=== PATIENT | male | born 1945 | race Caucasian/White ===

== ENCOUNTER 2024-09-12 19:40 | Emergency (ER) | payer MEDICARE, BC, SELFPAY ==
[2024-09-12] VITALS (7 sets, daily range): BP systolic 121; BP diastolic 67; PULSE 107–140; RESP 16; TEMP 38.1; O2SAT 89–93; BMI 22.6
--- NOTE | 2024-09-12 21:08 | ED.GENADULT ---
HPI - General Adult General Chief complaint: Weakness Stated complaint: exhaustion, lightheaded Time Seen by Provider: 09/12/24 21:08 History of Present Illness HPI narrative: pt states feeling sick for couple weeks. Tonight more weak, not eating or drinking much today. Pt has a new cough. Pt goes to dialysis 3 times a week. No Tylenol or Ibuprofen taken at home tonight 79-year-old man presenting to the emergency department with concern of weakness and cough. History of renal failure and receives dialysis 3 times a week Has been more tired or exertionally fatigued over the last couple of weeks. Having also some lightheadedness or recently with exertion or when he goes to get up. Really became quite fatigued 2 days ago, 2 evenings ago. Did have dialysis yesterday. Also had dialysis 4 days ago. Unknown what lab work was done or when it is done and what the results were. Has not noted a fever however arrives with a temperature of 100.5?. When inquired as whether or not makes urine ?not really?. Is not having chest pain. No abdominal pain. Does have atrial fibrillation. Does not believe he has a history of heart failure. No recent medication changes. Medications reviewed later include Carvedilol 3.125 mg twice daily Omeprazole 40 mg daily Allopurinol 150 mg daily Vitamin D3 50 mcg daily Lovastatin 20 mg every evening Torsemide 40 mg b.i.d. Levothyroxine 75 mcg once daily before eating Warfarin 6 mg daily Wednesday through Wednesday Sevelamer carbonate 800 mg t.i.d. with meal RenalPlex 1 tab daily Believes INR 2 weeks ago of 2.5. Admittedly this has been up and down. Has seen Dr. Godfrey Ferreira in Cardiology Related Data Allergies Allergy/AdvReac Type Severity Reaction Status Date / Time prednisone AdvReac Mild Verified 09/12/24 20:12 Review of Systems Status of ROS: Reports: 6 or more systems reviewed and unremarkable except as noted in History and below PFSH PFSH Social History Smoking Status: Never smoker How often do you have a drink containing alcohol: never AUDIT-C Alcohol total score: 0 Non-prescribed substance use: denies use Exam Narrative: Exam Narrative: Pleasant. Easily conversant. Appears little tired. Subtly labored in his breathing but not tachypneic. Cranial nerves 2-12 intact. Lungs appear to be clear. Heart in tachycardic in what seems to be a regular rhythm maybe with occasional ectopic beat. Extremities are well perfused without edema. Skin feels little warm. Abdomen is soft nontender. Const: Vital Signs, click to edit/add: Vital Signs - 24 hr 09/12/24 20:07 09/12/24 21:00 09/12/24 21:30 Temperature 100.5 F H Pulse Rate 107 H 118 H Pulse Rate [Left P ulse Oximeter] 133 H Respiratory Rate 16 Blood Pressure Blood Pressure [Ri ght Upper Arm] 121/67 Pulse Oximetry 93 93 92 Oxygen Delivery Me thod Room Air 09/12/24 22:00 09/12/24 22:30 09/12/24 23:00 Temperature Pulse Rate 140 H 112 H 110 H Pulse Rate [Left P ulse Oximeter] Respiratory Rate Blood Pressure Blood Pressure [Ri ght Upper Arm] Pulse Oximetry 89 92 91 Oxygen Delivery Me thod 09/12/24 23:30 09/13/24 00:00 09/13/24 00:30 Temperature Pulse Rate 114 H 106 H 95 Pulse Rate [Left P ulse Oximeter] Respiratory Rate Blood Pressure Blood Pressure [Ri ght Upper Arm] Pulse Oximetry 89 89 91 Oxygen Delivery Me thod 09/13/24 01:00 09/13/24 01:25 09/13/24 01:27 Temperature 98.3 F Pulse Rate 120 H Pulse Rate [Left P ulse Oximeter] Respiratory Rate 18 Blood Pressure 97/68 Blood Pressure [Ri ght Upper Arm] Pulse Oximetry 91 Oxygen Delivery Me thod 09/13/24 01:31 09/13/24 01:32 Temperature Pulse Rate 105 H 112 H Pulse Rate [Left P ulse Oximeter] Respiratory Rate Blood Pressure 113/65 Blood Pressure [Ri ght Upper Arm] Pulse Oximetry 92 91 Oxygen Delivery Me thod Documenting provider has reviewed patient's vital signs: yes Course Vital Signs Vital signs: Initial Vital Signs Temperature 100.5 F H 09/12/24 20:07 Temperature Source Temporal Artery Scan 09/12/24 20:07 Pulse Rate 133 H 09/12/24 20:07 Pulse Rhythm Regular 09/12/24 20:07 Respiratory Rate 16 09/12/24 20:07 Blood Pressure 121/67 09/12/24 20:07 Blood Pressure Mean 85 09/12/24 20:07 Blood Pressure Position Sitting 09/12/24 20:07 Pulse Oximetry 93 09/12/24 20:07 Oxygen Delivery Method Room Air 09/12/24 20:07 Vital Signs Temperature 100.5 F H 09/12/24 20:07 Pulse Rate 133 H 09/12/24 20:07 Respiratory Rate 16 09/12/24 20:07 Blood Pressure 121/67 09/12/24 20:07 Pulse Oximetry 93 09/12/24 20:07 Oxygen Delivery Method Room Air 09/12/24 20:07 Temperature 98.3 F 09/13/24 01:25 Pulse Rate 112 H 09/13/24 01:32 Respiratory Rate 18 09/13/24 01:25 Blood Pressure 113/65 09/13/24 01:31 Pulse Oximetry 91 09/13/24 01:32 Oxygen Delivery Method Room Air 09/12/24 20:07 Medications Administered Medications: Discontinued Medications Generic Name Dose Route Start Last Admin Trade Name Freq PRN Reason Stop Dose Admin Sodium Chloride 1,000 mls @ 1,000 mls/hr 09/12/24 21:39 09/12/24 23:41 0.9 % Sodium Chloride 1000 Ml IV 09/12/24 22:38 Infused .Q1H ONE Infusion Metoprolol Tartrate 5 mg 09/13/24 01:37 09/13/24 01:46 Metoprolol Tartrate 1 Mg/Ml Inj IVP 09/13/24 01:38 5 mg ONCE ONE Administration Oseltamivir Phosphate 75 mg 09/13/24 01:45 09/13/24 01:56 Oseltamivir Phosphate 75 Mg Capsule PO 09/13/24 01:46 75 mg ONCE ONE Administration Medical Decision Making MDM Narrative Medical decision making narrative: Considering community prevalence I suspect probably has influenza a. Would screen for this. And indeed this returned as positive which I discussed during my initial conversation. They emphasized that son was concerned about his more recent health status. Concern of dehydration. We decided to do further workup. Unsure what recent labs have been. Oxygen level was noted to be 93%. I think should do a chest x-ray. May have pleural effusion or pneumonia. Check for electrolyte abnormalities. Exacerbation of heart failure? Is tachycardic. Is this infectious etiology or AFib with RVR otherwise? No pleuritic pain. I think less likely, and is anticoagulated, to have pulmonary embolus. Given a L of normal saline. One-view portable chest x-ray independently reviewed by me looks to show a small pleural effusion right side. Radiology over-read below INDICATION: Fever, cough, influenza TECHNIQUE: Chest radiograph 1 view COMPARISON: None FINDINGS: The sensitivity and specificity of the exam are moderately limited by the patient`s body habitus. Mediastinum: The mediastinum is normal in appearance. The cardiac silhouette is at upper limits of normal in size. Lung: Mild consolidation with small right pleural effusion noted. There is a 7 mm calcified granuloma present in the left apex. No pneumothorax is identified. Bone and Soft tissue: Unremarkable for age. IMPRESSION: 1. Mild consolidation with small right pleural effusion noted. Dictated by Panchito Kee MD @ 09/12/2024 10:21:33 PM White count is not elevated. Hemoglobin sounds to be steady at 11.2. Chemistries with a potassium of 5.2; not unexpected. Creatinine 5.9. EKG looks to show atrial fibrillation with RVR. Probably this effusion is been contributing to some exertional fatigue for some time. Although AFib with RVR could be doing this as well. Unaware of this as a prior diagnosis and unaware of prior imaging. On reassessment does feel better. Lightheadedness to sitting has resolved. Oxygen saturations though have been around 89-91 %. He is unsure what his baseline is. Pulse is generally in the 1 teens though can drop into the upper 90s and go up into the 120s. Decided to clarify this effusion and possible consolidation further with IV contrast chest CT. TECHNIQUE: CT chest 75 cc of Isovue 370 IV contrast. COMPARISON: Same day chest radiograph. FINDINGS: CHEST: Cardiovascular structures: Heart size is normal. Thoracic aorta and main pulmonary artery are normal in caliber. Atherosclerotic calcifications of the aorta and branch vessels. Coronary artery calcifications. Mediastinum and gabrielle: A couple of borderline enlarged mediastinal lymph nodes, for example right paratracheal node measuring 1.0 cm in the short axis (). Calcified hilar lymph nodes consistent with prior granulomatous disease. Lungs and pleura: Moderate right-sided pleural effusion with associated right lower lobe consolidation that may represent compressive atelectasis. Multiple calcified granulomas. No overtly suspicious nodules. Chest wall and axilla: No mass or adenopathy. Hypertrophied appearance of the right thyroid lobe, but no discrete lesion. Bones: Multiple spinal compression deformities that may be chronic, the most substantial of which are T10 and L1. Upper abdomen: Scattered hepatic and splenic calcified granulomas. Atrophic kidneys. IMPRESSION: 1. Moderate right pleural effusion with adjacent right lower lobe consolidation suggestive of compressive atelectasis. Superimposed pneumonia could not be excluded, if clinically suspected. 2. A couple of borderline enlarged mediastinal lymph nodes, indeterminate. Please note that all CT scans at this facility use dose modulation, iterative reconstruction, and/or weight-based dosing when appropriate to reduce radiation dose to as low as reasonably achievable. Dictated by Rolly Ferguson MD @ 09/12/2024 11:47:19 PM Did add on troponin though with creatinine 5.9 unsure what to make of this. Troponin I is 0.12. I think that this pleural effusion is been involving for some weeks. Unclear whether this tachycardia is more of an AFib with RVR triggered by new influenza diagnosis or stress related to pleural compromise. I think less likely that there is a bacterial infiltrate and that the consolidation is more likely related to atelectasis. While his preference is to return home, would be prudent to find a hospital bed somewhere for Mr. Alex. Unfortunately do not do dialysis here. Did discuss with [facility] for potential admission. Has been a dearth of hospital beds but 1 is potentially available at [facility]. In this conversation did talk with Cardiology about management for Mr. Alex. In agreement that would benefit from hopitalization and multispecialty care. Recommendations are to control heart rate a little bit more probably with addition of metoprolol. We will test dose metoprolol IV followed by oral 25-50mg if responds well. Also given singular dose of Tamiflu 75 mg. Renally dosed with estimated creatinine clearance would be 75 mg once daily. Received a call back from [facility] hospitalist. Apparently medical beds are available with overweight. Wanting him to be in cardiac bed which is not available currently. Chest x-ray obtained from chart review from and done on 12/20/2022 is read as a ?new small right pleural effusion with adjacent consolidation. Clear left lung? 0200 -- Have managed to confirm a bed with a 5-6 hour wait now at [facility]. Handing off at change of shift. Pending is metoprolol effect. Medical Records Medical records reviewed: Yes I reviewed the patient's medical records Lab Data Lab results reviewed: Yes I reviewed the patient's lab results Labs: Lab Results 09/12/24 09/12/24 09/12/24 Range/Units 20:20 21:50 23:38 WBC 8.49 (4.50-11.00) K/uL RBC 3.40 L (4.30-5.90) m/uL Hgb 11.2 L (13.5-17.5) gm/dL Hct 34.8 L (37.0-53.0) % MCV 102 H (80-100) fL MCH 33 (26-34) pg MCHC 32 (32-36) gm/dL RDW Coeff of Teo 13.6 (11.5-15.5) % Plt Count 216 (140-440) K/uL Neut % (Auto) 79.0 H (42.0-72.0) % Lymph % (Auto) 13.1 L (20-44) % Craven % (Auto) 7.4 (0.0-11.0) % Eos % (Auto) 0.0 (0.0-7.0) % Baso % (Auto) 0.4 (0.0-3.0) % Neut # (Auto) 6.70 (1.7-7.0) K/uL Lymph # (Auto) 1.10 (0.90-2.90) K/uL Craven # (Auto) 0.60 (0.00-0.90) K/UL Eos # (Auto) 0.00 (0.00-0.50) K/uL Baso # (Auto) 0.03 (0.00-0.30) K/uL Abs Immat Gran (auto) 0.01 (0.00-0.30) K/uL Imm/Tot Granulo (auto) 0.1 % INR 2.67 H (0.91-1.10) Sodium 133 L (135-149) mmol/L Potassium 5.2 H (3.6-5.1) mmol/L Chloride 96 (96-114) mmol/L Carbon Dioxide 22 (20-32) mmol/L Anion Gap 15 (7-15) mEq/L BUN 37 H (7-30) mg/dL Creatinine 5.9 H (0.5-1.5) mg/dL Estimated Creat Clear 11.09 Estimated GFR 9 ml/min Glucose 132 H (60-115) mg/dL Calcium 8.5 (8.4-10.6) mg/dL Troponin I 0.12 H* (0.01-0.04) ng/mL NT-Pro-B Natriuret Pep 16473 pg/mL SARS-CoV-2 (PCR) Negative SARS-CoV-2 (Negative) Influenza Type A (PCR) POSITIVE PCR FLU A A (Negative) Influenza Type B (PCR) Negative PCR FLU B (Negative) RSV (PCR) Negative PCR RSV (Negative) Lab Acknowledgement Test Added 09/13/24 Range/Units 00:10 WBC (4.50-11.00) K/uL RBC (4.30-5.90) m/uL Hgb (13.5-17.5) gm/dL Hct (37.0-53.0) % MCV (80-100) fL MCH (26-34) pg MCHC (32-36) gm/dL RDW Coeff of Teo (11.5-15.5) % Plt Count (140-440) K/uL Neut % (Auto) (42.0-72.0) % Lymph % (Auto) (20-44) % Craven % (Auto) (0.0-11.0) % Eos % (Auto) (0.0-7.0) % Baso % (Auto) (0.0-3.0) % Neut # (Auto) (1.7-7.0) K/uL Lymph # (Auto) (0.90-2.90) K/uL Craven # (Auto) (0.00-0.90) K/UL Eos # (Auto) (0.00-0.50) K/uL Baso # (Auto) (0.00-0.30) K/uL Abs Immat Gran (auto) (0.00-0.30) K/uL Imm/Tot Granulo (auto) % INR (0.91-1.10) Sodium (135-149) mmol/L Potassium (3.6-5.1) mmol/L Chloride (96-114) mmol/L Carbon Dioxide (20-32) mmol/L Anion Gap (7-15) mEq/L BUN (7-30) mg/dL Creatinine (0.5-1.5) mg/dL Estimated Creat Clear Estimated GFR ml/min Glucose (60-115) mg/dL Calcium (8.4-10.6) mg/dL Troponin I (0.01-0.04) ng/mL NT-Pro-B Natriuret Pep pg/mL SARS-CoV-2 (PCR) (Negative) Influenza Type A (PCR) (Negative) Influenza Type B (PCR) (Negative) RSV (PCR) (Negative) Lab Acknowledgement Test Added ECG Data Attestation: I personally reviewed and interpreted this ECG as follows: (Atrial fibrillation with RVR at a rate of 120. Some PVCs?) Discharge Plan Discharge Clinical Impression: Influenza A, Pleural effusion, Renal failure, Heart failure Follow Up/Referrals: Provider,Not a Local [Primary Care Provider] -
[2024-09-12 21:09] LABS: PCR FLU A POSITIVE PCR FLU A (Negative); PCR FLU B Negative PCR FLU B (Negative); PCR RSV Negative PCR RSV (Negative); SARS PCR* Negative SARS-CoV-2 (Negative)
--- NOTE | 2024-09-12 21:39 | CRLHL7_ITS ---
For Patients: As a result of the Cures Act, medical imaging exams and procedure reports are released immediately into your electronic medical record. You may view this report before your referring provider. If you have questions, please contact your health care provider. INDICATION: Fever, cough, influenza TECHNIQUE: Chest radiograph 1 view COMPARISON: None FINDINGS: The sensitivity and specificity of the exam are moderately limited by the patient`s body habitus. Mediastinum: The mediastinum is normal in appearance. The cardiac silhouette is at upper limits of normal in size. Lung: Mild consolidation with small right pleural effusion noted. There is a 7 mm calcified granuloma present in the left apex. No pneumothorax is identified. Bone and Soft tissue: Unremarkable for age. IMPRESSION: 1. Mild consolidation with small right pleural effusion noted. Dictated by Panchito Kee MD @ 09/12/2024 10:21:33 PM Dictated by: Panchito Kee MD @ 09/12/2024 22:21:38 (Electronically Signed)
--- OUTSIDE RECORDS SUMMARY | 2024-09-12 21:51 | XMS_ITS | Clinical Summary ---
Author Organization [employer] [facility] Address [place], [place] [address] Care Team Providers Care Post Doc Fellowship Name Role Phone Simon Baxter MD Unavailable [phone] Carolee Mohamud MD Primary Care Provider + Allergies Active Allergy Reactions Criticality Noted Date Comments Pseudoephedrine Constipation,Urinary Retention Unknown 05/09/2015 Could not urinate on medication Medications cholecalciferol (VITAMIN D3) 2,000 unit capsule Take 1 Cap by mouth. Active allopurinoL (ZYLOPRIM) 300 mg tablet Take 150 mg by mouth once daily. 022 Active carvediloL (COREG) 6.25 mg tablet two times daily with meals. 1/2 tablet BID 0 022 Active sevelamer carbonate (RENVELA) 800 mg tab tablet Take 1 Tablet by mouth. 023 Active RenaPlex-D 800 mcg-12.5 mg -2,000 unit tab Take 1 Tablet by mouth once daily. Active torsemide (DEMADEX) 20 mg tablet Take 20 mg by mouth two times daily. TAKE 2 TABLETS BY MOUTH TWICE A DAY 023 Active levothyroxine (SYNTHROID) 88 mcg tabletIndications:Hypot hyroidism (acquired),Elevated TSH Take 1 Tablet (88 mcg) by mouth before breakfast. 90 Tablet 3 024 Active lovastatin (MEVACOR) 20 mg tabletIndications:Pure hypercholesterolemia Take 1 Tablet (20 mg) by mouth once daily with evening meal. 90 Tablet 3 024 Active omeprazole (PRILOSEC) 40 mg Delayed-Release capsuleIndications:Duod enal ulcer Take 1 Capsule (40 mg) by mouth once daily. 90 Capsule 3 024 Active warfarin (COUMADIN) 2 mg tabletIndications:Parox ysmal atrial fibrillation (HC),Anticoagulation monitoring, INR range 2-3 Take by mouth 8 mg (2 mg x 4) every Tue; 6 mg (2 mg x 3) all other days in the evening OR as directed 286 Tablet 025 Active warfarin (COUMADIN) 2 mg tabletIndications:Parox ysmal atrial fibrillation (HC),Anticoagulation monitoring, INR range 2-3 Take by mouth 8 mg (2 mg x 4) every Tue; 6 mg (2 mg x 3) all other days in the evening OR as directed 024 2024 Discontinued Active Problems Problem Noted Date Diagnosed Date Pulmonary hypertension, unspecified 07/11/2024 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 ACP discussion held with patient Patient Is able to make complex medical decisions on their own behalf at this time.. Summary of today's discussion: Is understanding of his current conditions and knows that he likely has 5 or so years left depending on his ESRD course Prognosis: Current prognosis shared during this discussion. Prognosis at this time is a few years. Wishes: The patient/family expressed goals/wishes in this discussion are: Selective treatment Health care values: staying at home (patient and are thinking of selling their single-family home and moving to a long-term apartment) Resuscitation/Code Status: Resuscitation/Code Status wishes were discussed with expressed wishes to be DNR - allow a natural .. Recommendation(s) provided during this discussion: bring copy of health care directive to be scanned to his chart ACP Documents: Documents completed during the course of today's discussion are: None Time spent in Advance Care Planning discussion: 10 min Carolee Harris MD .................... 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 Resistant hypertension, finally well controlled! - Cont carvedilol 3.125 twice daily (unable to titrate up due to bradycardia), chlorthalidone 25, lisinopril 40, amlodipine 10 and hydralazine 100 three times a day . Advised continued efforts at weight loss for better blood pressure control. Pure hypercholesterolemia 06/02/2007 Overview (04/18/2009): Ldl 119 03/30 LDL Cholesterol 127 on 04/16/09 Impotence of organic origin 06/02/2007 Cervicalgia 06/02/2007 Overview (04/05/2008): Ramsey spinal stenosis with radiculopathy and no pain in neck. No surgery- yet. Has thenar eminence wasting and EMG normal MRI cspine and brachial plexus Gout, unspecified 06/02/2007 Abnormal involuntary movements(781.0) 06/02/2007 Benign prostatic hyperplasia with urinary retent ion Resolved Problems Problem Noted Date Diagnosed Date Resolved Date Acute renal failure (ARF) 10/19/2017 Acute diarrhea 10/19/2017 01/27/2021 CKD (chronic kidney disease) stage 3, GFR 30-59 ml/min 05/01/2010 01/27/2021 Overview (05/01/2010): 05/02 46 Screening PSA (prostate specific antigen) 04/16/2009 09/26/2016 Overview (04/18/2009): PSA 03/31 3.9 Tobacco use disorder 06/02/2007 014 health maintenance 06/02/2007 4 Overview (06/02/2007): Lipids 07/27 224,40/151; 10/26 167,35/120; 09/29 183,39/116; Flex sig 12/22 negative; PSA 06/26 2.6, 07/27 2.9 Encounters Date Type Department Care Team Description 08/29/2024 11:10 AM TECHNICAL EXPERT Orders Only [facility] [address] [place] [address] Lab 08/29/2024 Anticoagulation (warfarin) [facility] [address] [facility] [place] [address] [facility] Anticoagulation 08/29/2024 Travel 08/29/2024 Refill [facility] [address] [place] [address] Carolee Mohamud MD Refill Request (Warfarin) 08/01/2024 11:00 AM TECHNICAL EXPERT Orders Only [facility] [address] [place] [address] Lab 08/01/2024 Telephone [facility] [address] [place] [address] Carolee Mohamud MD Anticoagulation (Annual AC Re-enrollment) 08/01/2024 Anticoagulation (warfarin) [facility] [address] [place] [address] [facility] [place] Anticoagulation 08/01/2024 Travel 07/11/2024 10:05 AM TECHNICAL EXPERT Office Visit [facility] [address] [place] [address] Carolee Mohamud MD Medication Management 07/11/2024 Telephone [facility] [address] [facility] [place] [address] Carolee Mohamud MD Anticoagulation (BPA OMEPRAZOLE) 07/11/2024 Travel 07/11/2024 Refill [facility] [address] [facility] [place] [address] Carolee Mohamud MD Refill Request (Lovastatin) 07/07/2024 Refill [facility] [address] [facility] [place] [address] Carolee Mohamud MD Refill Request (lovastatin) 07/04/2024 11:10 AM TECHNICAL EXPERT Orders Only [facility] [address] [facility] [place] [address] Lab 07/04/2024 Anticoagulation (warfarin) [facility] [address] [facility] [place] [address] [facility] [place] Anticoagulation 07/04/2024 Travel 06/23/2024 Telephone [facility] [address] [facility] [place] [address] Carolee Mohamud MD Anticoagulation (Lab Orders ) 06/15/2024 11:10 AM CDT Orders Only [facility] [address] [facility] [place] [address] Lab 06/15/2024 Anticoagulation (warfarin) [facility] [address] [facility] [place] [address] [facility] [place] Anticoagulation 06/15/2024 Travel 06/12/2024 Telephone [facility] [address] [facility] [place] [address] Carolee Mohamud MD Anticoagulation (Chart Update lab orders/[facility] ) from Last 3 Months Immunizations Name Administration Dates Next Due COVID-19 vaccine (Register My Info 30mcg/0.3mL) MIREYA CARDOAN 06/06/2021,11/07/2020,10/17/2020 Hep B (Hepatitis B (Adult) Recombinant Adjuvanted) 05/19/2023,03/19/2023,02/12/2023,2022 Influenza Virus, Unspecified 06/11/2023, 04/23/2012,08/02/2008,2006 Influenza, High-dose Inactivated 020,04/29/2017,06/24/2015,2013 Influenza, IIV3 (Age >=3 years) 05/19/20 13,05/27/2012,04/23/2012,2007,07/11/2007,07/28/2006,08/05/2005 Influenza, Inactivated AIIV4 (Age 65+ Years) Preserv Free 08/10/2022,07/25/2021 Influenza, RIV3 (Age =>18 Years) 06/02/2024 Influenza, Whole Virus 07/27/2003 Pneumococcal Poly,23-Valent (Pneumovax) 05/27/2012 Pneumococcal conj 13-Valent (Prevnar 13) 06/03/2014,05/07/2010 Pneumococcal, Unspecified 04/23/2012 Td (Age >=7 Years) 08/05/2005 Tdap 08/11/2011 Zoster (Zostavax-ZVL, live) 10/18/2011 Family History Medical History Relation Name Comments Alcohol/Drug Father Other Mother bowel obstructi on Relation Name Status Comments Father Mother Social History Tobacco Use Types Packs/Day Years Used Date Smoking Tobacco: Former Cigarettes 0.5 30 0 08/23/1976 - 08/23/2006 Smokeless Tobacco: Never Tobacco Cessation:Counseling Given: Yes Comments:No exposure Alcohol Use Standard Drinks/Week Comments No 0 (1 standard drink = 0.6 oz pur e alcohol) PHQ-2 Answer Date Recorded PHQ-2 TOTAL SCORE 0 07/11/2024 Social Connections Answer Date Recorded Do you often feel lonely or isolated from those around you? 0 07/11/2024 Financial Resource Strain Answer Date R ecorded Difficulty of Paying Living Expenses 3 07/11/2024 Difficulty of Paying Living Expenses Not on file 07/11/2024 Food Insecurity Answer Date Recorded Do you worry your food will run out before you are able to buy more? 1 07/11/2024 Transportation Needs Answer Date Record ed Does lack of transportation keep you from medica l appointments? 1 07/11/2024 Does lack of transportation keep you from work, meetings or getting things that you need? 1 07/11/2024 Housing Stability Answer Date Recorded What is your housing situation today? 1 07/11/2024 Utilities Answer Date Recorded Do you have trouble paying f or utilities (for example, heat, electricity, water, phone)? 1 07/11/2024 Sex and Gender Information Value Date Recorded Sex Assigned at Not on file Legal Sex Male 5:24 AM TECHNICAL EXPERT Gender Identity Not on file Sexual Orientation Not on file Obstetrics History Last Filed Vital Signs Vital Sign Reading Time Taken Comments Blood Pressure 116/64 07/11/2024 10:07 AM TECHNICAL EXPERT Pulse 75 07/11/2024 10:07 AM TECHNICAL EXPERT Temperature 35.9 C (96.6 F) 12/20/2022 6:20 PM CDT Respiratory Rate 16 12/20/2022 6:20 PM CDT Oxygen Saturation 99% 07/11/2024 10:07 AM TECHNICAL EXPERT Inhaled Oxygen Concentration - - Weight 83.3 kg (183 lb 9.6 oz) 07/11/2024 10:07 AM TECHNICAL EXPERT Height 184.8 cm (6' 0.75) 07/11/2024 10:[address] Body Mass Index 24.39 07/11/2024 10:07 AM TECHNICAL EXPERT Plan of Treatment Upcoming Encounters Date Type Department Care Team (Late st Contact Info) Description 09/19/2024 11:00 AM TECHNICAL EXPERT Appointment [facility] [address] [facility] [address] 09/28/2024 11:00 AM TECHNICAL EXPERT Office Visit [facility] [address] [place] [id number] Godfrey Ferreira MD [address] [place] [address] 10/10/2024 10:50 AM TECHNICAL EXPERT Orders Only [facility] [address] [place] [address] Health Maintenance Due Date Last Done Comments Zoster (shingles) series for age 50+ (2 of 3) 12/13/2011 10/18/2011 RSV vaccine for adults or (1 - 1-dose 75+ series) 2018 Tetanus booster 08/11/2021 08/11/2011, 08/05/2005 Medicare Wellness for age 65+ 01/28/2022, 02/06/2019, 12/20/2017 COVID-19 vaccine series ( season) 2024 06/06/2021, 11/07/2020, 10/17/2020 BMI (ht and wt on same day) for age 18+ 07/11/2025 07/11/2024, 06/29/2023, 06/22/2022, Additional history exists Depression screening for age 12+ 07/11/2025 07/11/2024, 07/11/2024, 06/29/2023, Additional history exists Tdap Completed 08/11/2011 Pneumococcal series for age 50+ Completed 06/03/2014, 05/27/2012, 04/23/2012, Additional history exists Influenza for age 65+ Completed 06/02/2024 , 06/11/2023, 08/10/2022, Additional history exists Medical Devices Implanted Type Area Optical Glass Inspector Device Identifier Shelf Expiration Date Model / Serial / Lot Lens, Cataract [id number] - [id number] Implanted:Qty: 1 on 05/16/2013 by Simon Baxter MD at [facility] Left: Eye R-UNKNOWN 03/15/2017 ZCB00 / [id number] / NA Lens, Cataract Zcb00 - [id number] Implanted:Qty: 1 on 05/30/2013 by Simon Baxter MD at [facility] Right: Eye R-UNKNOWN 12/28/2016 ZCB00 / / [id number] Procedures Procedure Name Priority Date/Time Associated Diagnosis Comments INR,POCT Routine 08/29/2024 11:10 AM TECHNICAL EXPERT Paroxysmal atrial fibrillation (HC) Anticoagulation monitoring, INR range 2-3 INR,POCT Routine 08/01/2024 10:37 AM TECHNICAL EXPERT Paroxysmal atrial fibrillation (HC) Anticoagulation monitoring, INR range 2-3 LIPID PANEL Routine 07/11/2024 11:04 AM TECHNICAL EXPERT Pure hypercholesterolemia TSH WITH REFLEX Routine 07/11/2024 11:04 AM TECHNICAL EXPERT Hypothyroidism (acquired) INR,POCT Routine 07/04/2024 11:16 AM TECHNICAL EXPERT Paroxysmal atrial fibrillation (HC) Anticoagulation monitoring, INR range 2-3 PROTIME-INR Routine 06/15/2024 11:24 AM CDT Paroxysmal atrial fibrillation (HC) Anticoagulation monitoring, INR range 2-3 from Last 3 Months Results * (ABNORMAL) INR - POCT [[id number]] - Standing Order (08/29/2024 11:10 AM TECHNICAL EXPERT) Only the most recent of3 resultswithin the time period is included. INR 2.5(H) ratio [facility] (Urgent [facility]) Comment: INRs >2.9 may be falsely elevated in patients receiving either unfractionated Heparin or Low Molecular Weight Heparin. Follow up testing in a hospital laboratory may be helpful if clinically indicated. INR results of > or = 5.0 should be verified using the standard venipuncture procedure. Reference Range 0.9-1.1 Moderate-intensity Warfarin Therapy 2.0-3.0 Higher-intensity Warfarin Therapy 3.0-4.0 PROTHROMBIN TIMEP 30.4(H) 10.5 - 13.1 sec [facility] (Urgent [facility]) Comment: Point of care fingerstick Prothrombin Time/INR results may vary from venous Prothrombin Time/INR methodologies. Any results exhibiting inconsistency with the patient's clinical status should be repeated using a venous Prothrombin Time/INR method. Blood BLOOD SPECIMEN / Unknown 08/29/2024 11:10 AM TECHNICAL EXPERT 08/29/2024 11:11 AM TECHNICAL EXPERT Carolee Mohamud MD LABORATORY Final Re sult [facility] [address] [place] [address], [place] [phone] [facility] (Urgent [facility]) [address] [place] [address] * TSH WITH REFLEX (07/11/2024 11:04 AM TECHNICAL EXPERT) TSH W/REFLEX TO FT4 3.14 0.40 - 4.50 mIU/L [facility] Blood BLOOD SPECIMEN / Unknown 07/11/2024 11:04 AM TECHNICAL EXPERT 07/11/2024 11:05 AM TECHNICAL EXPERT Narrative [facility] - 07/12/2024 4:24 AM TECHNICAL EXPERT FASTING:YES FASTING: YES us Carolee Mohamud MD CHEMISTRY Final Re sult [facility] [place] [facility] [address] [place] [address], [facility] [address] [place] [address] * (ABNORMAL) LIPID PANEL (07/11/2024 11:04 AM TECHNICAL EXPERT) CHOLESTEROL, TOTAL 160 <200 mg/dL [facility] HDL CHOLESTEROL 38(L) > OR = 40 mg/dL [facility] TRIGLYCERIDES 123 <150 mg/dL [facility] LDL-CHOLESTEROL 100(H) mg/dL (calc) [facility] Comment: Reference range: <100 Desirable range <100 mg/dL for primary prevention; <70 mg/dL for patients with CHD or diabetic patients with > or = 2 CHD risk factors. LDL-C is now calculated using the Altaf-Nino calculation, which is a validated novel method providing better accuracy than the Friedewald equation in the estimation of LDL-C. Altaf SS et al. NATE. 2013;310(19): 1866-2102 (http://education.MeMeMe/faq/VLN067) CHOL/HDLC RATIO 4.2 <5.0 (calc) [facility] NON HDL CHOLESTEROL 122 <130 mg/dL (calc) [facility] Comment: For patients with diabetes plus 1 major ASCVD risk factor, treating to a non-HDL-C goal of <100 mg/dL (LDL-C of <70 mg/dL) is considered a therapeutic option. Blood BLOOD SPECIMEN / Unknown 07/11/2024 11:04 AM TECHNICAL EXPERT 07/11/2024 11:05 AM TECHNICAL EXPERT Narrative [facility] - 07/12/2024 4:24 AM TECHNICAL EXPERT FASTING:YES FASTING: YES Carolee Mohamud MD CHEMISTRY Final Re sult Performing Organization Address [facility] de Phone Number [employer] [facility] [address] [place] [address], [facility] [address] [place] [address] * (ABNORMAL) PROTIME-INR (06/15/2024 11:24 AM CDT) INR 3.6(H) <1.3 06/15/2024 12:26 PM CDT [facility] PROTIME 41.3(H) 10.6 - 12.4 sec 06/15/2024 12:26 PM CDT [facility] Blood BLOOD SPECIMEN / Unknown Venipuncture / Unknown 06/15/2024 11:24 AM CDT 06/15/2024 11:26 AM CDT Narrative [facility] - 06/15/2024 12:26 PM CDT Therapeutic Range 2.0-3.0 for most anticoagulated patients 2.5-3.5 or 4.0 for high risk patients The INR is only used for patients on stable oral anticoagulant therapy. It makes no significant contribution to the diagnosis or treatment of patients whose Protime is prolonged for other reasons. INR results are increased when heparin levels exceed 1.0 U/mL, which corresponds to an aPTT >125 seconds if the patient is on UFH. Carolee Mohamud MD HEMATOLOGY Final Re sult [facility] [address] [place] [address], [place] [phone] from Last 3 Months Insurance [phone] [place] [address] MEDICARE PART B HB ONLY MEDICARE PART A HB ONLY MEDICARE PB ONLY [facility] [id number] [place] [address] MEDICARE PART A HB ONLY MEDICARE PART B HB ONLY [employer] HB ONLY Advance Directives * Full Code (Latest Code Status on File) Date Activated Date Inactivated Comments 11/18/2017 10:59 AM 11/19/2017 5:40 PM * Full Code Date Activated Date Inactivated Comments 10/19/2017 1:31 AM 10/27/2017 4:53 PM * Full Code Date Activated Date Inactivated Comments 11/19/2016 11:55 AM 11/19/2016 4:12 PM Question Answer Comments Code Status Discussion: Discussed * Full Code Date Activated Date Inactivated Comments 11/19/2016 8:28 AM 11/19/2016 11:55 AM * Full Code Date Activated Date Inactivated Comments 05/30/2013 8:47 AM 05/30/2013 1:01 PM Care Teams Post Doc Fellowship Relationship Specialty Start Date End Date Carolee Mohamud MD [address] [place] [address] PCP - General Family Practice 12/24/21 Simon Baxter MD Ophthalmology Surgery 05/08/13
--- OUTSIDE RECORDS SUMMARY | 2024-09-12 21:51 | XMS_ITS ---
Author Name Interface, [id number] l[employer] Address [address] [place] [address] [address] [address] [facility] Oncology Address [address] [facility] [address] [address] Care Team Providers Care Briquette Maker Name Role Phone Paulino Garduno Unavailable Unavailable Allergies and Adverse Reactions Medication/Group Name Reaction Severity Date pseudoephedrine 11/06/2022 Plan Date Type Value 04/23/2023 APPOINTMENT OV 20 MIN 04/23/2023 APPOINTMENT INJECTION 15 MIN 04/23/2023 APPOINTMENT LAB 15 MIN 03/26/2023 APPOINTMENT INJECTION 15 MIN 03/26/2023 APPOINTMENT LAB 15 MIN 02/26/2023 APPOINTMENT INJECTION 15 MIN 02/26/2023 APPOINTMENT LAB 15 MIN 01/29/2023 APPOINTMENT INJECTION 15 MIN 01/29/2023 APPOINTMENT LAB 15 MIN 01/01/2023 APPOINTMENT INJECTION 15 MIN 01/01/2023 APPOINTMENT LAB 15 MIN 12/04/2022 APPOINTMENT INJECTION 15 MIN 12/04/2022 APPOINTMENT LAB 15 MIN 11/06/2022 APPOINTMENT INJECTION 15 MIN 11/06/2022 APPOINTMENT LAB 15 MIN 11/06/2022 APPOINTMENT OV 20 MIN 11/06/2022 LABORDER CMP 11/06/2022 LABORDER Ferritin panel 11/06/2022 LABORDER Iron profile 11/06/2022 LABORDER Hgb Panel 12/04/2022 LABORDER Hgb Panel 01/01/2023 LABORDER Ferritin panel 01/01/2023 LABORDER Iron profile 01/01/2023 LABORDER CMP 01/01/2023 LABORDER Hgb Panel 01/29/2023 LABORDER Hgb Panel 02/26/2023 LABORDER Ferritin panel 02/26/2023 LABORDER Hgb Panel 02/26/2023 LABORDER Iron profile 02/26/2023 LABORDER CMP 03/26/2023 LABORDER Hgb Panel 04/23/2023 LABORDER Ferritin panel 04/23/2023 LABORDER Hgb Panel 04/23/2023 LABORDER Iron profile [facility] Reason for Visit LAB 15 MIN Encounters Date Name 11/06/2022 Iron deficiency anem ia, erythropoietin deficiency Immunizations Date Name Route Dose Instructions Refusal Reason Stat us Flu vaccine - Adult Comp leted Diagnostic Results Date Type Test Units Lower Limit Upper Limit Result Flag Comments Status Ordered By Specimen Source Lab Address 11/06 Iron profi le TIBC ug/dL 250.0 425.0 263 FINAL [facility], [address] [place] [address] [phone] 0 Phone: () - 11/06 Iron profi le Iron ug/dL 50.0 175.0 71 FINAL [facility] [address] [facility] [address] [facility] [phone] Phone: () - 11/06 Iron profi le Unbou nd iron capac ity ug/dL 75.0 410.0 192 FINAL [facility], [address] [place] [address] [phone] 0 Phone: () - 11/06 Iron profi le Iron, % satur ation % 20.0 55.0 27 FINAL [facility], [address] [facility] [address] [place] [address] [phone] 0 Phone: () - 11/06 HGB g/dL 12.5 16.6 10.6 Low FINAL [facility] , [address] [facility] [address] [facility] [phone] Phone: () - 11/06 Alicia tin panel Alicia tin NG/ML 27.0 300.0 179.60 FINAL [facility] [address] [facility] [address] [place] [address] [phone] 0 Phone: () - 11/06 CMP Album in g/dL 3.2 5.2 3.8 FINAL [facility], [address] [place] [address] [phone] 0 Phone: () - 11/06 CMP Alkal ine phosp hatas e U/L 46.0 116.0 376 High [facility], [address] [place] [address] [phone] 0 Phone: () - 11/06 CMP ALT/S GPT U/L 7.0 40.0 16 FINAL [facility] [address] [phone] 0 Phone: () - 11/06 CMP AST/S GOT U/L 13.0 40.0 35 FINAL [facility], [address] [phone] 0 Phone: () - 11/06 CMP BUN mg/dL 9.0 23.0 83 Critica l industrial chemist ry value obtaine dIsael Criti jessica High [facility] [address] [phone] Phone: () - 11/06 CMP Calci um mg/dL 8.7 10.4 9.4 FINAL [facility] [address] [phone] Phone: () - 11/06 CMP Chlor jose e mmol/L 96.0 114.0 109 FINAL [facility] [place] [address] [phone] 0 Phone: () - 11/06 CMP CO2 mmol/L 20.0 31.0 23 The expected total allowable error for CO2 is 5.6%. We have seen up to 10% differenc e in values if reported at the end of the 96 hour stability window. Please consider the clinical significa nce of a 2.0-2.5 mmol/L lower reported CO2 value if reported at the end of the 96 hour stability window. FINAL [facility], [address] [place] [address] [phone] 0 Phone: () - 11/06 CMP Creat inine mg/dL 0.5 1.2 5.58 Critica l industrial chemist ry value april garciaIsael Alek jessica High FINAL [facility] [place] [address] [phone] 0 Phone: () - 11/06 CMP GFR estim ate ml/min /1.73m ^2 9.7 Low GFR is calculate d using the CKD-EPI equation. FINAL [facility] [place] [address] [phone] 0 Phone: () - 11/06 CMP Gluco se mg/dL 73.0 126.0 103 FINAL [facility] [place] [address] [phone] 0 Phone: () - 11/06 CMP Potas sium mmol/L 3.5 5.1 4.2 FINAL [facility] [place] [address] [phone] 0 Phone: () - 11/06 CMP Sodiu m mmol/L 136.0 145.0 143 FINAL [facility] [address] [phone] 0 Phone: () - 11/06 CMP Bilir ubin, total mg/dL 0.3 1.2 0.5 FINAL [facility] [place] [address] [phone] 0 Phone: () - 11/06 CMP Total prote in g/dL 5.7 8.2 7.4 FINAL [facility] [place] [address] [phone] 0 Phone: () - 12/04 HGB g/dL 12.5 16.6 10.0 Low FINAL [facility] , [address] [facility] [address] [place] [address] [phone] 0 Phone: () - Medications Date Name Route Dose Frequency Instructions Start Date End Date Status Carvedilol Oral BID a ctive Clonidine Oral orally 0.2 mg 2 times per day active Levothyroxine Oral orally 50.0 mcg daily active Terazosin Oral orally 10.0 mg daily active Amlodipine Oral orally 5.0 mg daily active Multivitamins Oral Tablet orally 1.0 daily active Omeprazole Oral Delayed Release Capsule orally 40.0 mg daily active Allopurinol Oral orally 300.0 mg daily active Warfarin Oral act margret Cholecalciferol Oral Chewable active Sodium Bicarbonate Oral BID active Lovastatin Oral orally 20.0 mg daily active [place] 4-CNU-ALG-Fish Oil Oral Delayed Release 60 mg-90 mg-500 mg active 02/26 0.3 ML darbepoetin aurelio 0.2 MG/ML Prefilled Syringe subcutaneously 100.0 mcg once Dose rounded from 65 mcg to 60 mcg (nearest syringe size) per [facility] policy. 2022 active 01/29 0.3 ML darbepoetin aurelio 0.2 MG/ML Prefilled Syringe subcutaneously 100.0 mcg once Dose rounded from 65 mcg to 60 mcg (nearest syringe size) per [facility] policy. 2022 active 01/01 0.3 ML darbepoetin aurelio 0.2 MG/ML Prefilled Syringe subcutaneously 100.0 mcg once Dose rounded from 65 mcg to 60 mcg (nearest syringe size) per [facility] policy. 2022 active 12/04 0.3 ML darbepoetin aurelio 0.2 MG/ML Prefilled Syringe subcutaneously 100.0 mcg once Dose rounded from 65 mcg to 60 mcg (nearest syringe size) per [facility] policy. 12/04 on hold 11/06 0.3 ML darbepoetin aurelio 0.2 MG/ML Prefilled Syringe subcutaneously 100.0 mcg once Dose rounded from 65 mcg to 60 mcg (nearest syringe size) per [facility] policy. 11/06 on hold 09/11 0.3 ML darbepoetin aurelio 0.2 MG/ML Prefilled Syringe subcutaneously 100.0 mcg once Dose rounded from 65 mcg to 60 mcg (nearest syringe size) per [facility] policy. 09/11 on hold 06/19 0.3 ML darbepoetin aurelio 0.2 MG/ML Prefilled Syringe subcutaneously 100.0 mcg once Dose rounded from 65 mcg to 60 mcg (nearest syringe size) per [facility] policy. 2021 active 06/04 1 ML epinephrine 1 MG/ML Injection intramuscularly 0.3 mg once Re-initiate treatment only upon physician approval. 2021 active 06/04 methylprednisolone 2000 MG Injection intravenously 125.0 mg Re-initiate treatment only upon physician approval. 2021 active 06/04 hydrocortisone 100 MG Injection intravenously 100.0 mg Re-initiate treatment only upon physician approval. 2021 active 06/04 famotidine 10 MG/ML Injectable Solution intravenously 20.0 mg Re-initiate treatment only upon physician approval. 2021 active 05/28 famotidine 10 MG/ML Injectable Solution intravenously 20.0 mg Re-initiate treatment only upon physician approval. 2021 active 05/28 hydrocortisone 100 MG Injection intravenously 100.0 mg Re-initiate treatment only upon physician approval. 2021 active 05/28 1 ML epinephrine 1 MG/ML Injection intramuscularly 0.3 mg once Re-initiate treatment only upon physician approval. 2021 active 05/28 methylprednisolone 2000 MG Injection intravenously 125.0 mg Re-initiate treatment only upon physician approval. 2021 active 05/22 0.3 ML darbepoetin aurelio 0.2 MG/ML Prefilled Syringe subcutaneously 100.0 mcg once Dose rounded from 65 mcg to 60 mcg (nearest syringe size) per [facility] policy. 2021 active 01/05 0.3 ML darbepoetin aurelio 0.2 MG/ML Prefilled Syringe subcutaneously 60.0 mcg once Dose rounded from 65 mcg to 60 mcg (nearest syringe size) per [facility] policy. 01/05 on hold 11/10 0.3 ML darbepoetin aurelio 0.2 MG/ML Prefilled Syringe subcutaneously 60.0 mcg once Dose rounded from 65 mcg to 60 mcg (nearest syringe size) per [facility] policy. 11/10 on hold 09/15 0.3 ML darbepoetin aurelio 0.2 MG/ML Prefilled Syringe subcutaneously 60.0 mcg once Dose rounded from 65 mcg to 60 mcg (nearest syringe size) per [facility] policy. 09/15 on hold 08/18 0.3 ML darbepoetin aurelio 0.2 MG/ML Prefilled Syringe subcutaneously 60.0 mcg once Dose rounded from 65 mcg to 60 mcg (nearest syringe size) per [facility] policy. 08/18 on hold Problems Diagnosis Status Date of Diagnosi s Anemia of chronic kidney failure Active Chronic kidney failure Active Iron deficiency anemia, erythropoietin deficienc y Active Hyperparathyroidism (disorder) Active Vital Signs Date Type Value 11/06/2022 Body Temperature 97.80 11/06/2022 Heart Beat 65.00 11/06/2022 Respiratory Rate 15.00 11/06/2022 Oxygen Saturation 98.00 11/06/2022 BSA 2.17 11/06/2022 Pain Scale 0.00 11/06/2022 Weight 199.80 11/06/2022 Height 74.00 11/06/2022 BMI 25.65 11/06/2022 Intravascular Systolic 144 11/06/2022 Intravascular Diastolic 62 Notes Section * Med Onc Follow-up Note Patient Name: ROLLY ALEX? Date Of : 1945? Today's Provider:?Paulino Garduno MD Date of Service:?11/06/2022? Attending Physician:?Paulino Garduno (Hematology/Oncology) Referring Provider:??Shay Brown MD (Nephrology) HEMATOLOGY/ MEDICAL ONCOLOGY FOLLOW UP VISIT Reason for Visit Evaluation and treatment decision regarding anemia Assessment 1.?Anemia of chronic kidney insufficiency 2. ??Chronic kidney insufficiency Plan 1.?Hgb today is 10.4. No aranesp today. We will check hemoglobin every four weeks and adjust dose as needed. Goal is to keep hemoglobin to 10 or above. Advanced Care Planning Not discussed at this visit. Pain Scale on Today's Visit 0 Pain Plan on Today's Visit No pain plan indicated for today's visit Smoking Status Smoking Tobacco : Former smoker; Smokeless Tobacco : none found; Vaping : none found Depression Screening Tool Status Was screened; Outcome positive: No; Screening Date: 04/24/2022; Screening Tool: PRIME [id number]-PHQ2; Total depression score: 0 History of Present Illness Rolly Alex is a 77-year-old male with a diagnosis of anemia. ??He has a longstanding history of anemia at least dating back to 7 years ago which was detected on his presurgery screening. ??Most recently his hemoglobin was 9.3. ??He was not iron deficient. ??He has a chronic kidney insufficiency. He has a history of bleeding ulcer for which was treated with transfusion. ??He has a history of polymyalgia rheumatica which was treated with prednisone up until August 2020. ??He has no melena or hematochezia. Interval History He has more energy. he has no bleeding. He has no chest pain or shortness of breath. Review of Systems Remaining 14 point comprehensive review of systems within normal limits. NCCN Distress Thermometer and Problem List were collected and documented in the patient chart.?? Remarkable symptoms and concerns were discussed with the patient.?? Any additional follow-up is indicated in the plan. Past Medical and Surgical History ??Anemia Arthritis GI bleed Gout Hypertension Shingles Gastric ulcer Appendectomy Arthroscopic knee procedure Current Medications Medication List Name Date Levothyroxine Oral 04/24/2022 Lovastatin Oral 04/24/2022 Sodium Bicarbonate Oral 04/24/2022 Clonidine Oral 04/24/2022 Terazosin Oral 04/24/2022 Allopurinol Oral 04/24/2022 Amlodipine Oral 04/24/2022 Multivitamins Oral Tablet 04/24/2022 Warfarin Oral 04/24/2022 Carvedilol Oral 04/24/2022 Vitamin D3 (Cholecalciferol Oral Chewabl e) 12/23/2020 Fish Oil ([place] 1-SOA-ULL-Fi sh Oil Oral Delayed Release 60 mg-90 mg-500 mg) 12/23/2020 Omeprazole Oral Delayed Release Capsule 04/24/2022 Allergies pseudoephedrine Family History No family history of hematologic abnormalities. 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 ??He is a non-smoker. ??He does not drink alcohol. ??He is and lives with his . Vital Signs Blood pressure: 144/62, L arm, Regular, Pulse: 65, Temperature: 97.8 F, Respirations: 15, O2 sat: 98%, At Rest, Room Air, Pain Scale: 0, Height: 74 in, Weight: 199.8 lb, BSA: 2.17, BMI: 25.65 kg/m2 Covid booster #1 Pfizer (06/17/2021), Elsewhere; Covid-19 vaccine (Pfizer) (12/23/2020), Elsewhere;Covid-19 vaccine (Pfizer) (12/23/2020), Elsewhere; Flu vaccine - Adult (11/06/2022), Elsewhere; Fluvaccine - Adult (11/10/2021), Elsewhere Performance Status ECOG or Karnofsky ECO Symptoms, but ambulatory. Restricted in physically strenuous activity, but ambulatory and able to carry out work of a light or sedentary nature (e.g., light housework, office work). (Date: 04/24/2022) Karnofsky:?90% Able to carry on normal activity; minor signs or symptoms of disease. (Date: 05/28/2022) Physical Exam Head: ??Normocephalic. ?? Eyes: ??PERRLA, full EOM. ??External exams normal. ?? Nose: ??Patent, without deformity. ?? Throat: ??Moist mucous membranes without lesions, erythema, or exudate. ?? Neck: ??Supple, without masses, lymphadenopathy or tenderness. ?? Respiratory: ??Normal respiratory effort. ??Lungs are clear with good breath sounds. ?? Heart: ??RR without murmurs, rubs, or gallops. ?? Abdomen: ??The abdomen was flat, soft and nontender without guarding rebound or masses. ?? Extremities: ??Full ROM without limitation, deformity or edema.?? Skin: ??Smooth without excessive sweating, with normal hair distribution. ??No suspicious lesions visible. Neuro: ??CN 2-12 intact. ??Strength and sensation intact in all extremities. ??Motor function intact. Genetics/Molecular/Biomarkers * Iron deficiency anemia, erythropoietin deficiency Additional Labs, Imaging, and Other Studies Lab Results CBC Lab Results 11/06/2022 10/09/2022 09/11/2022 08/14/2022 07/17/2006/04/2022 CBC WBC x 10^3/uL 4.5 RBC x 10^6/uL 3.45 (L) NRBC % /100 wbc 0.0 HGB g/dL 10.6 (L) 9.4 (L) 10.1 (L) 10.7 (L) 9.8 (L) 10.6 (L) HCT % 33.5 (L) MCV fL 97.1 MCH pg 30.7 MCHC g/dL 31.6 RDW % 15.70 (H) PLT x 10^3/uL 141 MPV fL 10.1 Robert % 54.2 LY % 34.9 MO % 8.8 EO % 1.5 IG % 0.2 Robert # (ANC) x 10^3/uL 2.5 BA % 0.4 MO # x 10^3/uL 0.4 EO # x 10^3/uL 0.1 BA # x 10^3/uL 0.0 IG # x 10^3/uL 0.01 LY # x 10^3/uL 1.6 Chemistries Lab Results 11/06/2022 10/09/2022 09/11/2022 08/14/2022 07/17/2006/04/2022 Chemistries Glucose mg/dL 136 (H) 119 BUN mg/dL 83 Critical chemistry value obtained. () 88 Critical chemistry value obtained. () Creatinine mg/dL 4.72 Critical chemistry value obtained. (HH) 5.07 Critical chemistry value obtained. () Sodium mmol/L 144 142 Potassium mmol/L 4.7 5.0 Chloride mmol/L 109 107 CO2 mmol/L 23 22 Calcium mg/dL 9.1 9.0 Albumin g/dL 3.8 3.8 Total protein g/dL 7.1 7.2 Bilirubin, total mg/dL 0.7 0.5 Alkaline phosphatase U/L 420 (H) 421 (H) AST/SGOT U/L 34 51 (H) ALT/SGPT U/L 20 36 GFR estimate mL/min/1.73m2 11.8 (L) 10.9 (L) ? Lab Results 11/06/2022 10/09/2022 09/11/2022 08/14/2022 07/17/20 22 06/04/2022 Anemia Labs Iron ug/dL 68 79 53 TIBC ug/dL 276 280 300 Ferritin ng/mL 250.70 308.90 (H) 331.20 (H) Unbound iron capacity ug/dL 208 201 247 Iron, % saturation % 25 28 18 (L) Surveys/Consents/Other Discussions Paulino Garduno MD CC: FAX Shay Brown MD (Referring) Sahil Gomez MD Electronically signed by Paulino Garduno MD 11/06/2022 11:46 CDT
--- OUTSIDE RECORDS SUMMARY | 2024-09-12 21:51 | XMS_ITS | Clinical Summary ---
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 Gender Identity Not on file Sexual Orientation Not on file Last Filed Vital Signs Vital Sign Reading Time Taken Comments Blood Pressure 133/64 03/15/2024 1:25 PM CDT Pulse 63 03/15/2024 11:47 AM CDT Temperature 36.3 C (97.4 F) 03/15/2024 11:47 AM CDT Respiratory Rate 16 03/15/2024 11:47 AM CDT Oxygen Saturation 100% 03/15/2024 1:25 PM CDT Inhaled Oxygen Concentration - - Weight 77 kg (169 lb 12.1 oz) 03/15/2024 11:54 A M CDT Height 188 cm (6' 2) 03/15/2024 11:54 AM CDT Body Mass Index 21.8 03/15/2024 11:54 AM CDT Plan of Treatment Health Maintenance Due Date Last Done Comments ADVANCE CARE PLANNING 1945 ANNUAL REVIEW OF HM ORDERS 1945 FALL RISK ASSESSMENT 02/12/2008 ZOSTER IMMUNIZATION (2 of 3) 12/13/2011 10/18/2011 RSV VACCINE (1 - 1-dose 75+ series) 2018 DTAP/TDAP/TD IMMUNIZATION (2 - Td or Tdap) 08/11/2021 08/11/2011, 08/05/2005 MEDICARE ANNUAL WELLNESS VISIT 01/27/2022 01/27/2021 COVID-19 Vaccine ( season) 2024 06/06/2021, 11/07/2020, 10/17/2020 INFLUENZA VACCINE (#1) 2024 , 08/10/2022, 07/25/2021, Additional history exists HEPATITIS B IMMUNIZATION (5 of 5 - Risk Dialysis Recombivax 3-dose series) 05/19/2024 05/19/2023, 03/19/2023, 02/12/2023, Additional history exists PHQ-2 (once per calendar year) 2024 Pneumococcal Vaccine: 50+ Years Completed 06/03/2014, 05/27/2012, 04/23/2012, Additional history exists HPV IMMUNIZATION Aged Out No longer e ligible based on patient's age to complete this topic MENINGITIS IMMUNIZATION Aged Out No l onger eligible based on patient's age to complete this topic RSV MONOCLONAL ANTIBODY Aged Out No l onger eligible based on patient's age to complete this topic Insurance MEDICARE [facility] MEDICARE SUPPLEMENT MEDICARE [facility] MEDICARE SUPPLEMENT Care Teams Panel Lay Up Worker Relationship Specialty Start Date End Date Carolee Harris MD [address] [place] [address] PCP - General 03/15/24
--- OUTSIDE RECORDS SUMMARY | 2024-09-12 21:51 | XMS_ITS | Data Portability ---
Author Organization [facility], [facility] Address [address] [facility] [address] [place] [address] Care Team Providers Care Utility Manager Name Role Phone TAMIR GAMBOA Referring Provider PHYLLIS HE Primary Care Provider Assessment Encounter Date Assessment Date Assessment LastModified by Organization Details LastModified Time 04/30/2020 04/30/2020 Rolly is a 75-year-old man with BPH. A cystoscopy post TURP did show some residual tissue. We again discussed additional intervention. He is doing well and his PVR is down. We will plan a check up in 1 year. [email or web address] Not available 04/30/2020 14:31:45 07/08/2021 07/08/2021 Rolly is a 76-year-old man with BPH. A cystoscopy post TURP did show some residual tissue. He is voiding well with a low PVR (lower than last year). ESRD. Plan a f/u in 1 year with bladder scan. [email or web address] Not available 07/08/2021 12:22:12 Plan of Treatment Reminders Order Date Submit Date Provider Last Modified By Organization Details Last Modified Time Details Appointments ESTABLISH ED 20 2024 11:20A M HARSHA REDMAN, MARBELLA Not available Not available Not available Lab urinalysi s, dipstick 2020 021 [facility], [address], [address], [place], [address], 07/08/2021 12:25:55 Referral None recorded. Procedures None recorded. Surgeries None recorded. Imaging None recorded. Medication Orders terazosin 10 mg capsule 2021 022 [id number], [address] [place], [address], 10/28/2023 14:05:54 Patient TargetsNo targets recorded. Patient Instructions Encounter Date Encounter Id Patient Instructions Last Modified By Organization Details Last Modified Time 04/30/2020 [id number] Rolly is a 75-year-old man with BPH. A cystoscopy post TURP did show some residual tissue. We again discussed additional intervention. He is doing well and his PVR is down. We will plan a check up in 1 year. [email or web address] Not available 04/30/2020 14:31:48 07/08/2022 [id number] Patient is a 77-year-old male who presents today for follow-up of BPH. Patient with previous history of TURP, was noted to have worsening LUTS in the last several years, however voiding quite well per PVR bladder scans and not interested in intervention. He continues to void reasonably, no recent gross hematuria or urinary tract infections. He would like to continue on terazosin 10 mg daily. Do feel this is reasonable. We will plan to see patient back in 1 year. Not available 07/08/2022 12:18:53 10/28/2023 [id number] Patient is an 78-year-old male presents today for follow-up BPH/LUTS. Patient with well-controlled LUTS now off of terazosin 10 mg daily. 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 He does have a PVR of 143 cc. He has not had any gross hematuria or UTIs. Given his clinical picture, plan to continue to observe without medication at this time. Will have him back in yearly basis for PVR bladder scan to ensure that he is emptying well. Not available 10/28/2023 14:19:52 Reason for Referral None Reported. Results Created Date Observation Date Name Description Value Unit Range Abnormal Flag Note LastModifiedBy Organization Detail LastModifiedTime 07/08/20 21 07/08/2021 UA DIP CS ADVAN TUS color -advantus YELLOW yellow Not Available [facility] [address], [place], [address], 07/08/2021 12:25:55 07/08/20 21 07/08/2021 UA DIP CS ADVAN TUS appearance -advantus CLEAR clear Not Available [facility] [address] [facility] [address], [place], [address], 07/08/2021 12:25:55 07/08/20 21 07/08/2021 UA DIP CS ADVAN TUS glucose -advantus NEGATI VE mg/dL negati ve Not Available [facility] [address] [place] [address] [address], [place], [address], 07/08/2021 12:25:55 07/08/20 21 07/08/2021 UA DIP CS ADVAN TUS bilirubin -advantus NEGATI VE negati ve Not Available [facility] [address] [place] [address], [place], [address], 07/08/2021 12:25:55 07/08/20 21 07/08/2021 UA DIP CS ADVAN TUS ketones -advantus NEGATI VE mg/dL negati ve Not Available [facility] [address] [place] [address], [place], [address], 07/08/2021 12:25:55 07/08/20 21 07/08/2021 UA DIP CS ADVAN TUS sp. gravity -advantus 1.020 1.010- 1.025 Not Available [facility] [address] [place] [address], [place], [address], 07/08/2021 12:25:55 07/08/20 21 07/08/2021 UA DIP CS ADVAN TUS pH -advantus 5.5 5.0-8. 0 Not Available [facility] [address] [place] [address], [place], [address], 07/08/2021 12:25:55 07/08/20 21 07/08/2021 UA DIP CS ADVAN TUS protein -advantus 100 mg/dL negati ve abnormal Not Available [facility] [address] [place] [address], [place], [address], 07/08/2021 12:25:55 07/08/20 21 07/08/2021 UA DIP CS ADVAN TUS urobilinogen -advantus 0.2 normal Not Available [facility] [address] [facility] [address], [place], [address], 07/08/2021 12:25:55 07/08/20 21 07/08/2021 UA DIP CS ADVAN TUS nitrites -advantus NEGATI VE negati ve Not Available [facility] [address] [place] [address], [place], [address], 07/08/2021 12:25:55 07/08/20 21 07/08/2021 UA DIP CS ADVAN TUS blood -advantus TRACE- INTACT negati ve abnormal Not Available [facility] [address] [place] [address] [address], [place], [address], 07/08/2021 12:25:55 07/08/20 21 07/08/2021 UA DIP CS ADVAN TUS leukocytes -advantus NEGATI VE negati ve Not Available [facility] [address] [place] [address], [place], [address], 07/08/2021 12:25:55 07/08/20 21 07/08/2021 UA DIP CS ADVAN TUS performed by May Kelly Not Available [facility] [address] [place] [address], [place], [address], 07/08/2021 12:25:55 07/08/20 21 07/08/2021 UA DIP CS ADVAN TUS total urine volume (mL) 70cc /mL ----- ----- ----- ----- ----- ----- ----- ----- ----- ----- ----- ----- ----- ----- ---- *Plea se note the follo wing minim um quant ities for addit ional urine testi ng: - Atypi cals: 3 mL - Cytol ogy: 20 mL - GC/CH : 2 mL - FISH: 30 mL - Atypi cals w/ GC/CH : 5 mL - Cytol ogy PLUS FISH: 50 mL - Urine Cultu re: 3 mL ----- ----- ----- ----- ----- ----- ----- ----- ----- ----- ----- ----- ----- ----- ---- Not Available [facility] [address] [facility] [address], [place], [address], 07/08/2021 12:25:55 07/08/20 21 07/08/2021 UA MICRO SCOPI C U-WBC 0 - 2 [hpf] 0 - 2 Not Available [facility] [address] [place] [address] [address], [place], [address], 07/08/2021 12:25:59 07/08/20 21 07/08/2021 UA MICRO SCOPI C U-RBC 0 - 2 [hpf] 0 - 2 Not Available [facility] [address] [place] [address] [address], [place], [address], 07/08/2021 12:25:59 07/08/20 21 07/08/2021 UA MICRO SCOPI C bacteria Small [hpf] negati ve abnormal Not Available [facility] [address] [place] [address] [address], [place], [address], 07/08/2021 12:25:59 07/08/20 21 07/08/2021 UA MICRO SCOPI C squamous epi Negati ve /lpf negati ve,sma ll Not Available [facility] [address] [place] [address] [address], [place], [address], 07/08/2021 12:25:59 06/17/20 20 04/30/2020 bladd er scan (PROC ) No observ ation record ed. BARCODE Not Available 2019 14:03:34 Result Notes None recorded. Problems Name Problem SNOMED Code Status Onset Date Resolution Date Notes Provider Name and Address Organization Details Recorded Time Finding of urinary bladder emptying 639736713 Active 2017 R33.8 : Finding of bladder emptying Not Available [facility] 0 00:08:40 Clinical finding Active 2018 N40.1 : Desire for urination Not Available [facility] 0 00:08:40 Problem Notes None recorded. Procedures Surgical History Date Name Laterality Status Provider Name and Address Organization Details Recorded Time 024 COMPLEX VISIT completed MARBELLA BEYER [address] [facility], [place], [address], [facility] 10/28/2023 14:18:40 024 Bladder Scan completed Opal Suarez [facility] 10/28/2023 14:11:26 022 Bladder Scan completed Jenn Hogan [facility] 07/08/2022 11:46:07 021 Past Data Reviewed completed Tamir Gamboa MD [address] [facility],[address], [place], [address], [facility] 07/08/2021 12:22:44 021 Bladder Scan completed Ginny Willingham [facility] 07/08/2021 12:08:56 021 Diagnostic colonoscopy completed Not Available Health Note 07/06/2022 11:55:05 020 Bladder Scan completed Manolo Leung [facility] 04/30/2020 14:23:33 019 urine capacity measure completed Not Available Health Note 07/06/2022 11:55:05 018 Electro-uroflowmetry first completed Not Available Health Note 07/06/2022 11:55:05 018 Intraabdominal pressure test completed Not Available Health Note 07/06/2022 11:55:05 018 Anal/urinary muscle study completed Not Available Health Note 07/06/2022 11:55:05 018 Cystometrogram w/gm/svp global publisher business&up completed Not Available Health Note 07/06/2022 11:55:05 018 Cystourethroscopy completed Not Available Health Note 07/06/2022 11:55:05 018 Prostatectomy (turp) completed Not Available Health Note 07/06/2022 11:55:05 016 Repair finger tendon completed Not Available Health Note 07/06/2022 11:55:05 016 Knee arthroscopy/surgery completed Not Available Health Note 07/06/2022 11:55:05 015 Diagnostic sigmoidoscopy completed Not Available Health Note 07/06/2022 11:55:05 013 Xcapsl ctrc rmvl cplx wo ecp completed Not Available Health Note 07/06/2022 11:55:05 Mohs surg addl block completed Not Available Health Note 07/06/2022 11:55:05 Remove tonsils and adenoids completed Not Available Health Note 07/06/2022 11:55:05 Appendectomy add-on completed Not Available Health Note 07/06/2022 11:55:05 Imaging Results Imaging Date Name Status LastModified by Organiz ation Details LastModified Time 04/30/2020 bladder scan (PROC) completed BARCODE Information not available 06/17/2020 14:03:34 Procedure Notes None recorded. Medical Equipment None Reported. Allergies Allergen ID Allergen Name Allergen Category Reaction Reaction Severity Criticality Documentation Date Start Date Code Code System Note Provider Name and Address Organization Details Recorded Time [id number] Sudafed medicatio n Not available Not available Not available 01/31/2020 2 RxNorm const ipati on, urina ry reten tion Not Available Not Available Not Available Medications Name Sig Start Date Stop Date Status Note LastModified by Organization Details LastModified Time terazosin 5 mg capsule TAKE 1 CAPSULE BY MOUTH EVERYDAY AT BEDTIME 10/27 completed Not Available Not Available Not Available clonidine HCl 0.1 mg tablet 04/30 completed Not Available Not Available Not Available carvedilo l 6.25 mg tablet TAKE 1 TABLET BY MOUTH TWICE A DAY active Not Available Not Available No t Available torsemide 20 mg tablet TAKE 2 TABLETS BY MOUTH TWICE A DAY active Not Available Not Available No t Available valacyclo vir 1 gram tablet 04/30 completed Not Available Not Available Not Available hydrocodo ne 5 mg-acetam inophen 325 mg tablet 04/30 completed Not Available Not Available Not Available bacitraci n 500 unit/gram eye ointment 04/30 completed Not Available Not Available Not Available prednison e 5 mg tablet 07/08 completed HN: Patient reports no longer taking Not Available Not Available Not Available amlodipin e 2.5 mg tablet 07/08 completed HN: Patient reports no longer taking Not Available Not Available Not Available amlodipin e 5 mg tablet TAKE 1 TABLET BY MOUTH EVERY DAY 10/27 completed Not Available Not Available Not Available peg-elect rolyte solution 420 gram oral solution 07/08 completed HN: Patient reports no longer taking Not Available Not Available Not Available omeprazol e 40 mg capsule,d elayed release TAKE 1 CAPSULE BY MOUTH ONCE DAILY active Not Available Not Available No t Available tramadol 50 mg tablet TAKE 1 TABLET BY MOUTH 3 TIMES DAILY active Not Available Not Available No t Available warfarin 4 mg tablet 4mg 1/day active Not Available Not Available No t Available levothyro xine 75 mcg tablet TAKE 1 TABLET (75 MCG) BY MOUTH BEFORE BREAKFAS T active Not Available Not Available No t Available clonidine HCl 0.2 mg tablet TAKE 1 TABLET BY MOUTH 2 TIMES A DAY. 10/27 completed Not Available Not Available Not Available prednisol one acetate 1 % eye drops,renato pension 04/30 completed Not Available Not Available Not Available terazosin 2 mg capsule TAKE 2 CAPSULES BY MOUTH EVERY DAY AT BEDTIME 10/27 completed Not Available Not Available Not Available prednison e 1 mg tablet 07/08 completed HN: Patient reports no longer taking Not Available Not Available Not Available sodium bicarbona te 650 mg tablet TAKE 2 TABLETS (1,300 MG TOTAL) BY MOUTH IN THE MORNING AND 2 TABLETS IN THE EVENING. active Not Available Not Available No t Available levothyro xine 50 mcg tablet TAKE 1 TABLET (50 MCG) BY MOUTH BEFORE BREAKFAS T active Not Available Not Available No t Available ferrous sulfate 325 mg (65 mg iron) tablet 07/08 completed HN: Patient reports no longer taking Not Available Not Available Not Available calcitrio l 0.5 mcg capsule 07/08 completed HN: Patient reports no longer taking Not Available Not Available Not Available warfarin 2 mg tablet TAKE BY MOUTH 5 MG (2 MG X 2.5) EVERY JIM 6MG(2 MG X 3)ALL OTHER DAYS IN THE EVENING OR DIRECTED active Not Available Not Available No t Available gabapenti n 300 mg capsule 04/30 completed Not Available Not Available Not Available allopurin ol 300 mg tablet TAKE 1 TABLET BY MOUTH EVERY DAY active Not Available Not Available No t Available furosemid e 20 mg tablet 04/30 completed Not Available Not Available Not Available lovastati n 20 mg tablet TAKE 1 TABLET BY MOUTH EVERY DAY WITH EVENING MEAL active Not Available Not Available No t Available timolol maleate 0.5 % eye drops 04/30 completed Not Available Not Available Not Available terazosin 10 mg capsule TAKE 1 CAPSULE BY MOUTH EVERY DAY 10/27 completed Not Available Not Available Not Available calcitrio l 0.25 mcg capsule 04/30 completed Not Available Not Available Not Available enoxapari n 30 mg/0.3 mL subcutane ous syringe INJECT 30 MG (1 SYRINGE) SUBCUTAN EOUS ONCE DAILY. active Not Available Not Available No t Available sodium bicarbona te 650 mg 4/day 10/27 completed Not Available Not Available Not Available levothyro xine 50mcg 1/day active Not Available Not Available No t Available Fish Oil 07/08 completed HN: Patient reports no longer taking Not Available Not Available Not Available Vitamin D3 1000iu 1/day active Not Available Not Available No t Available sevelamer carbonate 800 mg tablet TAKE 1 TABLET BY MOUTH 3 TIMES A DAY WITH MEALS active Not Available Not Available No t Available Zirgan 0.15 % eye gel 04/30 completed Not Available Not Available Not Available Eliquis 2.5 mg tablet TAKE 1 TABLET BY MOUTH 2 TIMES DAILY active Not Available Not Available No t Available RenaPlex- D 800 mcg-12.5 mg-2,000 unit tablet TAKE 1 TABLET BY MOUTH ONCE A DAY active Not Available Not Available No t Available Vitals Date Recorded Body mass index (BMI) Body height Provider Name and Address Organization Details Last Updated DateTime 07/08/2022 25.2 kg/m2 187.96 cm Not Available Health Note 11:30:16 Date Recorded Body weight Provider Name an d Address Organization Details Last Updated DateTime 07/08/2022 97587.1 g Jenn Hogan [facility] 07/08/2022 11:34:06 Date Recorded Body height Provider Name an d Address Organization Details Last Updated DateTime 04/30/2020 190.5 cm Manolo Leung [facility] 04/30/2020 14:17:52 Date Recorded Body mass index (BMI) Body weight Provider Name and Address Organization Details Last Updated DateTime 04/30/2020 28.1 kg/m2 465328.28 g Manolo Leung [facility] 04/30/2020 14:17:56 Social History Question Answer Notes LastModified by Organizat ion Details LastModified Time Tobacco Smoking Status Former Smoker Not Available Health Note 07/06/2022 11:55:06 What Is Your Level Of Alcohol Consumption? None Information not available 10/28/2023 What Is Your Level Of Caffeine Consumption? Occasional [email or web address] Information not available 07/06/2022 How Much Tobacco Do You Chew? None [email or web address] Information not available 07/06/2022 Do You Or Have You Ever Used E-cigarettes Or Vape? Never Used Electronic Cigarettes [email or web address] Information not available 07/06/2022 When Did You Quit Smoking? 16+yearssincel davian Information not available 10/28/2023 Race White Information n ot available 02/01/2020 Marital Status Informati on not available 02/01/2020 What Was The Date Of Your Most Recent Tobacco Screening? 10/28/2023 Information not available 10/28/2023 Do You Or Have You Ever Used Smokeless Tobacco? Never Used Smokeless Tobacco [email or web address] Information not available 07/06/2022 How Much Tobacco Do You Smoke? No [email or web address] Information not available 04/30/2020 Do You Use Any Illicit Or Recreational Drugs? No [email or web address] Information not available 07/06/2022 Has Tobacco Cessation Counseling Been Provided? No Information not available 10/28/2023 How Many Years Have You Smoked Tobacco? 30 [email or web address] Information not available 07/06/2022 Do You Or Have You Ever Used Any Other Forms Of Tobacco Or Nicotine? No [email or web address] Information not available 07/08/2022 Sex: Unknown Functional Status None recorded. Mental Status None recorded. Family History Nothing Reported Notes:Alcohol/Drug:Father Medical History Condition Response Sexually Transmitted Infection N Diabetes N Other N Bleeding Disorder N High Blood Pressure Y Kidney Stones N High Cholesterol Y GERD/Acid Reflux N Heart Disease N Cancer Y Lung Disease N Depression N Immunizations Vaccine Type Date Status Note Provider Nam e and Address Organization Details Recorded Time Pneumococcal conjugate PCV 13 0 completed Manolo colin [facility] 04/30/2020 14:22:32 SARS-COV-2 (COVID-19) vaccine, UNSPECIFIED 1 completed Opal colin [facility] 10/28/2023 13:57:15 Past Encounters Encounter ID Performer Location Encounter Start Date Encounter Closed Date Diagnosis/Indication Diagnosis SNOMED-CT Code Diagnosis ICD10 Code Diagnosis Note [id number] MD Samson Zamora_Yaakovo kel [address] [place] [address] 04/30/2020 14:01:05 04/30/2020 16:11:15 Finding of urinary bladder emptying 148184570 R33.9 Lower urin meera tract symptoms due to benign prostatic hypertrophy 9815364379 9101 N40.1 [id number] MD Ingris ZamoraWoannie begum [address] [place] [address] 07/08/2021 11:25:22 07/08/2021 12:30:01 Finding of urinary bladder emptying 850851511 R33.9 Lower urin meera tract symptoms due to benign prostatic hypertrophy 2285320969 9101 N40.1 [id number] MARBELLA BEYERro_Woo dbury [address] [place] [address] 07/08/2022 11:30:09 07/08/2022 13:31:41 Lower urinary tract symptoms due to benign prostatic hypertrophy 8512763722 9101 N40.1 [id number] Opal Davies_Yaakovo dbury [address] [facility] [place] [address] 10/28/2023 13:52:41 10/28/2023 14:43:51 Lower urinary tract symptoms due to benign prostatic hypertrophy 1930986984 9101 N40.1 Health Concerns Section Related Observation LastModified by Organization Detai ls LastModified Time None Recorded Concern Status LastModified by Organization Details LastModified Time None Recorded Advance Directives Directive None Recorded Payers Encounter Date Sequence Insurance Name Policy Number Policy Bowman Covered Member ID Bowman Member ID Guarantor Name 04/30/2020 1 [place] [employer] Rolly Alex [id number] Rolly Alex 04/30/2020 2 [facility] [id number] Rolly Alex [id number] Rolly Alex 07/08/2021 1 [place] Red [facility] Rolly Alex [id number] Rolly Alex 07/08/2021 2 [facility] [id number] Rolly Alex [id number] Rolly Alex 07/08/2022 1 [place] Red Aril [facility] Rolly Alex [id number] Rolly Alex 07/08/2022 2 [facility] [id number] Rolly Alex [id number] Rolly Alex 10/28/2023 1 [place] Red [place] [facility] Rolly Alex [id number] Rolly Alex 10/28/2023 2 [facility] [id number] Rolly Alex [id number] Rolly Alex Notes Date Note Type Note Provider Name and Address Organization Details Recorded Time 04/30/2020 text/html Chief complaints are urinary retention and BPH. He underwent a transurethral resection of the prostate in October 2017. Since then, he reports a strong flow. At one point he was self cathing but he is stop doing that. He has no gross hematuria. He denies any flank pain. He denies bone pain. He feels that his voiding function is perfectly adequate. He does use terazosin for BP. Tamir Gamboa MD [address] [facility],[address], [place], [address], [facility] 04/30/2020 14:32:34 07/08/2021 text/html Chief complaints are urinary retention and BPH. He underwent a transurethral resection of the prostate in October 2017. Since then, he reports a strong flow. At one point he was self cathing but he is stop doing that. He has no gross hematuria. He denies any flank pain. He denies bone pain. He feels that his voiding function is perfectly adequate. He does use terazosin for BP. Tamir Gamboa MD [address] [place] [address],[address], [place], [address], [facility] 07/08/2021 12:23:23 07/08/2022 text/html Patient is 77-year-old male who presents today for follow-up of BPH. Patient previously underwent TURP in October 2017. He was last seen in June [address] Gamboa, patient noted good FOS at that time. Previous cystoscopy after the TURP did show mild prostatic regrowth. Patient continues on terazosin 10 mg daily. Continues to not be bothered by his symptoms. IPSS today of 1. No gross hematuria or urinary tract infections. MARBELLA BEYER [address] [facility],[address], [place], [address], [facility] 07/08/2022 12:19:04 10/28/2023 text/html 10/28/23: Patient is an 78-year-old male presents today for follow-up BPH/LUTS. Patient was previously on terazosin 10 mg daily however he discontinued this since last visit. He has not had any gross hematuria or UTIs. He makes small amount of urine as he is ESRD. He is on dialysis. IPSS of 4. 07/08/22: Patient is a 77-year-old male who presents today for follow-up of BPH. Patient with previous history of TURP, was noted to have worsening LUTS in the last several years, however voiding quite well per PVR bladder scans and not interested in intervention. He continues to void reasonably, no recent gross hematuria or urinary tract infections. He would like to continue on terazosin 10 mg daily. Do feel this is reasonable. We will plan to see patient back in 1 year. Opal colin [facility] 10/28/2023 14:25:03
--- OUTSIDE RECORDS SUMMARY | 2024-09-12 21:51 | XMS_ITS | CCD ---
Author Name Interface, [email or web address] lity Address [address] [place], [place] [address] [place] [address] [facility] Address [address] [facility] [address] [place] [address] Care Team Providers Care Abalone Fisherman Name Role Phone Paulino Garduno Unavailable Unavailable Reason for Visit Encounters Functional Status Medications Problems Social History
--- OUTSIDE RECORDS SUMMARY | 2024-09-12 21:51 | XMS_ITS | Referral Summary ---
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
--- OUTSIDE RECORDS SUMMARY | 2024-09-12 21:52 | XMS_ITS | Encounter Summary ---
Author Organization [facility] [place] Address [address] [place] [address] Care Team Providers Care Position Classification Manager Name Role Phone Carolee Harris MD Primary Care Provider [phone] Encounter Details Date Type Department Care Team (Late st Contact Info) Description 09/06/2024 Orders Only [facility] [address] [place] [address] Shay Brown MD [address] [place] [address] Social History Tobacco Use Types Packs/Day Years Used Date Smoking Tobacco: Former Cigarettes Smokeless Tobacco: Never Comments:Smoking History Inf o:Every day Alcohol Use Standard Drinks/Week Comments Not Currently 0 (1 standard drink = 0.6 oz pur e alcohol) Sex and Gender Information Value Date Recorded Sex Assigned at Not on file Legal Sex Male 7:07 PM EDT Gender Identity Not on file Sexual Orientation Not on file documented as of this encounter Plan of Treatment Not on file documented as of this encounter Procedures Procedure Name Priority Date/Time Associated Diagnosis Comments HD KINETICS Routine 09/06/2024 POST CHEMISTRY Routine 09/06/2024 HEMATOLOGY Routine 09/06/2024 CHEMISTRY Routine 09/06/2024 CHEMISTRY Routine 09/06/2024 [facility] LAB RESULTS Routine 09/06/2024 documented in this encounter Results * [facility] Lab Results (09/06/2024) Pathologist [facility] PCR 44.30 [facility] eNPCR 0.76 [facility] eKdrt/V 1.59 [facility] spKt/V Gotch 1.88 [facility] ge [place] WSTDKT/V 2.6 [facility] eKt/V Gotch 1.59 [facility] e [place] nPCR_HD 0.82 [facility] eKt/V ([place]) 1.58 [facility] spKt/V (Daugirdas II) 1.84 [facility] 09/06/2024 09/06/2024 [facility] Ordering Provider LAB BLOOD ORDERABLES Final Result Performing Organization Address City/[facility]/ZIP Co de Phone Number [facility] Contact Performing lab Unknown, [place] * (ABNORMAL) [facility] Chemistry (09/06/2024) [facility] PTH 275(H) 16 - 80 pg/mL [facility] 09/06/2024 09/07/2024 10: 35 AM EMISSIONS REPAIR TECHNICIAN Narrative [facility] Unless otherwise specified, test(s) performed at: [email or web address], [address] [place] [address], [place] [address] LABORER POULTRY HATCHERY: Robert Martin M.D., Ph.D For any questions, please call customer service at FREQUENCY:MONTHLY Resulting Agency Comment Specimen source: Plasma Shay Brown MD LAB BLOOD ORDERABLES Final Resul t [facility] Message Missile See order comments or contact performing lab Unknown, [place] * (ABNORMAL) HEMATOLOGY (09/06/2024) [facility] Neutrophils 51.9 40.0 - 75.0 % [facility] Lymphocytes Relative 31.8 19.0 - 48.0 % [facility] Monocytes 7.2 3.0 - 10.0 % [facility] Eosinophils Relative 6.0 0.0 - 7.0 % [facility] Basophils Relative 0.9 0.0 - 1.5 % [facility] SANJAY 2.3 0.0 - 4.0 % [facility] WBC 7.18 4.80 - 10.80 1000/mcL [facility] RBC 3.40(L) 4.70 - 6.10 mill/mcL [facility] Hematocrit 35.1(L) 42.0 - 52.0 % [facility] MCV 103(H) 80 - 100 fl [facility] MCH 33.4(H) 27.0 - 31.0 pg [facility] MCHC 32.3 30.0 - 36.0 g/dL [facility] RDW 14.6(H) 11.5 - 14.5 % [facility] Hemoglobin 11.4(L) 14.0 - 18.0 g/dL [facility] Hemoglobin x 3 34.2(L) 42.0 - 54.0 % [facility] Platelets 281 130 - 400 1000/mcL [facility] 09/06/2024 09/07/2024 7:1 8 AM EMISSIONS REPAIR TECHNICIAN Narrative [facility] - 09/07/2024 Unless otherwise specified, test(s) performed at: [email or web address], [address] [place] [address], [place] [address] LAB[employer]ATCHERY: Robert Martin M.D., Ph.D For any questions, please call customer service at FREQUENCY:MONTHLY Resulting Agency Comment Specimen source: Blood Shay Brown MD LAB BLOOD ORDERABLES Final Resul t Performing Organization Address [facility] de Phone Number [employer] See order comments or contact performing lab Unknown, [place] * HD KINETICS (09/06/2024) [facility] % Urea Reduction 80 65 - 80 % [facility] 09/06/2024 09/07/2024 5:2 5 AM EMISSIONS REPAIR TECHNICIAN Narrative Resulting Agency Comment Specimen source: Plasma Shay Brown MD LAB BLOOD ORDERABLES Final Resul t Performing Organization Address [facility]/ZIP Co de Phone Number [facility] See order comments or contact performing lab Unknown, [place] * POST CHEMISTRY (09/06/2024) BUN Post Dialysis 8 6 - 19 mg/dL [facility] 09/06/2024 09/07/2024 5:2 5 AM EMISSIONS REPAIR TECHNICIAN Narrative [facility] - 09/07/2024 Unless otherwise specified, test(s) performed at: [email or web address], [address] [place] [address], [place] [address] LAB[employer] POUL[employer] HATCHERY: Robert Martin M.D., Ph.D For any questions, please call customer service at FREQUENCY:MONTHLY Resulting Agency Comment Specimen source: Plasma us Shay Brown MD LAB BLOOD ORDERABLES Final Resul t [email or web address] See order comments or contact performing lab Unknown, [place] * (ABNORMAL) [facility] (09/06/2024) BUN 40(H) 6 - 19 mg/dL [facility] Creatinine 5.55(H) 0.60 - 1.30 mg/dL [facility] BUN/Creatinine Ratio 7.2(L) 10.0 - 20.0 [facility] Sodium 140 136 - 145 mEq/L [facility] Potassium 4.4 3.5 - 5.1 mEq/L [facility] Chloride 103 96 - 108 mEq/L [facility] Bicarbonate (CO2) 25 20 - 31 mEq/L [facility] Calcium 8.7 8.7 - 10.4 mg/dL [facility] Comment: Please note change in reference range. Corrected Calcium 9.1 8.7 - 10.4 mg/dL [facility] Comment: Corrected Calcium is not equivalent to measured Ionized Calcium. Phosphorus 5.4(H) 2.6 - 4.5 mg/dL [facility] Calcium Phosphorus Product 47 0 - 54 [facility] Calcium Phosporus Product, Cor 49 0 - 54 [facility] Total Protein 7.0 6.0 - 8.5 g/dL [facility] Albumin 3.5 3.5 - 5.2 g/dL [facility] Globulin, Total 3.5 2.0 - 4.0 g/dL [facility] A/G Ratio 1.0 1.0 - 2.0 [facility] Iron 62 45 - 160 mcg/dL [facility] UIBC 148(L) 155 - 355 mcg/dL [facility] TIBC 210 185 - 515 mcg/dL [facility] Iron Saturation (TSat) 30 20 - 55 % [facility] 09/06/2024 09/07/2024 5:4 5 AM EMISSIONS REPAIR TECHNICIAN Narrative [facility] - 09/07/2024 Unless otherwise specified, test(s) performed at: [email or web address], [address] [place] [address], [place] [address] LABOR[employer] POUL[employer] HATCHERY: Robert Martin M.D., Ph.D For any questions, please call customer service at FREQUENCY:MONTHLY Resulting Agency Comment Specimen source: Serum us Shay Brown MD LAB BLOOD ORDERABLES Final Resul t [email or web address] Message Missile See order comments or contact performing lab Unknown, [place] documented in this encounter Visit Diagnoses Not on filedocumented in this encounter Care Teams Position Classification Manager Relationship Specialty Start Date End Date Carolee Harris MD [address] [place] [address] PCP - General Family Medicine 09/16/21 documented as of this encounter
--- OUTSIDE RECORDS SUMMARY | 2024-09-12 21:52 | XMS_ITS | Encounter Summary ---
Author Organization [facility] Address [address] [place] [address] Care Team Providers Care Program Services Assistant Name Role Phone Carolee Harris MD Primary Care Provider [phone] Encounter Details Date Type Department Care Team (Late st Contact Info) Description 07/28/2024 Treatment [facility] [place] [address] [place] [address] Lucie Brown MD [address] [facility] [address] [place], [place] [id number] Social History Tobacco Use Types Packs/Day Years [...] on file documented as of this encounter Miscellaneous Notes * Dialysis Note - Lucie Brown MD - 07/28/2024 12:00 AM CST Patient: Rolly Alex : 1945 Note Type: Dialysis Rounds-Comp Service Date: 07/28/2024 This patient was personally seen for a complete visit as part of routine monthly dialysis care for end stage renal disease. Attending Director Health: LUCIE BROWN Dialysis Location: [facility] Schedule: Shift: 1 OVERVIEW Patient is stable. COMMENTS: 07/28/24: Doing well, no concerns. 07/12/24: saw his PCP this week. checking his TSH and FLP, o/w no changes. he feels well. Cards/ECHO appt is soon. 07/05/24: stable and doing well. has ECHO and Cards appt upcoming. 06/19/24: doing well, no concerns. PATIENT HISTORY COMMENTS: Feels well, no concerns. HOME MEDICATIONS [facility]. [facility] allopurinol 300 mg tablet Take 1/2 tablet by mouth once a day. Coreg 3.125 mg tablet [twice per day] levothyroxine 75 mcg tablet [one a day before eating] lovastatin 20 mg tablet Take 1 tablet by mouth once a day. omeprazole/ prilosec OTC [40mg capsule, 1 cap per day] RenaPlex-D 800 mcg-12.5 mg-2,000 unit tablet Take 1 tablet by mouth once a day. sevelamer carbonate 800 mg tablet Take 1 tablet by mouth three times a day with meals. [to bind with phosphorus] torsemide 20 mg tablet Take 2 tablet by mouth twice a day. [2 tabs 2 times a day] Vitamin D3 50 mcg (2,000 unit) tablet Take 1 tablet by mouth once a day. warfarin 2 mg tablet [6mg(3 tab) tabs per day (M,, ) and 8mg (4 tabs) on TTS.] [facility] All[facility] Allergen: pseudoephedrine Reaction: Unknown Severity: Mild DIALYSIS PRESCRIPTION Treatment Data Treatment Date: 07/28/2024 started at: 5:39 AM Dialysate / Machine Temp (prescribed): 36.5*C Dialysate / Machine Temp (actual): 35.5*C BFR (prescribed): 450 BFR (actual): 450 DFR (prescribed): Autoflow 1.5 DFR (actual): 700 Prescribed Time: 03:30 EDW (kg): 80.4 Dialyzer: 180NRe Optiflux Dialysate: 2.0 K, 2.5 Ca, 1.0 Mg, 100 Dextrose (G2251) Sodium: 138 Bicarb: 30 Pre Dialysis Vitals Pre BP Sit: 113/54 Pre Wt (kg): 84.1 EDW Deviation (kg): 3.7 Temp: 97.4*F Current Dialysis Vitals BP Sit: 117/50 AP/AFFIRMATIVE ACTION SPECIALIST: 222/257 Pulse: 78 TREATMENT MEDICATIONS ORDERS Mircera 30 mcg IVP Every 4 weeks 07/05/2024 - 07/04/2025 Vitamin D (Calcitriol) Oral 1.0 mcg ORAL 3X Week 07/17/2024 - 07/16/2025 BP AND FLUID ASSESSMENT Acceptable blood pressure. Fluid status acceptable. EDW appropriate. Post BP Sit 112/59 - 07/26/2024 124/55 - 07/24/2024 110/59 - 07/21/2024 Post Wt (kg) 80.4 - 07/26/2024 80.8 - 07/24/2024 80.6 - 07/21/2024 EDW (kg) 80.4 - 07/26/2024 80.4 - 07/24/2024 80.4 - 07/21/2024 Deviation (kg) 0.0 - 07/26/2024 0.4 - 07/24/2024 0.2 - 07/21/2024 ADEQUACY ASSESSMENT Target met. Prescription compliance acceptable. Missed Treatments 0 - Last 30 days 0 - Last 60 days spKt/V (Daugirdas II) 1.74 (07/12/24) 1.55 (06/07/24) 1.61 (05/10/24) eKdrt/V 1.55 (07/12/24) 1.36 (06/07/24) 1.40 (05/10/24) % Urea Reduction 77 (07/12/24) 73 (06/07/24) 75 (05/10/24) BUN 69 (07/12/24) 33 (06/07/24) 61 (05/10/24) BUN Post Dialysis 16 (07/12/24) 9 (06/07/24) 15 (05/10/24) Creatinine 6.92 (07/12/24) 5.63 (06/07/24) 6.30 (05/10/24) Bicarbonate (CO2) 22 (07/12/24) 24 (06/07/24) 23 (05/10/24) Sodium 136 (07/12/24) 142 (06/07/24) 138 (05/10/24) ACCESS ASSESSMENT Vascular access examined. Current access is permanent and functioning well. AVFistula Standard Left Upper Arm Active (In Use) - 12/24/2022 Placed - 06/06/2020 Access Flow 1603 (07/28/24) > 2000 (07/26/24) 1072 (06/26/24) ANEMIA ASSESSMENT Hemoglobin 11.4 (07/26/24) 11.5 (07/19/24) 10.9 (07/12/24) Iron Saturation (TSat) 24 (07/12/24) 44 (06/07/24) 29 (05/10/24) Ferritin 1,422 (05/10/24) 791 (03/08/24) 675 (02/09/24) Iron 58 (07/12/24) 109 (06/07/24) 71 (05/10/24) TIBC 239 (07/12/24) 248 (06/07/24) 246 (05/10/24) Reticulocyte Hemoglobin 34.8 (07/19/24) 34.9 (05/31/24) 35.2 (04/19/24) MCV 104 (07/12/24) 105 (06/07/24) 102 (05/10/24) Platelets 173 (07/12/24) 192 (06/07/24) 206 (05/10/24) BMM ASSESSMENT Calcium 8.6 07/12/24 8.7 06/30/24 8.7 06/07/24 Corrected Calcium 8.8 07/12/24 8.9 06/07/24 8.8 05/10/24 Phosphorus 6.9 07/12/24 5.2 06/07/24 6.6 05/10/24 Calcium Phosphorus Product 59 07/12/24 45 06/07/24 57 05/10/24 PTH 660 07/12/24 860 06/09/24 550 06/07/24 Magnesium 1.9 02/09/24 2.1 11/10/23 1.8 08/11/23 Alkaline Phosphatase 290 02/09/24 266 11/10/23 354 08/11/23 Aluminum <5 11/10/23 NUTRITION ASSESSMENT Albumin 3.7 07/12/24 3.7 06/07/24 3.8 05/10/24 Potassium 4.6 07/12/24 3.9 06/07/24 3.6 05/10/24 eNPCR 1.22 07/12/24 0.63 06/07/24 1.02 05/10/24 ADDITIONAL LABS WBC 6.88 (07/12/24) 5.26 (06/07/24) 6.25 (05/10/24) Hepatitis B Surface Ab 10 (05/17/24) Signed by: LUCIE BROWN MD on 07/28/2024 at 09:32:24 AM Transcribed by: LUCIE BROWN MD on 07/28/2024 at 09:32:24 AM documented in this encounter Plan of Treatment Not on file documented as of this encounter Visit Diagnoses Not on filedocumented in this encounter Care Teams Program Services Assistant Relationship Specialty Start Date End Date Carolee Harris MD [address] [place] [address] PCP - General Family Medicine 09/16/21 documented as of this encounter
--- OUTSIDE RECORDS SUMMARY | 2024-09-12 21:52 | XMS_ITS | Clinical Summary ---
Author Organization [facility] Address [address] [place] [address] Phone Care Team Providers Care Market Research Assistant Name Role Phone Carolee Harris MD Primary Care Provider [phone] Allergies Active Allergy Reactions Criticality Noted Date Comments Pseudoephedrine Other (see comments) 07/13/2019 Jvprzasnivctuep-Cr-Td Medium 06/05/2020 Medications omeprazole (PriLOSEC) [address] capsule Take 1 capsule by mouth 1 (one) time each day Active cholecalcifero l (VITAMIN D-3) 50 MCG (1999) capsule Take 1 capsule by mouth 1 (one) time each day Active lovastatin (MEVACOR) 20 MG tablet Take 20 mg by mouth every night 09/01/19 20 Active amLODIPine (NORVASC) 5 MG tablet Take 5 mg by mouth 1 (one) time each day Active warfarin (COUMADIN) 2 MG tablet Take 6 mg by mouth 1 (one) time each day As directed by anticoagulation clinic Active carvedilol (COREG) 6.25 MG tablet TAKE 1 TABLET BY MOUTH IN THE MORNING AND 1 TABLET IN THE EVENING WITH MEALS. 180 tablet 2 12/17/19 23 Active allopurinol (ZYLOPRIM) 300 MG tablet TAKE 1 TABLET BY MOUTH 1 TIME EACH DAY. 90 tablet 2 12/17/19 23 Active torsemide (DEMADEX) 20 MG tablet Take 2 tablets (40 mg total) by mouth in the morning and 2 tablets (40 mg total) in the evening. 120 tablet 5 12/25/19 23 Active levothyroxine (SYNTHROID, LEVOTHROID) 75 MCG tablet Take 1 tablet by mouth 1 (one) time each day before breakfast 05/04/20 Active sevelamer carbonate (RENVELA) 800 MG tablet Take 800 mg by mouth in the morning and 800 mg at noon and 800 mg in the evening. Take with meals. 06/16/20 Active terazosin (HYTRIN) 2 MG capsule Take 2 mg by mouth every night 06/01/20 Active Multiple Vitamins-Medical Nurse als (RenaPlex-D) tablet Take 1 tablet by mouth 1 (one) time each day 06/17/20 Active Active Problems Problem Noted Date Diagnosed Date End stage renal failure on dialysis 06/22/2023 Assessment & Plan (06/27/2023 2:57 PM DIESEL TRACTOR OPERATOR): Status: Stable Usual dialysis at [facility] every M,W,F via AVF Diet: Renal, fluid restriction LABS: URR 76%, Kt/V 1.51. Dialysis is adequate. Transplant: not a candidate, age Home Therapies: Defer to primary neph AVF/AVG status: in use with adequate BFR. No erythema or thinning of skin. Plan: Continue current plan of care, ongoing monitoring per primary oral hygienist and DARWIN Secondary hyperparathyroidism of renal origin Assessment & Plan (06/27/2023 2:59 PM DIESEL TRACTOR OPERATOR): Status: Stable Phos 5.7, Calcium 8.6, iPTH 226, vitmain d-25 77.4 Current medications: Calcitriol, D3, MVI, Renvela Plan: Labs followed monthly and PRN at the dialysis unit. Defer further mgmt to primary oral hygienist and hemodialysis electromechanical inspector. 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 Monitor BP closely while on dialysis. Challenge EDW periodically. Recommend ECHO every three years for patients with ESRD per KDOQI guidelines. Secondary hypercoagulable state 06/22/2023 Assessment & Plan (06/27/2023 3:03 PM DIESEL TRACTOR OPERATOR): Status: Stable, secondary to Afib Medications: warfarin Plan: Continue current medications with monitoring by primary care team. Paroxysmal atrial fibrillation 06/22/2023 Assessment & Plan (06/27/2023 3:00 PM DIESEL TRACTOR OPERATOR): Status: Stable Medications: warfarin, coreg Plan: Continue current medications with monitoring by primary care team. Polymyalgia rheumatica 06/22/2023 Assessment & Plan (06/27/2023 3:01 PM DIESEL TRACTOR OPERATOR): Status: Stable. No sx currently. Medications: none Plan: Continue continue to monitor for flare-ups. 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 Other and unspecified hyperlipidemia 06/22/2023 Assessment & Plan (06/27/2023 3:09 PM DIESEL TRACTOR OPERATOR): Status: Stable Medications: lovastatin Plan: Continue current medications with monitoring by primary care team. Long-term (current) use of anticoagulants 2022 Assessment & Plan (06/27/2023 3:06 PM DIESEL TRACTOR OPERATOR): Hypothyroidism, not otherwise specified 06/22/20 Assessment & Plan (06/27/2023 3:05 PM DIESEL TRACTOR OPERATOR): Status: Stable Medications: levothyroxine Plan: Continue current medications with monitoring by primary care team. Gastroesophageal reflux disease 06/22/2023 Assessment & Plan (06/27/2023 3:05 PM DIESEL TRACTOR OPERATOR): Status: Stable. Hx of duodenal ulcer Medications: Omeprazole Plan: Continue current medications with monitoring by primary care team. Benign prostatic hyperplasia with outflow obstru ction 06/22/2023 Assessment & Plan (06/27/2023 3:04 PM DIESEL TRACTOR OPERATOR): Status: Stable. S/p TURP in 2018, no longer with retention sx. Medications: terazosin Plan: Continue to monitor for sx of retention given terazosin is not at therapeutic levels for BPH. Consider resumption of flomax if retention sx. Nonrheumatic aortic valve stenosis 06/22/2023 Assessment & Plan (06/27/2023 3:07 PM DIESEL TRACTOR OPERATOR): Status: Stable, asymptomatic ECHO 02/03/22 with mild Plan: Continue to monitor with ongoing cardiology f/u Obstructive sleep apnea syndrome 06/22/2023 Assessment & Plan (06/27/2023 3:09 PM DIESEL TRACTOR OPERATOR): Status: Stable. Has not used CPAP in a few years due to the machine being recalled. He notes daytime sleepiness is worse with no CPAP. Plan: Encouraged return to pulm medicine for new machine and eval. I confirmed he does not need a new referral Pulmonary hypertension, not otherwise specified 06/22/2023 Assessment & Plan (06/27/2023 3:02 PM DIESEL TRACTOR OPERATOR): Status: Stable. Able to walk without sob. ECHO 02/03/23 with RVSP 47mmHg Plan: Continue to monitor. Maintain good BP control Anemia in chronic kidney disease 07/26/2019 Assessment & Plan (06/27/2023 2:58 PM DIESEL TRACTOR OPERATOR): Status: Stable Hgb 11.2, Ferr 799, tSat 45% Plan: Continue to monitor per HD protocol with ongoing management per HD staff Encounters Date Type Department Care Team Description 09/06/2024 Orders Only [facility] [address] [place] [phone] Shay Brown MD 09/02/2024 Refill [facility] [address] [place] [phone] Shay Brown MD 09/01/2024 Treatment [facility] [address] [place] [address] Shay Brown MD 08/30/2024 Orders Only [facility] [place] [address] [place] [phone] Shay Brown MD 08/21/2024 Orders Only [facility] [address] [place] [address] Shay Brown MD 08/14/2024 Orders Only [facility] [address] [place] [address] Shay Brown MD 08/09/2024 Orders Only [facility] [address] [place] [address] Provider, Fahad Ordering 08/09/2024 Treatment [facility] [address] [place] [address] Shay Brown MD 08/02/2024 Orders Only [facility] [address] [place] [phone] Shay Brown MD 07/28/2024 Treatment [facility] [address] [place] [address] Shay Brown MD 07/26/2024 Orders Only [facility] [place] [address] [place] [phone] Shay Brown MD 07/19/2024 Orders Only [facility] [place] [address] [place] [address] Shay Brown MD 07/12/2024 Orders Only [facility] [place] [address] [place] [address] Shay Brown MD 07/12/2024 Treatment [facility] [address] [place] [address] Shay Brown MD 07/05/2024 Orders Only [facility] [place] [address] [place] [address] Shay Brown MD 07/05/2024 Treatment [facility] [place] [address] [place] [address] Shay Brown MD 06/30/2024 Orders Only [facility] [place] [address] [place] [phone] Shay Brown MD 06/28/2024 Orders Only [facility] [place] [address] [place] [phone] Shay Brown MD 06/21/2024 Orders Only [facility] [address] [place] [phone] Shay Brown MD 06/19/2024 Treatment [facility] [place] [address] [place] [address] Shay Brown MD 06/14/2024 Orders Only [facility] [place] [address] [place] [phone] Shay Brown MD from Last 3 Months Immunizations Name Administration Dates Next Due Influenza Split High Dose Pr eservative Free IM 05/01/2020,04/29/2017,06/24/2015,06/03 Influenza Vaccine, Quadrival ent, Adjuvanted 08/10/2022,07/25/2021 Influenza Whole 07/27/2003 Influenza, Unspecified 04/23/2012,08/02/2008, Pfizer SARS-COV-2 06/06/2021,11/07/2020,10/17/19 21 Pneumococcal Conjugate 13-Valent 06/03/2014,04/23 Pneumococcal Polysaccharide 05/27/2012 Pneumococcal, Unspecified 04/23/2012 Td 08/05/2005 Tdap 08/11/2011 Zoster 10/18/2011 Family History Medical History Relation Comments Cancer Mother Hypertension Mother Relation Status Comments Father Mother Social History Tobacco Use Types Packs/Day Years Used Date Smoking Tobacco: Former Cigarettes Smokeless Tobacco: Never Tobacco Cessation:Counseling Given: Not Answered Comments:Smoking History Info:Every day Alcohol Use Standard Drinks/Week Comments Not Currently 0 (1 standard drink = 0.6 oz pur e alcohol) Sex and Gender Information Value Date Recorded Sex Assigned at Not on file Legal Sex Male 7:07 PM EDT Gender Identity Not on file Sexual Orientation Not on file Last Filed Vital Signs Vital Sign Reading Time Taken Comments Blood Pressure 143/68 12/23/2022 11:38 AM CDT Pulse 67 12/23/2022 11:38 AM CDT Temperature - - Respiratory Rate - - Oxygen Saturation - - Inhaled Oxygen Concentration - - Weight 94.3 kg (208 lb) 12/23/2022 11:38 AM CDT Height 190.5 cm (6' 3) 12/23/2022 11:38 AM CDT Body Mass Index 26 12/23/2022 11:38 AM CDT Plan of Treatment Health Maintenance Due Date Last Done Comments Hepatitis B Vaccine (1 of 5 - Risk Dialysis 4-dose series) 1965 Pneumococcal Vaccine: 65+ Years Completed 06/03/2014, 05/27/2012, 04/23/2012, Additional history exists Influenza Vaccine Completed 06/02/2024, , 08/10/2022, Additional history exists Procedures Procedure Name Priority Date/Time Associated Diagnosis Comments [facility] LAB RESULTS Routine 09/06/2024 CHEMISTRY Routine 09/06/2024 HEMATOLOGY Routine 09/06/2024 HD KINETICS Routine 09/06/2024 POST CHEMISTRY Routine 09/06/2024 CHEMISTRY Routine 09/06/2024 HEMATOLOGY Routine 08/30/2024 HEMATOLOGY Routine 08/21/2024 HEMATOLOGY Routine 08/14/2024 HD KINETICS Routine 08/09/2024 POST CHEMISTRY Routine 08/09/2024 CHEMISTRY Routine 08/09/2024 HEMATOLOGY Routine 08/09/2024 CHEMISTRY Routine 08/09/2024 [facility] LAB RESULTS Routine 08/09/2024 HEMATOLOGY Routine 08/02/2024 HEMATOLOGY Routine 07/26/2024 HEMATOLOGY Routine 07/19/2024 [facility] LAB RESULTS Routine 07/12/2024 HD KINETICS Routine 07/12/2024 POST CHEMISTRY Routine 07/12/2024 CHEMISTRY Routine 07/12/2024 HEMATOLOGY Routine 07/12/2024 CHEMISTRY Routine 07/12/2024 HEMATOLOGY Routine 07/05/2024 CHEMISTRY Routine 06/30/2024 HEMATOLOGY Routine 06/28/2024 HEMATOLOGY Routine 06/21/2024 HEMATOLOGY Routine 06/14/2024 from Last 3 Months Results * HD KINETICS (09/06/2024) Only the most recent of3 resultswithin the time period is included. % Urea Reduction 80 65 - 80 % Viscose Closures 09/06/2024 09/07/2024 5:2 5 AM DIESEL TRACTOR OPERATOR Narrative Resulting Agency Comment Specimen source: Plasma Shay Brown MD LAB BLOOD ORDERABLES Final Resul t Performing Organization Address [facility] Co de Phone Number [facility] See order comments or contact performing lab Unknown, [place] * POST CHEMISTRY (09/06/2024) Only the most recent of3 resultswithin the time period is included. Pathologist [facility] BUN Post Dialysis 8 6 - 19 mg/dL [facility] 09/06/2024 09/07/2024 5:2 5 AM DIESEL TRACTOR OPERATOR Narrative [facility] - 09/07/2024 Unless otherwise specified, test(s) performed at: [facility], [address] [place] [address], [place] [address] PRE KINDERGARTEN TEACHER: Robert Martin M.D., Ph.D For any questions, please call customer service at FREQUENCY:MONTHLY Resulting Agency Comment Specimen source: Plasma Shay Brown MD LAB BLOOD ORDERABLES Final Resul t Performing Organization Address [facility] de Phone Number [facility] See order comments or contact performing lab Unknown, [place] * (ABNORMAL) HEMATOLOGY (09/06/2024) Only the most recent of13 resultswithin the time period is included. Pathologist [facility] Neutrophils 51.9 40.0 - 75.0 % Spectra [...] [facility] 09/06/2024 09/07/2024 7:1 8 AM [facility] - 09/07/2024 Unless otherwise specified, test(s) performed at: [facility], [address] [place] [address], [place] [address] PRE KINDERGARTEN TEACHER: Robert Martin M.D., Ph.D For any questions, please call customer service at FREQUENCY:MONTHLY Resulting Agency Comment Specimen source: Blood Shay Brown MD LAB BLOOD ORDERABLES Final Resul t Performing Organization Address [facility] de Phone Number [employer] See order comments or contact performing lab Unknown, [place] * (ABNORMAL) [facility] Chemistry (09/06/2024) Only the most recent of7 resultswithin the time period is included. PTH 275(H) 16 - 80 pg/mL [facility] 09/06/2024 09/07/2024 10: 35 AM [facility] - 09/07/2024 Unless otherwise specified, test(s) performed at: [facility], [address] [place] [address], [place] [address] PRE KINDERGARTEN TEACHER: Robert Martin M.D., Ph.D For any questions, please call customer service at FREQUENCY:MONTHLY Resulting Agency Comment Specimen source: Plasma Shay Brown MD LAB BLOOD ORDERABLES Final Resul t Performing Organization Address [facility]/ZIP Co de Phone Number [employer] See order comments or contact performing lab Unknown, [place] * [facility] Lab Results (09/06/2024) Only the most recent of3 resultswithin the time period is included. PCR 44.30 [facility] eNPCR 0.76 [facility] eKdrt/V 1.59 [facility] spKt/V Gotch 1.88 [facility] ge Center WSTDKT/V 2.6 [facility] eKt/V Gotch 1.59 [facility] nPCR_HD 0.82 [facility] eKt/V ([place]) 1.58 [facility] spKt/V (Daugirdas II) 1.84 [facility] 09/06/2024 09/06/2024 [facility] Ordering Provider LAB BLOOD ORDERABLES Final Result [facility] Contact Performing lab Unknown, [place] from Last 3 Months Insurance MEDICARE [facility] Care Teams Market Research Assistant Relationship Specialty Start Date End Date Carolee Harris MD [address] [place] [address] PCP - General Family Medicine 09/16/21
--- OUTSIDE RECORDS SUMMARY | 2024-09-12 21:52 | XMS_ITS | Encounter Summary ---
Author Organization [facility] Address [address] [place] [address] Care Team Providers Care Open Die Inspector Name Role Phone Carolee Harris MD Primary Care Provider Encounter Details Date Type Department Care Team (Late st Contact Info) Description 08/09/2024 Treatment [facility] [place] [address] [place] [address] Lucie Brown MD [address] [facility] [address] [place], [place] [id number] Social History Tobacco Use Types Packs/Day Years [...] Dialysis Note - Lucie Brown MD - 08/09/2024 12:00 AM CST Patient: Rolly Alex : 1945 Note Type: Dialysis Rounds-Comp Service Date: 08/09/2024 This patient was personally seen for a complete visit as part of routine monthly dialysis care for end stage renal disease. Attending Metal Miner Blasting: LUCIE BROWN Dialysis Location: [facility] Schedule: Shift: 1 OVERVIEW Patient is stable. COMMENTS: 08/09/24: Feels well, doing well. thinks he is gaining some wt. 07/28/24: Doing well, no concerns. 07/12/24: saw his PCP this week. checking his TSH and FLP, o/w no changes. he feels well. Cards/ECHO appt is soon. 07/05/24: stable and doing well. has ECHO and Cards appt upcoming. 06/19/24: doing well, no concerns. PATIENT HISTORY COMMENTS: Feels well, no concerns. HOME MEDICATIONS Medications reviewed. Current [facility] Medications allopurinol 300 mg tablet [...] mouth three times a day with meals. [Take 2 with larger meals] torsemide 20 mg tablet Take 2 tablet by mouth twice a day. [2 tabs 2 times a day] Vitamin D3 50 mcg (2,000 unit) tablet Take 1 tablet by mouth once a day. warfarin 2 mg tablet [6mg(3 tab) tabs per day (,, F) and 8mg (4 tabs) on TTS.] Current [facility] Allergies Allergen: pseudoephedrine Reaction: Unknown Severity: Mild DIALYSIS PRESCRIPTION Treatment Data Treatment Date: 08/09/2024 started at: 5:37 AM Dialysate / Machine Temp (prescribed): 36.5*C Dialysate / Machine Temp (actual): 36.1*C BFR (prescribed): 450 BFR (actual): 200 DFR (prescribed): Autoflow 1.5 DFR (actual): 700 Prescribed Time: 03:30 EDW (kg): 80.4 Dialyzer: 180NRe Optiflux Dialysate: 2.0 K, 2.5 Ca, 1.0 Mg, 100 Dextrose (G2251) Sodium: 138 Bicarb: 30 Pre Dialysis Vitals Pre BP Sit: 121/61 Pre Wt (kg): 83.1 EDW Deviation (kg): 2.7 Temp: 97.6*F Current Dialysis Vitals BP Sit: 121/54 AP/COOKER HELPER: -- Pulse: 78 TREATMENT MEDICATIONS ORDERS Vitamin D (Calcitriol) Oral 1.0 mcg ORAL 3X Week 07/17/2024 - 07/16/2025 BP AND FLUID ASSESSMENT Acceptable blood pressure. EDW appropriate. Post BP Sit 120/66 - 08/07/2024 105/62 - 08/04/2024 106/51 - 08/02/2024 Post Wt (kg) 81.1 - 08/07/2024 80.5 - 08/04/2024 80.7 - 08/02/2024 EDW (kg) 80.4 - 08/07/2024 80.4 - 08/04/2024 80.4 - 08/02/2024 Deviation (kg) 0.7 - 08/07/2024 0.1 - 08/04/2024 0.3 - 08/02/2024 ADEQUACY ASSESSMENT Target met. Prescription compliance acceptable. [...] > 2000 (07/26/24) 1072 (06/26/24) ANEMIA ASSESSMENT Anemia targets met. Hemoglobin at target. Hemoglobin 11.7 (08/02/24) 11.4 (07/26/24) 11.5 (07/19/24) Iron Saturation (TSat) 24 (07/12/24) 44 (06/07/24) 29 (05/10/24) Ferritin 1,422 (05/10/24) 791 (03/08/24) 675 (02/09/24) Iron 58 (07/12/24) 109 (06/07/24) 71 (05/10/24) TIBC 239 (07/12/24) 248 (06/07/24) 246 (05/10/24) Reticulocyte Hemoglobin 34.8 (07/19/24) 34.9 (05/31/24) 35.2 (04/19/24) MCV 104 (07/12/24) 105 (06/07/24) 102 (05/10/24) Platelets 173 (07/12/24) 192 (06/07/24) 206 (05/10/24) BMM ASSESSMENT PTH within target. Hyperphosphatemia noted. Calcium controlled. Calcium 8.6 07/12/24 8.7 06/30/24 8.7 06/07/24 Corrected Calcium 8.8 07/12/24 8.9 06/07/24 8.8 05/10/24 Phosphorus 6.9 07/12/24 5.2 06/07/24 6.6 05/10/24 Calcium Phosphorus Product 59 07/12/24 45 06/07/24 57 05/10/24 PTH 660 07/12/24 860 06/09/24 550 06/07/24 Magnesium 1.9 02/09/24 2.1 11/10/23 1.8 08/11/23 Alkaline Phosphatase 290 02/09/24 266 11/10/23 354 08/11/23 Aluminum <5 11/10/23 NUTRITION ASSESSMENT Albumin at goal. Potassium controlled. Albumin 3.7 07/12/24 3.7 06/07/24 3.8 05/10/24 Potassium 4.6 07/12/24 3.9 06/07/24 3.6 05/10/24 eNPCR 1.22 07/12/24 0.63 06/07/24 1.02 05/10/24 TRANSPLANT STATUS COMMENT COMMENTS: 08/09/24: Not a candidate due to age PHYSICAL EXAM Exam performed. Vital Signs Reviewed. Lungs - Clear. CV - Blood pressure noted. CV - RRR. No edema. ADDITIONAL LABS WBC 6.88 (07/12/24) 5.26 (06/07/24) 6.25 (05/10/24) Hepatitis B Surface Ab 10 (05/17/24) Signed by: LUCIE BROWN MD on 08/09/2024 at 11:58:00 AM Transcribed by: LUCIE BROWN MD on 08/09/2024 at 11:58:00 AM documented in this encounter Plan of Treatment Not on file documented as of this encounter Visit Diagnoses Not on filedocumented in this encounter Care Teams Open Die Inspector Relationship Specialty Start Date End Date Carolee Harris MD [address] [place] [address] PCP - General Family Medicine 09/16/21 documented as of this encounter
--- OUTSIDE RECORDS SUMMARY | 2024-09-12 21:52 | XMS_ITS | Encounter Summary ---
Author Organization [facility] [place] [place] Address [address] [place] [address] Care Team Providers Care Air Traffic Systems Technician Name Role Phone Carolee Harris MD Primary Care Provider [phone] Encounter Details Date Type Department Care Team (Latest Contact Info) Description 07/19/2020 Orders Only [facility] [place] [address] [place] [address] Shay Brown MD [address] [place] [address] Secondary hyperparathyroidism of renal origin (HCC); Chronic kidney disease, Stage IV (severe) (HCC); Hypertensive renal disease; Anemia in chronic kidney disease Social History Tobacco Use Types Packs/Day Years [...] on file Sexual Orientation Not on file COVID-19 Exposure Response Date Recorded In the last month, have you been in contact with someone who was confirmed or suspected to have Coronavirus / COVID-19? No / Unsure 07/03/2020 10:35 AM EST documented as of this encounter Plan of Treatment Not on file documented as of this encounter Procedures Procedure Name Priority Date/Time Associated Diagnosis Comments HEMOGLOBIN Routine 07/30/2020 1:21 PM MANAGER GLOBAL Anemia in chronic kidney disease Secondary hyperparathyroidism of renal origin (HCC) Chronic kidney disease, Stage IV (severe) (HCC) Hypertensive renal disease PTH, INTACT Routine 07/30/2020 1:21 PM MANAGER GLOBAL Secondary hyperparathyroidism of renal origin (HCC) Chronic kidney disease, Stage IV (severe) (HCC) Hypertensive renal disease RENAL FUNCTION PANEL Routine 07/30/2020 1:21 PM MANAGER GLOBAL Secondary hyperparathyroidism of renal origin (HCC) Chronic kidney disease, Stage IV (severe) (HCC) Hypertensive renal disease documented in this encounter Results * (ABNORMAL) PTH, Intact (07/30/2020 1:21 PM MANAGER GLOBAL) Parathyroid Hormone, Intact 9.0(L) 14.0 - 72.0 pg/mL [facility] Blood (Blood, Venous) 07/30/2020 1:21 PM MANAGER GLOBAL 07/30/2020 10:03 PM MANAGER GLOBAL Narrative [facility] - 07/30/2020 10:27 PM MANAGER GLOBAL RF IN JUN THEN POSSIBLY AT [place] IN JUL AND BEYOND. us Shay Brown MD LAB BLOOD ORDERABLES Final Resul t Performing Organization Address [facility] Co de Phone Number [address] [address] * (ABNORMAL) Hemoglobin (07/30/2020 1:21 PM MANAGER GLOBAL) Hgb 9.6(L) 14.0 - 18.0 gm/dL [facility] Blood (Blood, Venous) 07/30/2020 1:21 PM MANAGER GLOBAL 07/30/2020 9:34 PM MANAGER GLOBAL Narrative [facility] - 07/30/2020 9:54 PM MANAGER GLOBAL RF IN JUN THEN POSSIBLY AT [place] IN JUL AND BEYOND. us Shay Brown MD LAB BLOOD ORDERABLES Final Resul t Performing Organization Address City/[facility]/ZIP Co de Phone Number [facility] [address] [place] [address] * (ABNORMAL) Renal Function Panel (07/30/2020 1:21 PM MANAGER GLOBAL) Sodium 138 136 - 145 mmol/L [facility] Potassium 4.3 3.5 - 5.1 mmol/L [facility] Chloride 106 98 - 112 mmol/L [facility] Carbon Dioxide (CO2) 22 21 - 32 mmol/L [facility] BUN 67(H) 7 - 24 mg/dL [facility] Creatinine 4.76(H) 0.70 - 1.30 mg/dL [facility] GFR EST NON 11(L) >60 mL/min [facility] eGFR 13(L) >60 mL/min [facility] Glucose 131(H) 74 - 106 mg/dL [facility] Calcium 10.6(H) 8.5 - 10.1 mg/dL [facility] Albumin 3.2(L) 3.4 - 5.0 g/dL [facility] Phosphorus 4.1 2.5 - 4.9 mg/dL [facility] Anion Gap 10.0 0.0 - 15.0 mmol/L [facility] Blood (Blood, Venous) 07/30/2020 1:21 PM MANAGER GLOBAL 07/30/2020 10:56 PM MANAGER GLOBAL Narrative [facility] - 07/30/2020 11:09 PM MANAGER GLOBAL RF IN JUN THEN POSSIBLY AT [place] IN JUL AND BEYOND. [facility] HAS THE PATIENT FASTED?->NO us Shay Brown MD LAB BLOOD ORDERABLES Final Resul t [facility] [address] [place] [address] documented in this encounter Visit Diagnoses Diagnosis Secondary hyperparathyroidism of renal origin (HCC) Secondary hyperparathyroidism of renal origin Chronic kidney disease, Stage IV (severe) (HCC) Chronic kidney disease, Stage IV (severe) Hypertensive renal disease Anemia in chronic kidney disease documented in this encounter Care Teams Air Traffic Systems Technician Relationship Specialty Start Date End Date Carolee Harris MD [address] [place] [address] PCP - General Family Medicine 09/16/21 documented as of this encounter
--- OUTSIDE RECORDS SUMMARY | 2024-09-12 21:52 | XMS_ITS | Encounter Summary ---
Author Organization [facility] [place] Address [address] [place] [address] Care Team Providers Care General Pediatrician Name Role Phone Carolee Harris MD Primary Care Provider [phone] Encounter Details Date Type Department Care Team (Late st Contact Info) Description 08/14/2024 Orders Only [facility] [place] [address] [place] [address] Shay Brown MD [address] [place] [address] Social History Tobacco Use Types [...] Procedure Name Priority Date/Time Associated Diagnosis Comments HEMATOLOGY Routine 08/14/2024 documented in this encounter Results * (ABNORMAL) HEMATOLOGY (08/14/2024) Hemoglobin 11.1(L) 14.0 - 18.0 g/dL [facility] Hemoglobin x 3 33.3(L) 42.0 - 54.0 % [facility] 08/14/2024 08/15/2024 3:5 9 AM SOLE LEVELER MACHINE Narrative [facility] - 08/15/2024 Unless otherwise specified, test(s) performed at: [facility], [address] [place] [address], [place] [address] STICK WELDER: Robert Martin M.D., Ph.D For any questions, please call customer service at FREQUENCY:OTHER Resulting Agency Comment Specimen source: Blood us Shay Brown MD LAB BLOOD ORDERABLES Final Resul t [email or web address] See order comments or contact performing lab Unknown, [place] documented in this encounter Visit Diagnoses Not on filedocumented in this encounter Care Teams General Pediatrician Relationship Specialty Start Date End Date Carolee Harris MD [address] [place] [address] PCP - General Family Medicine 09/16/21 documented as of this encounter
--- OUTSIDE RECORDS SUMMARY | 2024-09-12 21:52 | XMS_ITS | Encounter Summary ---
Author Organization [facility] [place] Address [address] [place] [address] Care Team Providers Care Secondary School Teacher Librarian Name Role Phone Carolee Harris MD Primary Care Provider [phone] Reason for Visit * Reason Comments Med Refill Encounter Details Date Type Department Care Team (Late st Contact Info) Description 09/02/2024 Refill [facility] [address] [place] [address] Shay Brown MD [address] [place] [address] Social History Tobacco Use Types [...] as of this encounter Miscellaneous Notes * Telephone Encounter - Arlene Ramirez RN - 09/06/2024 2:02 PM HEMODIALYSIS CHARGE NURSE dialysis documented in this encounter Plan of Treatment Not on file documented as of this encounter Visit Diagnoses Not on filedocumented in this encounter Care Teams Secondary School Teacher Librarian Relationship Specialty Start Date End Date Carolee Harris MD [address] [place] [address] PCP - General Family Medicine 09/16/21 documented as of this encounter
--- OUTSIDE RECORDS SUMMARY | 2024-09-12 21:52 | XMS_ITS | Encounter Summary ---
Author Organization [facility] [place] [place] Address [address] [place] [address] Care Team Providers Care Metal Fitter Name Role Phone Carolee Harris MD Primary Care Provider [phone] Encounter Details Date Type Department Care Team (Late st Contact Info) Description 08/09/2024 Orders Only [facility] [address] [place] [address] ProviderFahad Ordering Social History Tobacco Use Types Packs/Day Years [...] Date/Time Associated Diagnosis Comments HD KINETICS Routine 08/09/2024 POST CHEMISTRY Routine 08/09/2024 HEMATOLOGY Routine 08/09/2024 CHEMISTRY Routine 08/09/2024 CHEMISTRY Routine 08/09/2024 [facility] RES[facility] Routine 08/09/2024 documented in this encounter Results * HD KINETICS (08/09/2024) % Urea Reduction 78 65 - 80 % [facility] 08/09/2024 08/10/2024 9:4 5 AM METALS ANALYST Narrative Resulting Agency Comment Specimen source: Plasma us Shay Brown MD LAB BLOOD ORDERABLES Final Resul t Performing Organization Address [facility] de Phone Number [facility] See order comments or contact performing lab Unknown, [place] * POST CHEMISTRY (08/09/2024) BUN Post Dialysis 11 6 - 19 mg/dL [facility] 08/09/2024 08/10/2024 9:4 5 AM METALS ANALYST Narrative [facility] - 08/10/2024 Unless otherwise specified, test(s) performed at: [facility], [address] [place] [address], [place] [address] SENIOR AIR DIRECTOR: Robert Martin M.D., Ph.D For any questions, please call customer service at FREQUENCY:MONTHLY Resulting Agency Comment Specimen source: Plasma us Shay Brown MD LAB BLOOD ORDERABLES Final Resul t Performing Organization Address [facility] de Phone Number [facility] See order comments or contact performing lab Unknown, [place] * (ABNORMAL) [facility] (08/09/2024) BUN 49(H) 6 - 19 mg/dL [facility] Creatinine 6.50(H) 0.60 - 1.30 mg/dL [facility] BUN/Creatinine Ratio 7.5(L) 10.0 - 20.0 [facility] Sodium 145 136 - 145 mEq/L [facility] Potassium 4.2 3.5 - 5.1 mEq/L [facility] Chloride 107 96 - 108 mEq/L [facility] Bicarbonate (CO2) 25 20 - 31 mEq/L [facility] Calcium 8.6(L) 8.7 - 10.4 mg/dL [facility] Comment: Please note change in reference range. Corrected Calcium 8.9 8.7 - 10.4 mg/dL [facility] Comment: Corrected Calcium is not equivalent to measured Ionized Calcium. Phosphorus 5.2(H) 2.6 - 4.5 mg/dL [facility] Calcium Phosphorus Product 45 0 - 54 [facility] Calcium Phosporus Product, Cor 46 0 - 54 [facility] Total Protein 6.9 6.0 - 8.5 g/dL [facility] Albumin 3.6 3.5 - 5.2 g/dL [facility] Globulin, Total 3.3 2.0 - 4.0 g/dL [facility] A/G Ratio 1.1 1.0 - 2.0 [facility] Ferritin 1,076(H) 22 - 322 ng/mL [facility] Iron 58 45 - 160 mcg/dL [facility] UIBC 172 155 - 355 mcg/dL [facility] TIBC 230 185 - 515 mcg/dL [facility] Iron Saturation (TSat) 25 20 - 55 % [facility] 08/09/2024 08/10/2024 9:3 8 AM METALS ANALYST Narrative [facility] - 08/10/2024 Unless otherwise specified, test(s) performed at: [facility], [address] [place] [address], [place] [address] SENIOR AIR DIRECTOR: Robert Martin M.D., Ph.D For any questions, please call customer service at FREQUENCY:MONTHLY Resulting Agency Comment Specimen source: Serum Shay Brown MD LAB BLOOD ORDERABLES Final Resul t [facility] See order comments or contact performing lab Unknown, [place] * (ABNORMAL) HEMATOLOGY (08/09/2024) Neutrophils 45.1 40.0 - 75.0 % [facility] Lymphocytes Relative 39.0 19.0 - 48.0 % [facility] Monocytes 6.2 3.0 - 10.0 % [facility] Eosinophils Relative 7.0 0.0 - 7.0 % [facility] Basophils Relative 0.5 0.0 - 1.5 % [facility] SANJAY 2.2 0.0 - 4.0 % [facility] WBC 7.02 4.80 - 10.80 1000/mcL [facility] RBC 3.44(L) 4.70 - 6.10 mill/mcL [facility] Hematocrit 34.9(L) 42.0 - 52.0 % [facility] MCV 102(H) 80 - 100 fl [facility] MCH 32.7(H) 27.0 - 31.0 pg [facility] MCHC 32.2 30.0 - 36.0 g/dL [facility] RDW 13.6 11.5 - 14.5 % [facility] Hemoglobin 11.3(L) 14.0 - 18.0 g/dL [facility] Hemoglobin x 3 33.9(L) 42.0 - 54.0 % [facility] Platelets 238 130 - 400 1000/mcL [facility] 08/09/2024 08/10/2024 8:4 6 AM METALS ANALYST Narrative [facility] - 08/10/2024 Unless otherwise specified, test(s) performed at: [facility], [address] [place] [address], [place] [address] SENIOR AIR DIRECTOR: Robert Martin M.D., Ph.D For any questions, please call customer service at FREQUENCY:MONTHLY Resulting Agency Comment Specimen source: Blood Shay Brown MD LAB BLOOD ORDERABLES Final Resul t Performing Organization Address [facility] de Phone Number [facility] See order comments or contact performing lab Unknown, [place] * (ABNORMAL) [facility] (08/09/2024) Pathologist [facility] PTH 474(H) 16 - 80 pg/mL [facility] 08/09/2024 08/10/2024 10: 46 AM METALS ANALYST Narrative [facility] - 08/10/2024 Unless otherwise specified, test(s) performed at: [facility], [address] [place] [address], [place] [address] SENIOR AIR DIRECTOR: Robert Martin M.D., Ph.D For any questions, please call customer service at FREQUENCY:MONTHLY Resulting Agency Comment Specimen source: Plasma Shay Brown MD LAB BLOOD ORDERABLES Final Resul t Performing Organization Address [facility]/ZIP Co de Phone Number [facility] See order comments or contact performing lab Unknown, [place] * [facility] Results (08/09/2024) Pathologist [facility] eKt/V Gotch 1.52 [facility] spKt/V Gotch 1.79 [facility] spKt/V (Daugirdas II) 1.74 [facility] eNPCR 0.89 [facility] WSTDKT/V 2.6 [facility] eKt/V ([place]) 1.49 [facility] PCR 51.52 [facility] eKdrt/V 1.52 [facility] nPCR_HD 0.95 [facility] 08/09/2024 08/09/2024 [facility] Ordering Provider LAB BLOOD ORDERABLES Final Result [facility] Contact Performing lab Unknown, [place] documented in this encounter Visit Diagnoses Not on filedocumented in this encounter Care Teams Metal Fitter Relationship Specialty Start Date End Date Carolee Harris MD [address] [place] [address] PCP - General Family Medicine 09/16/21 documented as of this encounter
--- OUTSIDE RECORDS SUMMARY | 2024-09-12 21:52 | XMS_ITS | Encounter Summary ---
Author Organization [facility] [place] Address [address] [place] [address] Care Team Providers Care Humanities And Languages Professor Name Role Phone Carolee Harris MD Primary Care Provider [phone] Encounter Details Date Type Department Care Team (Latest Contact Info) Description 06/21/2020 Orders Only [facility] [place] [address] [place] [address] Shay Brown MD [address] [place] [address] Secondary hyperparathyroidism of renal origin [...] have Coronavirus / COVID-19? No / Unsure 05/28/2020 1:28 PM EDT documented as of this encounter Plan of Treatment Not on file documented as of this encounter Procedures Procedure Name Priority Date/Time Associated Diagnosis Comments HEMOGLOBIN Routine 06/26/2020 11:36 AM SONG AND DANCE PERFORMER Anemia in chronic kidney disease Secondary hyperparathyroidism of renal origin (HCC) Chronic kidney disease, Stage IV (severe) (HCC) Hypertensive renal disease PTH, INTACT Routine 06/26/2020 11:36 AM SONG AND DANCE PERFORMER Secondary hyperparathyroidism of renal origin (HCC) Chronic kidney disease, Stage IV (severe) (HCC) Hypertensive renal disease RENAL FUNCTION PANEL Routine 06/26/2020 11:36 AM SONG AND DANCE PERFORMER Secondary hyperparathyroidism of renal origin (HCC) Chronic kidney disease, Stage IV (severe) (HCC) Hypertensive renal disease documented in this encounter Results * (ABNORMAL) PTH, Intact (06/26/2020 11:36 AM SONG AND DANCE PERFORMER) Parathyroid Hormone, Intact 76.0(H) 14.0 - 72.0 pg/mL [facility] Blood (Blood, Venous) 06/26/2020 11:36 AM SONG AND DANCE PERFORMER 06/26/2020 9:31 PM SONG AND DANCE PERFORMER Narrative [facility] - 06/26/2020 9:51 PM SONG AND DANCE PERFORMER RF IN JUN THEN POSSIBLY AT [facility] IN JUL AND BEYOND. us Shay Brown MD LAB BLOOD ORDERABLES Final Resul t Performing Organization Address City/[facility] Co de Phone Number [address] [address] * (ABNORMAL) Hemoglobin (06/26/2020 11:36 AM SONG AND DANCE PERFORMER) Hgb 9.8(L) 14.0 - 18.0 gm/dL [facility] Blood (Blood, Venous) 06/26/2020 11:36 AM SONG AND DANCE PERFORMER 06/26/2020 9:26 PM SONG AND DANCE PERFORMER Narrative [facility] - 06/26/2020 9:33 PM SONG AND DANCE PERFORMER RF IN JUN THEN POSSIBLY AT [facility] IN JUL AND BEYOND. us Shay Brown MD LAB BLOOD ORDERABLES Final Resul t Performing Organization Address City/[facility]/ZIP Co de Phone Number [facility] [address] [place] [address] * (ABNORMAL) Renal Function Panel (06/26/2020 11:36 AM SONG AND DANCE PERFORMER) Sodium 140 136 - 145 mmol/L [facility] Potassium 3.7 3.5 - 5.1 mmol/L [facility] Chloride 106 98 - 112 mmol/L [facility] Carbon Dioxide (CO2) 27 21 - 32 mmol/L [facility] BUN 79(H) 7 - 24 mg/dL [facility] Creatinine 5.16(H) 0.70 - 1.30 mg/dL [facility] GFR EST NON 10(L) >60 mL/min [facility] eGFR 11(L) >60 mL/min [facility] Glucose 189(H) 74 - 106 mg/dL [facility] Calcium 8.6 8.5 - 10.1 mg/dL [facility] Albumin 3.0(L) 3.4 - 5.0 g/dL [facility] Phosphorus 4.8 2.5 - 4.9 mg/dL [facility] Anion Gap 7.0 0.0 - 15.0 mmol/L [facility] Blood (Blood, Venous) 06/26/2020 11:36 AM SONG AND DANCE PERFORMER 06/26/2020 9:17 PM SONG AND DANCE PERFORMER Narrative [facility] - 06/26/2020 9:44 PM SONG AND DANCE PERFORMER RF IN JUN THEN POSSIBLY AT [facility] IN JUL AND BEYOND. [facility] HAS THE PATIENT FASTED?->NO us Shay Brown MD LAB BLOOD ORDERABLES Final Resul t [facility] [address] [place] [address] documented in this encounter Visit Diagnoses Diagnosis Secondary hyperparathyroidism of renal origin (HCC) Secondary hyperparathyroidism of renal origin Chronic kidney disease, Stage IV (severe) (HCC) Chronic kidney disease, Stage IV (severe) Hypertensive renal disease Anemia in chronic kidney disease documented in this encounter Care Teams Humanities And Languages Professor Relationship Specialty Start Date End Date Carolee Harris MD [address] [place] [address] PCP - General Family Medicine 09/16/21 documented as of this encounter
--- OUTSIDE RECORDS SUMMARY | 2024-09-12 21:52 | XMS_ITS | Encounter Summary ---
Author Organization [facility] [place] [place] Address [address] [place] [address] Care Team Providers Care Auto Transmission Technician Name Role Phone Carolee Harris MD Primary Care Provider Encounter Details Date Type Department Care Team (Latest Contact Info) Description 08/02/2020 Orders Only [facility] [place] [address] [place] [address] Shay Brown MD [address] [place] [address] Anemia in chronic kidney disease; Chronic kidney disease stage 4 (HCC); Secondary hyperparathyroidism of renal origin (HCC) Social History Tobacco Use Types Packs/Day Years [...] have Coronavirus / COVID-19? No / Unsure 07/30/2020 2:12 PM EST documented as of this encounter Plan of Treatment Not on file documented as of this encounter Procedures Procedure Name Priority Date/Time Associated Diagnosis Comments PROTEIN / CREATININE RATIO, URINE Routine 09/11/2020 11:25 AM CO FOUNDER AND CTO Anemia in chronic kidney disease Chronic kidney disease stage 4 (HCC) documented in this encounter Results * (ABNORMAL) Protein, Total, Random Urine w/Creatinine (Protein/Creat Ratio) (09/11/2020 11:25 AM CO FOUNDER AND CTO) Protein/Creati nine Ratio, Urine 3.13(H) <0.11 mg/mg creat [facility] Creatinine, Ur 77.1 mg/dL [facility] Protein, Ur 241(H) <12 mg/dL [facility] Urine (Urine, Clean Catch) 09/11/2020 11:25 AM CO FOUNDER AND CTO 09/11/2020 1:45 PM CO FOUNDER AND CTO Narrative [facility] 09/11/2020 2:26 PM CO FOUNDER AND CTO AT [facility] OR HERE AT [facility]. AT [facility] OR AT [place]. us Shay Brown MD LAB URINE ORDERABLES Final Resul t [facility] [address] [place] [address] documented in this encounter Visit Diagnoses Diagnosis Anemia in chronic kidney disease Chronic kidney disease stage 4 (HCC) Secondary hyperparathyroidism of renal origin (HCC) Secondary hyperparathyroidism of renal origin documented in this encounter Care Teams Auto Transmission Technician Relationship Specialty Start Date End Date Carolee Harris MD [address] [place] [address] PCP - General Family Medicine 09/16/21 documented as of this encounter
--- OUTSIDE RECORDS SUMMARY | 2024-09-12 21:52 | XMS_ITS | Encounter Summary ---
Author Organization [facility] [place] [place] Address [address] [place] [address] Care Team Providers Care Tree Chipper Name Role Phone Carolee Harris MD Primary Care Provider [phone] Encounter Details Date Type Department Care Team (Latest Contact Info) Description 08/16/2020 Orders Only [facility] [place] [address] [place] [address] Shay Brown MD [address] [place] [address] Secondary hyperparathyroidism of renal origin [...] PM EST documented as of this encounter Progress Notes * Zoila Greenberg LPN - 08/16/2020 2:07 AM CST Monthly lab * Shay Brown MD - 08/16/2020 2:07 AM CST Please call the patient regarding recent labs. Same meds. Cr a little better. No need for HD, yet! documented in this encounter Plan of Treatment Not on file documented as of this encounter Procedures Procedure Name Priority Date/Time Associated Diagnosis Comments HEMOGLOBIN Routine 09/11/2020 11:25 AM CONSERVATION OR HERITAGE ARCHITECT Anemia in chronic kidney disease Secondary hyperparathyroidism of renal origin (HCC) Chronic kidney disease, Stage IV (severe) (HCC) Hypertensive renal disease PTH, INTACT Routine 09/11/2020 11:25 AM CONSERVATION OR HERITAGE ARCHITECT Secondary hyperparathyroidism of renal origin (HCC) Chronic kidney disease, Stage IV (severe) (HCC) Hypertensive renal disease RENAL FUNCTION PANEL Routine 09/11/2020 11:25 AM CONSERVATION OR HERITAGE ARCHITECT Secondary hyperparathyroidism of renal origin (HCC) Chronic kidney disease, Stage IV (severe) (HCC) Hypertensive renal disease documented in this encounter Results * (ABNORMAL) PTH, Intact (09/11/2020 11:25 AM CONSERVATION OR HERITAGE ARCHITECT) Pathologist [facility] [place] Parathyroid Hormone, Intact 73.0(H) 14.0 - 72.0 pg/mL [facility] Blood (Blood, Venous) 09/11/2020 11:25 AM CONSERVATION OR HERITAGE ARCHITECT 09/11/2020 1:40 PM CONSERVATION OR HERITAGE ARCHITECT Narrative [facility] - 09/11/2020 1:59 PM CONSERVATION OR HERITAGE ARCHITECT AT [facility] OR HERE AT [place]. AT [facility] OR AT [place]. us Shay Brown MD LAB BLOOD ORDERABLES Final Resul t [facility] [address] [place] [address] * (ABNORMAL) Hemoglobin (09/11/2020 11:25 AM CONSERVATION OR HERITAGE ARCHITECT) Pathologist [facility] [place] Hgb 9.8(L) 14.0 - 18.0 gm/dL [facility] Blood (Blood, Venous) 09/11/2020 11:25 AM CONSERVATION OR HERITAGE ARCHITECT 09/11/2020 1:44 PM CONSERVATION OR HERITAGE ARCHITECT Narrative [facility] - 09/11/2020 1:59 PM CONSERVATION OR HERITAGE ARCHITECT AT [facility] OR HERE AT [place]. AT [facility] OR AT [place]. Shay Brown MD LAB BLOOD ORDERABLES Final Resul t [facility] [address] [place] [address] * (ABNORMAL) Renal Function Panel (09/11/2020 11:25 AM CONSERVATION OR HERITAGE ARCHITECT) [facility] Sodium 140 136 - 145 mmol/L [facility] Potassium 4.3 3.5 - 5.1 mmol/L [facility] Chloride 112 98 - 112 mmol/L [facility] Carbon Dioxide (CO2) 21 21 - 32 mmol/L [facility] BUN 59(H) 7 - 24 mg/dL [facility] Creatinine 4.33(H) 0.70 - 1.30 mg/dL [facility] GFR EST NON 12(L) >60 mL/min [facility] eGFR 14(L) >60 mL/min [facility] Glucose 133(H) 74 - 106 mg/dL [facility] Calcium 9.2 8.5 - 10.1 mg/dL [facility] Albumin 3.1(L) 3.4 - 5.0 g/dL [facility] Phosphorus 3.1 2.5 - 4.9 mg/dL [facility] Anion Gap 7.0 0.0 - 15.0 mmol/L [facility] Blood (Blood, Venous) 09/11/2020 11:25 AM CONSERVATION OR HERITAGE ARCHITECT 09/11/2020 1:42 PM CONSERVATION OR HERITAGE ARCHITECT Narrative [facility] - 09/11/2020 1:53 PM CONSERVATION OR HERITAGE ARCHITECT AT [facility] OR HERE AT [place]. AT [facility] OR AT [place]. [facility] HAS THE PATIENT FASTED?->NO Shay Brown MD LAB BLOOD ORDERABLES Final Resul t [facility] [address] [place] [address] documented in this encounter Visit Diagnoses Diagnosis Secondary hyperparathyroidism of renal origin (HCC) Secondary hyperparathyroidism of renal origin Chronic kidney disease, Stage IV (severe) (HCC) Chronic kidney disease, Stage IV (severe) Hypertensive renal disease Anemia in chronic kidney disease documented in this encounter Care Teams Tree Chipper Relationship Specialty Start Date End Date Carolee Harris MD [address] [place] [address] PCP - General Family Medicine 09/16/21 documented as of this encounter
--- OUTSIDE RECORDS SUMMARY | 2024-09-12 21:52 | XMS_ITS | Encounter Summary ---
Author Organization [facility] [place] Address [address] [place] [address] Care Team Providers Care Search Strategist Name Role Phone Carolee Harris MD Primary Care Provider [phone] Reason for Visit * Reason Comments Med Refill Encounter Details Date Type Department Care Team (Late st Contact Info) Description 06/10/2021 Refill [facility] [place] [address] [place] [address] Shay Brown MD [address] [place] [address] Social History Tobacco Use Types [...] have Coronavirus / COVID-19? No / Unsure 06/11/2021 11:21 AM EDT documented as of this encounter Plan of Treatment Not on file documented as of this encounter Visit Diagnoses Not on filedocumented in this encounter Care Teams Search Strategist Relationship Specialty Start Date End Date Carolee Harris MD [address] [place] [address] PCP - General Family Medicine 09/16/21 documented as of this encounter
--- OUTSIDE RECORDS SUMMARY | 2024-09-12 21:52 | XMS_ITS | Encounter Summary ---
Author Organization [facility] [place] Address [address] [place] [address] Care Team Providers Care Semi Truck Driver Name Role Phone Carolee Harris MD Primary Care Provider [phone] Encounter Details Date Type Department Care Team (Late st Contact Info) Description 08/21/2024 Orders Only [facility] [place] [address] [place] [address] Shay Brown MD [address] [place] [address] Social History Tobacco Use Types [...] Priority Date/Time Associated Diagnosis Comments HEMATOLOGY Routine 08/21/2024 documented in this encounter Results * (ABNORMAL) HEMATOLOGY (08/21/2024) Hemoglobin 10.4(L) 14.0 - 18.0 g/dL [facility] Hemoglobin x 3 31.2(L) 42.0 - 54.0 % [facility] 08/21/2024 08/23/2024 2:4 1 AM ABATTOIR SUPERVISOR Narrative [facility] - 08/23/2024 Unless otherwise specified, test(s) performed at: [facility], [address] [place] [address], [place] [address] FARE REGISTER REPAIRER: Robert Martin M.D., Ph.D For any questions, please call customer service at FREQUENCY:OTHER Resulting Agency Comment Specimen source: Blood us Shay Brown MD LAB BLOOD ORDERABLES Final Resul t [facility] See order comments or contact performing lab Unknown, [place] documented in this encounter Visit Diagnoses Not on filedocumented in this encounter Care Teams Semi Truck Driver Relationship Specialty Start Date End Date Carolee aHrris MD [address] [place] [address] PCP - General Family Medicine 09/16/21 documented as of this encounter
--- OUTSIDE RECORDS SUMMARY | 2024-09-12 21:52 | XMS_ITS | Encounter Summary ---
Author Organization [facility] [place] [place] Address [address] [place] [address] Care Team Providers Care Termite Helper Name Role Phone Carolee Harris MD Primary Care Provider [phone] Encounter Details Date Type Department Care Team (Late st Contact Info) Description 09/01/2024 Treatment [facility] [place] [address] [place] [address] Lucie Brown MD [address] [facility] [address] [place] [address] Social History Tobacco Use Types [...] Dialysis Note - Lucie Brown MD - 09/01/2024 12:00 AM CST Patient: Rolly Alex : 1945 Note Type: Dialysis Rounds-Comp Service Date: 09/01/2024 This patient was personally seen for a complete visit as part of routine monthly dialysis care for end stage renal disease. Attending Nematologist: LUCIE BROWN Dialysis Location: [facility] Schedule: Shift: 1 OVERVIEW Patient is stable. COMMENTS: 09/01/24: Feels fine, no issues. Has ECHO end of Aug then Cards f/u in early Sep. 08/09/24: Feels well, doing well. thinks he [...] no concerns. HOME MEDICATIONS Medications reviewed. Current [facility] Outpatient Medications allopurinol 300 mg tablet Take [...] 1 tablet by mouth once a day. Sevelamer Carbonate Tablet 800 mg tablet Take 2 Tablet By Mouth Three times a day With Meals. torsemide 20 mg tablet Take 2 tablet by mouth twice a day. [2 tabs 2 times a day] Vitamin D3 50 mcg (2,000 unit) tablet Take 1 tablet by mouth once a day. warfarin 2 mg tablet [6mg(3 tab) tabs per day (M,W, F) and 8mg (4 tabs) on TTS.] Current [facility] Allergies Allergen: pseudoephedrine Reaction: Unknown Severity: Mild DIALYSIS PRESCRIPTION Treatment Data Treatment Date: 09/01/2024 started at: 5:38 AM Dialysate / Machine Temp (prescribed): 36.0*C Dialysate / Machine Temp (actual): 36.0*C BFR (prescribed): 450 BFR (actual): 450 DFR (prescribed): Autoflow 1.5 DFR (actual): 700 Prescribed Time: 03:30 EDW (kg): 80.7 Dialyzer: 180NRe Optiflux Dialysate: 3.0 K, 2.5 Ca, 1.0 Mg, 100 Dextrose (G3251) Sodium: 138 Bicarb: 30 Pre Dialysis Vitals Pre BP Sit: 114/51 Pre Wt (kg): 82.8 EDW Deviation (kg): 2.1 Temp: 96.9*F Current Dialysis Vitals BP Sit: 137/56 AP/HEM INSPECTOR: 131/61 Pulse: 74 TREATMENT MEDICATIONS ORDERS Iron Sucrose (Venofer) 50 mg IVP 1X Week During Dialysis 08/30/2024 - 08/29/2025 Mircera 30 mcg IVP Every 4 weeks 08/30/2024 - 08/29/2025 Vitamin D (Calcitriol) Oral 1.25 mcg ORAL 3X Week 08/14/2024 - 08/13/2025 BP AND FLUID ASSESSMENT Acceptable blood pressure. Fluid status acceptable. EDW appropriate. Post BP Sit 116/55 - 08/30/2024 119/57 - 08/28/2024 138/59 - 08/25/2024 Post Wt (kg) 80.7 - 08/30/2024 81.4 - 08/28/2024 81.3 - 08/25/2024 EDW (kg) 80.7 - 08/30/2024 80.7 - 08/28/2024 80.7 - 08/25/2024 Deviation (kg) 0.0 - 08/30/2024 0.7 - 08/28/2024 0.6 - 08/25/2024 ADEQUACY ASSESSMENT Target met. Prescription compliance acceptable. Missed Treatments 0 - Last 30 days 0 - Last 60 days spKt/V (Daugirdas II) 1.74 (08/09/24) 1.74 (07/12/24) 1.55 (06/07/24) eKdrt/V 1.52 (08/09/24) 1.55 (07/12/24) 1.36 (06/07/24) % Urea Reduction 78 (08/09/24) 77 (07/12/24) 73 (06/07/24) BUN 49 (08/09/24) 69 (07/12/24) 33 (06/07/24) BUN Post Dialysis 11 (08/09/24) 16 (07/12/24) 9 (06/07/24) Creatinine 6.50 (08/09/24) 6.92 (07/12/24) 5.63 (06/07/24) Bicarbonate (CO2) 25 (08/09/24) 22 (07/12/24) 24 (06/07/24) Sodium 145 (08/09/24) 136 (07/12/24) 142 (06/07/24) ACCESS ASSESSMENT Vascular access examined. Current access is permanent and functioning well. AVFistula Standard Left Upper Arm Active (In Use) - 12/24/2022 Placed - 06/06/2020 Access Flow > 2000 (09/01/24) > 2000 (08/28/24) 1603 (07/28/24) ANEMIA ASSESSMENT Anemia targets met. Hemoglobin at target. Hemoglobin 11.1 (08/30/24) 10.4 (08/21/24) 11.1 (08/14/24) Iron Saturation (TSat) 25 (08/09/24) 24 (07/12/24) 44 (06/07/24) Ferritin 1,076 (08/09/24) 1,422 (05/10/24) 791 (03/08/24) Iron 58 (08/09/24) 58 (07/12/24) 109 (06/07/24) TIBC 230 (08/09/24) 239 (07/12/24) 248 (06/07/24) Reticulocyte Hemoglobin 34.8 (07/19/24) 34.9 (05/31/24) 35.2 (04/19/24) MCV 102 (08/09/24) 104 (07/12/24) 105 (06/07/24) Platelets 238 (08/09/24) 173 (07/12/24) 192 (06/07/24) BMM ASSESSMENT PTH within target. Phosphorus controlled. Calcium controlled. Bone and mineral metabolism parameters reviewed. Calcium 8.6 08/09/24 8.6 07/12/24 8.7 06/30/24 Corrected Calcium 8.9 08/09/24 8.8 07/12/24 8.9 06/07/24 Phosphorus 5.2 08/09/24 6.9 07/12/24 5.2 06/07/24 Calcium Phosphorus Product 45 08/09/24 59 07/12/24 45 06/07/24 PTH 474 08/09/24 660 07/12/24 860 06/09/24 Magnesium 1.9 02/09/24 2.1 11/10/23 Alkaline Phosphatase 290 02/09/24 266 11/10/23 Aluminum <5 11/10/23 NUTRITION ASSESSMENT Albumin not at goal. Potassium controlled. Albumin 3.6 08/09/24 3.7 07/12/24 3.7 06/07/24 Potassium 4.2 08/09/24 4.6 07/12/24 3.9 06/07/24 eNPCR 0.89 08/09/24 1.22 07/12/24 0.63 06/07/24 TRANSPLANT STATUS COMMENT COMMENTS: 08/09/24: Not a candidate due to age PHYSICAL EXAM Exam performed. Vital Signs Reviewed. Lungs - Clear. CV - Blood pressure noted. CV - RRR. No edema. ADDITIONAL LABS WBC 7.02 (08/09/24) 6.88 (07/12/24) 5.26 (06/07/24) Hepatitis B Surface Ab 10 (05/17/24) Signed by: LUCIE BROWN MD on 09/01/2024 at 09:57:26 AM Transcribed by: LUCIE BROWN MD on 09/01/2024 at 09:57:26 AM documented in this encounter Plan of Treatment Not on file documented as of this encounter Visit Diagnoses Not on filedocumented in this encounter Care Teams Termite Helper Relationship Specialty Start Date End Date Carolee Harris MD [address] [place] [address] PCP - General Family Medicine 09/16/21 documented as of this encounter
--- OUTSIDE RECORDS SUMMARY | 2024-09-12 21:52 | XMS_ITS | Encounter Summary ---
Author Organization [facility] [place] Address [address] [place] [address] Care Team Providers Care Grip Wrapper Name Role Phone Carolee Harris MD Primary Care Provider [phone] Encounter Details Date Type Department Care Team (Late st Contact Info) Description 08/30/2024 Orders Only [facility] [place] [address] [place] [address] Shay Brown MD [address] [place] [address] Social History Tobacco Use Types [...] Priority Date/Time Associated Diagnosis Comments HEMATOLOGY Routine 08/30/2024 documented in this encounter Results * (ABNORMAL) HEMATOLOGY (08/30/2024) Hemoglobin 11.1(L) 14.0 - 18.0 g/dL [facility] Hemoglobin x 3 33.3(L) 42.0 - 54.0 % [facility] 08/30/2024 08/31/2024 4:5 5 PM SECURITY ROVER Narrative [facility] - 08/31/2024 Unless otherwise specified, test(s) performed at: [facility], [address] [place] [address], [place] [address] STABILIZING MACHINE OPERATOR: Robert Martin M.D., Ph.D For any questions, please call customer service at FREQUENCY:OTHER Resulting Agency Comment Specimen source: Blood us Shay Brown MD LAB BLOOD ORDERABLES Final Resul t [facility] See order comments or contact performing lab Unknown, [place] documented in this encounter Visit Diagnoses Not on filedocumented in this encounter Care Teams Grip Wrapper Relationship Specialty Start Date End Date Carolee Harris MD [address] [place] [address] PCP - General Family Medicine 09/16/21 documented as of this encounter
--- OUTSIDE RECORDS SUMMARY | 2024-09-12 21:52 | XMS_ITS | Encounter Summary ---
Author Organization [facility] [place] Address [address] [place] [address] Care Team Providers Care Kitchen Designer Name Role Phone Carolee Harris MD Primary Care Provider [phone] Reason for Visit * Reason Comments Med Refill Encounter Details Date Type Department Care Team (Late st Contact Info) Description 02/01/2023 Refill [facility] [place] [address] [place] [address] Brenton Alex, JUWAN [address] [place] [address] Social History Tobacco Use Types Packs/Day Years [...] on filedocumented in this encounter Care Teams Kitchen Designer Relationship Specialty Start Date End Date Carolee Harris MD [address] [place] [address] PCP - General Family Medicine 09/16/21 documented as of this encounter
--- OUTSIDE RECORDS SUMMARY | 2024-09-12 21:52 | XMS_ITS | Encounter Summary ---
Author Organization [facility] [place] [place] Address [address] [place] [address] Care Team Providers Care Chain Saw Operator Name Role Phone Carolee Harris MD Primary Care Provider [phone] Reason for Visit * Reason Comments Med Refill Encounter Details Date Type Department Care Team (Late st Contact Info) Description 10/02/2021 Refill [facility] [place] [address] [place] [address] Shay Brown MD [address] [place] [address] Social History Tobacco Use Types [...] or suspected to have Coronavirus / COVID-19? Yes 09/16/2021 9:33 AM EST documented as of this encounter Plan of Treatment Not on file documented as of this encounter Visit Diagnoses Not on filedocumented in this encounter Care Teams Chain Saw Operator Relationship Specialty Start Date End Date Carolee Harris MD [address] [place] [id number] PCP - General Family Medicine 09/16/21 documented as of this encounter
--- OUTSIDE RECORDS SUMMARY | 2024-09-12 21:52 | XMS_ITS | Encounter Summary ---
Author Organization [facility] [place] [place] Address [address] [facility] [address] [place] [address] Care Team Providers Care Application Penetration Tester Name Role Phone Carolee Harris MD Primary Care Provider [phone] Encounter Details Date Type Department Care Team (Latest Contact Info) Description 08/30/2020 Orders Only [facility] [place] [address] [place] [address] Shay Brown MD [address] [place] [address] Chronic kidney disease, Stage IV (severe) (HCC); Anemia in chronic kidney disease; Secondary hyperparathyroidism of renal origin (HCC) Social [...] documented as of this encounter Visit Diagnoses Diagnosis Chronic kidney disease, Stage IV (severe) (HCC) Chronic kidney disease, Stage IV (severe) Anemia in chronic kidney disease Secondary hyperparathyroidism of renal origin (HCC) Secondary hyperparathyroidism of renal origin documented in this encounter Care Teams Application Penetration Tester Relationship Specialty Start Date End Date Carolee Harris MD [address] [place] [address] PCP - General Family Medicine 09/16/21 documented as of this encounter
--- OUTSIDE RECORDS SUMMARY | 2024-09-12 21:52 | XMS_ITS | Encounter Summary ---
Author Organization [facility] [place] [place] Address [address] [place] [address] Care Team Providers Care Hot Dip Tinning Supervisor Name Role Phone Carolee Harris MD Primary Care Provider [phone] Encounter Details Date Type Department Care Team (Late st Contact Info) Description 08/02/2024 Orders Only [facility] [place] [address] [place] [address] Shay Brown MD [address] [place] [address] Social History Tobacco Use Types [...] Priority Date/Time Associated Diagnosis Comments HEMATOLOGY Routine 08/02/2024 documented in this encounter Results * (ABNORMAL) HEMATOLOGY (08/02/2024) Hemoglobin 11.7(L) 14.0 - 18.0 g/dL [facility] Hemoglobin x 3 35.1(L) 42.0 - 54.0 % [facility] 08/02/2024 08/03/2024 6:5 8 AM PHOTO COLORER Narrative [facility] - 08/03/2024 Unless otherwise specified, test(s) performed at: [facility], [address] [place] [address], [place] [address] FIRE SAFETY DIRECTOR: Robert Martin M.D., Ph.D For any questions, please call customer service at FREQUENCY:OTHER Resulting Agency Comment Specimen source: Blood us Shay Brown MD LAB BLOOD ORDERABLES Final Resul t [facility] See order comments or contact performing lab Unknown, [place] documented in this encounter Visit Diagnoses Not on filedocumented in this encounter Care Teams Hot Dip Tinning Supervisor Relationship Specialty Start Date End Date Carolee Harris MD [address] [place] [address] PCP - General Family Medicine 09/16/21 documented as of this encounter
--- OUTSIDE RECORDS SUMMARY | 2024-09-12 21:52 | XMS_ITS | Encounter Summary ---
Author Organization [facility] [place] [place] Address [address] [place] [address] Care Team Providers Care Law Firm Administrator Name Role Phone Carolee Harris MD Primary Care Provider [phone] Encounter Details Date Type Department Care Team (Latest Contact Info) Description 09/25/2020 Orders Only [facility] [place] [address] [place] [address] Whitney Luis, RN [address] [place] [address] Chronic kidney disease, Stage IV (severe) (HCC); Secondary hyperparathyroidism of renal origin (HCC); Anemia in chronic kidney disease Social History [...] have Coronavirus / COVID-19? No / Unsure 09/11/2020 11:16 AM EST documented as of this encounter Plan of Treatment Not on file documented as of this encounter Procedures Procedure Name Priority Date/Time Associated Diagnosis Comments HEMOGLOBIN Routine 10/11/2020 11:10 AM TELEGRAPH OFFICE ROUTE AIDE Chronic kidney disease, Stage IV (severe) (HCC) Anemia in chronic kidney disease PTH, INTACT Routine 10/11/2020 11:10 AM TELEGRAPH OFFICE ROUTE AIDE Chronic kidney disease, Stage IV (severe) (HCC) Secondary hyperparathyroidism of renal origin (HCC) RENAL FUNCTION PANEL Routine 10/11/2020 11:09 AM TELEGRAPH OFFICE ROUTE AIDE Chronic kidney disease, Stage IV (severe) (HCC) documented in this encounter Results * (ABNORMAL) Hemoglobin (10/11/2020 11:10 AM TELEGRAPH OFFICE ROUTE AIDE) Pathologist [facility] Hgb 10.0(L) 14.0 - 18.0 gm/dL [facility] Blood (Blood, Venous) 10/11/2020 11:10 AM TELEGRAPH OFFICE ROUTE AIDE 10/11/2020 3:21 PM TELEGRAPH OFFICE ROUTE AIDE Narrative [facility] - 10/11/2020 3:34 PM TELEGRAPH OFFICE ROUTE AIDE AT [facility] us Shay Brown MD LAB BLOOD ORDERABLES Final Resul t Performing Organization Address City/[facility] [place] [address] * (ABNORMAL) PTH, Intact (10/11/2020 11:10 AM TELEGRAPH OFFICE ROUTE AIDE) [facility] Parathyroid Hormone, Intact 83.0(H) 14.0 - 72.0 pg/mL [facility] Blood (Blood, Venous) 10/11/2020 11:10 AM TELEGRAPH OFFICE ROUTE AIDE 10/11/2020 2:54 PM TELEGRAPH OFFICE ROUTE AIDE Narrative [facility] - 10/11/2020 3:17 PM TELEGRAPH OFFICE ROUTE AIDE AT [facility] us Shay Brown MD LAB BLOOD ORDERABLES Final Resul t Performing Organization Address City/[facility]/ZIP Co de Phone Number [facility] [address] [place] [address] * (ABNORMAL) Renal Function Panel (10/11/2020 11:09 AM TELEGRAPH OFFICE ROUTE AIDE) Sodium 141 136 - 145 mmol/L [facility] Potassium 4.0 3.5 - 5.1 mmol/L [facility] Chloride 108 98 - 112 mmol/L [facility] Carbon Dioxide (CO2) 23 21 - 32 mmol/L [facility] BUN 51(H) 7 - 24 mg/dL [facility] Creatinine 3.95(H) 0.70 - 1.30 mg/dL [facility] GFR EST NON 14(L) >60 mL/min [facility] eGFR 16(L) >60 mL/min [facility] Glucose 138(H) 74 - 106 mg/dL [facility] Calcium 9.1 8.5 - 10.1 mg/dL [facility] Albumin 3.0(L) 3.4 - 5.0 g/dL [facility] Phosphorus 3.4 2.5 - 4.9 mg/dL [facility] Anion Gap 10.0 0.0 - 15.0 mmol/L [facility] Blood (Blood, Venous) 10/11/2020 11:09 AM TELEGRAPH OFFICE ROUTE AIDE 10/11/2020 2:41 PM TELEGRAPH OFFICE ROUTE AIDE Narrative [facility] - 10/11/2020 4:19 PM TELEGRAPH OFFICE ROUTE AIDE AT [facility] HAS [facility] PATIENT FASTED?->NO us Shay Brown MD LAB BLOOD ORDERABLES Final Resul t [facility] [address] [facility] [place] [address] documented in this encounter Visit Diagnoses Diagnosis Chronic kidney disease, Stage IV (severe) (HCC) Chronic kidney disease, Stage IV (severe) Secondary hyperparathyroidism of renal origin (HCC) Secondary hyperparathyroidism of renal origin Anemia in chronic kidney disease documented in this encounter Care Teams Law Firm Administrator Relationship Specialty Start Date End Date Carolee Harris MD [address] [place] [address] PCP - General Family Medicine 09/16/21 documented as of this encounter
--- OUTSIDE RECORDS SUMMARY | 2024-09-12 21:52 | XMS_ITS | Encounter Summary ---
Author Organization [facility] [place] Address [address] [place] [address] Care Team Providers Care Respiratory Care Technician Name Role Phone Carolee Harris MD Primary Care Provider [phone] Reason for Visit * Reason Comments Med Refill Encounter Details Date Type Department Care Team (Late st Contact Info) Description 09/19/2022 Refill [facility] [place] [address] [place] [address] Brenton Alex, JUWAN [address] [place] [address] Social History Tobacco Use Types [...] Exposure Response Date Recorded In the last 10 days, have yo u been in contact with someone who was confirmed or suspected to have Coronavirus/COVID-19? No / Unsure 09/14/2022 10:40 AM MANAGEMENT MANAGER documented as of this encounter Plan of Treatment Not on file documented as of this encounter Visit Diagnoses Not on filedocumented in this encounter Care Teams Respiratory Care Technician Relationship Specialty Start Date End Date Carolee Harris MD [address] [place] [address] PCP - General Family Medicine 09/16/21 documented as of this encounter
--- OUTSIDE RECORDS SUMMARY | 2024-09-12 21:52 | XMS_ITS | Continuity of Care Document ---
Author Organization [facility] Address [address] [address] [place] [address] Phone Care Team Providers Care Risk Consulting Treasury Director Name Role Phone Unavailable Unavailable Unavailable Allergies, Adverse Reactions, Alerts Substance Reaction Status Criticality PSEUDOEPHEDRINE HCL Active No Infor mation Medications Medication Instructions Dosage Effective Dates (start - stop) Status Comments carvedilol 6.25 mg tablet take 1 tablet by oral route 2 times every day with food 6.25 MG - Active omeprazole 40 mg capsule,delayed release take 1 capsule by oral route every day before a meal 40 MG - Active terazosin 10 mg capsule take 1 capsule by oral route every day at bedtime 10 MG - Active amlodipine 5 mg tablet take 1 tablet by oral route every day 5 MG - Active allopurinol 300 mg tablet take 1 tablet by oral route every day 300 MG - Active clonidine HCl 0.2 mg tablet take 1 tablet by oral route every day 0.2 MG - Active lovastatin 20 mg tablet take 1 tablet by oral route every day 20 MG - Active ferrous sulfate 325 mg (65 mg iron) tablet,delayed release take 1 tablet by oral route every day 1 tablet - Active Nulytely [place] 420 gram oral solution use as directed per colonoscopy instructions - Active Procedure scheduled 05/08/21. Okay to substitute with Gavilyte, Golytely, Colyte, Trilyte Procedures Procedure Date Colonoscopy Flex; W/remov Les- 21 Colonoscopy Flex; W/bx /mx Level Iv-surg Path Gross/micro 21 Subsqt Hosp-da E&m Minr Compl 8 Ugi Endo; W/bx 1/mx Ugi Endo; W/contrl Bleed Any M 18 Moderate sedation, initial 15 minutes Ma Init Hosp-da E&m Mod Severity 8 Sigmoidoscopy Flex; Dx (sep Pr 18 Advance Directives Directive Yes / No Effective Date File Name No Information Encounters Encounter Description Practice Location Reason(s) For Visit Diagnoses Date Provider Providers Copied on Encounter [facility], [address] [address], [place], [place], [id number], [place] tel:[phone] [facility] [place] No Information 1 No Information Referring Provider: Williams Celeste MD, [address] [facility] [address], [place], [address] . tel:[phone] [facility], [address] [address], [place], [place], [address], [place] tel:[phone] [facility] [place] Colorectal polypsDiverti culosis of colon without diverticuliti sHemorrhoids, internalBenig n neoplasm of rectumBenign neoplasm of descending colonBenign neoplasm of transverse colonOther hemorrhoids 1 Booker Kramer. [address] [facility] [address], [place], [place], [address], [place]. tel:[phone] Carolee Harris MD. tel:[phone] erring Provider: Paulino Garduno MD, [address] [facility] [address], [place], [address]. tel:[phone] [facility], [address] [address], [place], [place], [address], [place] tel:[phone] [facility] No Information 1 Ryan Mancilla. [address] [facility] [address], [place], [address], [place]. tel:[phone] Subsqt Hosp-da E&m Minr Compl [facility], [address] [address], [place], [place], [address], [place] tel:[phone] [facility] No Information 0 5 8 Ary Canaday. [address] [facility] [address], [place], [address], [place]. tel:[phone] Referring Provider: Theodore Mace MD, [address], [address]. tel:[phone] [facility], [address] [address], [place], [place], [address], [place] tel:[phone] [facility] No Information 0 3 8 Ishan Major. [address] [facility] [address], [place], [address], [place]. [phone] Referring Provider: Theodore Mace MD, [address], [place], [address]. tel:[phone] Init Hosp-da E&m Mod Severity [facility], [address] [address], [place], [place], [address], [place] tel:[phone] [facility] No Information 8 Charles Montero. [address] [facility] [address], [place], [address], [place]. tel:[phone] Referring Provider: Theodore Mace MD, [address], [address]. tel:[phone] Family History Family Member Type Diagnosis Age At Onset No Information Immunizations Vaccine Date Status Comments SARS-COV-2 (COVID-19) vaccin e, mRNA, spike protein, LNP, preservative free, 30 mcg/0.3mL dose administered Note: [facility] bi-direct ional interface ; Source: Other Registry SARS-COV-2 (COVID-19) vaccin e, mRNA, spike protein, LNP, preservative free, 30 mcg/0.3mL dose administered Note: [facility] bi-direct ional interface ; Source: Other Registry influenza, high dose seasona l, preservative-free administered Note: [facility] bi-direct ional interface ; Source: Other Registry influenza, high dose seasona l, preservative-free administered Note: [facility] bi-direct ional interface ; Source: Other Registry Prevnar 13 administered Note: [facility] bi-d irectional interface ; Source: Other Registry influenza, high dose seasona l, preservative-free administered Note: [facility] bi-direct ional interface ; Source: Other Registry Pneumovax 23 administered Note: [facility] bi-d irectional interface ; Source: Other Registry Influenza, seasonal, injectable administe red Note: [facility] bi- directional interface ; Source: Other Registry Influenza, seasonal, injectable administe red Note: [facility] bi- directional interface ; Source: Other Registry zoster vaccine, live administered Note: [facility] bi-directional interface ; Source: Other Registry tetanus toxoid, reduced diphtheria toxoid, and acellular pertussis vaccine, adsorbed administered Note: [facility] b i-directional interface ; Source: Other Registry Influenza, seasonal, injectable administe red Note: [facility] bi- directional interface ; Source: Other Registry Influenza, seasonal, injectable administe red Note: [facility] bi- directional interface ; Source: Other Registry Influenza, seasonal, injectable administe red Note: [facility] bi- directional interface ; Source: Other Registry Influenza, seasonal, injectable administe red Note: [facility] bi- directional interface ; Source: Other Registry tetanus and diphtheria toxoi ds, adsorbed, preservative free, for adult use (2 Lf of tetanus toxoid and 2 Lf of diphtheria toxoid) administered Note: [facility] bi-direct ional interface ; Source: Other Registry influenza virus vaccine, who le virus administered Note: [facility] bi-direct ional interface ; Source: Other Registry Payers Payer name Insurance type Covered republican ID Authorcesar peña(s) Medicare NGS MB [id number] [facility] Medicare Supplement BL [id number] Social History Type Description Quantity Date Captured Comments Sex Male Smoking Status No Information Chief Complaint And Reason For Visit No Information Reason For Referral Reason For Referral No Information History Of Present Illness Encounter Date Complaint History Of Prese nt Illness No Information Functional Status Date Functional Assessmen t No Information Instructions Date Instruction Additional Infor mation Diverticulosis/Diverticulitis Re lated to Colorectal polyps High Fiber Diet Related to Color ectal polyps Colon Cancer Prevention Related to Colorectal polyps Colon Polyps Related to Color ectal polyps Hemorrhoids Related to Color ectal polyps Assessments Type Assessment Date No Information Patient Care Teams Name Effective Dates (start - stop) Status Members No Information
--- OUTSIDE RECORDS SUMMARY | 2024-09-12 21:52 | XMS_ITS | Encounter Summary ---
Author Organization [facility] [place] Address [address] [place] [address] Care Team Providers Care Corner Brace Block Machine Operator Name Role Phone Carolee Harris MD Primary Care Provider [phone] Encounter Details Date Type Department Care Team (Latest Contact Info) Description 12/06/2020 Orders Only [facility] [place] [address] [place] [address] Shay Brown MD [address] [place] [address] Chronic kidney disease, Stage IV [...] have Coronavirus / COVID-19? No / Unsure 11/08/2020 10:50 AM EDT documented as of this encounter Progress Notes * Shay Brown MD - 12/06/2020 2:11 AM CDT Please call the patient regarding Hgb. I rec Heme consult and start EPO as outpt for his anemia. Goal Hgb 10-11. documented in this encounter Plan of Treatment Not on file documented as of this encounter Procedures Procedure Name Priority Date/Time Associated Diagnosis Comments PROTEIN / CREATININE RATIO, URINE Routine 12/11/2020 11:01 AM CDT Chronic kidney disease, Stage IV (severe) (HCC) HEMOGLOBIN Routine 12/11/2020 11:01 AM CDT Chronic kidney disease, Stage IV (severe) (HCC) Anemia in chronic kidney disease PTH, INTACT Routine 12/11/2020 11:01 AM CDT Chronic kidney disease, Stage IV (severe) (HCC) Secondary hyperparathyroidism of renal origin (HCC) RENAL FUNCTION PANEL Routine 12/11/2020 11:01 AM CDT Chronic kidney disease, Stage IV (severe) (HCC) documented in this encounter Results * (ABNORMAL) Protein, Total, Random Urine w/Creatinine (Protein/Creat Ratio) (12/11/2020 11:01 AM CDT) Pathologist [facility] Protein/Creati nine Ratio, Urine 2.61(H) <0.11 mg/mg creat [facility] Creatinine, Ur 74.7 mg/dL [facility] Protein, Ur 195(H) <12 mg/dL [facility] Urine (Urine, Clean Catch) 12/11/2020 11:01 AM CDT 12/11/2020 10:03 PM CDT Narrative [facility] - 12/11/2020 10:33 PM CDT NEXT THE END OF October us Shay Brown MD LAB URINE ORDERABLES Final Resul t [facility] [address] [place] [address] * PTH, Intact (12/11/2020 11:01 AM CDT) Pathologist [facility] Parathyroid Hormone, Intact 69.0 14.0 - 72.0 pg/mL [facility] Blood (Blood, Venous) 12/11/2020 11:01 AM CDT 12/11/2020 10:50 PM CDT Narrative [facility] - 12/11/2020 11:11 PM CDT NEXT THE END October us Shay Brown MD LAB BLOOD ORDERABLES Final Resul t Performing Organization Address City/[facility] Co de Phone Number [address] [address] * (ABNORMAL) Hemoglobin (12/11/2020 11:01 AM CDT) [facility] Hgb 9.3(L) 14.0 - 18.0 gm/dL [facility] Blood (Blood, Venous) 12/11/2020 11:01 AM CDT 12/11/2020 10:02 PM CDT Narrative [facility] - 12/11/2020 10:19 PM CDT NEXT THE END October us Shay Brown MD LAB BLOOD ORDERABLES Final Resul t Performing Organization Address [facility] de Phone Number [address] [address] * (ABNORMAL) Renal Function Panel (12/11/2020 11:01 AM CDT) [facility] Sodium 140 136 - 145 mmol/L [facility] Potassium 4.4 3.5 - 5.1 mmol/L [facility] Chloride 111 98 - 112 mmol/L [facility] Carbon Dioxide (CO2) 19(L) 21 - 32 mmol/L [facility] BUN 59(H) 7 - 24 mg/dL [facility] Creatinine 3.93(H) 0.70 - 1.30 mg/dL [facility] GFR EST NON 14(L) >60 mL/min [facility] eGFR 16(L) >60 mL/min [facility] Glucose 112(H) 74 - 106 mg/dL [facility] Calcium 8.8 8.5 - 10.1 mg/dL [facility] Albumin 2.7(L) 3.4 - 5.0 g/dL [facility] Phosphorus 3.6 2.5 - 4.9 mg/dL [facility] Anion Gap 10.0 0.0 - 15.0 mmol/L [facility] Blood (Blood, Venous) 12/11/2020 11:01 AM CDT 12/11/2020 10:24 PM CDT Narrative [facility] - 12/11/2020 11:06 PM CDT NEXT THE END OF October [facility] HAS THE PATIENT FASTED?->NO us Shay Brown MD LAB BLOOD ORDERABLES Final Resul t [facility] [address] [place] [address] documented in this encounter Visit Diagnoses Diagnosis Chronic kidney disease, Stage IV (severe) (HCC) Chronic kidney disease, Stage IV (severe) Anemia in chronic kidney disease Secondary hyperparathyroidism of renal origin (HCC) Secondary hyperparathyroidism of renal origin documented in this encounter Care Teams Corner Brace Block Machine Operator Relationship Specialty Start Date End Date Carolee Harris MD [address] [place] [address] PCP - General Family Medicine 09/16/21 documented as of this encounter
--- OUTSIDE RECORDS SUMMARY | 2024-09-12 21:52 | XMS_ITS | Encounter Summary ---
Author Organization [facility] [place] Address [address] [place] [address] Care Team Providers Care Construction Laborer Name Role Phone Carolee Harris MD Primary Care Provider [phone] Encounter Details Date Type Department Care Team (Latest Contact Info) Description 09/13/2020 Orders Only [facility] [address] [place] [address] Sahy Brown MD [address] [place] [address] Secondary hyperparathyroidism of renal origin [...] as of this encounter Visit Diagnoses Diagnosis Secondary hyperparathyroidism of renal origin (HCC) Secondary hyperparathyroidism of renal origin Chronic kidney disease, Stage IV (severe) (HCC) Chronic kidney disease, Stage IV (severe) Hypertensive renal disease Anemia in chronic kidney disease documented in this encounter Care Teams Construction Laborer Relationship Specialty Start Date End Date Carolee Harris MD [address] [place] [address] PCP - General Family Medicine 09/16/21 documented as of this encounter
--- OUTSIDE RECORDS SUMMARY | 2024-09-12 21:52 | XMS_ITS | Encounter Summary ---
Author Organization [facility] [place] Address [address] [facility] [address] [place] [address] Care Team Providers Care Subsurface Augmentee Elint Operator Name Role Phone Carolee Harris MD Primary Care Provider Encounter Details Date Type Department Care Team (Latest Contact Info) Description 11/08/2020 Orders Only [facility] [place] [address] [place] [address] Shay Brown MD [address] [place] [address] Chronic kidney disease, Stage IV [...] origin documented in this encounter Care Teams Subsurface Augmentee Elint Operator Relationship Specialty Start Date End Date Carolee Harris MD [address] [place] [address] PCP - General Family Medicine 09/16/21 documented as of this encounter
--- OUTSIDE RECORDS SUMMARY | 2024-09-12 21:52 | XMS_ITS | Encounter Summary ---
Author Organization [facility] [place] [place] Address [address] [place] [address] Care Team Providers Care Bush And Vine Farmer Fruit Crops Name Role Phone Carolee Harris MD Primary Care Provider [phone] Encounter Details Date Type Department Care Team (Latest Contact Info) Description 01/03/2021 Orders Only [facility] [place] [address] [place] [address] Shay Brwon MD [address] [place] [address] Chronic kidney disease, Stage IV [...] have Coronavirus / COVID-19? No / Unsure 12/11/2020 10:49 AM EDT documented as of this encounter Progress Notes * Shay Brown MD - 01/03/2021 2:11 AM CDT Please call the patient regarding recent labs. Cr up a little. Cont monthly labs. Call if any uremic sxs before his f/u in Mar documented in this encounter Plan of Treatment Not on file documented as of this encounter Procedures Procedure Name Priority Date/Time Associated Diagnosis Comments PROTEIN / CREATININE RATIO, URINE Routine 01/15/2021 10:52 AM CDT Chronic kidney disease, Stage IV (severe) (HCC) HEMOGLOBIN Routine 01/15/2021 10:52 AM CDT Chronic kidney disease, Stage IV (severe) (HCC) Anemia in chronic kidney disease PTH, INTACT Routine 01/15/2021 10:52 AM CDT Chronic kidney disease, Stage IV (severe) (HCC) Secondary hyperparathyroidism of renal origin (HCC) RENAL FUNCTION PANEL Routine 01/15/2021 10:52 AM CDT Chronic kidney disease, Stage IV (severe) (HCC) documented in this encounter Results * (ABNORMAL) Protein, Total, Random Urine w/Creatinine (Protein/Creat Ratio) (01/15/2021 10:52 AM CDT) Pathologist [facility] Protein/Creati nine Ratio, Urine 2.74(H) <0.11 mg/mg creat [facility] Creatinine, Ur 54.0 mg/dL [facility] Protein, Ur 148(H) <12 mg/dL [facility] Urine (Urine, Clean Catch) 01/15/2021 10:52 AM CDT 01/15/2021 1:17 PM CDT Narrative [facility] - 01/15/2021 9:34 PM CDT NEXT THE END OF October us Shay Brown MD LAB URINE ORDERABLES Final Resul t [facility] [address] [place] [address] * PTH, Intact (01/15/2021 10:52 AM CDT) [facility] Parathyroid Hormone, Intact 66.0 14.0 - 72.0 pg/mL [facility] Blood (Blood, Venous) 01/15/2021 10:52 AM CDT 01/15/2021 1:16 PM CDT Narrative [facility] - 01/15/2021 2:46 PM CDT NEXT THE October us Shay Brown MD LAB BLOOD ORDERABLES Final Resul t Performing Organization Address [facility] de Phone Number [address] [address] * (ABNORMAL) Hemoglobin (01/15/2021 10:52 AM CDT) [facility] Hgb 10.0(L) 14.0 - 18.0 gm/dL [facility] Blood (Blood, Venous) 01/15/2021 10:52 AM CDT 01/15/2021 1:18 PM CDT Narrative [facility] 01/15/2021 1:31 PM CDT NEXT THE END October us Shay Brown MD LAB BLOOD ORDERABLES Final Resul t Performing Organization Address [facility] de Phone Number [address] [address] * (ABNORMAL) Renal Function Panel (01/15/2021 10:52 AM CDT) [facility] Sodium 138 136 - 145 mmol/L [facility] Potassium 4.4 3.5 - 5.1 mmol/L [facility] Chloride 110 98 - 112 mmol/L [facility] Carbon Dioxide (CO2) 21 21 - 32 mmol/L [facility] BUN 64(H) 7 - 24 mg/dL [facility] Creatinine 4.17(H) 0.70 - 1.30 mg/dL [facility] GFR EST NON 13(L) >60 mL/min [facility] eGFR 15(L) >60 mL/min [facility] Glucose 121(H) 74 - 106 mg/dL [facility] Calcium 9.1 8.5 - 10.1 mg/dL [facility] Albumin 2.9(L) 3.4 - 5.0 g/dL [facility] Phosphorus 3.8 2.5 - 4.9 mg/dL [facility] Anion Gap 7.0 0.0 - 15.0 mmol/L [facility] Blood (Blood, Venous) 01/15/2021 10:52 AM CDT 01/15/2021 1:23 PM CDT Narrative [facility] - 01/15/2021 2:43 PM CDT NEXT THE END OF October [facility] HAS THE PATIENT FASTED?->NO us Shay Brown MD LAB BLOOD ORDERABLES Final Resul t [facility] [address] [place] [address] documented in this encounter Visit Diagnoses Diagnosis Chronic kidney disease, Stage IV (severe) (HCC) Chronic kidney disease, Stage IV (severe) Anemia in chronic kidney disease Secondary hyperparathyroidism of renal origin (HCC) Secondary hyperparathyroidism of renal origin documented in this encounter Care Teams Bush And Vine Farmer Fruit Crops Relationship Specialty Start Date End Date Carolee Harris MD [address] [place] [address] PCP - General Family Medicine 09/16/21 documented as of this encounter
--- OUTSIDE RECORDS SUMMARY | 2024-09-12 21:52 | XMS_ITS | Encounter Summary ---
Author Organization [facility] [place] [place] Address [address] [place] [address] Care Team Providers Care Case Management Director Name Role Phone Carolee Harris MD Primary Care Provider [phone] Encounter Details Date Type Department Care Team (Late st Contact Info) Description 07/02/2020 Orders Only [facility] [place] [address] [place] [address] [place] Luis, RN [address] [place] [address] Chronic kidney disease, Stage IV (severe) (HCC) Social History Tobacco Use Types Packs/Day [...] AM EST documented as of this encounter Progress Notes * Zoila Greenberg LPN - 07/02/2020 11:59 PM CST LMTC see phone encounter documented in this encounter Plan of Treatment Not on file documented as of this encounter Procedures Procedure Name Priority Date/Time Associated Diagnosis Comments BASIC METABOLIC PANEL Routine 07/03/2020 10:45 AM TURNER MACHINE OPERATOR Chronic kidney disease, Stage IV (severe) (HCC) documented in this encounter Results * (ABNORMAL) Basic Metabolic Panel (07/03/2020 10:45 AM TURNER MACHINE OPERATOR) Sodium 144 136 - 145 mmol/L [facility] Potassium 3.8 3.5 - 5.1 mmol/L [facility] Chloride 111 98 - 112 mmol/L [facility] Carbon Dioxide (CO2) 22 21 - 32 mmol/L [facility] BUN 62(H) 7 - 24 mg/dL [facility] Creatinine 4.29(H) 0.70 - 1.30 mg/dL [facility] GFR EST NON 12(L) >60 mL/min [facility] eGFR 14(L) >60 mL/min [facility] Glucose 158(H) 74 - 106 mg/dL [facility] Calcium 9.2 8.5 - 10.1 mg/dL [facility] Anion Gap 11.0 0.0 - 15.0 mmol/L [facility] Blood (Blood, Venous) 07/03/2020 10:45 AM TURNER MACHINE OPERATOR 07/03/2020 3:04 PM TURNER MACHINE OPERATOR Narrative [facility] - 07/03/2020 5:47 PM TURNER MACHINE OPERATOR FASTING?->NO us Shay Brown MD LAB BLOOD ORDERABLES Final Resul t [facility] [address] [place] [address] documented in this encounter Visit Diagnoses Diagnosis Chronic kidney disease, Stage IV (severe) (HCC) Chronic kidney disease, Stage IV (severe) documented in this encounter Care Teams Case Management Director Relationship Specialty Start Date End Date Carolee Harris MD [address] [place] [address] PCP - General Family Medicine 09/16/21 documented as of this encounter
--- OUTSIDE RECORDS SUMMARY | 2024-09-12 21:53 | XMS_ITS | Encounter Summary ---
Author Organization [facility] [place] [place] Address [address] [place] [address] Care Team Providers Care Dynamiter Name Role Phone Carolee Harris MD Primary Care Provider Encounter Details Date Type Department Care Team (Late st Contact Info) Description 02/03/2020 Orders Only [facility] [place] [address] [place] [address] [place] Luis, RN [address] [place] [address] Chronic kidney disease stage 4 (HCC) Social History Tobacco Use Types Packs/Day [...] Procedure Name Priority Date/Time Associated Diagnosis Comments PTH, INTACT Routine 02/05/2020 Chronic kidney disease stage 4 (HCC) BASIC METABOLIC PANEL Routine 02/05/2020 Chronic kidney disease stage 4 (HCC) documented in this encounter Results * (ABNORMAL) PTH, Intact (02/05/2020) Parathyroid Hormone, Intact 204.0(H) pg/mL [facility] Calcium 8.8 8.7 - 10.7 mg/dL [facility] Blood (Blood, Venous) 02/05/2020 Shay Brown MD LAB BLOOD ORDERABLES Final Resul t [facility] * (ABNORMAL) Basic Metabolic Panel (02/05/2020) Sodium 141 mEq/L [facility] Potassium 4.7 mEq/L [facility] Chloride 108 [facility] Carbon Dioxide 25 mmol/L [facility] Calcium 9.0 mg/dL [facility] BUN 65(H) mg/dL [facility] Creatinine 3.32(H) mg/dL [facility] Glucose 206(H) mg/dL [facility] eGFR Non-Afr Cypriot 18(L) [facility] eGFR 22(L) [facility] Blood (Blood, Venous) 02/05/2020 Shay Brown MD LAB BLOOD ORDERABLES Final Resul t [facility] documented in this encounter Visit Diagnoses Diagnosis Chronic kidney disease stage 4 (HCC) documented in this encounter Care Teams Dynamiter Relationship Specialty Start Date End Date Carolee Harris MD [address] [place] [address] PCP - General Family Medicine 09/16/21 documented as of this encounter
--- OUTSIDE RECORDS SUMMARY | 2024-09-12 21:53 | XMS_ITS | Encounter Summary ---
Author Organization [facility] [place] [place] Address [address] [place] [address] Care Team Providers Care Marketing Information Coordinator Name Role Phone Carolee Harris MD Primary Care Provider [phone] Encounter Details Date Type Department Care Team (Latest Contact Info) Description 06/07/2020 Orders Only [facility] [address] [place] [address] Shay Brown MD [address] [place] [address] Anemia in chronic kidney disease; [...] as of this encounter Visit Diagnoses Diagnosis Anemia in chronic kidney disease Chronic kidney disease stage 4 (HCC) Secondary hyperparathyroidism of renal origin (HCC) Secondary hyperparathyroidism of renal origin documented in this encounter Care Teams Marketing Information Coordinator Relationship Specialty Start Date End Date Carolee Harris MD [address] [place] [address] PCP - General Family Medicine 09/16/21 documented as of this encounter
--- OUTSIDE RECORDS SUMMARY | 2024-09-12 21:53 | XMS_ITS | Encounter Summary ---
Author Organization [facility] [place] [place] Address [address] [place] [address] Care Team Providers Care Vertical Roll Operator Name Role Phone Carolee Harris MD Primary Care Provider [phone] Encounter Details Date Type Department Care Team (Latest Contact Info) Description 04/12/2020 Orders Only [facility] [place] [address] [place] [address] Shay Brown MD [address] [place], [place] [address] Anemia in chronic kidney disease; Chronic kidney [...] origin documented in this encounter Care Teams Vertical Roll Operator Relationship Specialty Start Date End Date Carolee Harris MD [address] [place] [address] PCP - General Family Medicine 09/16/21 documented as of this encounter
--- OUTSIDE RECORDS SUMMARY | 2024-09-12 21:53 | XMS_ITS | Encounter Summary ---
Author Organization [facility] [place] [place] Address [address] [place] [address] Care Team Providers Care Scientific Photographer Name Role Phone Carolee Harris MD Primary Care Provider [phone] Encounter Details Date Type Department Care Team (Latest Contact Info) Description 06/04/2020 Orders Only [facility] [place] [address] [place] [address] Shay Brown MD [address] [place] [address] Secondary hyperparathyroidism of renal origin (HCC); Chronic kidney disease, Stage IV (severe) (HCC); Hypertensive renal disease Social History Tobacco Use Types Packs/Day [...] Procedure Name Priority Date/Time Associated Diagnosis Comments AMB REFERRAL TO VASCULAR ACCESS SURGERY Routine 06/07/2020 3:57 PM CDT Secondary hyperparathyroidism of renal origin (HCC) Chronic kidney disease, Stage IV (severe) (HCC) Hypertensive renal disease documented in this encounter Results * [facility] (06/07/2020 3:57 PM CDT) us Shay Brown MD OUTPATIENT REFERRAL ORDERABLES F inal Result documented in this encounter Visit Diagnoses Diagnosis Secondary hyperparathyroidism of renal origin (HCC) Secondary hyperparathyroidism of renal origin Chronic kidney disease, Stage IV (severe) (HCC) Chronic kidney disease, Stage IV (severe) Hypertensive renal disease documented in this encounter Care Teams Scientific Photographer Relationship Specialty Start Date End Date Carolee Harris MD [address] [place] [address] PCP - General Family Medicine 09/16/21 documented as of this encounter
--- OUTSIDE RECORDS SUMMARY | 2024-09-12 21:53 | XMS_ITS | Encounter Summary ---
Author Organization [facility] [place] [place] Address [address] [place] [address] Care Team Providers Care Community Service Officer Name Role Phone Carolee Harris MD Primary Care Provider [phone] Encounter Details Date Type Department Care Team (Late st Contact Info) Description 03/09/2020 Orders Only [facility] [place] [address] [place] [address] [place] Luis, RN [address] [place] [address] Chronic kidney disease stage 4 [...] (HCC) documented in this encounter Care Teams Community Service Officer Relationship Specialty Start Date End Date Carolee Harris MD [address] [place] [address] PCP - General Family Medicine 09/16/21 documented as of this encounter
--- OUTSIDE RECORDS SUMMARY | 2024-09-12 21:53 | XMS_ITS | Encounter Summary ---
Author Organization [facility] [place] [place] Address [address] [place] [address] Care Team Providers Care Safety Investigator/Cause Analyst Name Role Phone Carolee Harris MD Primary Care Provider [phone] Encounter Details Date Type Department Care Team (Late st Contact Info) Description 08/29/2019 Orders Only [facility] [place] [address] [place] [address] Shay Brown MD [address] [place], [place] [id number] Chronic kidney disease stage 4 (HCC); Anemia in chronic kidney disease Social [...] Priority Date/Time Associated Diagnosis Comments HEMOGLOBIN Routine 08/29/2019 11:10 AM TRAINING AND DEVELOPMENT HEAD Anemia in chronic kidney disease RENAL FUNCTION PANEL Routine 08/29/2019 11:10 AM TRAINING AND DEVELOPMENT HEAD Chronic kidney disease stage 4 (HCC) documented in this encounter Results * (ABNORMAL) Hemoglobin (08/29/2019 11:10 AM TRAINING AND DEVELOPMENT HEAD) Hgb 9.9(L) 14.0 - 18.0 gm/dL [facility] Blood (Blood, Venous) 08/29/2019 11:10 AM TRAINING AND DEVELOPMENT HEAD 08/29/2019 4:04 PM TRAINING AND DEVELOPMENT HEAD Result [facility] us Shay Brown MD LAB BLOOD ORDERABLES Final Resul t Performing Organization Address [facility] de Phone Number [facility] [address] [place] [address] * (ABNORMAL) Renal function panel (08/29/2019 11:10 AM TRAINING AND DEVELOPMENT HEAD) Sodium 144 136 - 145 mmol/L [facility] Potassium 4.4 3.5 - 5.1 mmol/L [facility] Chloride 113(H) 98 - 112 mmol/L [facility] Carbon Dioxide (CO2) 23 21 - 32 mmol/L [facility] BUN 44(H) 7 - 24 mg/dL [facility] Creatinine 2.45(H) 0.70 - 1.30 mg/dL [facility] GFR EST NON 25(L) >60 mL/min [facility] eGFR 28(L) >60 mL/min [facility] Glucose 108(H) 74 - 106 mg/dL [facility] Calcium 9.0 8.5 - 10.1 mg/dL [facility] Albumin 2.9(L) 3.4 - 5.0 g/dL [facility] Phosphorus 3.5 2.5 - 4.9 mg/dL [facility] Anion Gap 8.0 0.0 - 15.0 mmol/L [facility] Blood (Blood, Venous) 08/29/2019 11:10 AM TRAINING AND DEVELOPMENT HEAD 08/29/2019 4:19 PM TRAINING AND DEVELOPMENT HEAD Narrative [facility] - 08/29/2019 4:31 PM TRAINING AND DEVELOPMENT HEAD [facility] HAS THE PATIENT FASTED?->NO us Shay Brown MD LAB BLOOD ORDERABLES Final Resul t Performing Organization Address [facility] Co de Phone Number [facility] [address] [place] [address] documented in this encounter Visit Diagnoses Diagnosis Chronic kidney disease stage 4 (HCC) Anemia in chronic kidney disease documented in this encounter Care Teams Safety Investigator/Cause Analyst Relationship Specialty Start Date End Date Carolee Harris MD [address] [place] [address] PCP - General Family Medicine 09/16/21 documented as of this encounter
--- OUTSIDE RECORDS SUMMARY | 2024-09-12 21:53 | XMS_ITS | Encounter Summary ---
Author Organization [facility] [place] Address [address] [place] [address] Care Team Providers Care Finishing Machine Tender Name Role Phone Carolee Harris MD Primary Care Provider [phone] Encounter Details Date Type Department Care Team (Late st Contact Info) Description 09/11/2019 Orders Only [facility] [place] [address] [place] [address] Shay Brown MD [address] [place] [address] Chronic kidney disease stage 4 (HCC) Social [...] Procedure Name Priority Date/Time Associated Diagnosis Comments IRON, TIBC AND FERRITIN PANEL Routine 09/13/2019 12:55 PM TIMBER MANAGEMENT TECHNICIAN Chronic kidney disease stage 4 (HCC) HEMOGLOBIN Routine 09/13/2019 12:55 PM TIMBER MANAGEMENT TECHNICIAN Chronic kidney disease stage 4 (HCC) RENAL FUNCTION PANEL Routine 09/13/2019 12:55 PM TIMBER MANAGEMENT TECHNICIAN Chronic kidney disease stage 4 (HCC) documented in this encounter Results * (ABNORMAL) Hemoglobin (09/13/2019 12:55 PM TIMBER MANAGEMENT TECHNICIAN) Hgb 10.4(L) 14.0 - 18.0 gm/dL [facility] Blood (Blood, Venous) 09/13/2019 12:55 PM TIMBER MANAGEMENT TECHNICIAN 09/13/2019 8:59 PM TIMBER MANAGEMENT TECHNICIAN Shay Brown MD LAB BLOOD ORDERABLES Final Resul t Performing Organization Address [facility] de Phone Number [facility] [address] [place] [address] * (ABNORMAL) Iron Panel ([facility]) (09/13/2019 12:55 PM TIMBER MANAGEMENT TECHNICIAN) TIBC 220(L) 250 - 450 ug/dL [facility] Iron Saturation (TSat) 20 15 - 50 % [facility] Ferritin 302 8 - 388 ng/mL [facility] Iron 44(L) 65 - 175 ug/dL [facility] Transferrin 176(L) 200 - 360 mg/dL [facility] 09/13/2019 12:5 5 PM TIMBER MANAGEMENT TECHNICIAN 09/13/2019 8:58 PM TIMBER MANAGEMENT TECHNICIAN us Shay Brown MD LAB BLOOD ORDERABLES Final Resul t Performing Organization Address [facility] de Phone Number [facility] [address] [place] [address] * (ABNORMAL) Renal function panel (09/13/2019 12:55 PM TIMBER MANAGEMENT TECHNICIAN) Sodium 142 136 - 145 mmol/L [facility] Potassium 4.8 3.5 - 5.1 mmol/L [facility] Chloride 110 98 - 112 mmol/L [facility] Carbon Dioxide (CO2) 25 21 - 32 mmol/L [facility] BUN 44(H) 7 - 24 mg/dL [facility] Creatinine 2.69(H) 0.70 - 1.30 mg/dL [facility] GFR EST NON 22(L) >60 mL/min [facility] eGFR 25(L) >60 mL/min [facility] Glucose 136(H) 74 - 106 mg/dL [facility] Calcium 9.4 8.5 - 10.1 mg/dL [facility] Albumin 2.9(L) 3.4 - 5.0 g/dL [facility] Phosphorus 3.4 2.5 - 4.9 mg/dL [facility] Anion Gap 7.0 0.0 - 15.0 mmol/L [facility] Blood (Blood, Venous) 09/13/2019 12:55 PM TIMBER MANAGEMENT TECHNICIAN 09/13/2019 8:58 PM TIMBER MANAGEMENT TECHNICIAN Narrative [facility] - 09/13/2019 9:16 PM TIMBER MANAGEMENT TECHNICIAN [facility] HAS THE PATIENT FASTED?->NO us Shay Brown MD LAB BLOOD ORDERABLES Final Resul t [facility] [address] [facility] [place] [address] documented in this encounter Visit Diagnoses Diagnosis Chronic kidney disease stage 4 (HCC) documented in this encounter Care Teams Finishing Machine Tender Relationship Specialty Start Date End Date Carolee Harris MD [address] [place] [address] PCP - General Family Medicine 09/16/21 documented as of this encounter
--- OUTSIDE RECORDS SUMMARY | 2024-09-12 21:53 | XMS_ITS | Encounter Summary ---
Author Organization [facility] [place] [place] Address [address] [place] [address] Care Team Providers Care Driller Multiple Spindle Name Role Phone Carolee Harris MD Primary Care Provider [phone] Encounter Details Date Type Department Care Team (Late st Contact Info) Description 08/02/2019 Orders Only [facility] [place] [address] [place] [address] Shay Brown MD [address] [place] [address] Chronic kidney disease stage 4 [...] Procedure Name Priority Date/Time Associated Diagnosis Comments RENAL FUNCTION PANEL Routine 08/02/2019 1:40 PM BIRTHING NURSE Chronic kidney disease stage 4 (HCC) documented in this encounter Results * (ABNORMAL) Renal function panel (08/02/2019 1:40 PM BIRTHING NURSE) Sodium 138 136 - 145 mmol/L [facility] Potassium 4.4 3.5 - 5.1 mmol/L [facility] Chloride 109 98 - 112 mmol/L [facility] Carbon Dioxide (CO2) 20(L) 21 - 32 mmol/L [facility] BUN 65(H) 7 - 24 mg/dL [facility] Creatinine 3.27(H) 0.70 - 1.30 mg/dL [facility] GFR EST NON 17(L) >60 mL/min [facility] eGFR 20(L) >60 mL/min [facility] Glucose 134(H) 74 - 106 mg/dL [facility] Calcium 9.0 8.5 - 10.1 mg/dL [facility] Albumin 3.2(L) 3.4 - 5.0 g/dL [facility] Phosphorus 4.0 2.5 - 4.9 mg/dL [facility] Anion Gap 9.0 0.0 - 15.0 mmol/L [facility] Blood (Blood, Venous) 08/02/2019 1:40 PM BIRTHING NURSE 08/02/2019 9:04 PM BIRTHING NURSE Narrative [facility] - 08/02/2019 9:12 PM BIRTHING NURSE [facility] HAS THE PATIENT FASTED?->NO us Shay Brown MD LAB BLOOD ORDERABLES Final Resul t [facility] [address] [facility] [place] [address] documented in this encounter Visit Diagnoses Diagnosis Chronic kidney disease stage 4 (HCC) documented in this encounter Care Teams Driller Multiple Spindle Relationship Specialty Start Date End Date Carolee Harris MD [address] [place] [address] PCP - General Family Medicine 09/16/21 documented as of this encounter
--- OUTSIDE RECORDS SUMMARY | 2024-09-12 21:53 | XMS_ITS | Encounter Summary ---
Author Organization [facility] [place] [place] Address [address] [place] [address] Care Team Providers Care Noodle Catalyst Maker Name Role Phone Carolee Harris MD Primary Care Provider [phone] Encounter Details Date Type Department Care Team (Late st Contact Info) Description 11/27/2019 Orders Only [facility] [place] [email or web address] [place] [address] Shay Brown MD [address] [place] [address] Chronic kidney disease stage 4 [...] have Coronavirus / COVID-19? No / Unsure 11/29/2019 1:07 PM EDT documented as of this encounter Progress Notes * Shay Brown MD - 11/27/2019 11:59 PM CDT Please call the patient regarding labs. Add Calcitriol 0.25 mcg M-W- (3 days a week). Check BMP and iPTH in 1 mo * Shay Brown MD - 11/27/2019 11:59 PM CDT Add Calcitriol 0.25 mcg M-W- (3 days a week) and then check BMP and iPTH in 1 mo documented in this encounter Plan of Treatment Not on file documented as of this encounter Procedures Procedure Name Priority Date/Time Associated Diagnosis Comments RENAL FUNCTION PANEL Routine 12/28/2019 Chronic kidney disease stage 4 (HCC) HEMOGLOBIN Routine 11/22/2019 1:10 PM CDT Chronic kidney disease stage 4 (HCC) URIC ACID Routine 11/22/2019 1:10 PM CDT Chronic kidney disease stage 4 (HCC) PTH, INTACT Routine 11/22/2019 1:10 PM CDT Chronic kidney disease stage 4 (HCC) RENAL FUNCTION PANEL Routine 11/22/2019 1:10 PM CDT Chronic kidney disease stage 4 (HCC) documented in this encounter Results * (ABNORMAL) Renal Function Panel (12/28/2019) Glucose 174(H) mg/dL PRINT/EXTE RNA L (NON-INTERFAC ED LABS) BUN 67(H) mg/dL PRINT/EXTE RNA L (NON-INTERFAC ED LABS) Creatinine 3.54(H) mg/dL PRINT/EXT JOVANNA L (NON-INTERFAC ED LABS) BUN/Creatinine Ratio 19 PRINT/EXTERNA L (NON-INTERFAC ED LABS) Sodium 141 mEq/L PRINT/EXTE RNA L (NON-INTERFAC ED LABS) Potassium 4.3 mEq/L PRINT/EXTE RNA L (NON-INTERFAC ED LABS) Chloride 108 PRINT/EXTE RNA L (NON-INTERFAC ED LABS) Carbon Dioxide 24 mmol/L PRINT /EXTERNA L (NON-INTERFAC ED LABS) Calcium 8.8 mg/dL PRINT/EXTE RNA L (NON-INTERFAC ED LABS) Phosphorus, Serum 4.1 mg/dL PRINT/EXTERNA L (NON-INTERFAC ED LABS) Albumin (Blood) 3.4 g/dL PRIN T/EXTERNA L (NON-INTERFAC ED LABS) eGFR Non-Afr Malagasy 17(L) PRINT/EXTERNA L (NON-INTERFAC ED LABS) eGFR 20(L) PRINT/EXTERNA L (NON-INTERFAC ED LABS) Blood (Blood, Venous) 12/28/2019 us Shay Brown MD LAB BLOOD ORDERABLES Final Resul t Performing Organization Address [facility] de Phone Number PRINT/EXTERNAL (NON-INTERFACED LABS) * (ABNORMAL) Hemoglobin (11/22/2019 1:10 PM CDT) Hgb 11.9(L) 14.0 - 18.0 gm/dL [facility] Blood (Blood, Venous) 11/22/2019 1:10 PM CDT 11/22/2019 8:47 PM CDT us Shay Brown MD LAB BLOOD ORDERABLES Final Resul t Performing Organization Address [facility] [place] [address] * Uric acid (11/22/2019 1:10 PM CDT) Uric Acid 7.0 3.5 - 7.2 mg/dL [facility] Blood (Blood, Venous) 11/22/2019 1:10 PM CDT 11/22/2019 8:46 PM CDT us Shay Brown MD LAB BLOOD ORDERABLES Final Resul t Performing Organization Address [facility] de Phone Number [address] [address] * (ABNORMAL) PTH, intact (11/22/2019 1:10 PM CDT) Parathyroid Hormone, Intact 172.0(H) 14.0 - 72.0 pg/mL [facility] Blood (Blood, Venous) 11/22/2019 1:10 PM CDT 11/22/2019 8:48 PM CDT Shay Brown MD LAB BLOOD ORDERABLES Final Resul t Performing Organization Address [facility] de Phone Number [facility] [address] [place] [address] * (ABNORMAL) Renal function panel (11/22/2019 1:10 PM CDT) Sodium 139 136 - 145 mmol/L [facility] Potassium 4.6 3.5 - 5.1 mmol/L [facility] Chloride 108 98 - 112 mmol/L [facility] Carbon Dioxide (CO2) 26 21 - 32 mmol/L [facility] BUN 42(H) 7 - 24 mg/dL [facility] Creatinine 3.41(H) 0.70 - 1.30 mg/dL [facility] GFR EST NON 17(L) >60 mL/min [facility] eGFR 19(L) >60 mL/min [facility] Glucose 174(H) 74 - 106 mg/dL [facility] Calcium 8.7 8.5 - 10.1 mg/dL [facility] Albumin 3.1(L) 3.4 - 5.0 g/dL [facility] Phosphorus 3.4 2.5 - 4.9 mg/dL [facility] Anion Gap 5.0 0.0 - 15.0 mmol/L [facility] Blood (Blood, Venous) 11/22/2019 1:10 PM CDT 11/22/2019 8:46 PM CDT Narrative [facility] - 11/22/2019 8:55 PM CDT [facility] HAS THE PATIENT FASTED?->NO Shay Brown MD LAB BLOOD ORDERABLES Final Resul t Performing Organization Address City/[facility] Co de Phone Number [facility] [address] [place] [address] documented in this encounter Visit Diagnoses Diagnosis Chronic kidney disease stage 4 (HCC) documented in this encounter Care Teams Noodle Catalyst Maker Relationship Specialty Start Date End Date Carolee Harris MD [address] [place] [address] PCP - General Family Medicine 09/16/21 documented as of this encounter
--- OUTSIDE RECORDS SUMMARY | 2024-09-12 21:53 | XMS_ITS | Encounter Summary ---
Author Organization [facility] [place] [place] Address [address] [place] [address] Care Team Providers Care Logistics Program Manager Name Role Phone Carolee Harris MD Primary Care Provider [phone] Encounter Details Date Type Department Care Team (Late st Contact Info) Description 05/22/2020 Orders Only [facility] [place] [address] [place] [address] Shay Brown MD [address] [place] [address] Chronic kidney disease stage 4 [...] have Coronavirus / COVID-19? No / Unsure 05/20/2020 10:55 AM EDT documented as of this encounter Plan of Treatment Not on file documented as of this encounter Procedures Procedure Name Priority Date/Time Associated Diagnosis Comments PROTEIN / CREATININE RATIO, URINE Routine 05/20/2020 10:44 AM CDT Chronic kidney disease stage 4 (HCC) HEMOGLOBIN Routine 05/20/2020 10:44 AM CDT Chronic kidney disease stage 4 (HCC) PTH, INTACT Routine 05/20/2020 10:44 AM CDT Chronic kidney disease stage 4 (HCC) RENAL FUNCTION PANEL Routine 05/20/2020 10:44 AM CDT Chronic kidney disease stage 4 (HCC) documented in this encounter Results * PTH, Intact (05/20/2020 10:44 AM CDT) Pathologist [facility] Parathyroid Hormone, Intact 35.0 14.0 - 72.0 pg/mL [facility] Blood (Blood, Venous) 05/20/2020 10:44 AM CDT 05/20/2020 6:06 PM CDT Narrative [facility] - 05/20/2020 6:26 PM CDT AT OUR OFFICE us Shay Brown MD LAB BLOOD ORDERABLES Final Resul t Performing Organization Address City/[facility] de Phone Number [facility] [address] [place] [phone] * (ABNORMAL) Hemoglobin (05/20/2020 10:44 AM CDT) [facility] Hgb 11.0(L) 14.0 - 18.0 gm/dL [facility] Blood (Blood, Venous) 05/20/2020 10:44 AM CDT 05/20/2020 6:02 PM CDT Narrative [facility] - 05/20/2020 6:10 PM CDT AT OUR OFFICE us Shay Brown MD LAB BLOOD ORDERABLES Final Resul t Performing Organization Address City/[facility]/ZIP Co de Phone Number [facility] [address] [place] [phone] * (ABNORMAL) Renal Function Panel (05/20/2020 10:44 AM CDT) [facility] Sodium 141 136 - 145 mmol/L [facility] Potassium 4.0 3.5 - 5.1 mmol/L [facility] Chloride 108 98 - 112 mmol/L [facility] Carbon Dioxide (CO2) 26 21 - 32 mmol/L [facility] BUN 45(H) 7 - 24 mg/dL [facility] Creatinine 3.57(H) 0.70 - 1.30 mg/dL [facility] GFR EST NON 16(L) >60 mL/min [facility] eGFR 18(L) >60 mL/min [facility] Glucose 176(H) 74 - 106 mg/dL [facility] Calcium 9.5 8.5 - 10.1 mg/dL [facility] Albumin 2.9(L) 3.4 - 5.0 g/dL [facility] Phosphorus 3.7 2.5 - 4.9 mg/dL [facility] Anion Gap 7.0 0.0 - 15.0 mmol/L [facility] Blood (Blood, Venous) 05/20/2020 10:44 AM CDT 05/20/2020 7:51 PM CDT Narrative [facility] - 05/20/2020 8:07 PM CDT AT OUR OFFICE [facility] HAS THE PATIENT FASTED?->NO Shay Brown MD LAB BLOOD ORDERABLES Final Resul t Performing Organization Address [facility] de Phone Number [facility] [address] [place] [address] * (ABNORMAL) Protein, Total, Random Urine w/Creatinine (Protein/Creat Ratio) (05/20/2020 10:44 AM CDT) Protein/Creati nine Ratio, Urine 7.23(H) <0.11 mg/mg creat [facility] Creatinine, Ur 52.7 mg/dL [facility] Protein, Ur 381(H) <12 mg/dL [facility] Urine (Urine, Clean Catch) 05/20/2020 10:44 AM CDT 05/20/2020 6:02 PM CDT Narrative [facility] - 05/20/2020 6:36 PM CDT AT OUR OFFICE us Shay Brown MD LAB URINE ORDERABLES Final Resul t Performing Organization Address [facility] de Phone Number [facility] [address] [place] [address] documented in this encounter Visit Diagnoses Diagnosis Chronic kidney disease stage 4 (HCC) documented in this encounter Care Teams Logistics Program Manager Relationship Specialty Start Date End Date Carolee Harris MD [address] [place] [address] PCP - General Family Medicine 09/16/21 documented as of this encounter
[2024-09-12] MEDS: 0.9 % SODIUM CHLORIDE 1000 ml 1,000 ML IV (21:54)
[2024-09-12 22:08] LABS: Basophils Absolute Auto 0.03 K/uL (0.00-0.30); Basophils Percent Auto 0.4 % (0.0-3.0); Hematocrit 34.8 % (37.0-53.0); Hemoglobin* 11.2 gm/dL (13.5-17.5); Immature Granulocytes Abs Auto 0.01 K/uL (0.00-0.30); Immature Granulocytes Pct Auto 0.1 %; Lymphocytes Percent Auto 13.1 % (20-44); Mean Corpuscular HGB Conc 32 gm/dL (32-36); Mean Corpuscular Hemoglobin 33 pg (26-34); Mean Corpuscular Volume 102 fL (80-100); Monocytes Percent Auto 7.4 % (0.0-11.0); Platelet Count* 216 K/uL (140-440); RDW Coefficient of Variation % 13.6 % (11.5-15.5); White Blood Count* 8.49 K/uL (4.50-11.00)
[2024-09-12 22:11] LABS: Slide Review Reflex No
[2024-09-12 22:23] LABS: Chloride* 96 mmol/L (96-114); Potassium* 5.2 mmol/L (3.6-5.1); Sodium* 133 mmol/L (135-149)
[2024-09-12 22:25] LABS: Creatinine* 5.9 mg/dL (0.5-1.5); Est. Creatinine Clearance* 11.09; Estimated Glomerular Filt Rate 9 ml/min
[2024-09-12 22:26] LABS: Anion Gap 15 mEq/L (7-15); Blood Urea Nitrogen* 37 mg/dL (7-30); Calcium* 8.5 mg/dL (8.4-10.6); Carbon Dioxide* 22 mmol/L (20-32); Glucose* 132 mg/dL (60-115)
--- NOTE | 2024-09-12 22:57 | CRLHL7_ITS ---
For Patients: As a result of the Century Cures Act, medical imaging exams and procedure reports are released immediately into your electronic medical record. You may view this report before your referring provider. If you have questions, please contact your health care provider. INDICATION: Right-sided pleural effusion and consolidation seen on same day chest radiograph. TECHNIQUE: CT chest 75 cc of Isovue 370 IV contrast. COMPARISON: Same day chest radiograph. FINDINGS: CHEST: Cardiovascular structures: Heart size is normal. Thoracic aorta and main pulmonary artery are normal in caliber. Atherosclerotic calcifications of the aorta and branch vessels. Coronary artery calcifications. Mediastinum and gabrielle: A couple of borderline enlarged mediastinal lymph nodes, for example right paratracheal node measuring 1.0 cm in the short axis (). Calcified hilar lymph nodes consistent with prior granulomatous disease. Lungs and pleura: Moderate right-sided pleural effusion with associated right lower lobe consolidation that may represent compressive atelectasis. Multiple calcified granulomas. No overtly suspicious nodules. Chest wall and axilla: No mass or adenopathy. Hypertrophied appearance of the right thyroid lobe, but no discrete lesion. Bones: Multiple spinal compression deformities that may be chronic, the most substantial of which are T10 and L1. Upper abdomen: Scattered hepatic and splenic calcified granulomas. Atrophic kidneys. IMPRESSION: 1. Moderate right pleural effusion with adjacent right lower lobe consolidation suggestive of compressive atelectasis. Superimposed pneumonia could not be excluded, if clinically suspected. 2. A couple of borderline enlarged mediastinal lymph nodes, indeterminate. Please note that all CT scans at this facility use dose modulation, iterative reconstruction, and/or weight-based dosing when appropriate to reduce radiation dose to as low as reasonably achievable. Dictated by Rolly Ferguson MD @ 09/12/2024 11:47:19 PM (Electronically Signed)
[2024-09-13] VITALS (44 sets, daily range): BP systolic 92–119; BP diastolic 55–73; PULSE 73–120; RESP 18; TEMP 36.8; O2SAT 82–96
[2024-09-13 00:11] LABS: Troponin I* 0.12 ng/mL (0.01-0.04)
[2024-09-13 00:22] LABS: NT Pro B Type NatriureticPept* 89200 pg/mL
[2024-09-13 00:27] LABS: INR 2.67 (0.91-1.10); Prothrombin Time 30.4 Seconds
--- NOTE | 2024-09-13 00:59 | ED.NURSE ---
Ambulated patient- oxygen saturation remained >90% during the walk. Patient was tachycardic with ambulation, up to the 150's. Upon returning to the room, patient stated he felt SOB and looked to be SOB. Recovered within minutes, feeling better.
[2024-09-13] MEDS: METOPROLOL TARTRATE 1 MG/ML inj 5 MG IVP (01:46)
[2024-09-13] MEDS: OSELTAMIVIR PHOSPHATE 75 MG CAPSULE PO (01:56)
[2024-09-13] MEDS: TORSEMIDE 20 MG TABLET 40 MG PO (02:22)
[2024-09-13] MEDS: WARFARIN 3 MG TABLET 6 MG PO (02:22)
[2024-09-13] MEDS: METOPROLOL TARTRATE 25 MG TABLET PO (02:32)
== END 2024-09-13 09:17 | disposition home or self-care (01) ==
PROVIDERS: Family Medicine; Emergency Provider Family Medicine
DX: J10.1 Influenza due to other identified influenza virus with other respiratory manifestations (principal); J90 Pleural effusion, not elsewhere classified; N19 Unspecified kidney failure; I50.9 Heart failure, unspecified
CPT/HCPCS: 36415; 71045; 71260; 80048; 83880; 84484; 85025; 85610; 87631; 96361; 96374; 99284; 99285; A9270; J7030; Q9967

== ENCOUNTER 2024-09-22 20:10 | Emergency (ER) | payer MEDICARE, BC, SELFPAY ==
[2024-09-22 20:12] VITALS: BP 132/71; PULSE 91; RESP 18; TEMP 36.3; O2SAT 96; BMI 21.8
--- OUTSIDE RECORDS SUMMARY | 2024-09-22 20:12 | XMS_ITS | Clinical Summary ---
Author Organization [facility] Address [address] [place] [address] Care Team Providers Care Director Of Engineering Name Role Phone Carolee Harris MD Primary Care Provider [phone] Allergies No known active allergies Medications No known medications Encounters Date Type Department Care Team Description 09/22/2024 1:03 AM POWER PLANT OPERATOR APPRENTICE - 09/22/2024 1:04 AM POWER PLANT OPERATOR APPRENTICE Emergency [facility] Emergency Dept [address] [place] [address] Discharge Disposition: Left Without Being Seen 09/21/2024 Travel from Last 3 Months Social History Tobacco Use Types Packs/Day Years Used Date Smoking Tobacco: Never Assessed Adolescent Education Answer Date Record ed Getting School Help Needed Not on file 03/15 Sex and Gender Information Value Date Recorded Sex Assigned at Not on file Legal Sex Male 3:19 AM POWER PLANT OPERATOR APPRENTICE Gender Identity Not on file Sexual Orientation Not on file Last Filed Vital Signs Vital Sign Reading Time Taken Comments Blood Pressure 130/72 09/21/2024 11:45 PM POWER PLANT OPERATOR APPRENTICE Pulse 87 09/21/2024 11:46 PM POWER PLANT OPERATOR APPRENTICE Temperature 36.2 C (97.2 F) 09/21/2024 11:46 PM POWER PLANT OPERATOR APPRENTICE Respiratory Rate 20 09/21/2024 11:46 PM POWER PLANT OPERATOR APPRENTICE Oxygen Saturation 96% 09/21/2024 11:46 PM POWER PLANT OPERATOR APPRENTICE Inhaled Oxygen Concentration - - Weight 78.9 kg (174 lb) 09/21/2024 11:47 PM POWER PLANT OPERATOR APPRENTICE Height 188 cm (6' 2) 03/15/2024 11:54 AM CDT Body Mass Index 22.34 03/15/2024 11:54 AM CDT Plan of Treatment Health Maintenance Due Date Last Done Comments ADVANCE CARE PLANNING 1945 ANNUAL REVIEW OF HM ORDERS 1945 FALL RISK ASSESSMENT 02/12/2008 ZOSTER IMMUNIZATION (2 of 3) 12/13/2011 10/18/2011 RSV VACCINE (1 - 1-dose 75+ series) 2018 DTAP/TDAP/TD IMMUNIZATION (2 - Td or Tdap) 08/11/2021 08/11/2011, 08/05/2005 MEDICARE ANNUAL WELLNESS VISIT 01/27/2022 01/27/2021 COVID-19 Vaccine (4 - season) 2024 06/06/2021, 11/07/2020, 10/17/2020 HEPATITIS B IMMUNIZATION (5 of 5 - Risk Dialysis Recombivax 3-dose series) 05/19/2024 05/19/2023, 03/19/2023, 02/12/2023, Additional history exists PHQ-2 (once per calendar year) 2024 Pneumococcal Vaccine: 50+ Years Completed 06/03/2014, 05/27/2012, 04/23/2012, Additional history exists INFLUENZA VACCINE Completed 06/02/2024, , 08/10/2022, Additional history exists HPV IMMUNIZATION Aged Out No longer e ligible based on patient's age to complete this topic MENINGITIS IMMUNIZATION Aged Out No l onger eligible based on patient's age to complete this topic RSV MONOCLONAL ANTIBODY Aged Out No l onger eligible based on patient's age to complete this topic Insurance MEDICARE [place] MEDICARE SUPPLEMENT MEDICARE [place] MEDICARE SUPPLEMENT Care Teams Director Of Engineering Relationship Specialty Start Date End Date Carolee Harris MD [address] [place] [address] PCP - General 03/15/24
--- OUTSIDE RECORDS SUMMARY | 2024-09-22 20:12 | XMS_ITS | Encounter Summary ---
Author Organization [facility] [place] Address [address] [place] [address] Care Team Providers Care Neon Glass Bender Name Role Phone Carolee Harris MD Primary Care Provider [phone] Encounter Details Date Type Department Care Team (Latest Contact Info) Description 06/04/2020 Orders Only [facility] [place] [address] [place] [address] Shay Brown MD [address] [place] [address] Secondary hyperparathyroidism of renal origin [...] this encounter Results * [facility] referral [facility] (06/07/2020 3:57 PM CDT) us Shay Bronw MD OUTPATIENT REFERRAL ORDERABLES F inal Result documented in this encounter Visit Diagnoses Diagnosis 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
--- OUTSIDE RECORDS SUMMARY | 2024-09-22 20:12 | XMS_ITS | CONTINUITY OF CARE DOCUMENT ---
Author Name User, QIE Address [address] [facility] [address] [place] [address] Organization [facility] Address [address] [facility] [address] [place] [address] Phone [phone] Care Team Providers Care Sales And Service Engineer Name Role Phone User, QIE Unavailable Unavailable PROBLEMS Condition Status Date Provider Notes Organizati on PROTEINURIA active Bailee becerra , [address] [place] [address] [facility] GOUT active Bailee becerra , [address] [place] [address] [address] [facility] ANEMIA active Bailee becerra , [address] [place] [address] [address] [facility] HTN, UNSPECIFIED active Bailee ynug , [address] [place] [address] [facility] BPH (BENIGN PROSTATIC HYPERTROPHY) active Bailee Roque , [address] [place] [address] [facility] CKD STAGE 4 (GFR 15-29) active Bailee Roque , [address] [place] [address] [facility] ENCOUNTERS Date Type Provider Location Encounter Diag nosis - In-person encounter Office Visit Maksim Concepcion MD, MD, [address] [facility] [address] [facility] [address] [facility] - In-person encounter Office Visit Maksim Concepcion MD, MD, [address] [facility] [address] [facility] [address] [facility] VITAL SIGNS Date Observation Value Provider Organization blood pressure, diastolic 71 mm[Hg] Aileen Barros RN RN, [address] [place] [address] [facility] blood pressure, systolic 142 mm[Hg] Aileen Barros RN RN, [address] [place] [address] [facility] respiratory rate E&M 16 /min Aileen Barros RN RN, [address] [place] [address] [facility] pulse rate 81 /min Aileen Kirk RN, [address] [place] [address] [facility] temperature E&M 98.1 [degF] Aileen becerra RN RN, [address] [place] [address] [facility] blood pressure, site #1 Upper arm Aileen Barros RN RN, [address] [place] [address] [facility] blood pressure, diastolic, right arm 71 mm[Hg] Aileen Barros RN RN, [address] [place] [address] [facility] blood pressure, systolic, right arm 142 mm[Hg] Aileen Barros RN RN, [address] [place] [address] [facility] Body Mass Index (Ratio) 22.55 kg/m2 Aileen Barros RN RN, [address] [place] [address] [facility] weight E&M 175 [lb_av] Aileen Kirk RN, [address] [place] [address] [facility] height E&M 74 [in_i] Aileen Kirk RN, [address] [place] [address] [facility] blood pressure, diastolic 66 mm[Hg] Elis Mancia , [address] [place] [address] [facility] blood pressure, systolic 165 mm[Hg] Elis Mancia , [address] [place] [address] [facility] blood pressure, site #1 Upper arm Elis Mancia , [address] [place] [address] [facility] temperature E&M 98.7 [degF] Elis laughlin , [address] [place] [address] [address] [facility] Body Mass Index (Ratio) 25.77 kg/m2 Elis Mancia , [address] [place] [address] [address] [facility] weight E&M 200 [lb_av] Elis bolanos , [address] [place] [address] [address] [facility] respiratory rate E&M 16 /min Elis patel , [address] [place] [address] [facility] pulse rate 79 /min Elis bolanos , [address] [place] [address] [facility] blood pressure, diastolic, right arm 66 mm[Hg] Elis Mancia , [address] [place] [address] [facility] blood pressure, systolic, right arm 165 mm[Hg] Elis Mancia , [address] [place] [address] [facility] height E&M 74 [in_i] Elis bolanos , [address] [place] [address] [facility] blood pressure, diastolic 80 mm[Hg] Shanel Gregglaurie , [address] [place] [address] [address] [facility] [address] [facility] blood pressure, systolic 172 mm[Hg] Shanel Quick , [address] [place] [address] [address] [facility] [address] [facility] blood pressure, diastolic, right arm 80 mm[Hg] Shanel Abdelrahman , [address] [place] [address] [address] [facility] [address] [facility] blood pressure, systolic, right arm 172 mm[Hg] Shanel Quick , [address] [place] [address] [address] [facility] [address] [facility] blood pressure, site #1 Upper arm Shanel Quick , [address] [place] [address] [address] [place] [address] [facility] Body Mass Index (Ratio) 25.13 kg/m2 Shanel Quick [address] [place] [address] [address] [place] [address] [facility] weight E&M 195 [lb_av] Shanel Quick , [address] [place] [address] [address] [place] [address] [facility] pulse rate 67 /min Shanel Quick [address] [place] [address] [facility] height E&M 74 [in_i] Shanel Quick , [address] [place] [address] [address] [place] [address] [facility] blood pressure, diastolic 72 mm[Hg] Shanel Quick [address] [place] [address] [facility] blood pressure, systolic 151 mm[Hg] Shanel Quick [address] [place] [address] [facility] Body Mass Index (Ratio) 28.99 kg/m2 Shanel Quick [address] [place] [address] [facility] pulse rate 77 /min Shanel Quick [address] [place] [address] [facility] weight E&M 225 [lb_av] Shanel Quick [address] [place] [address] [facility] blood pressure, site #1 Upper arm Shanel Quick [address] [place] [address] [facility] blood pressure, diastolic, right arm 72 mm[Hg] Shanel Quick , [address] [place] [address] [address] [place] [address] [facility] blood pressure, systolic, right arm 151 mm[Hg] Shanel Quick , [address] [place] [address] [address] [place] [address] [facility] height E&M 74 [in_i] Shanel Quick [address] [place] [address] [facility] blood pressure, diastolic 73 mm[Hg] Jennifer Mix RN RN, [address] [place] [address] [address] [place] [address] [facility] blood pressure, systolic 180 mm[Hg] Jennifer Mix RN RN, [address] [place] [address] [address] [facility] [address] [place] [address] [facility] blood pressure, site #1 Upper arm Jennifer Mix RN RN, [address] [place] [address] [address] [facility] [address] [place] [address] [facility] blood pressure, diastolic, right arm 73 mm[Hg] Jennifer Mix RN RN, [address] [place] [address] [address] [facility] [address] [place] [address] [facility] blood pressure, systolic, right arm 180 mm[Hg] Jennifer Mix RN RN, [address] [place] [address] [address] [facility] [address] [place] [address] [facility] respiratory rate E&M 18 /min Jennifer Mix RN RN, [address] [place] [address] [address] [facility] [address] [place] [address] [facility] pulse rate 73 /min Jennifer Mix RN RN, [address] [place] [address] [address] [facility] [address] [place] [address] [facility] temperature E&M 98.0 [degF] Jennifer Mix RN RN, [address] [place] [address] [address] [facility] [address] [place] [address] [facility] Body Mass Index (Ratio) 28.99 kg/m2 Jennifer Mix RN RN, [address] [place] [address] [address] [facility] [address] [place] [address] [facility] weight E&M 225 [lb_av] Jennifer Mix RN RN, [address] [place] [address] [address] [facility] [address] [place] [address] [facility] height E&M 74 [in_i] Jennifer Mix RN RN, [address] [place] [address] [address] [facility] [address] [place] [address] [facility] blood pressure, diastolic 76 mm[Hg] Shanel Quick , [address] [place] [address] [address] [facility] [address] [facility] blood pressure, systolic 190 mm[Hg] Shanel Quick , [address] [place] [address] [address] [facility] [address] [facility] pulse rate 63 /min Shanel Quick , [address] [place] [address] [address] [facility] [address] [facility] blood pressure, site #1 Upper arm Shanel Quick , [address] [place] [address] [address] [facility] [address] [facility] blood pressure, diastolic, right arm 76 mm[Hg] Shanel [address] [facility] [address] [facility] blood pressure, systolic, right arm 190 mm[Hg] Shanel [address] [facility] [address] [facility] blood pressure, site #2 Upper arm Shanel [address] [facility] [address] [facility] blood pressure, diastolic, left arm 71 mm[Hg] Shanel [address] [facility] [address] [facility] blood pressure, systolic, left arm 188 mm[Hg] Shanel [address] [facility] [address] [facility] temperature E&M 98 [degF] Shanel [address] [facility] [address] [facility] Body Mass Index (Ratio) 28.99 kg/m2 [address] [facility] [address] [facility] height E&M 74 [in_i] [address] [facility] [address] [facility] weight E&M 225 [lb_av] [address] [facility] [address] [facility] ALLERGIES Allergy Name Onset Date Reaction Criticality Status Provider Or ganization ACTINEL Low Criticality active Craig Roque , [address] [place] [address] RESULTS Date Observation Value Provider Organization Refer ence Range Interpretation Location 09/21 international normalized ratio (INR) 2.2 Aileen Barros RN RN, [address] [place] [address] [facility] HISTORY OF MEDICATION USE Medication Instructions Status Dates Provider Indications Com ments Organization RenaPlex-D 800 mcg-12.5 mg-2,000 unit tablet TAKE 1 TABLET BY MOUTH EVERY DAY active Aileen Barros RN, RN, [address] [place] [address] [address] [facility] metoprolol succinate ER 25 mg tablet,extend ed release 24 hr active Aileen Barros RN RN, [address] [place] [address] [address] [facility] [address] [facility] levothyroxine 88 mcg tablet active Aileen Barros RN RN, [address] [place] [address] [address] [facility] [address] [facility] warfarin 2 mg tablet as directed active Shanel Quick [address] [facility] [address] [facility] torsemide 20 mg tablet Take 1 tablet by mouth once a day active Bailee Roque [address] [facility] [address] [facility] terazosin 10 mg capsule Take 1 tablet by mouth every night active Bailee Murali[address] [facility] [address] [facility] prednisone 5 mg tablet Take 5 mg by mouth once a day completed - 11/[address] [facility] [address] [facility] omeprazole 40 mg capsule,delay ed release(DR/EC ) Take 1 tablet by mouth once a day active Bailee Roque [address] [facility] [address] [facility] Lorraine-3 Fish Oil 300-1,000 mg capsule 1200 mg by mouth once a day completed - 11/[address] [facility] [address] [facility] lovastatin 20 mg tablet Take 20 mg by mouth every night active Bailee Carrion[address] [facility] [address] [facility] carvedilol 6.25 mg tablet Take 1 tablet by mouth twice a day active Bailee Roque [address] [facility] [address] [facility] calcitriol 0.5 mcg capsule Take 1 capsule by mouth once a day completed - 11/[address] [facility] [address] [facility] Norvasc 5 mg tablet 1 once a day active Shanel rGegg[address] [facility] [address] [facility] allopurinol 300 mg tablet Take 1 tablet by mouth once a day active Bailee Roque , [address] [facility] [address] [facility] [address] [facility] acyclovir 5% ointment Apply to skin as needed active Bailee Roque , [address] [place] [address] [address] [facility] [address] [facility] SOCIAL HISTORY Date Observation Value Provider Organization 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 Chinedu Driscoll MD, MD, [address] [facility] [address] [place] [address] [facility] smoking/tobacco cessation, patient education and counseling no Aileen Barros RN RN, [address] [place] [address] [facility] smoking status Former smoker Aileen becerra RN RN, [address] [place] [address] [address] [facility] social history reviewed E&M reviewed - no changes required Aileen Barros RN RN, [address] [place] [address] [address] [facility] 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 Stepan Trujillo MD, MD, [address] [place] [address] [address] [facility] [address] [place] [address] [facility] social history reviewed E&M reviewed - no changes required Elis Mancia , [address] [place] [address] [address] [facility] social history reviewed E&M reviewed - no changes required Shanel Quick , [address] [place] [address] [address] [facility] [address] [facility] social history reviewed E&M reviewed - no changes required Shanel Quick , [address] [place] [address] [address] [facility] [address] [facility] site on body for surgical procedure electric clipper Jennifer Mix RN RN, [address] [place] [address] [address] [facility] social history reviewed E&M reviewed - no changes required Jennifer Mix RN RN, [address] [place] [address] [address] [facility] handedness right Maksim Annamaria way MD, MD, [address] [facility] [address] [facility] smoking/tobacco cessation, patient education and counseling no Shanel Quick [address] [place] [address] [address] [facility] [address] [facility] social history reviewed E&M reviewed - no changes required Shanel Quick [address] [place] [address] [address] [facility] [address] [facility] social history E&M S moking History: Brittani young is a former smoker. Shanel Quick [address] [place] [address] [address] [facility] [address] [facility] smoking status Former smoker Shanel Quick [address] [place] [address] [address] [facility] [address] [facility] FAMILY HISTORY Family Member Condition Mother Family History of Hy perlipidemia INSURANCE PROVIDERS Payer name Policy type / Coverage type [place] [employer] green party ID MEDICARE [id number] TREATMENT PLAN Date Name Provider Complication of dial ysis graft or impending failure Troy Phillip MD, MD, [address] [place] [address] [address] [facility] [address] Complication of dial ysis graft or impending failure Troy Phillip MD, MD, [address] [place] [address] [address] [facility] [address] Vein Mapping Baldemar Yin, [address] [facility] [address] HISTORY OF PROCEDURES Procedure Date Procedure Name Provider Procedure Notes Status Organization PT/INR Chinedu Driscoll MD, MD, [address] [facility] [address] completed [facility] US Guide Vascular Access Chinedu Driscoll MD, MD, [facility] [facility] [address] completed [facility] INFUS NORMAL SALINE SOLUTION 250 CC Chinedu Driscoll MD, MD, [address] [facility] [address] completed [facility] INJECTION MIDAZOLAM HCL PER 1 MG Chinedu Driscoll MD, MD, [address] [facility] [address] completed [facility] INJECTION FENTANYL CITRATE 100MCG Chinedu Driscoll MD, MD, [facility] [facility] [address] completed [facility] Wire Chinedu Driscoll MD, MD, [address] [facility] [address] completed [facility] Balloon Chinedu Driscoll MD, MD, [address] [facility] [address] completed [facility] Sheath Chinedu Driscoll MD, MD, [address] [facility] [address] completed [facility] Omnipaque 300 10ml (Medicare [id number]) Chinedu Driscoll MD, MD, [address] [facility] [address] completed [facility] Fistulagram, Dialysis Chinedu Driscoll MD, MD, [address] [facility] [address] completed [facility] Antibiotic-No Order Chinedu varghese MD, MD, [address] [facility] [address] completed [facility] Quailty Measures all negative Chinedu Driscoll MD, MD, [address] [facility] [address] completed [facility] SNOMED-CT:HISTORICA L PNEUMOCOCCAL VACCINATION Chinedu Driscoll MD, MD, [address] [facility] [address] completed [facility] SNOMED-CT:PATIENT ENCOUNTER Chinedu Driscoll MD, MD, [address] [facility] [address] completed [facility] PT/INR Stepan Trujillo MD, MD, [address] [place] [address] Road [address] [facility] [address] completed [facility] INFUS NORMAL SALINE SOLUTION 250 CC Stepan Trujillo MD, MD, [address] [place] [address] Road [address] [facility] [address] completed [facility] INJECTION FENTANYL CITRATE 100MCG Stepan Trujillo MD, MD, [address] [place] [address] Road [address] [facility] [address] completed [facility] INJECTION MIDAZOLAM HCL PER 1 MG Stepan Trujillo MD, MD, [address] [place] [address] Road D [address] [facility] [address] completed [facility] Wire Stepan Trujillo MD, MD, [address] [place] [address] Road D [address] [facility] [address] completed [facility] Balloon Stepan Trujillo MD, MD, [address] [place] [address] [address] [facility] [address] completed [facility] Sheath Stepan Trujillo MD, MD, [address] [place] [address] Road D [address] [facility] [address] completed [facility] Omnipaque 300 10ml (Medicare Q9949) Stepan Trujillo MD, MD, [address] [place] [address] [address] [facility] [address] completed [facility] Angioplasty within including RS&I Stepan Trujillo MD, MD, [address] [place] [address] [address] [facility] [address] completed [facility] Fistulagram, Dialysis Stepan Trujillo MD, MD, [address] [place] [address] [address] [facility] [address] completed [facility] Antibiotic-No Order Stepan Trujillo MD, MD, [address] [place] [address] [address] [facility] [address] completed [facility] Quailty Measures all negative Stepan Trujillo MD, MD, [address] [place] [address] [address] [facility] [address] completed [facility] SNOMED-CT:HISTORICA L PNEUMOCOCCAL VACCINATION Stepan Trujillo MD, MD, [address] [place] [address] [address] [facility] [address] completed [facility] SNOMED-CT:PATIENT ENCOUNTER Stepan Trujillo MD, MD, [address] [place] [address] [address] [facility] [address] completed [facility] SNOMED-CT:PATIENT ENCOUNTER Maksim Concepcion MD, MD, [address] [facility] [address] completed [facility] SNOMED-CT:PATIENT ENCOUNTER Maksim Concepcion MD, MD, [address] [facility] [address] completed [facility] SNOMED-CT: [id number] Current Medications Documented Maksim Concepcion MD, MD, [address] [facility] [address] completed [facility] INJECTION MIDAZOLAM HCL PER 1 MG Maksim Concepcion MD, MD, [address] [facility] [address] completed [facility] INJECTION FENTANYL CITRATE 100MCG Maksim Concepcion MD, MD, [address] [facility] [address] completed [facility] INFUS NORMAL SALINE SOLUTION 250 CC Maksim Concepcion MD, MD, [address] [place] [address] completed [facility] Ancef 1g Maksim Concepcion MD, MD, [address] [place] [address] completed [facility] AV anastomosis, direct any site Maksim Concepcion MD, MD, [address] [place] [address] Left BC AVF completed [facility] Antibiotic initiated on time-Yes Maksim Concepcion MD, MD, [address] [place] [address] completed [facility] Quailty Measures all negative Maksim Concepcion MD, MD, [address] [facility] [address] completed [facility] SNOMED-CT:PATIENT ENCOUNTER Maksim Concepcion MD, MD, [address] [facility] [address] completed [facility] SNOMED-CT:HISTORICA L PNEUMOCOCCAL VACCINATION Maksim Concepcion MD, MD, [address] [place] [address] completed [facility] SNOMED-CT:PATIENT ENCOUNTER Maksim Concepcion MD, MD, [address] [facility] [address] completed [facility]
--- OUTSIDE RECORDS SUMMARY | 2024-09-22 20:12 | XMS_ITS | Encounter Summary ---
Author Organization [facility] Address [address] [place] [address] Care Team Providers Care Senior Search Marketing Analyst Name Role Phone Carolee Harris MD Primary Care Provider [phone] Reason for Visit * Reason Comments Post-op Problem Encounter Details Date Type Department Care Team (Late st Contact Info) Description 09/22/2024 1:03 AM FROG FARMER - 09/22/2024 1:04 AM FROG FARMER Emergency [facility] Emergency Dept [address] [place] [address] Discharge Disposition: Left Without Being Seen Social History Tobacco Use Types Packs/Day Years Used Date Smoking Tobacco: Never Assessed Adolescent Education Answer Date Record ed Getting School Help Needed Not on file 03/15 Sex and Gender Information Value Date Recorded Sex Assigned at Not on file Legal Sex Male 3:19 AM FROG FARMER Gender Identity Not on file Sexual Orientation Not on file documented as of this encounter Last Filed Vital Signs Vital Sign Reading Time Taken Comments Blood Pressure 130/72 09/21/2024 11:45 PM FROG FARMER Pulse 87 09/21/2024 11:46 PM FROG FARMER Temperature 36.2 C (97.2 F) 09/21/2024 11:46 PM FROG FARMER Respiratory Rate 20 09/21/2024 11:46 PM FROG FARMER Oxygen Saturation 96% 09/21/2024 11:46 PM FROG FARMER Inhaled Oxygen Concentration - - Weight 78.9 kg (174 lb) 09/21/2024 11:47 PM FROG FARMER Height - - Body Mass Index 22.34 03/15/2024 11:54 AM CDT documented in this encounter ED Notes * Patsy Hoyos RN - 09/21/2024 11:48 PM CST 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 Pt has been unable to stop bleeding from one of the sites. Pressure dressing placed in triage with good control FARMER documented in this encounter Plan of Treatment Not on file documented as of this encounter Visit Diagnoses Not on filedocumented in this encounter Care Teams Senior Search Marketing Analyst Relationship Specialty Start Date End Date Carolee Harris MD [address] [place] [address] PCP - General 03/15/24 documented as of this encounter
--- OUTSIDE RECORDS SUMMARY | 2024-09-22 20:12 | XMS_ITS | Encounter Summary ---
Author Organization [facility] Address [address] [place] [address] Care Team Providers Care Document Preparation Specialist Name Role Phone Carolee Harris MD Primary Care Provider [phone] Encounter Details Date Type Department Care Team (Late st Contact Info) Description 03/09/2020 Orders Only [facility] [place] [address] [place] [address] Whitney Luis, RN [address] [place] [address] Chronic kidney disease stage 4 [...] (HCC) documented in this encounter Care Teams Document Preparation Specialist Relationship Specialty Start Date End Date Carolee Harris MD [address] [place] [address] PCP - General Family Medicine 09/16/21 documented as of this encounter
--- OUTSIDE RECORDS SUMMARY | 2024-09-22 20:12 | XMS_ITS | Encounter Summary ---
Author Organization [facility] Address [address] [place] [address] Care Team Providers Care Die Maker Bench Stamping Name Role Phone Carolee Harris MD Primary Care Provider [phone] Encounter Details Date Type Department Care Team (Latest Contact Info) Description 04/12/2020 Orders Only [facility] [place] [address] [place] [address] Shay Brown MD [address] [place], [place] [address] Anemia in chronic kidney disease; Chronic kidney [...] origin documented in this encounter Care Teams Die Maker Bench Stamping Relationship Specialty Start Date End Date Carolee Harris MD [address] [place] [address] PCP - General Family Medicine 09/16/21 documented as of this encounter
--- OUTSIDE RECORDS SUMMARY | 2024-09-22 20:12 | XMS_ITS | Encounter Summary ---
Author Organization [facility] Address [address] [place] [address] Care Team Providers Care Supervisor Feed House Name Role Phone Carolee Harris MD Primary Care Provider [phone] Encounter Details Date Type Department Care Team (Late st Contact Info) Description 09/11/2019 Orders Only [facility] [place] [address] [place] [address] Shay Brown MD [address] [place] [address] Chronic kidney disease stage 4 [...] AND FERRITIN PANEL Routine 09/13/2019 12:55 PM HAND PLUG SHAPER Chronic kidney disease stage 4 (HCC) HEMOGLOBIN Routine 09/13/2019 12:55 PM HAND PLUG SHAPER Chronic kidney disease stage 4 (HCC) RENAL FUNCTION PANEL Routine 09/13/2019 12:55 PM HAND PLUG SHAPER Chronic kidney disease stage 4 (HCC) documented in this encounter Results * (ABNORMAL) Hemoglobin (09/13/2019 12:55 PM HAND PLUG SHAPER) Hgb 10.4(L) 14.0 - 18.0 gm/dL [facility] Blood (Blood, Venous) 09/13/2019 12:55 PM HAND PLUG SHAPER 09/13/2019 8:59 PM HAND PLUG SHAPER Shay Brown MD LAB BLOOD ORDERABLES Final Resul t Performing Organization Address [facility] de Phone Number [facility] [address] [place] [address] * (ABNORMAL) Iron Panel ([facility]) (09/13/2019 12:55 PM HAND PLUG SHAPER) TIBC 220(L) 250 - 450 ug/dL [facility] Iron Saturation (TSat) 20 15 - 50 % [facility] Ferritin 302 8 - 388 ng/mL [facility] Iron 44(L) 65 - 175 ug/dL [facility] Transferrin 176(L) 200 - 360 mg/dL [facility] 09/13/2019 12:5 5 PM HAND PLUG SHAPER 09/13/2019 8:58 PM HAND PLUG SHAPER us Shay Brown MD LAB BLOOD ORDERABLES Final Resul t Performing Organization Address [facility] de Phone Number [facility] [address] [place] [address] * (ABNORMAL) Renal function panel (09/13/2019 12:55 PM HAND PLUG SHAPER) Sodium 142 136 - 145 mmol/L [facility] Potassium 4.8 3.5 - 5.1 mmol/L [facility] Chloride 110 98 - 112 mmol/L [facility] Carbon Dioxide (CO2) 25 21 - 32 mmol/L [facility] BUN 44(H) 7 - 24 mg/dL [facility] Creatinine 2.69(H) 0.70 - 1.30 mg/dL [facility] GFR EST NON 22(L) >60 mL/min [facility] eGFR 25(L) >60 mL/min [facility] Glucose 136(H) 74 - 106 mg/dL [facility] Calcium 9.4 8.5 - 10.1 mg/dL [facility] Albumin 2.9(L) 3.4 - 5.0 g/dL [facility] Phosphorus 3.4 2.5 - 4.9 mg/dL [facility] Anion Gap 7.0 0.0 - 15.0 mmol/L [facility] Blood (Blood, Venous) 09/13/2019 12:55 PM HAND PLUG SHAPER 09/13/2019 8:58 PM HAND PLUG SHAPER Narrative [facility] - 09/13/2019 9:16 PM HAND PLUG SHAPER [facility] HAS THE PATIENT FASTED?->NO us Shay Brown MD LAB BLOOD ORDERABLES Final Resul t [facility] [address] [facility] [place] [address] documented in this encounter Visit Diagnoses Diagnosis Chronic kidney disease stage 4 (HCC) documented in this encounter Care Teams Supervisor Feed House Relationship Specialty Start Date End Date Carolee Harris MD [address] [place] [address] PCP - General Family Medicine 09/16/21 documented as of this encounter
--- OUTSIDE RECORDS SUMMARY | 2024-09-22 20:12 | XMS_ITS | Encounter Summary ---
Author Organization [facility] Address [address] [place] [address] Care Team Providers Care Circulation Supervisor Name Role Phone Carolee Harris MD Primary Care Provider [phone] Encounter Details Date Type Department Care Team (Late st Contact Info) Description 02/03/2020 Orders Only [facility] [place] [address] [place] [address] Whitney Luis, RN [address] [place] [address] Chronic kidney disease stage 4 [...] Intact (02/05/2020) Parathyroid Hormone, Intact 204.0(H) pg/mL [facility] Calcium 8.8 8.7 - 10.7 mg/dL [facility] Blood (Blood, Venous) 02/05/2020 Shay Brown MD LAB BLOOD ORDERABLES Final Resul t [facility] * (ABNORMAL) Basic Metabolic Panel (02/05/2020) Sodium 141 mEq/L [facility] Potassium 4.7 mEq/L [facility] Chloride 108 [facility] Carbon Dioxide 25 mmol/L [facility] Calcium 9.0 mg/dL [facility] BUN 65(H) mg/dL [facility] Creatinine 3.32(H) mg/dL [facility] Glucose 206(H) mg/dL [facility] eGFR Non-Afr [place]ian 18(L) [facility] eGFR 22(L) [facility] Blood (Blood, Venous) 02/05/2020 Shay Brown MD LAB BLOOD ORDERABLES Final Resul t [facility] documented in this encounter Visit Diagnoses Diagnosis Chronic kidney disease stage 4 (HCC) documented in this encounter Care Teams Circulation Supervisor Relationship Specialty Start Date End Date Carolee Harris MD [address] [place] [address] PCP - General Family Medicine 09/16/21 documented as of this encounter
--- OUTSIDE RECORDS SUMMARY | 2024-09-22 20:12 | XMS_ITS | Encounter Summary ---
Author Organization [facility] Address [address] [place] [address] Care Team Providers Care Tin Can Feeder Name Role Phone Carolee Harris MD Primary Care Provider [phone] Reason for Visit * Reason Comments Med Refill Encounter Details Date Type Department Care Team (Late st Contact Info) Description 10/02/2021 Refill [facility] [place] [address] [place] [address] Shay Brown MD [address] [place] [address] Social History Tobacco Use Types [...] on filedocumented in this encounter Care Teams Tin Can Feeder Relationship Specialty Start Date End Date Carolee Harris MD [address] [place] [id number] PCP - General Family Medicine 09/16/21 documented as of this encounter
--- OUTSIDE RECORDS SUMMARY | 2024-09-22 20:12 | XMS_ITS | Encounter Summary ---
Author Organization [facility] Address [address] [place] [address] Care Team Providers Care Electrical Contractor Name Role Phone Carolee Harris MD Primary Care Provider [phone] Encounter Details Date Type Department Care Team (Late st Contact Info) Description 08/29/2019 Orders Only [facility] [place] [address] [place] [address] Shay Brown MD [address] [place], [place] [id number] Chronic kidney disease stage 4 (HCC); Anemia [...] Diagnosis Comments HEMOGLOBIN Routine 08/29/2019 11:10 AM TENANT RELATIONS COORDINATOR Anemia in chronic kidney disease RENAL FUNCTION PANEL Routine 08/29/2019 11:10 AM TENANT RELATIONS COORDINATOR Chronic kidney disease stage 4 (HCC) documented in this encounter Results * (ABNORMAL) Hemoglobin (08/29/2019 11:10 AM TENANT RELATIONS COORDINATOR) Hgb 9.9(L) 14.0 - 18.0 gm/dL [facility] Blood (Blood, Venous) 08/29/2019 11:10 AM TENANT RELATIONS COORDINATOR 08/29/2019 4:04 PM TENANT RELATIONS COORDINATOR Result [facility] us Shay Brown MD LAB BLOOD ORDERABLES Final Resul t Performing Organization Address [facility] de Phone Number [facility] [address] [place] [address] * (ABNORMAL) Renal function panel (08/29/2019 11:10 AM TENANT RELATIONS COORDINATOR) Sodium 144 136 - 145 mmol/L [facility] Potassium 4.4 3.5 - 5.1 mmol/L [facility] Chloride 113(H) 98 - 112 mmol/L [facility] Carbon Dioxide (CO2) 23 21 - 32 mmol/L [facility] BUN 44(H) 7 - 24 mg/dL [facility] Creatinine 2.45(H) 0.70 - 1.30 mg/dL [facility] GFR EST NON 25(L) >60 mL/min [facility] eGFR 28(L) >60 mL/min [facility] Glucose 108(H) 74 - 106 mg/dL [facility] Calcium 9.0 8.5 - 10.1 mg/dL [facility] Albumin 2.9(L) 3.4 - 5.0 g/dL [facility] Phosphorus 3.5 2.5 - 4.9 mg/dL [facility] Anion Gap 8.0 0.0 - 15.0 mmol/L [facility] Blood (Blood, Venous) 08/29/2019 11:10 AM TENANT RELATIONS COORDINATOR 08/29/2019 4:19 PM TENANT RELATIONS COORDINATOR Narrative [facility] - 08/29/2019 4:31 PM TENANT RELATIONS COORDINATOR [facility] HAS THE PATIENT FASTED?->NO us Shay Brown MD LAB BLOOD ORDERABLES Final Resul t Performing Organization Address City/[facility] Co de Phone Number [facility] [address] [place] [address] documented in this encounter Visit Diagnoses Diagnosis Chronic kidney disease stage 4 (HCC) Anemia in chronic kidney disease documented in this encounter Care Teams Electrical Contractor Relationship Specialty Start Date End Date Carolee Harris MD [address] [place] [address] PCP - General Family Medicine 09/16/21 documented as of this encounter
--- OUTSIDE RECORDS SUMMARY | 2024-09-22 20:12 | XMS_ITS | Encounter Summary ---
Author Organization [facility] Address [address] [place] [address] Care Team Providers Care Doughnut Fryer Name Role Phone Carolee Harris MD Primary Care Provider [phone] Encounter Details Date Type Department Care Team (Latest Contact Info) Description 06/07/2020 Orders Only [facility] [address] [place] [address] Shay Brown MD [address] [place] [address] Anemia in chronic kidney disease; [...] origin documented in this encounter Care Teams Doughnut Fryer Relationship Specialty Start Date End Date Carolee Harris MD [address] [place] [address] PCP - General Family Medicine 09/16/21 documented as of this encounter
--- OUTSIDE RECORDS SUMMARY | 2024-09-22 20:12 | XMS_ITS | Encounter Summary ---
Author Organization [facility] Address [address] [place] [address] Care Team Providers Care Knitting Tester Name Role Phone Carolee Harris MD Primary Care Provider Encounter Details Date Type Department Care Team (Late st Contact Info) Description 11/27/2019 Orders Only [facility] [place] [address] [place] [address] Shay Brown MD [address] [place] [address] Chronic kidney disease stage 4 [...] T/EXTERNA L (NON-INTERFAC ED LABS) eGFR Non-Afr [place]orese 17(L) PRINT/EXTERNA L (NON-INTERFAC ED LABS) eGFR 20(L) PRINT/EXTERNA L (NON-INTERFAC ED LABS) Blood (Blood, Venous) 12/28/2019 us Shay Brown MD LAB BLOOD ORDERABLES Final Resul t Performing Organization Address [facility] de Phone Number PRINT/EXTERNAL (NON-INTERFACED LABS) * (ABNORMAL) Hemoglobin (11/22/2019 1:10 PM CDT) Hgb 11.9(L) 14.0 - 18.0 gm/dL [facility] Blood (Blood, Venous) 11/22/2019 1:10 PM CDT 11/22/2019 8:47 PM CDT us Shay Brown MD LAB BLOOD ORDERABLES Final Resul t Performing Organization Address [facility] [place] [address] * Uric acid (11/22/2019 1:10 PM CDT) Uric Acid 7.0 3.5 - 7.2 mg/dL [facility] Blood (Blood, Venous) 11/22/2019 1:10 PM CDT 11/22/2019 8:46 PM CDT us Shay Brown MD LAB BLOOD ORDERABLES Final Resul t Performing Organization Address [facility] de Phone Number [address] [address] * (ABNORMAL) PTH, intact (11/22/2019 1:10 PM CDT) Parathyroid Hormone, Intact 172.0(H) 14.0 - 72.0 pg/mL [facility] Blood (Blood, Venous) 11/22/2019 1:10 PM CDT 11/22/2019 8:48 PM CDT Shay Brown MD LAB BLOOD ORDERABLES Final Resul t Performing Organization Address [facility] de Phone Number [facility] [address] [place] [address] * (ABNORMAL) Renal function panel (11/22/2019 1:10 PM CDT) Sodium 139 136 - 145 mmol/L [facility] Potassium 4.6 3.5 - 5.1 mmol/L [facility] Chloride 108 98 - 112 mmol/L [facility] Carbon Dioxide (CO2) 26 21 - 32 mmol/L [facility] BUN 42(H) 7 - 24 mg/dL [facility] Creatinine 3.41(H) 0.70 - 1.30 mg/dL [facility] GFR EST NON 17(L) >60 mL/min [facility] eGFR 19(L) >60 mL/min [facility] Glucose 174(H) 74 - 106 mg/dL [facility] Calcium 8.7 8.5 - 10.1 mg/dL [facility] Albumin 3.1(L) 3.4 - 5.0 g/dL [facility] Phosphorus 3.4 2.5 - 4.9 mg/dL [facility] Anion Gap 5.0 0.0 - 15.0 mmol/L [facility] Blood (Blood, Venous) 11/22/2019 1:10 PM CDT 11/22/2019 8:46 PM CDT Narrative [facility] - 11/22/2019 8:55 PM CDT [facility] HAS THE PATIENT FASTED?->NO Shay Brown MD LAB BLOOD ORDERABLES Final Resul t Performing Organization Address City/[facility] Co de Phone Number [facility] [address] [place] [address] documented in this encounter Visit Diagnoses Diagnosis Chronic kidney disease stage 4 (HCC) documented in this encounter Care Teams Knitting Tester Relationship Specialty Start Date End Date Carolee Harris MD [address] [place] [address] PCP - General Family Medicine 09/16/21 documented as of this encounter
--- OUTSIDE RECORDS SUMMARY | 2024-09-22 20:12 | XMS_ITS | Encounter Summary ---
Author Organization [facility] Address [address] [place] [address] Care Team Providers Care Spiral Runner Name Role Phone Carolee Harris MD Primary Care Provider [phone] Encounter Details Date Type Department Care Team (Late st Contact Info) Description 08/02/2019 Orders Only [facility] [place] [address] [place] [address] Shay Brown MD [address] [place] [address] Chronic kidney disease stage 4 [...] RENAL FUNCTION PANEL Routine 08/02/2019 1:40 PM ROOM SERVICE SUPERVISOR Chronic kidney disease stage 4 (HCC) documented in this encounter Results * (ABNORMAL) Renal function panel (08/02/2019 1:40 PM ROOM SERVICE SUPERVISOR) Sodium 138 136 - 145 mmol/L [facility] Potassium 4.4 3.5 - 5.1 mmol/L [facility] Chloride 109 98 - 112 mmol/L [facility] Carbon Dioxide (CO2) 20(L) 21 - 32 mmol/L [facility] BUN 65(H) 7 - 24 mg/dL [facility] Creatinine 3.27(H) 0.70 - 1.30 mg/dL [facility] GFR EST NON 17(L) >60 mL/min [facility] eGFR 20(L) >60 mL/min [facility] Glucose 134(H) 74 - 106 mg/dL [facility] Calcium 9.0 8.5 - 10.1 mg/dL [facility] Albumin 3.2(L) 3.4 - 5.0 g/dL [facility] Phosphorus 4.0 2.5 - 4.9 mg/dL [facility] Anion Gap 9.0 0.0 - 15.0 mmol/L [facility] Blood (Blood, Venous) 08/02/2019 1:40 PM ROOM SERVICE SUPERVISOR 08/02/2019 9:04 PM ROOM SERVICE SUPERVISOR Narrative [facility] - 08/02/2019 9:12 PM ROOM SERVICE SUPERVISOR [facility] HAS THE PATIENT FASTED?->NO us Shay Brown MD LAB BLOOD ORDERABLES Final Resul t [facility] [address] [facility] [place] [address] documented in this encounter Visit Diagnoses Diagnosis Chronic kidney disease stage 4 (HCC) documented in this encounter Care Teams Spiral Runner Relationship Specialty Start Date End Date Carolee Harris MD [address] [place] [id number] PCP - General Family Medicine 09/16/21 documented as of this encounter
--- OUTSIDE RECORDS SUMMARY | 2024-09-22 20:13 | XMS_ITS | Encounter Summary ---
Author Organization [facility] [place] Address [address] [place] [address] Care Team Providers Care Vessel Operator Name Role Phone Carolee Harris MD Primary Care Provider [phone] Reason for Visit * Reason Comments Med Refill Encounter Details Date Type Department Care Team (Late st Contact Info) Description 09/02/2024 Refill [facility] [place] [address] [place] [address] Shay Brown MD [address] [place] [address] Social History Tobacco Use Types [...] Arlene Ramirez RN - 09/06/2024 2:02 PM LINOLEUM LAYER HELPER dialysis documented in this encounter Plan of Treatment Not on file documented as of this encounter Visit Diagnoses Not on filedocumented in this encounter Care Teams Vessel Operator Relationship Specialty Start Date End Date Carolee Harris MD [address] [place] [address] PCP - General Family Medicine 09/16/21 documented as of this encounter
--- OUTSIDE RECORDS SUMMARY | 2024-09-22 20:13 | XMS_ITS | Clinical Summary ---
Author Organization [facility] [facility] Address [place], [place] [address] Care Team Providers Care Site Foreman Name Role Phone Simon Baxter MD Unavailable [phone] Carolee Mohamud MD Primary Care Provider + [...] their single-family home and moving to a shelter apartment) Resuscitation/Code Status: Resuscitation/Code Status wishes were [...] Encounters Date Type Department Care Team Description 09/13/2024 Telephone [facility] [address] [facility] [address] [place] [phone] Dmitri Givens MD Atrial Fibrillation 08/29/2024 11:10 AM BREAD ICER Orders Only [facility] [address] [facility] [place] [address] Lab 08/29/2024 Anticoagulation (warfarin) [facility] [address] [facility] [place] [address] Clinic, [facility] Anticoagulation 08/29/2024 Travel 08/29/2024 Refill [facility] [address] [facility] [place] [address] Carolee Mohamud MD Refill Request (Warfarin) 08/01/2024 11:00 AM BREAD ICER Orders Only [facility] [address] [facility] [place] [address] Lab 08/01/2024 Telephone [facility] [address] [facility] [place] [address] Carolee Mohamud MD Anticoagulation (Annual AC Re-enrollment) 08/01/2024 Anticoagulation (warfarin) [facility] [address] [facility] [place] [address] Clinic, [place] Anticoagulation 08/01/2024 Travel 07/11/2024 10:05 AM BREAD ICER Office Visit [facility] [address] [place] [address] Carolee Mohamud MD Medication Management 07/11/2024 Telephone [facility] [address] [facility] [place] [address] Carolee Mohamud MD Anticoagulation (BPA OMEPRAZOLE) 07/11/2024 Travel 07/11/2024 Refill [facility] [address] [facility] [place] [address] Carolee Mohamud MD Refill Request (Lovastatin) 07/07/2024 Refill [facility] [address] [facility] [place] [address] Carolee Mohamud MD Refill Request (lovastatin) 07/04/2024 11:10 AM BREAD ICER Orders Only [facility] [address] [facility] [place] [address] Lab 07/04/2024 Anticoagulation (warfarin) [facility] [address] [facility] [place] [address] Clinic, [place] [facility] Anticoagulation 07/04/2024 Travel 06/23/2024 Telephone [facility] [address] [facility] [place] [address] Carolee Mohamud MD Anticoagulation (Lab Orders ) from Last 3 Months Immunizations Name Administration Dates Next Due COVID-19 vaccine (InstallMonetizer-Hyperactive Media 30mcg/0.3mL) MIREYA CARDONA 06/06/2021,11/07/2020,10/17/2020 Hep B (Hepatitis B (Adult) Recombinant [...] on file Legal Sex Male 5:24 AM BREAD ICER Gender Identity Not on file Sexual Orientation Not on file Obstetrics History Last Filed Vital Signs Vital Sign Reading Time Taken Comments Blood Pressure 116/64 07/11/2024 10:07 AM BREAD ICER Pulse 75 07/11/2024 10:07 AM BREAD ICER Temperature 35.9 C (96.6 F) 12/20/2022 6:20 PM CDT Respiratory Rate 16 12/20/2022 6:20 PM CDT Oxygen Saturation 99% 07/11/2024 10:07 AM BREAD ICER Inhaled Oxygen Concentration - - Weight 83.3 kg (183 lb 9.6 oz) 07/11/2024 10:07 AM BREAD ICER Height 184.8 cm (6' 0.75) 07/11/2024 10:[address] Body Mass Index 24.39 07/11/2024 10:07 AM BREAD ICER Plan of Treatment Upcoming Encounters Date Type Department Care Team (Late st Contact Info) Description 09/26/2024 11:00 AM BREAD ICER Appointment [facility] [address] [place] [address] 09/28/2024 11:00 AM BREAD ICER Office Visit [facility] [address] [place] [address] Godfrey Ferreira MD [address] [place] [address] 10/10/2024 10:50 AM BREAD ICER Orders Only [facility] [address] [place] [address] Health Maintenance Due Date Last Done Comments [...] history exists Medical Devices Implanted Type Area Support Specialist Device Identifier Shelf Expiration Date Model / Serial / Lot Lens, Cataract Zcb00 - [id number] Implanted:Qty: 1 on 05/16/2013 by Simon Baxter MD at [facility] Left: Eye R-UNKNOWN 03/15/2017 ZCB00 / [id number] / NA Lens, Cataract Zcb00 - [id number] Implanted:Qty: 1 on 05/30/2013 by Simon Baxter MD at [facility] Right: Eye R-UNKNOWN 12/28/2016 Z00 / / [id number] Procedures Procedure Name Priority Date/Time Associated Diagnosis Comments INR,POCT Routine 08/29/2024 11:10 AM BREAD ICER Paroxysmal atrial fibrillation (HC) Anticoagulation monitoring, INR range 2-3 INR,POCT Routine 08/01/2024 10:37 AM BREAD ICER Paroxysmal atrial fibrillation (HC) Anticoagulation monitoring, INR range 2-3 LIPID PANEL Routine 07/11/2024 11:04 AM BREAD ICER Pure hypercholesterolemia TSH WITH REFLEX Routine 07/11/2024 11:04 AM BREAD ICER Hypothyroidism (acquired) INR,POCT Routine 07/04/2024 11:16 AM BREAD ICER Paroxysmal atrial fibrillation (HC) Anticoagulation monitoring, INR range 2-3 from Last 3 Months Results * (ABNORMAL) INR - POCT [86380.2] - Standing Order (08/29/2024 11:10 AM BREAD ICER) Only the most recent of3 resultswithin the time period is included. INR 2.5(H) ratio [facility] Comment: INRs >2.9 may be [...] PROTHROMBIN TIMEP 30.4(H) 10.5 - 13.1 sec [facility] Comment: Point of care fingerstick Prothrombin Time/INR results may vary from venous Prothrombin Time/INR methodologies. Any results exhibiting inconsistency with the patient's clinical status should be repeated using a venous Prothrombin Time/INR method. Blood BLOOD SPECIMEN / Unknown 08/29/2024 11:10 AM BREAD ICER 08/29/2024 11:11 AM BREAD ICER Carolee Mohamud MD LABORATORY Final Re sult [facility] [address] [place] [address], [facility] [address] [place] [address] * TSH WITH REFLEX (07/11/2024 11:04 AM BREAD ICER) TSH W/REFLEX TO FT4 3.14 0.40 - 4.50 mIU/L [facility] Blood BLOOD SPECIMEN / Unknown 07/11/2024 11:04 AM BREAD ICER 07/11/2024 11:05 AM BREAD ICER Narrative [facility] - 07/12/2024 4:24 AM BREAD ICER FASTING:YES FASTING: YES Carolee Mohamud MD CHEMISTRY Final Re sult Performing Organization Address City/[facility]/ZIP Co de Phone Number [employer] [address] [place] [address], [place] [phone] [facility] [address] [place] [address] * (ABNORMAL) LIPID PANEL (07/11/2024 11:04 AM BREAD ICER) CHOLESTEROL, TOTAL 160 <200 mg/dL [facility] HDL CHOLESTEROL 38(L) > OR = 40 mg/dL [facility] TRIGLYCERIDES 123 <150 mg/dL [facility] LDL-CHOLESTEROL 100(H) mg/dL (calc) [facility] Comment: Reference range: <100 Desirable range <100 mg/dL for primary prevention; <70 mg/dL for patients with CHD or diabetic patients with > or = 2 CHD risk factors. LDL-C is now calculated using the Altaf-Nino calculation, which is a validated novel method providing better accuracy than the Friedewald equation in the estimation of LDL-C. Altaf SS et al. NATE. 2013;310(19): 9213-1192 (http://education.Ultimate Software/faq/YXE064) CHOL/HDLC RATIO 4.2 <5.0 (calc) [facility] NON HDL CHOLESTEROL 122 <130 mg/dL (calc) [facility] Comment: For patients with diabetes plus 1 major ASCVD risk factor, treating to a non-HDL-C goal of <100 mg/dL (LDL-C of <70 mg/dL) is considered a therapeutic option. Blood BLOOD SPECIMEN / Unknown 07/11/2024 11:04 AM BREAD ICER 07/11/2024 11:05 AM BREAD ICER Narrative [facility] - 07/12/2024 4:24 AM BREAD ICER FASTING:YES FASTING: YES Carolee Mohamud MD CHEMISTRY Final Re sult Performing Organization Address City/[facility]/ZIP Co de Phone Number [facility] [address] [place] [address], [facility] [address] [place] [address] from Last 3 Months Insurance [id number] [place] [address] MEDICARE PART B HB ONLY MEDICARE PART A HB ONLY MEDICARE PB ONLY [facility] [id number] [place] [address] MEDICARE PART A HB ONLY MEDICARE PART B HB ONLY [employer] [place] [place] HB ONLY Advance Directives * Full [...] 8:47 AM 05/30/2013 1:01 PM Care Teams Site Foreman Relationship Specialty Start Date End Date Carolee Mohamud MD [address] [place] [address] PCP - General Family Practice 12/24/21 Simon Baxter MD Ophthalmology Surgery 05/08/13
--- OUTSIDE RECORDS SUMMARY | 2024-09-22 20:13 | XMS_ITS | Encounter Summary ---
Author Organization [facility] [place] [place] Address [address] [facility] [address] [place] [address] Care Team Providers Care Retouching Operator Name Role Phone Carolee Harris MD Primary Care Provider [phone] Encounter Details Date Type Department Care Team (Latest Contact Info) Description 08/30/2020 Orders Only [facility] [place] [address] [place] [address] Shay Brown MD [address] [place] [address] Chronic kidney disease, Stage IV [...] origin documented in this encounter Care Teams Retouching Operator Relationship Specialty Start Date End Date Carolee Harris MD [address] [place] [address] PCP - General Family Medicine 09/16/21 documented as of this encounter
--- OUTSIDE RECORDS SUMMARY | 2024-09-22 20:13 | XMS_ITS | Encounter Summary ---
Author Organization [facility] [place] [place] Address [address] [place] [address] Care Team Providers Care Machine Applicator Cementer Name Role Phone Carolee Harris MD Primary Care Provider [phone] Reason for Visit * Reason Comments Med Refill Encounter Details Date Type Department Care Team (Late st Contact Info) Description 02/01/2023 Refill [facility] [place] [address] [place] [address] Brenton Alex, JUWAN [address] [place] [address] Social History Tobacco Use Types [...] on filedocumented in this encounter Care Teams Machine Applicator Cementer Relationship Specialty Start Date End Date Carolee Harris MD [address] [place] [address] PCP - General Family Medicine 09/16/21 documented as of this encounter
--- OUTSIDE RECORDS SUMMARY | 2024-09-22 20:13 | XMS_ITS | Referral Summary ---
Author Organization [facility] Address [address] [place] [address] Care Team Providers Care Bias Binding Folder Name Role Phone Carolee Harris MD Primary Care Provider [phone] Encounters Date Type Department Care Team Description 09/22/2024 1:03 AM MARKETING INTERN - 09/22/2024 1:04 AM MARKETING INTERN Emergency [facility] Emergency Dept [address] [place] [address] Discharge Disposition: Left Without Being Seen 09/21/2024 Travel from Last 3 Months Allergies No known active allergies Medications No known medications Social History Tobacco Use Types Packs/Day Years Used Date Smoking Tobacco: Never Assessed Adolescent Education Answer Date Record ed Getting School Help Needed Not on file 03/15 Sex and Gender Information Value Date Recorded Sex Assigned at Not on file Legal Sex Male 3:19 AM MARKETING INTERN Gender Identity Not on file Sexual Orientation Not on file Last Filed Vital Signs Vital Sign Reading Time Taken Comments Blood Pressure 130/72 09/21/2024 11:45 PM MARKETING INTERN Pulse 87 09/21/2024 11:46 PM MARKETING INTERN Temperature 36.2 C (97.2 F) 09/21/2024 11:46 PM MARKETING INTERN Respiratory Rate 20 09/21/2024 11:46 PM MARKETING INTERN Oxygen Saturation 96% 09/21/2024 11:46 PM MARKETING INTERN Inhaled Oxygen Concentration - - Weight 78.9 kg (174 lb) 09/21/2024 11:47 PM MARKETING INTERN Height 188 cm (6' 2) 03/15/2024 11:54 AM CDT Body Mass Index 22.34 03/15/2024 11:54 AM CDT Plan of Treatment Not on file Insurance [place]IC[place] Care Teams Bias Binding Folder Relationship Specialty Start Date End Date Carolee Harris MD [address] [place] [address] PCP - General 03/15/24
--- OUTSIDE RECORDS SUMMARY | 2024-09-22 20:13 | XMS_ITS | Encounter Summary ---
Author Organization [facility] [place] Address [address] [place] [address] Care Team Providers Care Gardening Supervisor Name Role Phone Carolee Harris MD Primary Care Provider [phone] Encounter Details Date Type Department Care Team (Late st Contact Info) Description 09/01/2024 Treatment [facility] [place] [address] [place] [address] Lucie Brown MD [address] [facility] [address] [place] [address] Social History Tobacco Use Types [...] care for end stage renal disease. Attending Hand Hardener: LUCIE BROWN Dialysis Location: [facility] Schedule: Shift: 1 OVERVIEW Patient [...] no concerns. HOME MEDICATIONS Medications reviewed. Current [facility] Outpatient Medications allopurinol 300 mg tablet [...] 96.9*F Current Dialysis Vitals BP Sit: 137/56 AP/SWEET POTATO DISINTEGRATOR: 131/61 Pulse: 74 TREATMENT MEDICATIONS ORDERS Iron [...] on filedocumented in this encounter Care Teams Gardening Supervisor Relationship Specialty Start Date End Date Carolee Harris MD [address] [place] [address] PCP - General Family Medicine 09/16/21 documented as of this encounter
--- OUTSIDE RECORDS SUMMARY | 2024-09-22 20:13 | XMS_ITS | Encounter Summary ---
Author Organization [facility] [place] [place] Address [address] [place] [address] Care Team Providers Care Transport Aide Name Role Phone Carolee Harris MD Primary Care Provider Encounter Details Date Type Department Care Team (Late st Contact Info) Description 08/14/2024 Orders Only [facility] [place] [address] [place] [address] Shay Brown MD [address] [place] [address] Social History Tobacco Use Types [...] [facility] 08/14/2024 08/15/2024 3:5 9 AM ENVIRONMENTAL SCIENCES PROFESSOR Narrative [facility] - 08/15/2024 Unless otherwise specified, test(s) performed at: [facility], [address] [place] [address], [place] [address] FROZEN PIE MAKER: Robert Martin M.D., Ph.D For any questions, please call customer service at FREQUENCY:OTHER Resulting Agency Comment Specimen source: Blood us Shay Brown MD LAB BLOOD ORDERABLES Final Resul t [facility] See order comments or contact performing lab Unknown, [place] documented in this encounter Visit Diagnoses Not on filedocumented in this encounter Care Teams Transport Aide Relationship Specialty Start Date End Date Carolee Harris MD [address] [place] [address] PCP - General Family Medicine 09/16/21 documented as of this encounter
--- OUTSIDE RECORDS SUMMARY | 2024-09-22 20:13 | XMS_ITS | Encounter Summary ---
Author Organization [facility] [place] Address [address] [place] [address] Care Team Providers Care Buckle Assembler Name Role Phone Carolee Harris MD Primary Care Provider [phone] Encounter Details Date Type Department Care Team (Late st Contact Info) Description 09/20/2024 Orders Only [facility] [place] [address] [place] [address] Shay Brown MD [address] [place] [address] Social History Tobacco Use Types [...] Priority Date/Time Associated Diagnosis Comments HEMATOLOGY Routine 09/20/2024 documented in this encounter Results * (ABNORMAL) HEMATOLOGY (09/20/2024) Hemoglobin 11.2(L) 14.0 - 18.0 g/dL [facility] Hemoglobin x 3 33.6(L) 42.0 - 54.0 % [facility] 09/20/2024 09/21/2024 6:3 5 AM TUBE SIZER AND CUTTER OPERATOR Narrative [facility] - 09/21/2024 Unless otherwise specified, test(s) performed at: [facility], [address] [place] [address], [place] [address] LAND SURVEY TECHNICIAN: Robert Martin M.D., Ph.D For any questions, please call customer service at FREQUENCY:OTHER Resulting Agency Comment Specimen source: Blood us Shay Brown MD LAB BLOOD ORDERABLES Final Resul t [facility] See order comments or contact performing lab Unknown, [place] documented in this encounter Visit Diagnoses Not on filedocumented in this encounter Care Teams Buckle Assembler Relationship Specialty Start Date End Date Carolee Harris MD [address] [place] [address] PCP - General Family Medicine 09/16/21 documented as of this encounter
--- OUTSIDE RECORDS SUMMARY | 2024-09-22 20:13 | XMS_ITS | Encounter Summary ---
Author Organization [facility] Address [address] [place] [address] Care Team Providers Care Legal Researcher Name Role Phone Carolee Harris MD Primary Care Provider [phone] Encounter Details Date Type Department Care Team (Latest Contact Info) Description 09/21/2024 Travel Social History Tobacco Use Types Packs/Day Years Used Date Smoking Tobacco: Never Assessed Adolescent Education Answer Date Record ed Getting School Help Needed Not on file 03/15 Sex and Gender Information Value Date Recorded Sex Assigned at Not on file Legal Sex Male 3:19 AM REGULATOR TESTER Gender Identity Not on file Sexual Orientation Not on file documented as of this encounter Plan of Treatment Not on file documented as of this encounter Visit Diagnoses Not on filedocumented in this encounter Care Teams Legal Researcher Relationship Specialty Start Date End Date Carolee Harris MD [address] [place] [address] PCP - General 03/15/24 documented as of this encounter
--- OUTSIDE RECORDS SUMMARY | 2024-09-22 20:13 | XMS_ITS | Clinical Summary ---
Author Organization [facility] [place] Address [address] [place] [address] Phone Care Team Providers Care Toolroom Attendant Name Role Phone Carolee Harris MD Primary Care Provider [phone] Allergies Active Allergy Reactions Criticality Noted Date Comments Pseudoephedrine Other (see comments) 07/13/2019 Tpldmyeyafccwgd-Ss-Kv Medium 06/05/2020 Medications omeprazole (PriLOSEC) 40 MG [...] by mouth every night 06/01/20 Active Multiple Vitamins-Banana Ripening Room Supervisor als (RenaPlex-D) tablet Take 1 tablet by mouth 1 (one) time each day 06/17/20 Active Active Problems Problem Noted Date Diagnosed Date End stage renal failure on dialysis 06/22/2023 Assessment & Plan (06/27/2023 2:57 PM IMPORT CUSTOMS CLEARING AGENT): Status: Stable Usual dialysis at [facility] every M,W,F via AVF Diet: Renal, fluid restriction LABS: URR 76%, Kt/V 1.51. Dialysis is adequate. Transplant: not a candidate, age Home Therapies: Defer to primary neph AVF/AVG status: in use with adequate BFR. No erythema or thinning of skin. Plan: Continue current plan of care, ongoing monitoring per primary shoe dresser and DARWIN Secondary hyperparathyroidism of renal origin Assessment & Plan (06/27/2023 2:59 PM IMPORT CUSTOMS CLEARING AGENT): Status: Stable Phos 5.7, Calcium 8.6, iPTH 226, vitmain d-25 77.4 Current medications: Calcitriol, D3, MVI, Renvela Plan: Labs followed monthly and PRN at the dialysis unit. Defer further mgmt to primary shoe dresser and hemodialysis drawer in dobby loom. 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 Monitor BP closely while on dialysis. Challenge EDW periodically. Recommend ECHO every three years for patients with ESRD per KDOQI guidelines. Secondary hypercoagulable state 06/22/2023 Assessment & Plan (06/27/2023 3:03 PM IMPORT CUSTOMS CLEARING AGENT): Status: Stable, secondary to Afib Medications: warfarin Plan: Continue current medications with monitoring by primary care team. Paroxysmal atrial fibrillation 06/22/2023 Assessment & Plan (06/27/2023 3:00 PM IMPORT CUSTOMS CLEARING AGENT): Status: Stable Medications: warfarin, coreg Plan: Continue current medications with monitoring by primary care team. Polymyalgia rheumatica 06/22/2023 Assessment & Plan (06/27/2023 3:01 PM IMPORT CUSTOMS CLEARING AGENT): Status: Stable. No sx currently. Medications: none Plan: Continue continue to monitor for flare-ups. 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 Other and unspecified hyperlipidemia 06/22/2023 Assessment & Plan (06/27/2023 3:09 PM IMPORT CUSTOMS CLEARING AGENT): Status: Stable Medications: lovastatin Plan: Continue current medications with monitoring by primary care team. Long-term (current) use of anticoagulants 2022 Assessment & Plan (06/27/2023 3:06 PM IMPORT CUSTOMS CLEARING AGENT): Hypothyroidism, not otherwise specified 06/22/20 Assessment & Plan (06/27/2023 3:05 PM IMPORT CUSTOMS CLEARING AGENT): Status: Stable Medications: levothyroxine Plan: Continue current medications with monitoring by primary care team. Gastroesophageal reflux disease 06/22/2023 Assessment & Plan (06/27/2023 3:05 PM IMPORT CUSTOMS CLEARING AGENT): Status: Stable. Hx of duodenal ulcer Medications: Omeprazole Plan: Continue current medications with monitoring by primary care team. Benign prostatic hyperplasia with outflow obstru ction 06/22/2023 Assessment & Plan (06/27/2023 3:04 PM IMPORT CUSTOMS CLEARING AGENT): Status: Stable. S/p TURP in 2018, no longer with retention sx. Medications: terazosin Plan: Continue to monitor for sx of retention given terazosin is not at therapeutic levels for BPH. Consider resumption of flomax if retention sx. Nonrheumatic aortic valve stenosis 06/22/2023 Assessment & Plan (06/27/2023 3:07 PM IMPORT CUSTOMS CLEARING AGENT): Status: Stable, asymptomatic ECHO 02/03/22 with mild Plan: Continue to monitor with ongoing cardiology f/u Obstructive sleep apnea syndrome 06/22/2023 Assessment & Plan (06/27/2023 3:09 PM IMPORT CUSTOMS CLEARING AGENT): Status: Stable. Has not used CPAP in a few years due to the machine being recalled. He notes daytime sleepiness is worse with no CPAP. Plan: Encouraged return to pulm medicine for new machine and eval. I confirmed he does not need a new referral Pulmonary hypertension, not otherwise specified 06/22/2023 Assessment & Plan (06/27/2023 3:02 PM IMPORT CUSTOMS CLEARING AGENT): Status: Stable. Able to walk without sob. ECHO 02/03/23 with RVSP 47mmHg Plan: Continue to monitor. Maintain good BP control Anemia in chronic kidney disease 07/26/2019 Assessment & Plan (06/27/2023 2:58 PM IMPORT CUSTOMS CLEARING AGENT): Status: Stable Hgb 11.2, Ferr 799, tSat 45% Plan: Continue to monitor per HD protocol with ongoing management per HD staff Encounters Date Type Department Care Team Description 09/20/2024 Orders Only [facility] [address] [place] [address] Shay Brown MD 09/11/2024 Treatment [facility] [address] [place] [address] Sarahi Marino, NATURAL GAS PLANT SUPERVISOR-SPRAY GUN SIZER 09/06/2024 Orders Only [facility] [place] [address] [facility] [address] Shay Brown MD 09/02/2024 Refill [facility] [place] [address] [place] [address] Shay Brown MD 09/01/2024 Treatment [facility] [place] [address] [place] [address] Shay Brown MD 08/30/2024 Orders Only [facility] [place] [address] [place] [address] Shay Brown MD 08/21/2024 Orders Only [facility] [place] [address] [place] [address] Shay Brown MD 08/14/2024 Orders Only [facility] [place] [address] [place] [address] Shay Brown MD 08/09/2024 Orders Only [facility] [place] [address] [place] [address] Fahad Quintero Ordering 08/09/2024 Treatment [facility] [place] [address] [place] [address] Shay Brown MD 08/02/2024 Orders Only [facility] [place] [address] [place] [address] Shay Brown MD 07/28/2024 Treatment [facility] [place] [address] [place] [address] Shay Brown MD 07/26/2024 Orders Only [facility] [place] [address] [place] [address] Shay Brown MD 07/19/2024 Orders Only [facility] [address] [place] [address] Shay Brown MD 07/12/2024 Orders Only [facility] [address] [facility] [address] [place] [address] Shay Brown MD 07/12/2024 Treatment [facility] [address] [place] [address] Shay Brown MD 07/05/2024 Orders Only [facility] [address] [facility] [address] [place] [address] Shay Brown MD 07/05/2024 Treatment [facility] [address] [place] [address] Shay Brown MD 06/30/2024 Orders Only [facility] [address] [facility] [address] [place] [address] Shay Brown MD 06/28/2024 Orders Only [facility] [address] [facility] [address] [place] [address] Shay Brown MD from Last 3 Months [...] Date/Time Associated Diagnosis Comments HEMATOLOGY Routine 09/20/2024 [facility] RESULTS Routine 09/06/2024 CHEMISTRY [...] 07/05/2024 CHEMISTRY Routine 06/30/2024 HEMATOLOGY Routine 06/28/2024 from Last 3 Months Results * (ABNORMAL) HEMATOLOGY (09/20/2024) Only the most recent of12 resultswithin the time period is included. Hemoglobin 11.2(L) 14.0 - 18.0 g/dL [facility] Hemoglobin x 3 33.6(L) 42.0 - 54.0 % [facility] 09/20/2024 09/21/2024 6:3 5 AM IMPORT CUSTOMS CLEARING AGENT Narrative [facility] - 09/21/2024 Unless otherwise specified, test(s) performed at: [facility], [address] [place] [address], [place] [address] ARTILLERY METEOROLOGICAL MAN: Robert Martin M.D., Ph.D For any questions, please call customer service at FREQUENCY:OTHER Resulting Agency Comment Specimen source: Blood Shay Brown MD LAB BLOOD ORDERABLES Final Resul t Performing Organization Address [facility] de Phone Number [facility] See order comments or contact performing lab Unknown, [place] * HD KINETICS (09/06/2024) Only the most recent of3 resultswithin the time period is included. % Urea Reduction 80 65 - 80 % [facility] 09/06/2024 09/07/2024 5:2 5 AM IMPORT CUSTOMS CLEARING AGENT Narrative Resulting Agency Comment Specimen source: Plasma us Shay Brown MD LAB BLOOD ORDERABLES Final Resul t Performing Organization Address [facility] de Phone Number [facility] See order comments or contact performing lab Unknown, [place] * POST CHEMISTRY (09/06/2024) Only the most recent of3 resultswithin the time period is included. BUN Post Dialysis 8 6 - 19 mg/dL [facility] 09/06/2024 09/07/2024 5:2 5 AM IMPORT CUSTOMS CLEARING AGENT Narrative [facility] - 09/07/2024 Unless otherwise specified, test(s) performed at: [facility], [address] [place] [address], [place] [address] ARTILLERY METEOROLOGICAL MAN: Robert Martin M.D., Ph.D For any questions, please call customer service at FREQUENCY:MONTHLY Resulting Agency Comment Specimen source: Plasma Result [facility] us Shay Brown MD LAB BLOOD ORDERABLES Final Resul t Performing Organization Address [facility] de Phone Number [facility] See order comments or contact performing lab Unknown, [place] * (ABNORMAL) [facility] (09/06/2024) Only the most recent of7 resultswithin the time period is included. PTH 275(H) 16 - 80 pg/mL [facility] 09/06/2024 09/07/2024 10: 35 AM IMPORT CUSTOMS CLEARING AGENT Narrative [facility] - 09/07/2024 Unless otherwise specified, test(s) performed at: [facility], [address] [place] [address], [place] [address] ARTILLERY METEOROLOGICAL MAN: Robert Martin M.D., Ph.D For any questions, please call customer service at FREQUENCY:MONTHLY Resulting Agency Comment Specimen source: Plasma Shay Brown MD LAB BLOOD ORDERABLES Final Resul t [facility] See order comments or contact performing lab Unknown, [place] * [facility] Results (09/06/2024) Only the most recent of3 resultswithin the time period is included. PCR 44.30 [facility] eNPCR 0.76 [facility] eKdrt/V 1.59 [facility] spKt/V Gotch 1.88 [facility] WSTDKT/V 2.6 [facility] eKt/V Gotch 1.59 [facility] nPCR_HD 0.82 [facility] eKt/V (Tattersall) 1.58 [facility] spKt/V (Daugirdas II) 1.84 [facility] 09/06/2024 09/06/2024 [facility] Ordering Provider LAB BLOOD ORDERABLES Final Result [facility] Contact Performing lab Unknown, [place] from Last 3 Months Insurance MEDICARE [facility] [place] [id number] Care Teams Toolroom Attendant Relationship Specialty Start Date End Date Carolee Harris MD [address] [place] [address] PCP - General Family Medicine 09/16/21
--- OUTSIDE RECORDS SUMMARY | 2024-09-22 20:13 | XMS_ITS | Encounter Summary ---
Author Organization [facility] [place] [place] Address [address] [place] [address] Care Team Providers Care Sales Product Manager Name Role Phone Carolee Harris MD Primary Care Provider [phone] Encounter Details Date Type Department Care Team (Late st Contact Info) Description 08/02/2024 Orders Only [facility] [place] [address] [place] [address] Shay Brown MD [address] [place] [address] Social History Tobacco Use Types [...] [facility] 08/02/2024 08/03/2024 6:5 8 AM FIRE EATER Narrative [facility] - 08/03/2024 Unless otherwise specified, test(s) performed at: [facility], [address] [place] [address], [place] [address] REFRACTIVE SURGEON: Robert Martin M.D., Ph.D For any questions, please call customer service at FREQUENCY:OTHER Resulting Agency Comment Specimen source: Blood us Shay Brown MD LAB BLOOD ORDERABLES Final Resul t [facility] See order comments or contact performing lab Unknown, [place] documented in this encounter Visit Diagnoses Not on filedocumented in this encounter Care Teams Sales Product Manager Relationship Specialty Start Date End Date Carolee Harris MD [address] [place] [address] PCP - General Family Medicine 09/16/21 documented as of this encounter
--- OUTSIDE RECORDS SUMMARY | 2024-09-22 20:13 | XMS_ITS | Encounter Summary ---
Author Organization [facility] [place] [place] Address [address] [place] [address] Care Team Providers Care Oracle Distribution Consultant Name Role Phone Carolee Harris MD Primary Care Provider [phone] Reason for Visit * Reason Comments Med Refill Encounter Details Date Type Department Care Team (Late st Contact Info) Description 09/19/2022 Refill [facility] [place] [address] [place] [address] Brenton Alex, JUWAN [address] [place] [address] Social History Tobacco Use Types [...] Coronavirus/COVID-19? No / Unsure 09/14/2022 10:40 AM DRAPERY HAND documented as of this encounter Plan of Treatment Not on file documented as of this encounter Visit Diagnoses Not on filedocumented in this encounter Care Teams Oracle Distribution Consultant Relationship Specialty Start Date End Date Carolee Harris MD [address] [place] [address] PCP - General Family Medicine 09/16/21 documented as of this encounter
--- OUTSIDE RECORDS SUMMARY | 2024-09-22 20:13 | XMS_ITS | Encounter Summary ---
Author Organization [facility] [place] [place] Address [address] [place] [address] Care Team Providers Care Building Drafter Name Role Phone Carolee Harris MD Primary Care Provider [phone] Encounter Details Date Type Department Care Team (Late st Contact Info) Description 08/21/2024 Orders Only [facility] [place] [address] [place] [address] Shay Brown MD [address] [place] [address] Social History Tobacco Use Types [...] [facility] 08/21/2024 08/23/2024 2:4 1 AM CARDIAC CATHETERIZATION TECHNICIAN Narrative [facility] - 08/23/2024 Unless otherwise specified, test(s) performed at: [facility], [address] [place] [address], [place] [address] CHARGE MASTER COORDINATOR: Robert Martin M.D., Ph.D For any questions, please call customer service at FREQUENCY:OTHER Resulting Agency Comment Specimen source: Blood us Shay Brown MD LAB BLOOD ORDERABLES Final Resul t [facility] See order comments or contact performing lab Unknown, [place] documented in this encounter Visit Diagnoses Not on filedocumented in this encounter Care Teams Building Drafter Relationship Specialty Start Date End Date Carolee Harris MD [address] [place] [address] PCP - General Family Medicine 09/16/21 documented as of this encounter
--- OUTSIDE RECORDS SUMMARY | 2024-09-22 20:13 | XMS_ITS | Encounter Summary ---
Author Organization [facility] [place] Address [address] [place] [address] Care Team Providers Care Sales Support Advisor Name Role Phone Carolee Harris MD Primary Care Provider [phone] Encounter Details Date Type Department Care Team (Late st Contact Info) Description 09/06/2024 Orders Only [facility] [place] [address] [place] [address] Shay Brown MD [address] [place] [address] Social History Tobacco Use Types [...] 09/06/2024 CHEMISTRY Routine 09/06/2024 CHEMISTRY Routine 09/06/2024 [facility] LAB RESULTS Routine 09/06/2024 documented in this encounter Results * [facility] Lab Results (09/06/2024) Pathologist [facility] PCR 44.30 [facility] eNPCR 0.76 [facility] eKdrt/V 1.59 [facility] spKt/V Gotch 1.88 [facility] [place] WSTDKT/V 2.6 [facility] eKt/V Gotch 1.59 [facility] e [place] nPCR_HD 0.82 [facility] eKt/V (Tattersall) 1.58 [facility] spKt/V (Daugirdas II) 1.84 [facility] 09/06/2024 09/06/2024 [facility] Ordering Provider LAB BLOOD ORDERABLES Final Result Performing Organization Address City/[facility]/ZIP Co de Phone Number [facility] Contact Performing lab Unknown, [place] * (ABNORMAL) [facility] Chemistry (09/06/2024) [facility] PTH 275(H) 16 - 80 pg/mL [facility] 09/06/2024 09/07/2024 10: 35 AM EXCEL SPECIALIST Narrative [facility] 09/07/2024 Unless otherwise specified, test(s) performed at: [facility], [address] [place] [address], [place] [address] PULMONOLOGY PHYSICIAN: Robert Martin M.D., Ph.D For any questions, please call customer service at FREQUENCY:MONTHLY Resulting Agency Comment Specimen source: Plasma Shay Brown MD LAB BLOOD ORDERABLES Final Resul t [facility] See order comments or contact performing lab Unknown, [place] * (ABNORMAL) HEMATOLOGY (09/06/2024) [facility] Neutrophils 51.9 40.0 - 75.0 % [facility] [...] [facility] 09/06/2024 09/07/2024 7:1 8 AM EXCEL SPECIALIST Narrative [facility] - 09/07/2024 Unless otherwise specified, test(s) performed at: [facility], [address] [place] [address], [place] [address] PULMONOLOGY PHYSICIAN: Robert Martin M.D., Ph.D For any questions, please call customer service at FREQUENCY:MONTHLY Resulting Agency Comment Specimen source: Blood Shay Brown MD LAB BLOOD ORDERABLES Final Resul t Performing Organization Address [facility] de Phone Number [facility] See order comments or contact performing lab Unknown, [place] * HD KINETICS (09/06/2024) [facility] % Urea Reduction 80 65 - 80 % [facility] 09/06/2024 09/07/2024 5:2 5 AM EXCEL SPECIALIST Narrative Resulting Agency Comment Specimen source: Plasma Shay Brown MD LAB BLOOD ORDERABLES Final Resul t Performing Organization Address [facility]/ZIP Co de Phone Number [facility] See order comments or contact performing lab Unknown, [place] * POST CHEMISTRY (09/06/2024) BUN Post Dialysis 8 6 - 19 mg/dL [facility] 09/06/2024 09/07/2024 5:2 5 AM EXCEL SPECIALIST Narrative [facility] - 09/07/2024 Unless otherwise specified, test(s) performed at: [facility], [address] [place] [address], [place] [address] PULMONOLOGY PHYSICIAN: Robert Martin M.D., Ph.D For any questions, please call customer service at FREQUENCY:MONTHLY Resulting Agency Comment Specimen source: Plasma us Shay Brown MD LAB BLOOD ORDERABLES Final Resul t [facility] See order comments or contact performing [...] Saturation (TSat) 30 20 - 55 % [facility] 09/06/2024 09/07/2024 5:4 5 AM EXCEL SPECIALIST Narrative [facility] - 09/07/2024 Unless otherwise specified, test(s) performed at: [facility], [address] [place] [address], [place] [address] PULMONOLOGY PHYSICIAN: Robert Martin M.D., Ph.D For any questions, please call customer service at FREQUENCY:MONTHLY Resulting Agency Comment Specimen source: Serum us Shay Brown MD LAB BLOOD ORDERABLES Final Resul t [facility] See order comments or contact performing lab Unknown, [place] documented in this encounter Visit Diagnoses Not on filedocumented in this encounter Care Teams Sales Support Advisor Relationship Specialty Start Date End Date Carolee Harris MD [address] [place] [address] PCP - General Family Medicine 09/16/21 documented as of this encounter
--- OUTSIDE RECORDS SUMMARY | 2024-09-22 20:13 | XMS_ITS | Encounter Summary ---
Author Organization [facility] [place] [place] Address [address] [place] [address] Care Team Providers Care Debridging Machine Operator Name Role Phone Carolee Harris MD Primary Care Provider [phone] Encounter Details Date Type Department Care Team (Late st Contact Info) Description 08/09/2024 Treatment [facility] [place] [address] [place] [address] Lucie Brown MD [address] [facility] [address] [place], [place] [id number] Social History Tobacco Use Types Packs/Day Years [...] care for end stage renal disease. Attending Orchardist: LUCIE BROWN Dialysis Location: [facility] Schedule: Shift: 1 OVERVIEW [...] no concerns. HOME MEDICATIONS Medications reviewed. Current [facility] Outpatient Medications allopurinol 300 mg tablet Take [...] 97.6*F Current Dialysis Vitals BP Sit: 121/54 AP/LAND MANAGER: -- Pulse: 78 TREATMENT MEDICATIONS ORDERS Vitamin [...] on filedocumented in this encounter Care Teams Debridging Machine Operator Relationship Specialty Start Date End Date Carolee Harris MD [address] [place] [address] PCP - General Family Medicine 09/16/21 documented as of this encounter
--- OUTSIDE RECORDS SUMMARY | 2024-09-22 20:13 | XMS_ITS | Encounter Summary ---
Author Organization [facility] [place] Address [address] [place] [address] Care Team Providers Care Credentialing Analyst Name Role Phone Carolee Harris MD Primary Care Provider [phone] Encounter Details Date Type Department Care Team (Late st Contact Info) Description 08/09/2024 Orders Only [facility] [place] [address] [place] [address] ProviderFahad Ordering Social History Tobacco [...] [facility] 08/09/2024 08/10/2024 9:4 5 AM AVIATION ELECTRICAL TECHNICIAN Narrative Resulting Agency Comment Specimen source: Plasma us Shay Brown MD LAB BLOOD ORDERABLES Final Resul t Performing Organization Address [facility] de Phone Number [facility] See order comments or contact performing lab Unknown, [place] * POST CHEMISTRY (08/09/2024) BUN Post Dialysis 11 6 - 19 mg/dL [facility] 08/09/2024 08/10/2024 9:4 5 AM AVIATION ELECTRICAL TECHNICIAN Narrative [facility] - 08/10/2024 Unless otherwise specified, test(s) performed at: [facility], [address] [place] [address], [place] [address] WASTE SALVAGER: Robert Martin M.D., Ph.D For any questions, please call customer service at FREQUENCY:MONTHLY Resulting Agency Comment Specimen source: Plasma us Shay Brown MD LAB BLOOD ORDERABLES Final Resul t Performing Organization Address [facility] de Phone Number [facility] See order comments or contact performing [...] [facility] 08/09/2024 08/10/2024 9:3 8 AM AVIATION ELECTRICAL TECHNICIAN Narrative [facility] - 08/10/2024 Unless otherwise specified, test(s) performed at: [facility], [address] [place] [address], [place] [address] WASTE SALVAGER: Robert Martin M.D., Ph.D For any questions, please call customer service at FREQUENCY:MONTHLY Resulting Agency Comment Specimen source: Serum Shay Brown MD LAB BLOOD ORDERABLES Final Resul t [facility] See order comments or contact performing [...] [facility] 08/09/2024 08/10/2024 8:4 6 AM AVIATION ELECTRICAL TECHNICIAN Narrative [facility] - 08/10/2024 Unless otherwise specified, test(s) performed at: [facility], [address] [place] [address], [place] [address] WASTE SALVAGER: Robert Martin M.D., Ph.D For any questions, please call customer service at FREQUENCY:MONTHLY Resulting Agency Comment Specimen source: Blood Shay Brown MD LAB BLOOD ORDERABLES Final Resul t Performing Organization Address [facility] de Phone Number [facility] See order comments or contact performing lab Unknown, [place] * (ABNORMAL) [facility] (08/09/2024) Pathologist [facility] PTH 474(H) 16 - 80 pg/mL [facility] 08/09/2024 08/10/2024 10: 46 AM AVIATION ELECTRICAL TECHNICIAN Narrative [facility] - 08/10/2024 Unless otherwise specified, test(s) performed at: [facility], [address] [place] [address], [place] [address] WASTE SALVAGER: Robert Martin M.D., Ph.D For any questions, please call customer service at FREQUENCY:MONTHLY Resulting Agency Comment Specimen source: Plasma Shay Brown MD LAB BLOOD ORDERABLES Final Resul t Performing Organization Address [facility]/ZIP Co de Phone Number [facility] See order comments or contact performing lab Unknown, [place] * [facility] Results (08/09/2024) Pathologist [facility] eKt/V Gotch 1.52 Knowled[facility] e Center spKt/V Gotch 1.79 [facility] spKt/V (Daugirdas II) 1.74 [facility] eNPCR 0.89 [facility] WSTDKT/V 2.6 [facility] eKt/V ([place]) 1.49 [facility] PCR 51.52 [facility] eKdrt/V 1.52 [facility] nPCR_HD 0.95 [facility] 08/09/2024 08/09/2024 [facility] Ordering Provider LAB BLOOD ORDERABLES Final Result [facility] Contact Performing lab Unknown, [place] documented in this encounter Visit Diagnoses Not on filedocumented in this encounter Care Teams Credentialing Analyst Relationship Specialty Start Date End Date Carolee Harris MD [address] [place] [address] PCP - General Family Medicine 09/16/21 documented as of this encounter
--- OUTSIDE RECORDS SUMMARY | 2024-09-22 20:13 | XMS_ITS | Encounter Summary ---
Author Organization [facility] [place] [place] Address [address] [place] [address] Care Team Providers Care Commercial Cleaner Name Role Phone Carolee Harris MD Primary Care Provider [phone] Encounter Details Date Type Department Care Team (Late st Contact Info) Description 08/30/2024 Orders Only [facility] [place] [address] [place] [address] Shay Brown MD [address] [place] [address] Social History Tobacco Use Types [...] [facility] 08/30/2024 08/31/2024 4:5 5 PM MANAGER UTILITY Narrative [facility] - 08/31/2024 Unless otherwise specified, test(s) performed at: [facility], [address] [place] [address], [place] [address] CHIEF GAUGER: Robert Martin M.D., Ph.D For any questions, please call customer service at FREQUENCY:OTHER Resulting Agency Comment Specimen source: Blood us Shay Brown MD LAB BLOOD ORDERABLES Final Resul t [facility] See order comments or contact performing lab Unknown, [place] documented in this encounter Visit Diagnoses Not on filedocumented in this encounter Care Teams Commercial Cleaner Relationship Specialty Start Date End Date Carolee Harris MD [address] [place] [address] PCP - General Family Medicine 09/16/21 documented as of this encounter
--- OUTSIDE RECORDS SUMMARY | 2024-09-22 20:13 | XMS_ITS | Encounter Summary ---
Author Organization [facility] [place] Address [address] [place] [address] Care Team Providers Care Bottle And Glass Inspector Name Role Phone Carolee Harris MD Primary Care Provider [phone] Encounter Details Date Type Department Care Team (Latest Contact Info) Description 09/13/2020 Orders Only [facility] [address] [place] [address] Shay Brown MD [address] [place] [address] Secondary hyperparathyroidism of renal origin [...] disease documented in this encounter Care Teams Bottle And Glass Inspector Relationship Specialty Start Date End Date Carolee Harris MD [address] [place] [address] PCP - General Family Medicine 09/16/21 documented as of this encounter
--- OUTSIDE RECORDS SUMMARY | 2024-09-22 20:13 | XMS_ITS | Encounter Summary ---
Author Organization [facility] Address [address] [place] [address] Care Team Providers Care Shellfish Grower Name Role Phone Carolee Harris MD Primary Care Provider [phone] Encounter Details Date Type Department Care Team (Late st Contact Info) Description 09/11/2024 Treatment [facility] [place] [address] [place] [address] Cheko Marino, ASBESTOS SIDING INSTALLER-PHYSICIAN SPECIALIST [address] [place] [address] Social History Tobacco Use Types Packs/Day Years [...] encounter Miscellaneous Notes * Dialysis Note - Cheko Marino APRN-PHYSICIAN SPECIALIST - 09/11/2024 12:00 AM HYDROGRAPHICAL TECHNICAL OFFICER Patient: Rolly Alex : 1945 C: [facility] Note Type: Dialysis Rounds-Comp Service Date: 09/11/2024 This patient was personally seen for a complete visit as part of routine monthly dialysis care for end stage renal disease. Attending Pipe Organ Technician: LUCIE MAR Dialysis Location: [facility] Schedule: Shift: OVERVIEW Patient is stable. COMMENTS: 09/11/2024: Seen on dialysis. Feeling well. Has had diarrhea for one week. Arm access has non-healing scab; some pus under scab. Some redness. Will give dose of vancomycin on Wednesday. No breathing concerns, Denies chest pain or cramping. Arm access functional. 09/01/24: Feels fine, no issues. Has ECHO [...] appt upcoming. 06/19/24: doing well, no concerns. HOME MEDICATIONS Medications reviewed. Current [facility] Outpatient Medications allopurinol 300 mg tablet Take 1/2 tablet by mouth once a day. Coreg 3.125 mg tablet [twice per day] levothyroxine 75 mcg tablet [one a day before eating] lovastatin 20 mg tablet Take 1 tablet by mouth once a day. metoprolol tartrate 25 mg tablet Take 1 tablet by mouth [...] Mild DIALYSIS PRESCRIPTION Treatment Data Treatment Date: 09/15/2024 started at: 5:37 AM Dialysate / Machine Temp (prescribed): 36.0*C Dialysate / Machine Temp (actual): 35.7*C BFR (prescribed): 450 BFR (average delivered): 460 DFR (prescribed): Autoflow 1.5 DFR (average delivered): 700 Prescribed Time: 03:30 Actual Time: 03:33 EDW (kg): 80.7 Dialyzer: 180NRe Optiflux Dialysate: 3.0 K, 2.5 Ca, 1.0 Mg, 100 Dextrose (G3251) Sodium: 138 Bicarb: 30 Pre Dialysis Vitals Pre BP Sit: 116/49 Pre Wt (kg): 80.4 EDW Deviation (kg): -0.3 Temp: 97.8*F Post Dialysis Vitals Post BP Sit: 131/66 Post Wt (kg): 79.6 TREATMENT MEDICATIONS ORDERS Mircera 30 mcg IVP Every 4 weeks 08/30/2024 - 08/29/2025 Vitamin D (Calcitriol) Oral 1.25 mcg ORAL 3X Week 08/14/2024 - 08/13/2025 BP AND FLUID ASSESSMENT Acceptable blood pressure. Fluid status acceptable. EDW appropriate. Post BP Sit 131/66 - 09/15/2024 125/57 - 09/13/2024 128/62 - 09/11/2024 Post Wt (kg) 79.6 - 09/15/2024 80.5 - 09/13/2024 80.6 - 09/11/2024 EDW (kg) 80.7 - 09/15/2024 80.7 - 09/13/2024 80.7 - 09/11/2024 Deviation (kg) -1.1 - 09/15/2024 -0.2 - 09/13/2024 -0.1 - 09/11/2024 ADEQUACY ASSESSMENT Target met. Prescription compliance acceptable. Missed Treatments 0 - Last 30 days 0 - Last 60 days spKt/V (Daugirdas II) 1.84 (09/06/24) 1.74 (08/09/24) 1.74 (07/12/24) eKdrt/V 1.59 (09/06/24) 1.52 (08/09/24) 1.55 (07/12/24) % Urea Reduction 80 (09/06/24) 78 (08/09/24) 77 (07/12/24) BUN 40 (09/06/24) 49 (08/09/24) 69 (07/12/24) BUN Post Dialysis 8 (09/06/24) 11 (08/09/24) 16 (07/12/24) Creatinine 5.55 (09/06/24) 6.50 (08/09/24) 6.92 (07/12/24) Bicarbonate (CO2) 25 (09/06/24) 25 (08/09/24) 22 (07/12/24) Sodium 140 (09/06/24) 145 (08/09/24) 136 (07/12/24) ACCESS ASSESSMENT AVF/AVG positive thrill/bruit. AVFistula Standard Left Upper Arm Active (In Use) - 12/24/2022 Placed - 06/06/2020 Access Flow > 2000 (09/01/24) > 2000 (08/28/24) 1603 (07/28/24) ANEMIA ASSESSMENT Anemia targets met. Hemoglobin at target. Continue current ISAAC dose. Continue maintenance iron. Hemoglobin 11.4 (09/06/24) 11.1 (08/30/24) 10.4 (08/21/24) Iron Saturation (TSat) 30 (09/06/24) 25 (08/09/24) 24 (07/12/24) Ferritin 1,076 (08/09/24) 1,422 (05/10/24) 791 (03/08/24) Iron 62 (09/06/24) 58 (08/09/24) 58 (07/12/24) TIBC 210 (09/06/24) 230 (08/09/24) 239 (07/12/24) Reticulocyte Hemoglobin 34.8 (07/19/24) 34.9 (05/31/24) 35.2 (04/19/24) MCV 103 (09/06/24) 102 (08/09/24) 104 (07/12/24) Platelets 281 (09/06/24) 238 (08/09/24) 173 (07/12/24) BMM ASSESSMENT PTH within target. Phosphorus controlled. Calcium controlled. Bone and mineral metabolism parameters reviewed. Calcium 8.7 09/06/24 8.6 08/09/24 8.6 07/12/24 Corrected Calcium 9.1 09/06/24 8.9 08/09/24 8.8 07/12/24 Phosphorus 5.4 09/06/24 5.2 08/09/24 6.9 07/12/24 Calcium Phosphorus Product 47 09/06/24 45 08/09/24 59 07/12/24 PTH 275 09/06/24 474 08/09/24 660 07/12/24 Magnesium 1.9 02/09/24 2.1 11/10/23 Alkaline Phosphatase 290 02/09/24 266 11/10/23 Aluminum <5 11/10/23 NUTRITION ASSESSMENT Albumin not at goal. Potassium controlled. Albumin 3.5 09/06/24 3.6 08/09/24 3.7 07/12/24 Potassium 4.4 09/06/24 4.2 08/09/24 4.6 07/12/24 eNPCR 0.76 09/06/24 0.89 08/09/24 1.22 07/12/24 TRANSPLANT STATUS COMMENT COMMENTS: 08/09/24: Not a candidate due to age PHYSICAL EXAM Exam performed. Vital Signs Reviewed. Lungs - Clear. CV - Blood pressure noted. CV - RRR. No edema. EXT - No ulcers. ADDITIONAL LABS WBC 7.18 (09/06/24) 7.02 (08/09/24) 6.88 (07/12/24) Hepatitis B Surface Ab 10 (05/17/24) Signed by: CHEKO MARINO APRN-CNP on 09/17/2024 at 04:33:40 PM Transcribed by: CHEKO MARINO APRN-CNP on 09/17/2024 at 04:33:40 PM documented in this encounter Plan of Treatment Not on file documented as of this encounter Visit Diagnoses Not on filedocumented in this encounter Care Teams Shellfish Grower Relationship Specialty Start Date End Date Carolee Harris MD [address] [place] [address] PCP - General Family Medicine 09/16/21 documented as of this encounter
--- OUTSIDE RECORDS SUMMARY | 2024-09-22 20:13 | XMS_ITS | Data Portability ---
Author Organization [facility], [facility] Address [address] [place] [address] Care Team Providers Care Attending Physician Name Role Phone TAMIR GAMBOA Referring Provider [phone] PHYLLIS HE Primary Care Provider Assessment Encounter [...] available Lab urinalysi s, dipstick 2020 021 [facility], [address], [place], [address], 07/08/2021 12:25:55 Referral None recorded. Procedures None recorded. Surgeries None recorded. Imaging None recorded. Medication Orders terazosin 10 mg capsule 2021 022 [id number], [address] [place], [address], 10/28/2023 14:05:54 Patient TargetsNo targets recorded. Patient Instructions Encounter Date Encounter Id Patient Instructions Last Modified By Organization Details Last Modified Time 04/30/2020 [id number] Rolly is a 75-year-old man with BPH. A cystoscopy post TURP did show some residual tissue. We again discussed additional intervention. He is doing well and his PVR is down. We will plan a check up in 1 year. [email or web address] Not available 04/30/2020 14:31:48 07/08/2022 [id number] Patient is a 77-year-old male who presents [...] 1 year. Not available 07/08/2022 12:18:53 10/28/2023 [id number] Patient is an 78-year-old male presents today [...] color -advantus YELLOW yellow Not Available [facility] [address], [place], [address], 07/08/2021 12:25:55 07/08/20 21 07/08/2021 UA DIP CS ADVAN TUS appearance -advantus CLEAR clear Not Available [facility] [address] [facility] [facility] [address], [place], [address], 07/08/2021 12:25:55 07/08/20 21 07/08/2021 UA DIP CS ADVAN TUS glucose -advantus NEGATI VE mg/dL negati ve Not Available [facility] [address] [place] [address] [address], [place], [address], 07/08/2021 12:25:55 07/08/20 21 07/08/2021 UA DIP CS ADVAN TUS bilirubin -advantus NEGATI VE negati ve Not Available [facility] [address] [place] [address], [place], [address], 07/08/2021 12:25:55 07/08/20 21 07/08/2021 UA DIP CS ADVAN TUS ketones -advantus NEGATI VE mg/dL negati ve Not Available [facility] [address] [place] [address], [place], [address], 07/08/2021 12:25:55 07/08/20 21 07/08/2021 UA DIP CS ADVAN TUS sp. gravity -advantus 1.020 1.010- 1.025 Not Available [facility] [address] [place] [address] [address], [place], [address], 07/08/2021 12:25:55 07/08/20 21 07/08/2021 UA DIP CS ADVAN TUS pH -advantus 5.5 5.0-8. 0 Not Available [facility] [address] [place] [address] [address], [place], [address], 07/08/2021 12:25:55 07/08/20 21 07/08/2021 UA DIP CS ADVAN TUS protein -advantus 100 mg/dL negati ve abnormal Not Available [facility] [address] [place] [address] [address], [place], [address], 07/08/2021 12:25:55 07/08/20 21 07/08/2021 UA DIP CS ADVAN TUS urobilinogen -advantus 0.2 normal Not Available [facility] [place] [facility] [address] [facility] [address], [place], [address], 07/08/2021 12:25:55 07/08/20 21 07/08/2021 UA DIP CS ADVAN TUS nitrites -advantus NEGATI VE negati ve Not Available [facility] [address] [place] [address], [place], [address], 07/08/2021 12:25:55 07/08/20 21 07/08/2021 UA DIP CS ADVAN TUS blood -advantus TRACE- INTACT negati ve abnormal Not Available [facility] [address] [place] [address] [address], [place], [address], 07/08/2021 12:25:55 07/08/20 21 07/08/2021 UA DIP CS ADVAN TUS leukocytes -advantus NEGATI VE negati ve Not Available [facility] [address] [place] [address], [place], [address], 07/08/2021 12:25:55 07/08/20 21 07/08/2021 UA DIP CS ADVAN TUS performed by aMy Kelly Not Available [facility] [address] [place] [address], [place], [address], 07/08/2021 12:25:55 07/08/20 21 07/08/2021 UA DIP [...] ----- ----- ----- ----- ---- Not Available [facility] [address] [facility] [address], [place], [address], 07/08/2021 12:25:55 07/08/20 21 07/08/2021 UA MICRO SCOPI C U-WBC 0 - 2 [hpf] 0 - 2 Not Available [facility] [address] [place] [address] [address], [place], [address], 07/08/2021 12:25:59 07/08/20 21 07/08/2021 UA MICRO SCOPI C U-RBC 0 - 2 [hpf] 0 - 2 Not Available [facility] [address] [place] [address] [address], [place], [address], 07/08/2021 12:25:59 07/08/20 21 07/08/2021 UA MICRO SCOPI C bacteria Small [hpf] negati ve abnormal Not Available [facility] [address] [place] [address] [address], [place], [address], 07/08/2021 12:25:59 07/08/20 21 07/08/2021 UA MICRO SCOPI C squamous epi Negati ve /lpf negati ve,sma ll Not Available [facility] [address] [place] [address] [address], [place], [address], 07/08/2021 12:25:59 06/17/20 20 04/30/2020 bladd er scan (PROC ) No observ ation record ed. BARCODE Not Available 2019 14:03:34 Result Notes None recorded. Problems Name Problem SNOMED Code Status Onset Date Resolution Date Notes Provider Name and Address Organization Details Recorded Time Finding of urinary bladder emptying 226225525 Active 2017 R33.8 : Finding of bladder emptying Not Available [facility] 0 00:08:40 Clinical finding Active 2018 N40.1 : Desire for urination Not Available [facility] 0 00:08:40 Problem Notes None recorded. Procedures Surgical History Date Name Laterality Status Provider Name and Address Organization Details Recorded Time 024 COMPLEX VISIT completed MARBELLA BEYER [address], [place], [address], [facility] 10/28/2023 14:18:40 024 Bladder Scan completed Opal Suarez [facility] 10/28/2023 14:11:26 022 Bladder Scan completed Jenn Hogan [facility] 07/08/2022 11:46:07 021 Past Data Reviewed completed Tamir Gamboa MD [address], [place], [address], [facility] 07/08/2021 12:22:44 021 Bladder Scan completed Ginny Willingham [facility] 07/08/2021 12:08:56 021 Diagnostic colonoscopy completed Not Available [facility] 07/06/2022 11:55:05 020 Bladder Scan completed Manolo Leung [facility] 04/30/2020 14:23:33 019 urine capacity measure completed Not Available [facility] Note 07/06/2022 11:55:05 018 Electro-uroflowmetry first completed Not Available Health Note 07/06/2022 11:55:05 018 Intraabdominal pressure test completed Not Available Health Note 07/06/2022 11:55:05 018 Anal/urinary muscle study completed Not Available Health Note 07/06/2022 11:55:05 018 Cystometrogram w/vp information technology&up completed Not Available Health Note 07/06/2022 11:55:05 [...] Name and Address Organization Details Recorded Time [id number] 2824e Sudafed medicatio n Not available Not [...] Address Organization Details Last Updated DateTime 07/08/2022 11898.1 g Jenn Hogan [facility] 07/08/2022 11:34:06 Date Recorded Body height Provider Name an d Address Organization Details Last Updated DateTime 04/30/2020 190.5 cm Manolo Leung [facility] 04/30/2020 14:17:52 Date Recorded Body mass index (BMI) Body weight Provider Name and Address Organization Details Last Updated DateTime 04/30/2020 28.1 kg/m2 416407.28 g Manolo Leung [facility] 04/30/2020 14:17:56 Social History Question Answer [...] Other Forms Of Tobacco Or Nicotine? No [email or web address] Information not available 07/08/2022 Sex: Unknown Functional Status None recorded. Mental Status None recorded. Family History Nothing Reported Notes:Alcohol/Drug:Father Medical History Condition Response Sexually Transmitted Infection N Diabetes N Other N Bleeding Disorder N High Blood Pressure Y Kidney Stones N High Cholesterol Y GERD/Acid Reflux N Heart Disease N Cancer Y Depression N Lung Disease N Immunizations Vaccine Type Date Status Note Provider Nam e and Address Organization Details Recorded Time Pneumococcal conjugate PCV 13 0 completed Manolo colin [facility] 04/30/2020 14:22:32 SARS-COV-2 (COVID-19) vaccine, UNSPECIFIED 1 completed Opal colin [facility] 10/28/2023 13:57:15 Past Encounters Encounter ID Performer Location Encounter Start Date Encounter Closed Date Diagnosis/Indication Diagnosis SNOMED-CT Code Diagnosis ICD10 Code Diagnosis Note [id number] MD Samson Zamora_Yaakovo kel [address] [place] [id number] 0 04/30/2020 14:01:05 04/30/2020 16:11:15 Finding of urinary bladder emptying 201527608 R33.9 Lower urin meera tract symptoms due to benign prostatic hypertrophy 0809674582 9101 N40.1 [id number] MD nIgris ZamoraWoannie begum [address] [place] [id number] 0 07/08/2021 11:25:22 07/08/2021 12:30:01 Finding of urinary bladder emptying 834144230 R33.9 Lower urin meera tract symptoms due to benign prostatic hypertrophy 3257867413 9101 N40.1 [id number] MARBELLA BEYERro_Woo dbury [address] [place] [id number] 07/08/2022 11:30:09 07/08/2022 13:31:41 Lower urinary tract symptoms due to benign prostatic hypertrophy 0158606757 9101 N40.1 [id number] Opal Davies_Yaakovo dbury [address] [place] [address] 10/28/2023 13:52:41 10/28/2023 14:43:51 Lower urinary tract symptoms due to benign prostatic hypertrophy 8370308891 9101 N40.1 Health Concerns Section Related Observation LastModified by Organization Detai ls LastModified Time None Recorded Concern Status LastModified by Organization Details LastModified Time None Recorded Advance Directives Directive None Recorded Payers Encounter Date Sequence Insurance Name Policy Number Policy Bowman Covered Member ID Bowman Member ID Guarantor Name 04/30/2020 1 [place] Rolly Alex [id number] Rolly Alex 04/30/2020 2 [facility] [id number] Rolly Alex [id number] Rolly Alex 07/08/2021 1 [place] [facility] Rolly Alex [id number] Rolly Alex 07/08/2021 2 [facility] [id number] Rolly Alex [id number] Rolly Alex 07/08/2022 1 [place] [facility] Rolly Alex [id number] Rolly Alex 07/08/2022 2 [facility] [id number] Rolly Alex [id number] Rolly Alex 10/28/2023 1 [place] [facility] Rolly Alex [id number] Rolly Alex 10/28/2023 2 [facility] [id number] Rolly Alex [id number] Rolly Alex Notes Date Note Type Note [...] terazosin for BP. Tamir Gamboa MD [address], [place], [address], [facility] 04/30/2020 14:32:34 07/08/2021 text/html Chief complaints are [...] use terazosin for BP. Tamir Gamboa MD [address] [place] [address],[address], [place], [address], [facility] 07/08/2021 12:23:23 07/08/2022 text/html Patient is 77-year-old [...] or urinary tract infections. MARBELLA BEYER [address], [place], [address], [facility] 07/08/2022 12:19:04 10/28/2023 text/html 10/28/23: Patient is [...] patient back in 1 year. Opal colin [facility] 10/28/2023 14:25:03
--- OUTSIDE RECORDS SUMMARY | 2024-09-22 20:13 | XMS_ITS | Encounter Summary ---
Author Organization [facility] [place] Address [address] [place] [address] Care Team Providers Care Chaperone Name Role Phone Carolee Harris MD Primary Care Provider [phone] Encounter Details Date Type Department Care Team (Late st Contact Info) Description 05/22/2020 Orders Only [facility] [place] [address] [place] [address] Shay Brown MD [address] [place] [address] Chronic kidney disease stage 4 [...] PTH, Intact (05/20/2020 10:44 AM CDT) Pathologist [facility] Parathyroid Hormone, Intact 35.0 14.0 - 72.0 pg/mL [facility] Blood (Blood, Venous) 05/20/2020 10:44 AM CDT 05/20/2020 6:06 PM CDT Narrative [facility] - 05/20/2020 6:26 PM CDT AT OUR OFFICE us Shay Brown MD LAB BLOOD ORDERABLES Final Resul t Performing Organization Address City/[facility] de Phone Number [facility] [address] [place] [address] * (ABNORMAL) Hemoglobin (05/20/2020 10:44 AM CDT) [facility] Hgb 11.0(L) 14.0 - 18.0 gm/dL [facility] Blood (Blood, Venous) 05/20/2020 10:44 AM CDT 05/20/2020 6:02 PM CDT Narrative [facility] - 05/20/2020 6:10 PM CDT AT OUR OFFICE us Shay Brown MD LAB BLOOD ORDERABLES Final Resul t Performing Organization Address City/[facility]/ZIP Co de Phone Number [facility] [address] [place] [address] * (ABNORMAL) Renal Function Panel (05/20/2020 10:44 AM CDT) [facility] Sodium 141 136 - 145 mmol/L [facility] Potassium 4.0 3.5 - 5.1 mmol/L [facility] Chloride 108 98 - 112 mmol/L [facility] Carbon Dioxide (CO2) 26 21 - 32 mmol/L [facility] BUN 45(H) 7 - 24 mg/dL [facility] Creatinine 3.57(H) 0.70 - 1.30 mg/dL [facility] GFR EST NON 16(L) >60 mL/min [facility] eGFR 18(L) >60 mL/min [facility] Glucose 176(H) 74 - 106 mg/dL [facility] Calcium 9.5 8.5 - 10.1 mg/dL [facility] Albumin 2.9(L) 3.4 - 5.0 g/dL [facility] Phosphorus 3.7 2.5 - 4.9 mg/dL [facility] Anion Gap 7.0 0.0 - 15.0 mmol/L [facility] Blood (Blood, Venous) 05/20/2020 10:44 AM CDT 05/20/2020 7:51 PM CDT Narrative [facility] - 05/20/2020 8:07 PM CDT AT OUR OFFICE [facility] HAS THE PATIENT FASTED?->NO Shay Brown MD LAB BLOOD ORDERABLES Final Resul t Performing Organization Address [facility] de Phone Number [facility] [address] [place] [address] * (ABNORMAL) Protein, Total, Random Urine w/Creatinine (Protein/Creat Ratio) (05/20/2020 10:44 AM CDT) Protein/Creati nine Ratio, Urine 7.23(H) <0.11 mg/mg creat [facility] Creatinine, Ur 52.7 mg/dL [facility] Protein, Ur 381(H) <12 mg/dL [facility] Urine (Urine, Clean Catch) 05/20/2020 10:44 AM CDT 05/20/2020 6:02 PM CDT Narrative [facility] - 05/20/2020 6:36 PM CDT AT OUR OFFICE us Shay Brown MD LAB URINE ORDERABLES Final Resul t Performing Organization Address [facility] de Phone Number [facility] [address] [place] [address] documented in this encounter Visit Diagnoses Diagnosis Chronic kidney disease stage 4 (HCC) documented in this encounter Care Teams Chaperone Relationship Specialty Start Date End Date Carolee Harris MD [address] [place] [address] PCP - General Family Medicine 09/16/21 documented as of this encounter
--- OUTSIDE RECORDS SUMMARY | 2024-09-22 20:14 | XMS_ITS | Encounter Summary ---
Author Organization [facility] Address [address] [facility] [address] [place] [address] Care Team Providers Care Burn Nurse Name Role Phone Carolee Harris MD Primary Care Provider [phone] Encounter Details Date Type Department Care Team (Latest Contact Info) Description 11/08/2020 Orders Only [facility] [place] [address] [place] [address] Shay Brown MD [address] [place] [address] Chronic kidney disease, Stage IV [...] origin documented in this encounter Care Teams Burn Nurse Relationship Specialty Start Date End Date Carolee Harris MD [address] [place] [address] PCP - General Family Medicine 09/16/21 documented as of this encounter
--- OUTSIDE RECORDS SUMMARY | 2024-09-22 20:14 | XMS_ITS | Encounter Summary ---
Author Organization [facility] Address [address] [place] [address] Care Team Providers Care Medical Consultant Name Role Phone Carolee Harris MD Primary Care Provider Encounter Details Date Type Department Care Team (Latest Contact Info) Description 07/19/2020 Orders Only [facility] [place] [address] [place] [address] Shay Brown MD [address] [place] [address] Secondary hyperparathyroidism of renal origin [...] Diagnosis Comments HEMOGLOBIN Routine 07/30/2020 1:21 PM [employer] Anemia in chronic kidney disease Secondary hyperparathyroidism of renal origin (HCC) Chronic kidney disease, Stage IV (severe) (HCC) Hypertensive renal disease PTH, INTACT Routine 07/30/2020 1:21 PM [employer] Secondary hyperparathyroidism of renal origin (HCC) Chronic kidney disease, Stage IV (severe) (HCC) Hypertensive renal disease RENAL FUNCTION PANEL Routine 07/30/2020 1:21 PM [employer] Secondary hyperparathyroidism of renal origin (HCC) Chronic kidney disease, Stage IV (severe) (HCC) Hypertensive renal disease documented in this encounter Results * (ABNORMAL) PTH, Intact (07/30/2020 1:21 PM [employer]) Parathyroid Hormone, Intact 9.0(L) 14.0 - 72.0 pg/mL [facility] Blood (Blood, Venous) 07/30/2020 1:21 PM [employer] 07/30/2020 10:03 PM [employer] Narrative [facility] - 07/30/2020 10:27 PM [employer] RF IN JUN THEN POSSIBLY AT [place] IN JUL AND BEYOND. us Shay Brown MD LAB BLOOD ORDERABLES Final Resul t Performing Organization Address [facility] Co de Phone Number [address] [address] * (ABNORMAL) Hemoglobin (07/30/2020 1:21 PM [employer]) Hgb 9.6(L) 14.0 - 18.0 gm/dL [facility] Blood (Blood, Venous) 07/30/2020 1:21 PM [employer] 07/30/2020 9:34 PM [employer] Narrative [facility] - 07/30/2020 9:54 PM [employer] RF IN JUN THEN POSSIBLY AT [place] IN JUL AND BEYOND. us Shay Brown MD LAB BLOOD ORDERABLES Final Resul t Performing Organization Address City/[facility]/ZIP Co de Phone Number [facility] [address] [place] [address] * (ABNORMAL) Renal Function Panel (07/30/2020 1:21 PM [employer]) Sodium 138 136 - 145 mmol/L [facility] Potassium 4.3 3.5 - 5.1 mmol/L [facility] Chloride 106 98 - 112 mmol/L [facility] Carbon Dioxide (CO2) 22 21 - 32 mmol/L [facility] BUN 67(H) 7 - 24 mg/dL [facility] Creatinine 4.76(H) 0.70 - 1.30 mg/dL [facility] GFR EST NON 11(L) >60 mL/min [facility] eGFR 13(L) >60 mL/min [facility] Glucose 131(H) 74 - 106 mg/dL [facility] Calcium 10.6(H) 8.5 - 10.1 mg/dL [facility] Albumin 3.2(L) 3.4 - 5.0 g/dL [facility] Phosphorus 4.1 2.5 - 4.9 mg/dL [facility] Anion Gap 10.0 0.0 - 15.0 mmol/L [facility] Blood (Blood, Venous) 07/30/2020 1:21 PM [employer] 07/30/2020 10:56 PM [employer] Narrative [facility] - 07/30/2020 11:09 PM [employer] RF IN JUN THEN POSSIBLY AT [place] IN JUL AND BEYOND. [facility] HAS THE PATIENT FASTED?->NO us Shay Brown MD LAB BLOOD ORDERABLES Final Resul t [facility] [address] [place] [address] documented in this encounter Visit Diagnoses Diagnosis Secondary hyperparathyroidism of renal origin (HCC) Secondary hyperparathyroidism of renal origin Chronic kidney disease, Stage IV (severe) (HCC) Chronic kidney disease, Stage IV (severe) Hypertensive renal disease Anemia in chronic kidney disease documented in this encounter Care Teams Medical Consultant Relationship Specialty Start Date End Date Carolee Harris MD [address] [place] [address] PCP - General Family Medicine 09/16/21 documented as of this encounter
--- OUTSIDE RECORDS SUMMARY | 2024-09-22 20:14 | XMS_ITS | Encounter Summary ---
Author Organization [facility] [place] [place] Address [address] [place] [address] Care Team Providers Care Cloth Examiner Machine Name Role Phone Carolee Harris MD Primary Care Provider Encounter Details Date Type Department Care Team (Latest Contact Info) Description 01/03/2021 Orders Only [facility] [address] [place] [address] Shay Brown MD [address] [place] [address] Chronic kidney disease, Stage IV [...] (Protein/Creat Ratio) (01/15/2021 10:52 AM CDT) Pathologist [facility] Protein/Creati nine Ratio, Urine 2.74(H) <0.11 mg/mg creat [facility] Creatinine, Ur 54.0 mg/dL [facility] Protein, Ur 148(H) <12 mg/dL [facility] Urine (Urine, Clean Catch) 01/15/2021 10:52 AM CDT 01/15/2021 1:17 PM CDT Narrative [facility] - 01/15/2021 9:34 PM CDT NEXT THE END OF October us Shay Brown MD LAB URINE ORDERABLES Final Resul t [facility] [address] [place] [address] * PTH, Intact (01/15/2021 10:52 AM CDT) [facility] Parathyroid Hormone, Intact 66.0 14.0 - 72.0 pg/mL [facility] Blood (Blood, Venous) 01/15/2021 10:52 AM CDT 01/15/2021 1:16 PM CDT Narrative [facility] - 01/15/2021 2:46 PM CDT NEXT THE October us Shay Brown MD LAB BLOOD ORDERABLES Final Resul t Performing Organization Address [facility] de Phone Number [address] [address] * (ABNORMAL) Hemoglobin (01/15/2021 10:52 AM CDT) [facility] Hgb 10.0(L) 14.0 - 18.0 gm/dL [facility] Blood (Blood, Venous) 01/15/2021 10:52 AM CDT 01/15/2021 1:18 PM CDT Narrative [facility] 01/15/2021 1:31 PM CDT NEXT THE END October us Shay Brown MD LAB BLOOD ORDERABLES Final Resul t Performing Organization Address [facility] de Phone Number [address] [address] * (ABNORMAL) Renal Function Panel (01/15/2021 10:52 AM CDT) [facility] Sodium 138 136 - 145 mmol/L [facility] Potassium 4.4 3.5 - 5.1 mmol/L [facility] Chloride 110 98 - 112 mmol/L [facility] Carbon Dioxide (CO2) 21 21 - 32 mmol/L [facility] BUN 64(H) 7 - 24 mg/dL [facility] Creatinine 4.17(H) 0.70 - 1.30 mg/dL [facility] GFR EST NON 13(L) >60 mL/min [facility] eGFR 15(L) >60 mL/min [facility] Glucose 121(H) 74 - 106 mg/dL [facility] Calcium 9.1 8.5 - 10.1 mg/dL [facility] Albumin 2.9(L) 3.4 - 5.0 g/dL [facility] Phosphorus 3.8 2.5 - 4.9 mg/dL [facility] Anion Gap 7.0 0.0 - 15.0 mmol/L [facility] Blood (Blood, Venous) 01/15/2021 10:52 AM CDT 01/15/2021 1:23 PM CDT Narrative [facility] - 01/15/2021 2:43 PM CDT NEXT THE END OF October [facility] HAS THE PATIENT FASTED?->NO us Shay Brown MD LAB BLOOD ORDERABLES Final Resul t [facility] [address] [place] [address] documented in this encounter Visit Diagnoses Diagnosis Chronic kidney disease, Stage IV (severe) (HCC) Chronic kidney disease, Stage IV (severe) Anemia in chronic kidney disease Secondary hyperparathyroidism of renal origin (HCC) Secondary hyperparathyroidism of renal origin documented in this encounter Care Teams Cloth Examiner Machine Relationship Specialty Start Date End Date Carolee Harris MD [address] [place] [address] PCP - General Family Medicine 09/16/21 documented as of this encounter
--- OUTSIDE RECORDS SUMMARY | 2024-09-22 20:14 | XMS_ITS | Encounter Summary ---
Author Organization [facility] [place] Address [address] [place] [address] Care Team Providers Care Rewinder Operator Name Role Phone Carolee Harris MD Primary Care Provider [phone] Reason for Visit * Reason Comments Med Refill Encounter Details Date Type Department Care Team (Late st Contact Info) Description 06/10/2021 Refill [facility] [place] [address] [place] [address] Shay Brown MD [address] [place] [address] Social History Tobacco Use Types [...] on filedocumented in this encounter Care Teams Rewinder Operator Relationship Specialty Start Date End Date Carolee Harris MD [address] [place] [address] PCP - General Family Medicine 09/16/21 documented as of this encounter
--- OUTSIDE RECORDS SUMMARY | 2024-09-22 20:14 | XMS_ITS | Encounter Summary ---
Author Organization [facility] [place] Address [address] [place] [address] Care Team Providers Care Ethnoarchaeology Professor Name Role Phone Carolee Harris MD Primary Care Provider [phone] Encounter Details Date Type Department Care Team (Latest Contact Info) Description 08/02/2020 Orders Only [facility] [place] [address] [place] [address] Shya Brown MD [address] [place] [address] Anemia in chronic kidney disease; [...] CREATININE RATIO, URINE Routine 09/11/2020 11:25 AM KERFER MACHINE OPERATOR Anemia in chronic kidney disease Chronic kidney disease stage 4 (HCC) documented in this encounter Results * (ABNORMAL) Protein, Total, Random Urine w/Creatinine (Protein/Creat Ratio) (09/11/2020 11:25 AM KERFER MACHINE OPERATOR) Protein/Creati nine Ratio, Urine 3.13(H) <0.11 mg/mg creat [facility] Creatinine, Ur 77.1 mg/dL [facility] Protein, Ur 241(H) <12 mg/dL [facility] Urine (Urine, Clean Catch) 09/11/2020 11:25 AM KERFER MACHINE OPERATOR 09/11/2020 1:45 PM KERFER MACHINE OPERATOR Narrative [facility] 09/11/2020 2:26 PM KERFER MACHINE OPERATOR AT [facility] OR HERE AT [place]. AT [facility] OR AT [place]. us Shay Brown MD LAB URINE ORDERABLES Final Resul t [facility] [address] [place] [address] documented in this encounter Visit Diagnoses Diagnosis Anemia in chronic kidney disease Chronic kidney disease stage 4 (HCC) Secondary hyperparathyroidism of renal origin (HCC) Secondary hyperparathyroidism of renal origin documented in this encounter Care Teams Ethnoarchaeology Professor Relationship Specialty Start Date End Date Carolee Harris MD [address] [place] [address] PCP - General Family Medicine 09/16/21 documented as of this encounter
--- OUTSIDE RECORDS SUMMARY | 2024-09-22 20:14 | XMS_ITS | Continuity of Care Document ---
Author Organization [facility] Address [address] [address] [place] [address] Phone Care Team Providers Care Dish Stacker Name Role Phone Unavailable Unavailable Unavailable Allergies, [...] every day 1 tablet - Active Nulytely [place] 420 gram oral solution use as directed [...] Diagnoses Date Provider Providers Copied on Encounter [facility], [address] [address], [place], [place], [address], [place] tel:[phone] [facility] [place] No Information 1 No Information Referring Provider: Williams Celeste MD, [address] [facility] [address], [place], [address] . tel:[phone] [facility], [address] [address], [place], [place], [address], [place] tel:[phone] [facility] [place] Colorectal polypsDiverti culosis of colon without diverticuliti sHemorrhoids, internalBenig n neoplasm of rectumBenign neoplasm of descending colonBenign neoplasm of transverse colonOther hemorrhoids 1 Booker Kramer. [address] [facility] [address], [place], [place], [address], [place]. tel:[phone] Carolee Harris MD. tel:[phone] erring Provider: Paulino Garduno MD, [address] [facility] [address], [place], [address]. tel:[phone] [facility], [address] [address], [place], [place], [address], [place] tel:[phone] [facility] No Information 1 Ryan Mancilla. [address] [facility] [address], [place], [address], [place]. tel:[phone] Subsqt Hosp-da E&m Minr Compl [facility] Digestive [facility], [address] [address], [place], [place], [address], [place] tel:[phone] [facility] No Information 0 5 8 Ary Canaday. [address] [facility] [address], [place], [address], [place]. tel:[phone] Referring Provider: Theodore Mace MD, [address], [place], [address]. tel:[phone] [facility], [address] [address], [place], [place], [address], [place] tel:[phone] [facility] No Information 0 3 8 Ishan Major. [address] [facility] [address], [place], [address], [place]. [phone] Referring Provider: Theodore Mace MD, [address], [place], [address]. tel:[phone] Init Hosp-da E&m Mod Severity [facility], [address] [address], [place], [place], [address], [place] tel:[phone] [facility] No Information 8 Charles Montero. [address] [facility] [address], [place], [address], [place]. tel:[phone] Referring Provider: Theodore Mace MD, [address], [place], [address]. tel:[phone] Family History Family Member Type Diagnosis Age [...] Registry Payers Payer name Insurance type Covered libertarian ID Authorcesar peña(s) Medicare NGS MB [id number] [facility] Medicare Supplement BL [id number] Social History Type Description Quantity Date Captured [...]
--- OUTSIDE RECORDS SUMMARY | 2024-09-22 20:14 | XMS_ITS | Encounter Summary ---
Author Organization [facility] [place] Address [address] [place] [address] Care Team Providers Care Fashion Journalist Name Role Phone Carolee Harris MD Primary Care Provider [phone] Encounter Details Date Type Department Care Team (Latest Contact Info) Description 12/06/2020 Orders Only [facility] [place] [address] [place] [address] Shay Brown MD [address] [place] [address] Chronic kidney disease, Stage IV [...] (Protein/Creat Ratio) (12/11/2020 11:01 AM CDT) Pathologist [facility] Protein/Creati nine Ratio, Urine 2.61(H) <0.11 mg/mg creat [facility] Creatinine, Ur 74.7 mg/dL [facility] Protein, Ur 195(H) <12 mg/dL [facility] Urine (Urine, Clean Catch) 12/11/2020 11:01 AM CDT 12/11/2020 10:03 PM CDT Narrative [facility] - 12/11/2020 10:33 PM CDT NEXT THE END OF October us Shay Brown MD LAB URINE ORDERABLES Final Resul t [facility] [address] [place] [address] * PTH, Intact (12/11/2020 11:01 AM CDT) Pathologist [facility] Parathyroid Hormone, Intact 69.0 14.0 - 72.0 pg/mL [facility] Blood (Blood, Venous) 12/11/2020 11:01 AM CDT 12/11/2020 10:50 PM CDT Narrative [facility] - 12/11/2020 11:11 PM CDT NEXT THE END October us Shay Brown MD LAB BLOOD ORDERABLES Final Resul t Performing Organization Address City/[facility] Co de Phone Number [address] [address] * (ABNORMAL) Hemoglobin (12/11/2020 11:01 AM CDT) [facility] Hgb 9.3(L) 14.0 - 18.0 gm/dL [facility] Blood (Blood, Venous) 12/11/2020 11:01 AM CDT 12/11/2020 10:02 PM CDT Narrative [facility] - 12/11/2020 10:19 PM CDT NEXT THE END October us Shay Brown MD LAB BLOOD ORDERABLES Final Resul t Performing Organization Address [facility] de Phone Number [address] [address] * (ABNORMAL) Renal Function Panel (12/11/2020 11:01 AM CDT) [facility] Sodium 140 136 - 145 mmol/L [facility] Potassium 4.4 3.5 - 5.1 mmol/L [facility] Chloride 111 98 - 112 mmol/L [facility] Carbon Dioxide (CO2) 19(L) 21 - 32 mmol/L [facility] BUN 59(H) 7 - 24 mg/dL [facility] Creatinine 3.93(H) 0.70 - 1.30 mg/dL [facility] GFR EST NON 14(L) >60 mL/min [facility] eGFR 16(L) >60 mL/min [facility] Glucose 112(H) 74 - 106 mg/dL [facility] Calcium 8.8 8.5 - 10.1 mg/dL [facility] Albumin 2.7(L) 3.4 - 5.0 g/dL [facility] Phosphorus 3.6 2.5 - 4.9 mg/dL [facility] Anion Gap 10.0 0.0 - 15.0 mmol/L [facility] Blood (Blood, Venous) 12/11/2020 11:01 AM CDT 12/11/2020 10:24 PM CDT Narrative [facility] - 12/11/2020 11:06 PM CDT NEXT THE END OF October [facility] HAS THE PATIENT FASTED?->NO us Shay Brown MD LAB BLOOD ORDERABLES Final Resul t [facility] [address] [place] [address] documented in this encounter Visit Diagnoses Diagnosis Chronic kidney disease, Stage IV (severe) (HCC) Chronic kidney disease, Stage IV (severe) Anemia in chronic kidney disease Secondary hyperparathyroidism of renal origin (HCC) Secondary hyperparathyroidism of renal origin documented in this encounter Care Teams Fashion Journalist Relationship Specialty Start Date End Date Carolee Harris MD [address] [place] [address] PCP - General Family Medicine 09/16/21 documented as of this encounter
--- OUTSIDE RECORDS SUMMARY | 2024-09-22 20:14 | XMS_ITS | Encounter Summary ---
Author Organization [facility] [place] Address [address] [place] [address] Care Team Providers Care Office Machine Technician Name Role Phone Carolee Harris MD Primary Care Provider [phone] Encounter Details Date Type Department Care Team (Latest Contact Info) Description 06/21/2020 Orders Only [facility] [address] [place] [address] Shay Brown MD [address] [place] [address] Secondary hyperparathyroidism of renal origin [...] Diagnosis Comments HEMOGLOBIN Routine 06/26/2020 11:36 AM MEMORIAL MARKER DESIGNER Anemia in chronic kidney disease Secondary hyperparathyroidism of renal origin (HCC) Chronic kidney disease, Stage IV (severe) (HCC) Hypertensive renal disease PTH, INTACT Routine 06/26/2020 11:36 AM MEMORIAL MARKER DESIGNER Secondary hyperparathyroidism of renal origin (HCC) Chronic kidney disease, Stage IV (severe) (HCC) Hypertensive renal disease RENAL FUNCTION PANEL Routine 06/26/2020 11:36 AM MEMORIAL MARKER DESIGNER Secondary hyperparathyroidism of renal origin (HCC) Chronic kidney disease, Stage IV (severe) (HCC) Hypertensive renal disease documented in this encounter Results * (ABNORMAL) PTH, Intact (06/26/2020 11:36 AM MEMORIAL MARKER DESIGNER) Parathyroid Hormone, Intact 76.0(H) 14.0 - 72.0 pg/mL [facility] [place] Blood (Blood, Venous) 06/26/2020 11:36 AM MEMORIAL MARKER DESIGNER 06/26/2020 9:31 PM MEMORIAL MARKER DESIGNER Narrative [facility] - 06/26/2020 9:51 PM MEMORIAL MARKER DESIGNER RF IN JUN THEN POSSIBLY AT [place] IN JUL AND BEYOND. us Shay Brown MD LAB BLOOD ORDERABLES Final Resul t Performing Organization Address City/[facility] Co de Phone Number [address] [address] * (ABNORMAL) Hemoglobin (06/26/2020 11:36 AM MEMORIAL MARKER DESIGNER) Hgb 9.8(L) 14.0 - 18.0 gm/dL [facility] [place] Blood (Blood, Venous) 06/26/2020 11:36 AM MEMORIAL MARKER DESIGNER 06/26/2020 9:26 PM MEMORIAL MARKER DESIGNER Narrative [facility] - 06/26/2020 9:33 PM MEMORIAL MARKER DESIGNER RF IN JUN THEN POSSIBLY AT [place] IN JUL AND BEYOND. us Shay Brown MD LAB BLOOD ORDERABLES Final Resul t Performing Organization Address City/[facility]/ZIP Co de Phone Number [facility] [address] [place] [address] * (ABNORMAL) Renal Function Panel (06/26/2020 11:36 AM MEMORIAL MARKER DESIGNER) Sodium 140 136 - 145 mmol/L [facility] [place] Potassium 3.7 3.5 - 5.1 mmol/L [facility] [place] Chloride 106 98 - 112 mmol/L [facility] [place] Carbon Dioxide (CO2) 27 21 - 32 mmol/L [facility] [place] BUN 79(H) 7 - 24 mg/dL [facility] [place] Creatinine 5.16(H) 0.70 - 1.30 mg/dL [facility] [place] GFR EST NON 10(L) >60 mL/min [facility] [place] eGFR 11(L) >60 mL/min [facility] [place] Glucose 189(H) 74 - 106 mg/dL [facility] [place] Calcium 8.6 8.5 - 10.1 mg/dL [facility] [place] Albumin 3.0(L) 3.4 - 5.0 g/dL [facility] [place] Phosphorus 4.8 2.5 - 4.9 mg/dL [facility] [place] Anion Gap 7.0 0.0 - 15.0 mmol/L [facility] [place] Blood (Blood, Venous) 06/26/2020 11:36 AM MEMORIAL MARKER DESIGNER 06/26/2020 9:17 PM MEMORIAL MARKER DESIGNER Narrative [facility] - 06/26/2020 9:44 PM MEMORIAL MARKER DESIGNER RF IN JUN THEN POSSIBLY AT [place] IN JUL AND BEYOND. [facility] HAS THE PATIENT FASTED?->NO us Shay Brown MD LAB BLOOD ORDERABLES Final Resul t [facility] [address] [place] [address] documented in this encounter Visit Diagnoses Diagnosis Secondary hyperparathyroidism of renal origin (HCC) Secondary hyperparathyroidism of renal origin Chronic kidney disease, Stage IV (severe) (HCC) Chronic kidney disease, Stage IV (severe) Hypertensive renal disease Anemia in chronic kidney disease documented in this encounter Care Teams Office Machine Technician Relationship Specialty Start Date End Date Carolee Harris MD [address] [place] [address] PCP - General Family Medicine 09/16/21 documented as of this encounter
--- OUTSIDE RECORDS SUMMARY | 2024-09-22 20:14 | XMS_ITS | Encounter Summary ---
Author Organization [facility] [place] Address [address] [place] [address] Care Team Providers Care Professor Of Pathology Name Role Phone Carolee Harris MD Primary Care Provider [phone] Encounter Details Date Type Department Care Team (Late st Contact Info) Description 07/02/2020 Orders Only [facility] [place] [address] [place] [address] Whitney Luis, RN [address] [place] [address] Chronic kidney disease, Stage IV [...] BASIC METABOLIC PANEL Routine 07/03/2020 10:45 AM OSTOMY RN Chronic kidney disease, Stage IV (severe) (HCC) documented in this encounter Results * (ABNORMAL) Basic Metabolic Panel (07/03/2020 10:45 AM OSTOMY RN) Sodium 144 136 - 145 mmol/L [facility] Potassium 3.8 3.5 - 5.1 mmol/L [facility] Chloride 111 98 - 112 mmol/L [facility] Carbon Dioxide (CO2) 22 21 - 32 mmol/L [facility] BUN 62(H) 7 - 24 mg/dL [facility] Creatinine 4.29(H) 0.70 - 1.30 mg/dL [facility] GFR EST NON 12(L) >60 mL/min [facility] eGFR 14(L) >60 mL/min [facility] Glucose 158(H) 74 - 106 mg/dL [facility] Calcium 9.2 8.5 - 10.1 mg/dL [facility] Anion Gap 11.0 0.0 - 15.0 mmol/L [facility] Blood (Blood, Venous) 07/03/2020 10:45 AM OSTOMY RN 07/03/2020 3:04 PM OSTOMY RN Narrative [facility] - 07/03/2020 5:47 PM OSTOMY RN FASTING?->NO us Shay Brown MD LAB BLOOD ORDERABLES Final Resul t [facility] [address] [place] [address] documented in this encounter Visit Diagnoses Diagnosis Chronic kidney disease, Stage IV (severe) (HCC) Chronic kidney disease, Stage IV (severe) documented in this encounter Care Teams Professor Of Pathology Relationship Specialty Start Date End Date Carolee Harris MD [address] [place] [address] PCP - General Family Medicine 09/16/21 documented as of this encounter
--- OUTSIDE RECORDS SUMMARY | 2024-09-22 20:14 | XMS_ITS | Encounter Summary ---
Author Organization [facility] [place] [place] Address [address] [place] [address] Care Team Providers Care Examination Scorer Name Role Phone Carolee Harris MD Primary Care Provider [phone] Encounter Details Date Type Department Care Team (Latest Contact Info) Description 09/25/2020 Orders Only [facility] [address] [place] [address] Whitney Luis, RN [address] [place] [address] Chronic kidney disease, Stage IV [...] Diagnosis Comments HEMOGLOBIN Routine 10/11/2020 11:10 AM BORING MACHINE OPERATOR HORIZONTAL Chronic kidney disease, Stage IV (severe) (HCC) Anemia in chronic kidney disease PTH, INTACT Routine 10/11/2020 11:10 AM BORING MACHINE OPERATOR HORIZONTAL Chronic kidney disease, Stage IV (severe) (HCC) Secondary hyperparathyroidism of renal origin (HCC) RENAL FUNCTION PANEL Routine 10/11/2020 11:09 AM BORING MACHINE OPERATOR HORIZONTAL Chronic kidney disease, Stage IV (severe) (HCC) documented in this encounter Results * (ABNORMAL) Hemoglobin (10/11/2020 11:10 AM BORING MACHINE OPERATOR HORIZONTAL) Pathologist [facility] Hgb 10.0(L) 14.0 - 18.0 gm/dL [facility] Blood (Blood, Venous) 10/11/2020 11:10 AM BORING MACHINE OPERATOR HORIZONTAL 10/11/2020 3:21 PM BORING MACHINE OPERATOR HORIZONTAL Narrative [facility] - 10/11/2020 3:34 PM BORING MACHINE OPERATOR HORIZONTAL AT [facility] us Shay Brown MD LAB BLOOD ORDERABLES Final Resul t Performing Organization Address City/[facility] [place] [address] * (ABNORMAL) PTH, Intact (10/11/2020 11:10 AM BORING MACHINE OPERATOR HORIZONTAL) [facility] Parathyroid Hormone, Intact 83.0(H) 14.0 - 72.0 pg/mL [facility] Blood (Blood, Venous) 10/11/2020 11:10 AM BORING MACHINE OPERATOR HORIZONTAL 10/11/2020 2:54 PM BORING MACHINE OPERATOR HORIZONTAL Narrative [facility] - 10/11/2020 3:17 PM BORING MACHINE OPERATOR HORIZONTAL AT [facility] us Shay Brown MD LAB BLOOD ORDERABLES Final Resul t Performing Organization Address City/[facility]/ZIP Co de Phone Number [facility] [address] [place] [phone] * (ABNORMAL) Renal Function Panel (10/11/2020 11:09 AM BORING MACHINE OPERATOR HORIZONTAL) Sodium 141 136 - 145 mmol/L [facility] Potassium 4.0 3.5 - 5.1 mmol/L [facility] Chloride 108 98 - 112 mmol/L [facility] Carbon Dioxide (CO2) 23 21 - 32 mmol/L [facility] BUN 51(H) 7 - 24 mg/dL [facility] Creatinine 3.95(H) 0.70 - 1.30 mg/dL [facility] GFR EST NON 14(L) >60 mL/min [facility] eGFR 16(L) >60 mL/min [facility] Glucose 138(H) 74 - 106 mg/dL [facility] Calcium 9.1 8.5 - 10.1 mg/dL [facility] Albumin 3.0(L) 3.4 - 5.0 g/dL [facility] Phosphorus 3.4 2.5 - 4.9 mg/dL [facility] Anion Gap 10.0 0.0 - 15.0 mmol/L [facility] Blood (Blood, Venous) 10/11/2020 11:09 AM BORING MACHINE OPERATOR HORIZONTAL 10/11/2020 2:41 PM BORING MACHINE OPERATOR HORIZONTAL Narrative [facility] - 10/11/2020 4:19 PM BORING MACHINE OPERATOR HORIZONTAL AT [facility] AT [facility] HAS THE PATIENT FASTED?->NO us Shay Brown MD LAB BLOOD ORDERABLES Final Resul t [facility] [address] [place] [address] documented in this encounter Visit Diagnoses Diagnosis Chronic kidney disease, Stage IV (severe) (HCC) Chronic kidney disease, Stage IV (severe) Secondary hyperparathyroidism of renal origin (HCC) Secondary hyperparathyroidism of renal origin Anemia in chronic kidney disease documented in this encounter Care Teams Examination Scorer Relationship Specialty Start Date End Date Carolee Harris MD [address] [place] [address] PCP - General Family Medicine 09/16/21 documented as of this encounter
--- OUTSIDE RECORDS SUMMARY | 2024-09-22 20:14 | XMS_ITS | Encounter Summary ---
Author Organization [facility] [place] Address [address] [place] [address] Care Team Providers Care Security Services Manager Name Role Phone Carolee Harris MD Primary Care Provider [phone] Encounter Details Date Type Department Care Team (Latest Contact Info) Description 08/16/2020 Orders Only [facility] [place] [address] [place] [address] Shay Brown MD [address] [place] [address] Secondary hyperparathyroidism of renal origin [...] Diagnosis Comments HEMOGLOBIN Routine 09/11/2020 11:25 AM WOODEN FRAME BUILDER Anemia in chronic kidney disease Secondary hyperparathyroidism of renal origin (HCC) Chronic kidney disease, Stage IV (severe) (HCC) Hypertensive renal disease PTH, INTACT Routine 09/11/2020 11:25 AM WOODEN FRAME BUILDER Secondary hyperparathyroidism of renal origin (HCC) Chronic kidney disease, Stage IV (severe) (HCC) Hypertensive renal disease RENAL FUNCTION PANEL Routine 09/11/2020 11:25 AM WOODEN FRAME BUILDER Secondary hyperparathyroidism of renal origin (HCC) Chronic kidney disease, Stage IV (severe) (HCC) Hypertensive renal disease documented in this encounter Results * (ABNORMAL) PTH, Intact (09/11/2020 11:25 AM WOODEN FRAME BUILDER) Pathologist [facility] Parathyroid Hormone, Intact 73.0(H) 14.0 - 72.0 pg/mL [facility] Blood (Blood, Venous) 09/11/2020 11:25 AM WOODEN FRAME BUILDER 09/11/2020 1:40 PM WOODEN FRAME BUILDER Narrative [facility] - 09/11/2020 1:59 PM WOODEN FRAME BUILDER AT [facility] OR HERE AT [place]. AT [facility] OR AT [place]. us Shay Brown MD LAB BLOOD ORDERABLES Final Resul t [facility] [address] [place] [address] * (ABNORMAL) Hemoglobin (09/11/2020 11:25 AM WOODEN FRAME BUILDER) Pathologist [facility] Hgb 9.8(L) 14.0 - 18.0 gm/dL [facility] Blood (Blood, Venous) 09/11/2020 11:25 AM WOODEN FRAME BUILDER 09/11/2020 1:44 PM WOODEN FRAME BUILDER Narrative [facility] - 09/11/2020 1:59 PM WOODEN FRAME BUILDER AT [facility] OR HERE AT [place]. AT [facility] OR AT [place] Shay Brown MD LAB BLOOD ORDERABLES Final Resul t [facility] [address] [place] [address] * (ABNORMAL) Renal Function Panel (09/11/2020 11:25 AM WOODEN FRAME BUILDER) [facility] Sodium 140 136 - 145 mmol/L [facility] Potassium 4.3 3.5 - 5.1 mmol/L [facility] Chloride 112 98 - 112 mmol/L [facility] Carbon Dioxide (CO2) 21 21 - 32 mmol/L [facility] BUN 59(H) 7 - 24 mg/dL [facility] Creatinine 4.33(H) 0.70 - 1.30 mg/dL [facility] GFR EST NON 12(L) >60 mL/min [facility] eGFR 14(L) >60 mL/min [facility] Glucose 133(H) 74 - 106 mg/dL [facility] Calcium 9.2 8.5 - 10.1 mg/dL [facility] Albumin 3.1(L) 3.4 - 5.0 g/dL [facility] Phosphorus 3.1 2.5 - 4.9 mg/dL [facility] Anion Gap 7.0 0.0 - 15.0 mmol/L [facility] Blood (Blood, Venous) 09/11/2020 11:25 AM WOODEN FRAME BUILDER 09/11/2020 1:42 PM WOODEN FRAME BUILDER Narrative [facility] - 09/11/2020 1:53 PM WOODEN FRAME BUILDER AT [facility] OR HERE AT [place]. AT [facility] OR AT [place] HAS THE PATIENT FASTED?->NO Shay Brown MD LAB BLOOD ORDERABLES Final Resul t [facility] [address] [place] [address] documented in this encounter Visit Diagnoses Diagnosis Secondary hyperparathyroidism of renal origin (HCC) Secondary hyperparathyroidism of renal origin Chronic kidney disease, Stage IV (severe) (HCC) Chronic kidney disease, Stage IV (severe) Hypertensive renal disease Anemia in chronic kidney disease documented in this encounter Care Teams Security Services Manager Relationship Specialty Start Date End Date Carolee Harris MD [address] [place] [address] PCP - General Family Medicine 09/16/21 documented as of this encounter
--- NOTE | 2024-09-22 20:37 | ED.GENADULT ---
HPI - General Adult General Date Seen: 09/22/24 Chief complaint: Unspecified Complaint, Adult Stated complaint: port on left arm bleeding Time Seen by Provider: 09/22/24 20:28 History of Present Illness HPI narrative: 79-year-old male presents to the ER today with bleeding from a dialysis shunt on his left arm. He had dialysis today and it was bandaged his dialysis clinic. Related Data Previous Rx's ?Medication ?Instructions ?Recorded metoprolol succinate 25 mg 25 mg PO DAILY #30 tabs 09/13/24 tablet,extended release 24 hr oseltamivir 30 mg capsule (Tamiflu) 30 mg PO DAILY 5 days #5 caps 09/13/24 Allergies Allergy/AdvReac Type Severity Reaction Status Date / Time prednisone AdvReac Mild Verified 09/12/24 20:12 PFSH PFS Social History Smoking Status: Never smoker How often do you have a drink containing alcohol: never AUDIT-C Alcohol total score: 0 Non-prescribed substance use: denies use Exam Const: Vital Signs, click to edit/add: Vital Signs - 24 hr 09/22/24 20:12 Temperature 97.4 F L Pulse Rate [Left P ulse Oximeter] 91 Respiratory Rate 18 Blood Pressure [Ri ght Upper Arm] 132/71 Pulse Oximetry 96 Oxygen Delivery Me thod Room Air Course Vital Signs Vital signs: Initial Vital Signs Temperature 97.4 F L 09/22/24 20:12 Temperature Source Temporal Artery Scan 09/22/24 20:12 Pulse Rate 91 09/22/24 20:12 Pulse Rhythm Regular 09/22/24 20:12 Respiratory Rate 18 09/22/24 20:12 Blood Pressure 132/71 09/22/24 20:12 Blood Pressure Mean 91 09/22/24 20:12 Blood Pressure Position Sitting 09/22/24 20:12 Pulse Oximetry 96 09/22/24 20:12 Oxygen Delivery Method Room Air 09/22/24 20:12 Vital Signs Temperature 97.4 F L 09/22/24 20:12 Pulse Rate 91 09/22/24 20:12 Respiratory Rate 18 09/22/24 20:12 Blood Pressure 132/71 09/22/24 20:12 Pulse Oximetry 96 09/22/24 20:12 Oxygen Delivery Method Room Air 09/22/24 20:12 Temperature 97.4 F L 09/22/24 20:12 Pulse Rate 91 09/22/24 20:12 Respiratory Rate 18 09/22/24 20:12 Blood Pressure 132/71 09/22/24 20:12 Pulse Oximetry 96 09/22/24 20:12 Oxygen Delivery Method Room Air 09/22/24 20:12 Discharge Plan Discharge Prescriptions: No Action oseltamivir [Tamiflu] 30 mg capsule 30 mg PO DAILY 5 Days Qty: 5 0RF metoprolol succinate 25 mg tablet extended release 24 hr 25 mg PO DAILY Qty: 30 0RF Follow Up/Referrals: Provider,Not a Local [Primary Care Provider] -
--- NOTE | 2024-09-22 20:53 | ED.GENADULT ---
HPI - General Adult General Date Seen: 09/22/24 Chief complaint: Unspecified Complaint, Adult Stated complaint: port on left arm bleeding Time Seen by Provider: 09/22/24 20:28 Source: patient History of Present Illness HPI narrative: Patient is an 79-year-old male with end-stage renal disease on dialysis. He has a shunt in his left arm and has been having problems with bleeding from the shunt. He had a recent stenting of the shunt and has a surgery scheduled for Wednesday. Had dialysis today. He says that they were able to control a couple of the sites but 1 of them still seems to be oozing. He is anticoagulated, INR was checked recently was 2.5. Related Data Previous Rx's ?Medication ?Instructions ?Recorded metoprolol succinate 25 mg 25 mg PO DAILY #30 tabs 09/13/24 tablet,extended release 24 hr oseltamivir 30 mg capsule (Tamiflu) 30 mg PO DAILY 5 days #5 caps 09/13/24 Allergies Allergy/AdvReac Type Severity Reaction Status Date / Time prednisone AdvReac Mild Verified 09/12/24 20:12 PFSH PFS Social History Smoking Status: Never smoker How often do you have a drink containing alcohol: never AUDIT-C Alcohol total score: 0 Non-prescribed substance use: denies use Exam Narrative: Exam Narrative: Vital signs reviewed. Normotensive. In general, alert, well-appearing elderly male. Extremities: Evaluation of the left arm shows for recent puncture sites. The top two have Gelfoam in place and are hemostatic. The most distal he said had a suture removed recently and is currently hemostatic. The 3rd of the four has minor bleeding with blood soaked gauze pads in place. Const: Vital Signs, click to edit/add: Vital Signs - 24 hr 09/22/24 20:12 Temperature 97.4 F L Pulse Rate [Left P ulse Oximeter] 91 Respiratory Rate 18 Blood Pressure [Ri ght Upper Arm] 132/71 Pulse Oximetry 96 Oxygen Delivery Me thod Room Air Course Course ED Course: I applied pressure with an alcohol pad for about 10 minutes. This created enough hemostasis that I was able to apply a layer of Dermabond. No further bleeding at this time. We have put a dressing over the top of Kerlix and tape. I asked them to alberto the tape so that he can easily remove this if he notices recurrent bleeding. We discussed that if he has bleeding he should apply pressure with a single finger over the area of bleeding for 15-20 minutes. If it does not resolve with this therapy then he should come back to the ER. His son is here with him, they are comfortable with this plan and comfortable with discharge home. Vital Signs Vital signs: Initial Vital Signs Temperature 97.4 F L 09/22/24 20:12 Temperature Source Temporal Artery Scan 09/22/24 20:12 Pulse Rate 91 09/22/24 20:12 Pulse Rhythm Regular 09/22/24 20:12 Respiratory Rate 18 09/22/24 20:12 Blood Pressure 132/71 09/22/24 20:12 Blood Pressure Mean 91 09/22/24 20:12 Blood Pressure Position Sitting 09/22/24 20:12 Pulse Oximetry 96 09/22/24 20:12 Oxygen Delivery Method Room Air 09/22/24 20:12 Vital Signs Temperature 97.4 F L 09/22/24 20:12 Pulse Rate 91 09/22/24 20:12 Respiratory Rate 18 09/22/24 20:12 Blood Pressure 132/71 09/22/24 20:12 Pulse Oximetry 96 09/22/24 20:12 Oxygen Delivery Method Room Air 09/22/24 20:12 Temperature 97.4 F L 09/22/24 20:12 Pulse Rate 91 09/22/24 20:12 Respiratory Rate 18 09/22/24 20:12 Blood Pressure 132/71 09/22/24 20:12 Pulse Oximetry 96 09/22/24 20:12 Oxygen Delivery Method Room Air 09/22/24 20:12 Discharge Plan Discharge Clinical Impression: Bleeding from dialysis shunt Patient Disposition: Home, Self-Care Condition: Improved Additional Instructions: For now, we have all of those bleeding areas under control. Assuming you do not notice any new bleeding, just leave the dressing in place until you are seen on Wednesday. If you notice bleeding, removed the dressing and identify the spot of bleeding. You can apply pressure with a finger on that spot for 15-20 minutes. If it does not stop bleeding, return to the ER. Prescriptions: No Action oseltamivir [Tamiflu] 30 mg capsule 30 mg PO DAILY 5 Days Qty: 5 0RF metoprolol succinate 25 mg tablet extended release 24 hr 25 mg PO DAILY Qty: 30 0RF Follow Up/Referrals: Provider,Not a Local [Primary Care Provider] - Stand Alone Forms: [employer] Info Instructions
== END 2024-09-22 21:15 | disposition home or self-care (01) ==
LOC: ED 21:04
PROVIDERS: Emergency Provider Emergency Medicine
DX: T82.838A Hemorrhage due to vascular prosthetic devices, implants and grafts, initial encounter (principal)
CPT/HCPCS: 99283; 99284

== ENCOUNTER 2024-09-25 16:33 | Emergency (ER) | payer MEDICARE, BC, SELFPAY ==
[2024-09-25 17:03] VITALS: BP 101/60; PULSE 98; RESP 16; TEMP 36.9; O2SAT 99; BMI 22.5
--- NOTE | 2024-09-25 17:45 | ED_ITS ---
HPI - General Adult General Date Seen: 09/25/24 Chief complaint: Unspecified Complaint, Adult Stated complaint: INR 13.5 Time Seen by Provider: 09/25/24 17:39 History of Present Illness HPI narrative: 79-year-old gentleman with a history of renal failure, on dialysis with a left upper extremity dialysis shunt. He is also on warfarin for... He was seen in the ER here on 09/22, last Wednesday for bleeding from his fistula. Bleeding was controlled with application of Dermabond. Records indicate that his INR had recently been 2.5. I see the was also seen here in the ER about 2 weeks ago on 09/12. That note indicates that his INR had been 2.5 but had been ?up and down. ? Looks like he was diagnosed with influenza. Also had her AFib with RVR and pleural effusion. Medications reviewed during that visit on 09/12 include Carvedilol 3.125 mg twice daily Omeprazole 40 mg daily Allopurinol 150 mg daily Vitamin D3 50 mcg daily Lovastatin 20 mg every evening Torsemide 40 mg b.i.d. Levothyroxine 75 mcg once daily before eating Warfarin 6 mg daily Wednesday through Wednesday Sevelamer carbonate 800 mg t.i.d. with meal RenalPlex 1 tab daily Workup showed WC BC of 8.49, hemoglobin 11.2, platelet count 216 INR 2.67 Sodium 133, potassium 5.2, chloride 96, bicarb 22, anion gap 15, BUN 37, eatinine 5.9 Troponin 0.12, N terminal pro BNP 89,002 on Per records from [facility] he has a history of Hypertension Paroxysmal AFib Pulmonary hypertension Hypercholesterolemia Gout Renal hyperparathyroidism Duodenal ulcer BPH History of anemia Polymyalgia rheumatica Chronic renal failure with dialysis Today he was going for a previously scheduled follow-up with his vascular surgeon (a provider through [facility] in [place], [place]. He had a checkup this morning. He had a fistulogram that showed some problems with the fistula in his left upper extremity. His surgeon told them that they can not currently use that fistula and then a requires a surgical revision. The plan is for the patient to have a temporary dialysis catheter placed (possibly in the right IJ? ) On Wednesday. However in clinic this morning his INR was too high. He was told to go to his hospital to get it rechecked. He went to the lab in [facility] this afternoon. He had his labs redrawn. He was called by the lab and [place] and told his INR was 13.5. His vascular surgeon or someone from his clinic told him to go to the ER to get his INR reversed in anticipation of needing a dialysis catheter placement on Wednesday. He has not had any other unusual bleeding or bruising. No bleeding gums. No hematuria. No black or bloody stools. He had dressings placed on his fistula at the vascular surgery center today after his fistulogram and he has not had any bleeding from them. He is not having any other unusual weakness INR today through [facility] is 13.4. Related Data Home Medications ?Medication ?Instructions ?Recorded ?Confirmed allopurinol 300 mg tablet 150 mg PO DAILY 09/25/24 09/25/24 carvedilol 6.25 mg tablet 6.25 mg PO BID 09/25/24 09/25/24 levothyroxine 75 mcg tablet 75 mcg PO QAM 09/25/24 09/25/24 levothyroxine 88 mcg tablet 88 mcg PO QAM 09/25/24 09/25/24 lovastatin 20 mg tablet 20 mg PO QPM 09/25/24 09/25/24 omeprazole 40 mg capsule,delayed 40 mg PO DAILY 09/25/24 09/25/24 release sevelamer carbonate 800 mg tablet 1,600 mg PO 3XD 09/25/24 09/25/24 torsemide 20 mg tablet 40 mg PO BID 09/25/24 09/25/24 warfarin 2 mg tablet mg 09/25/24 Previous Rx's ?Medication ?Instructions ?Recorded metoprolol succinate 25 mg 25 mg PO DAILY #30 tabs 09/13/24 tablet,extended release 24 hr Allergies Allergy/AdvReac Type Severity Reaction Status Date / Time pseudoephedrine (From Allergy Mild urinary Verified 09/25/24 17:15 Sudafed) retention prednisone AdvReac Mild Verified 09/25/24 17:15 [facility] Social History Smoking Status: Never smoker How often do you have a drink containing alcohol: never AUDIT-C Alcohol total score: 0 Non-prescribed substance use: denies use Exam Const: Vital Signs, click to edit/add: Vital Signs - 24 hr 09/25/24 17:03 Temperature 98.4 F Pulse Rate [Pulse Oximeter] 98 Respiratory Rate 16 Blood Pressure [Ri ght Upper Arm] 101/60 Pulse Oximetry 99 Oxygen Delivery Me thod Room Air Course Vital Signs Vital signs: Initial Vital Signs Temperature 98.4 F 09/25/24 17:03 Temperature Source Temporal Artery Scan 09/25/24 17:03 Pulse Rate 98 09/25/24 17:03 Respiratory Rate 16 09/25/24 17:03 Blood Pressure 101/60 09/25/24 17:03 Blood Pressure Mean 73 09/25/24 17:03 Blood Pressure Position Sitting 09/25/24 17:03 Pulse Oximetry 99 09/25/24 17:03 Oxygen Delivery Method Room Air 09/25/24 17:03 Vital Signs Temperature 98.4 F 09/25/24 17:03 Pulse Rate 98 09/25/24 17:03 Respiratory Rate 16 09/25/24 17:03 Blood Pressure 101/60 09/25/24 17:03 Pulse Oximetry 99 09/25/24 17:03 Oxygen Delivery Method Room Air 09/25/24 17:03 Temperature 98.4 F 09/25/24 17:03 Pulse Rate 98 09/25/24 17:03 Respiratory Rate 16 09/25/24 17:03 Blood Pressure 101/60 09/25/24 17:03 Pulse Oximetry 99 09/25/24 17:03 Oxygen Delivery Method Room Air 09/25/24 17:03 Medications Administered Medications: Discontinued Medications Generic Name Dose Route Start Last Admin Trade Name Freq PRN Reason Stop Dose Admin Phytonadione 5 mg 09/25/24 18:18 09/25/24 19:09 Phytonadione Oral Soln 10 Mg/Ml PO 09/25/24 18:19 5 mg ONCE ONE Administration Medical Decision Making MDM Narrative Medical decision making narrative: Very pleasant 79-year-old gentleman on warfarin for stroke prophylaxis with atrial fibrillation. He also has a history of end-stage renal disease on dialysis with a left upper extremity dialysis fistula. He is sent to the ER today after he had outpatient lab draw showing elevated INR. It sounds like he has been having trouble with his left upper extremity fistula for the past few weeks. He went to his vascular surgery Clinic ([facility] in [place]. He saw the surgeons this morning and had a fistulogram. He says his surgeon stole him that he should not use the fistula anymore. The surgeons were planning to put in a temporary dialysis catheter and then perform a surgical revision to the fistula with an ultimate goal of being able to reuse the fistula after the revision surgery. Unfortunately his INR was found to be supratherapeutic in clinic. He was sent to the laboratory in [place] to have labs redrawn to confirm the supratherapeutic level. INR was 13.4 and so he was sent by the lab and [place] to the ER. He is not having any unusual bleeding or bruising today. He had been seen here in this ER 4 days ago because of bleeding from his dialysis fistula puncture site. He has not had any bleeding since then and also the puncture sites from his fistulogram this morning are not bleeding. According to ACC P and MIO guidelines, treatment for supratherapeutic INR greater than 10 without bleeding would include temporary cessation of INR with or without addition of oral vitamin K. the patient will hold Coumadin tonight, tomorrow night, and follow up on Wednesday for repeat INR. Because the patient is planning on having a dialysis catheter placed in 2 days we felt that vitamin K would be beneficial. 5 mg vitamin K p.o.. At this point I do not think he needs admission for PCC or FFP. Given volume constraints, FFP would be relatively contraindicated. So if any emergent reversal were needed, PCC would be a better choice. I attempted to contact the patient's vascular surgery clinic to confirm this p seamus of care and ensure that the patient would have access to outpatient INR recheck prior to his procedure on Wednesday. Unfortunately after multiple attempts to contact the vascular surgeons through their answering service, we were unsuccessful. The patient, having been up since 4:30 a.m. and attending to medical visits all day long, is tired and prefers to discharge. I think that is reasonable. He will call his vascular surgeon tomorrow to ensure the plan for follow-up on Wednesday and recheck INR. Precautions for return to the ER reviewed. Discharge Plan Discharge Clinical Impression: Supratherapeutic INR Patient Disposition: Home, Self-Care Condition: Stable Instructions: Elevated INR (ED) Additional Instructions: Please do not take anymore warfarin until you recheck your INR on Wednesday. Please call your vascular surgeon tomorrow to make sure plans are in place for you to have your INR rechecked Wednesday morning before you have your new dialysis catheter put in place. If you run and any problems, especially pad any unusual bleeding, severe headache, confusion, or any other problems, please come back to the emergency room right away. Prescriptions: No Action metoprolol succinate 25 mg tablet extended release 24 hr 25 mg PO DAILY Qty: 30 0RF carvedilol 6.25 mg tablet 6.25 mg PO BID Patient Comments: cuts in 08/24 levothyroxine 75 mcg tablet 75 mcg PO QAM levothyroxine 88 mcg tablet 88 mcg PO QAM warfarin 2 mg tablet Patient Comments: TAKE 4 TABS BY MOUTH EVERY WEDNESDAY, 3 TABS ALL OTHER DAYS IN EVENING OR DIRECTED allopurinol 300 mg tablet 150 mg PO DAILY torsemide 20 mg tablet 40 mg PO BID omeprazole 40 mg capsule,delayed release(DR/EC) 40 mg PO DAILY lovastatin 20 mg tablet 20 mg PO QPM sevelamer carbonate 800 mg tablet 1,600 mg PO 3XD Follow Up/Referrals: Provider,Not a Local [Primary Care Provider] - Stand Alone Forms: [employer] Info Instructions
--- OUTSIDE RECORDS SUMMARY | 2024-09-25 18:22 | XMS_ITS | Data Portability ---
Author Organization [facility], [facility] Address [address] [place] [address] Care Team Providers Care Shear Operator Automatic Name Role Phone TAMIR GAMBOA Referring Provider [phone] PHYLLIS HE Primary Care Provider [phone] Assessment Encounter Date Assessment Date Assessment LastModified [...] available Lab urinalysi s, dipstick 2020 021 [facility], [address], [address], [place], [address], 07/08/2021 12:25:55 Referral None recorded. Procedures None recorded. Surgeries None recorded. Imaging None recorded. Medication Orders terazosin 10 mg capsule 2021 022 [id number], [address] [place], [address], 10/28/2023 14:05:54 Patient TargetsNo targets recorded. Patient Instructions Encounter Date Encounter Id Patient Instructions Last Modified By Organization Details Last Modified Time 04/30/2020 [id number] Rolly is a 75-year-old man with BPH. A cystoscopy post TURP did show some residual tissue. We again discussed additional intervention. He is doing well and his PVR is down. We will plan a check up in 1 year. [email or web address] Not available 04/30/2020 14:31:48 07/08/2022 [id number] Patient is a 77-year-old male who presents [...] 1 year. Not available 07/08/2022 12:18:53 10/28/2023 [id number] Patient is an 78-year-old male presents today [...] color -advantus YELLOW yellow Not Available [facility] [address], [place], [address], 07/08/2021 12:25:55 07/08/20 21 07/08/2021 UA DIP CS ADVAN TUS appearance -advantus CLEAR clear Not Available [facility] [address], [place], [address], 07/08/2021 12:25:55 07/08/20 21 07/08/2021 UA DIP CS ADVAN TUS glucose -advantus NEGATI VE mg/dL negati ve Not Available [facility] [address] [place] [address] [address], [place], [address], 07/08/2021 12:25:55 07/08/20 21 07/08/2021 UA DIP CS ADVAN TUS bilirubin -advantus NEGATI VE negati ve Not Available [facility] [address] [place] [address], [place], [address], 07/08/2021 12:25:55 07/08/20 21 07/08/2021 UA DIP CS ADVAN TUS ketones -advantus NEGATI VE mg/dL negati ve Not Available [facility] [address] [place] [address], [place], [address], 07/08/2021 12:25:55 07/08/20 21 07/08/2021 UA DIP CS ADVAN TUS sp. gravity -advantus 1.020 1.010- 1.025 Not Available [facility] [address] [place] [address], [place], [address], 07/08/2021 12:25:55 07/08/20 21 07/08/2021 UA DIP CS ADVAN TUS pH -advantus 5.5 5.0-8. 0 Not Available [facility] [address] [place] [address] [address], [place], [address], 07/08/2021 12:25:55 07/08/20 21 07/08/2021 UA DIP CS ADVAN TUS protein -advantus 100 mg/dL negati ve abnormal Not Available [facility] [address] [place] [address], [place], [address], 07/08/2021 12:25:55 07/08/20 21 07/08/2021 UA DIP CS ADVAN TUS urobilinogen -advantus 0.2 normal Not Available [facility] [address], [place], [address], 07/08/2021 12:25:55 07/08/20 21 07/08/2021 UA DIP CS ADVAN TUS nitrites -advantus NEGATI VE negati ve Not Available [facility] [address] [place] [address], [place], [address], 07/08/2021 12:25:55 07/08/20 21 07/08/2021 UA DIP CS ADVAN TUS blood -advantus TRACE- INTACT negati ve abnormal Not Available [facility] [address] [place] [address] [address], [place], [address], 07/08/2021 12:25:55 07/08/20 21 07/08/2021 UA DIP CS ADVAN TUS leukocytes -advantus NEGATI VE negati ve Not Available [facility] [address] [place] [address], [place], [address], 07/08/2021 12:25:55 07/08/20 21 07/08/2021 UA DIP CS ADVAN TUS performed by May Kelly Not Available [facility] [address] [place] [address], [place], [address], 07/08/2021 12:25:55 07/08/20 21 07/08/2021 UA DIP [...] ----- ----- ----- ----- ---- Not Available [facility] [address], [place], [address], 07/08/2021 12:25:55 07/08/20 21 07/08/2021 UA MICRO SCOPI C U-WBC 0 - 2 [hpf] 0 - 2 Not Available [facility] [address] [place] [address] [address], [place], [address], 07/08/2021 12:25:59 07/08/20 21 07/08/2021 UA MICRO SCOPI C U-RBC 0 - 2 [hpf] 0 - 2 Not Available [facility] [address] [place] [address] [address], [place], [address], 07/08/2021 12:25:59 07/08/20 21 07/08/2021 UA MICRO SCOPI C bacteria Small [hpf] negati ve abnormal Not Available [facility] [address] [place] [address] [address], [place], [address], 07/08/2021 12:25:59 07/08/20 21 07/08/2021 UA MICRO SCOPI C squamous epi Negati ve /lpf negati ve,sma ll Not Available [facility] [address] [place] [address] [address], [place], [address], 07/08/2021 12:25:59 06/17/20 20 04/30/2020 bladd er scan (PROC ) No observ ation record ed. BARCODE Not Available 2019 14:03:34 Result Notes None recorded. Problems Name Problem SNOMED Code Status Onset Date Resolution Date Notes Provider Name and Address Organization Details Recorded Time Finding of urinary bladder emptying 838049500 Active 2017 R33.8 : Finding of bladder emptying Not Available [facility] 0 00:08:40 Clinical finding Active 2018 N40.1 : Desire for urination Not Available [facility] 0 00:08:40 Problem Notes None recorded. Procedures Surgical History Date Name Laterality Status Provider Name and Address Organization Details Recorded Time 024 COMPLEX VISIT completed MARBELLA BEYER [address], [address], [facility] 10/28/2023 14:18:40 024 Bladder Scan completed Opal Suarez [facility] 10/28/2023 14:11:26 022 Bladder Scan completed Jenn Hogan [facility] 07/08/2022 11:46:07 021 Past Data Reviewed completed Tamir Gamboa MD [address], [place], [address], [facility] 07/08/2021 12:22:44 021 Bladder Scan completed Ginny Willingham [facility] 07/08/2021 12:08:56 021 Diagnostic colonoscopy completed Not Available [facility] 07/06/2022 11:55:05 020 Bladder Scan completed Manolo Leung [facility] 04/30/2020 14:23:33 019 urine capacity measure completed Not Available Health Note 07/06/2022 11:55:05 018 Electro-uroflowmetry first completed Not Available Health Note 07/06/2022 11:55:05 018 Intraabdominal pressure test completed Not Available Health Note 07/06/2022 11:55:05 018 Anal/urinary muscle study completed Not Available Health Note 07/06/2022 11:55:05 018 Cystometrogram w/vp software&up completed Not Available Health Note 07/06/2022 11:55:05 [...] Name and Address Organization Details Recorded Time 035983 Sudafed medicatio n Not available Not available [...] Address Organization Details Last Updated DateTime 07/08/2022 39662.1 luigi Hogan [facility] 07/08/2022 11:34:06 Date Recorded Body height Body mass index (BMI) Body weight Provider Name and Address Organization Details Last Updated DateTime 04/30/2020 190.5 cm 28.1 kg/m2 261865.28 luigi Manolo Leung [facility] 04/30/2020 14:17:56 Social History Question Answer [...] 07/06/2022 When Did You Quit Smoking? 14+yearssincel [email or web address] Information not available 10/28/2023 Race White Information [...] Other Forms Of Tobacco Or Nicotine? No [email or web address] Information not available 07/08/2022 Sex: Unknown Functional Status None recorded. Mental Status None recorded. Family History Nothing Reported Notes:Alcohol/Drug:Father Medical History Condition Response Other N High Blood Pressure Y Kidney Stones N Lung Disease N Depression N GERD/Acid Reflux N Sexually Transmitted Infection N Diabetes N Bleeding Disorder N Cancer Y High Cholesterol Y Heart Disease N Immunizations Vaccine Type Date Status Note Provider Nam e and Address Organization Details Recorded Time Pneumococcal conjugate PCV 13 0 completed Manolo colin [facility] 04/30/2020 14:22:32 SARS-COV-2 (COVID-19) vaccine, UNSPECIFIED 1 completed Opal colin [facility] 10/28/2023 13:57:15 Past Encounters Encounter ID Performer Location Encounter Start Date Encounter Closed Date Diagnosis/Indication Diagnosis SNOMED-CT Code Diagnosis ICD10 Code Diagnosis Note [id number] MD Rishi [facility] [address] [place] [address] [place] [address] [phone] 04/30/2020 14:01:05 04/30/2020 16:11:15 Finding of urinary bladder emptying 397181092 R33.9 Lower urin meera tract symptoms due to benign prostatic hypertrophy 7336274456 9101 N40.1 [id number] MD Samson [facility] [address] [place] [address] [place] [address] [phone] 07/08/2021 11:25:22 07/08/2021 12:30:01 Finding of urinary bladder emptying 198203881 R33.9 Lower urin meera tract symptoms due to benign prostatic hypertrophy 5865219608 9101 N40.1 [id number] MARBELLA BEYERro[facility] [address] [place] [address],it e [address] [place] [address] [phone] 07/08/2022 11:30:09 07/08/2022 13:31:41 Lower urinary tract symptoms due to benign prostatic hypertrophy 1228839293 9101 N40.1 [id number] Opal Daniela [facility]well[facility] [address] [place] [address],it e [address] [place] [address] [phone] 10/28/2023 13:52:41 10/28/2023 14:43:51 Lower urinary tract symptoms due to benign prostatic hypertrophy 9558109311 9101 N40.1 Health Concerns Section Related Observation LastModified by Organization Detai ls LastModified Time None Recorded Concern Status LastModified by Organization Details LastModified Time None Recorded Advance Directives Directive None Recorded Payers Encounter Date Sequence Insurance Name Policy Number Policy Bowman Covered Member ID Bowman Member ID Guarantor Name 04/30/2020 1 [place] Rolly Alex [id number] Rolly Alex 04/30/2020 2 [facility] [id number] Rolly Alex [id number] Rolly Alex 07/08/2021 1 [place] R[place] Alex [id number] Rolly Alex 07/08/2021 2 [facility] [id number] Rolly Alex [id number] Rolly Alex 07/08/2022 1 [place] R[place] Alex [id number] Rolly Alex 07/08/2022 2 [facility] [id number] Rolly Alex [id number] Rolly Alex 10/28/2023 1 [place] R[place] Alex [id number] Rolly Shahab Isai 10/28/2023 2 [facility] [id number] Rolly Alex [id number] Rolly Alex Notes Date Note Type Note [...] terazosin for BP. Tamir Gamboa MD [address] [facility], [place], [address], [facility] 04/30/2020 14:32:34 07/08/2021 text/html Chief complaints are [...] terazosin for BP. Tamir Gamboa MD [address] [facility] [facility],[address], [place], [address], [facility] 07/08/2021 12:23:23 07/08/2022 text/html Patient is 77-year-old [...] or urinary tract infections. MARBELLA BEYER [address] [facility] [facility],[address], [place], [address], [facility] 07/08/2022 12:19:04 10/28/2023 text/html 10/28/23: Patient is [...] patient back in 1 year. Opal colin [facility] 10/28/2023 14:25:03
--- OUTSIDE RECORDS SUMMARY | 2024-09-25 18:22 | XMS_ITS | CONTINUITY OF CARE DOCUMENT ---
Author Name User, QIE Address [address] [facility] [address] [place] [address] Organization [facility] Address [address] [facility] [address] [place] [address] Phone [phone] Care Team Providers Care Underlay Stitcher Name Role Phone User, QIE Unavailable Unavailable PROBLEMS Condition Status Date Provider Notes Organizati on PROTEINURIA active Bailee becerra , [address] [place] [address] [address] [facility] [place] GOUT active Bailee becerra , [address] [place] [address] [address] [facility] ANEMIA active Bailee becerra , [address] [place] [address] [address] [facility] [place] HTN, UNSPECIFIED active Bailee yung , [address] [place] [address] [address] [facility] [place] BPH (BENIGN PROSTATIC HYPERTROPHY) active Bailee Roque , [address] [place] [address] [address] [facility] CKD STAGE 4 (GFR 15-29) active Bailee Roque , [address] [place] [address] [address] [facility] [place] ENCOUNTERS Date Type Provider Location Encounter Diag nosis - In-person encounter Office Visit Maksim Concepcion MD, MD, [address] [facility] [address] [facility] [address] [facility] - In-person encounter Office Visit Maksim Concepcion MD, MD, [address] [facility] [address] [facility] [address] [facility] VITAL SIGNS Date Observation Value Provider Organization blood pressure, diastolic 71 mm[Hg] Aileen Barros RN RN, [address] [place] [address] [address] [facility] blood pressure, systolic 142 mm[Hg] Aileen Barros RN RN, [address] [place] [address] [address] [facility] respiratory rate E&M 16 /min Aileen Barros RN RN, [address] [place] [address] [address] [facility] pulse rate 81 /min Aileen Kirk RN, [address] [place] [address] [address] [facility] temperature E&M 98.1 [degF] Aileen becerra RN RN, [address] [place] [address] [address] [facility] blood pressure, site #1 Upper arm Aileen Barros RN RN, [address] [place] [address] [address] [facility] [place] blood pressure, diastolic, right arm 71 mm[Hg] Aileen Barros RN RN, [address] [place] [address] [address] [facility] [place] blood pressure, systolic, right arm 142 mm[Hg] Aileen Barros RN RN, [address] [place] [address] [address] [facility] [place] Body Mass Index (Ratio) 22.55 kg/m2 Aileen Barros RN RN, [address] [place] [address] [address] [facility] [place] weight E&M 175 [lb_av] Aileen Kirk RN, [address] [place] [address] [address] [facility] height E&M 74 [in_i] Aileen Kirk RN, [address] [place] [address] [address] [facility] blood pressure, diastolic 66 mm[Hg] Elis Mancia , [address] [place] [address] [address] [facility] [place] blood pressure, systolic 165 mm[Hg] Elis Mancia , [address] [place] [address] [address] [facility] [place] blood pressure, site #1 Upper arm Elis Mancia , [address] [place] [address] [address] [facility] temperature E&M 98.7 [degF] Elis laughlin , [address] [place] [address] [address] [facility] Body Mass Index (Ratio) 25.77 kg/m2 Elis Mancia , [address] [place] [address] [address] [facility] weight E&M 200 [lb_av] Elis bolanos , [address] [place] [address] [address] [facility] respiratory rate E&M 16 /min Elis patel , [address] [place] [address] [address] [facility] pulse rate 79 /min Elis bolanos , [address] [place] [address] [address] [facility] [place] blood pressure, diastolic, right arm 66 mm[Hg] Elis Mancia , [address] [place] [address] [address] [facility] blood pressure, systolic, right arm 165 mm[Hg] Elis Mancia , [address] [place] [address] [address] [facility] height E&M 74 [in_i] Elis bolanos , [address] [place] [address] [address] [facility] blood pressure, diastolic 80 mm[Hg] Shanel Gregglaurie , [address] [place] [address] [address] [facility] [address] [facility] blood pressure, systolic 172 mm[Hg] Shanel Quick , [address] [place] [address] [address] [facility] [address] [facility] blood pressure, diastolic, right arm 80 mm[Hg] Shanel Abdelrahman , [address] [place] [address] [address] [facility] [address] [facility] blood pressure, systolic, right arm 172 mm[Hg] Shanel Quick , [address] [place] [address] [address] [facility] [address] [facility] blood pressure, site #1 Upper arm Shanel Quick , [address] [place] [address] [address] [place] [address] [facility] Body Mass Index (Ratio) 25.13 kg/m2 Shanel Quick [address] [place] [address] [address] [place] [address] [facility] weight E&M 195 [lb_av] Shanel Quick , [address] [place] [address] [address] [place] [address] [facility] pulse rate 67 /min Shanel Quick [address] [place] [address] [facility] height E&M 74 [in_i] Shanel Quick , [address] [place] [address] [address] [place] [address] [facility] blood pressure, diastolic 72 mm[Hg] Shanel Quick [address] [place] [address] [facility] blood pressure, systolic 151 mm[Hg] Shanel Quick [address] [place] [address] [facility] Body Mass Index (Ratio) 28.99 kg/m2 Shanel Quick [address] [place] [address] [facility] pulse rate 77 /min Shanel Quick [address] [place] [address] [facility] weight E&M 225 [lb_av] Shanel Quick [address] [place] [address] [facility] blood pressure, site #1 Upper arm Shanel Quick [address] [place] [address] [facility] blood pressure, diastolic, right arm 72 mm[Hg] Shanel Quick , [address] [place] [address] [address] [place] [address] [facility] blood pressure, systolic, right arm 151 mm[Hg] Shanel Quick , [address] [place] [address] [address] [place] [address] [facility] height E&M 74 [in_i] Shanel Quick [address] [place] [address] [facility] blood pressure, diastolic 73 mm[Hg] Jennifer Mix RN RN, [address] [place] [address] [address] [place] [address] [facility] blood pressure, systolic 180 mm[Hg] Jennifer Mix RN RN, [address] [place] [address] [address] [facility] [address] [place] [address] [facility] blood pressure, site #1 Upper arm Jennifer Mix RN RN, [address] [place] [address] [address] [facility] [address] [place] [address] [facility] blood pressure, diastolic, right arm 73 mm[Hg] Jennifer Mix RN RN, [address] [place] [address] [address] [facility] [address] [place] [address] [facility] blood pressure, systolic, right arm 180 mm[Hg] Jennifer Mix RN RN, [address] [place] [address] [address] [facility] [address] [place] [address] [facility] respiratory rate E&M 18 /min Jennifer Mix RN RN, [address] [place] [address] [address] [facility] [address] [place] [address] [facility] pulse rate 73 /min Jennifer Mix RN RN, [address] [place] [address] [address] [facility] [address] [place] [address] [facility] temperature E&M 98.0 [degF] Jennifer Mix RN RN, [address] [place] [address] [address] [facility] [address] [place] [address] [facility] Body Mass Index (Ratio) 28.99 kg/m2 Jennifer Mix RN RN, [address] [place] [address] [address] [facility] [address] [place] [address] [facility] weight E&M 225 [lb_av] Jennifer Mix RN RN, [address] [place] [address] [address] [facility] [address] [place] [address] [facility] height E&M 74 [in_i] Jennifer Mix RN RN, [address] [place] [address] [address] [facility] [address] [place] [address] [facility] blood pressure, diastolic 76 mm[Hg] Shanel Quick , [address] [place] [address] [address] [facility] [address] [facility] blood pressure, systolic 190 mm[Hg] Shanel Quikc , [address] [place] [address] [address] [facility] [address] [facility] pulse rate 63 /min Shanel Quick , [address] [place] [address] [address] [facility] [address] [facility] blood pressure, site #1 Upper arm Shanel Quick , [address] [place] [address] [address] [facility] [address] [facility] blood pressure, diastolic, right arm 76 mm[Hg] Shanel [address] [facility] [address] [facility] blood pressure, systolic, right arm 190 mm[Hg] Shanel [address] [facility] [address] [facility] blood pressure, site #2 Upper arm Shanel [address] [facility] [address] [facility] blood pressure, diastolic, left arm 71 mm[Hg] Shanel [address] [facility] [address] [facility] blood pressure, systolic, left arm 188 mm[Hg] Shanel [address] [facility] [address] [facility] temperature E&M 98 [degF] Shanel [address] [facility] [address] [facility] Body Mass Index (Ratio) 28.99 kg/m2 [address] [facility] [address] [facility] height E&M 74 [in_i] [address] [facility] [address] [facility] weight E&M 225 [lb_av] [address] [facility] [address] [facility] ALLERGIES Allergy Name Onset Date Reaction Criticality Status Provider Or ganization ACTINEL Low Criticality active Craig Roque , [address] [place] [address] [address] RESULTS Date Observation Value Provider Organization Refer ence Range Interpretation Location 09/21 international normalized ratio (INR) 2.2 Aileen Barros RN RN, [address] [place] [address] [facility] HISTORY OF MEDICATION USE Medication Instructions Status Dates Provider Indications Com ments Organization RenaPlex-D 800 mcg-12.5 mg-2,000 unit tablet TAKE 1 TABLET BY MOUTH EVERY DAY active Aileen Barros RN, RN, [address] [place] [address] [address] [facility] metoprolol succinate ER 25 mg tablet,extend ed release 24 hr active Aileen Barros RN RN, [address] [place] [address] [address] [facility] [address] [facility] levothyroxine 88 mcg tablet active Aileen Barros RN RN, [address] [place] [address] [address] [facility] [address] [facility] warfarin 2 mg tablet as directed active Shanel Quick [address] [facility] [address] [facility] torsemide 20 mg tablet Take 1 tablet by mouth once a day active Bailee Roque [address] [facility] [address] [facility] terazosin 10 mg capsule Take 1 tablet by mouth every night active Bailee Murali[address] [facility] [address] [facility] prednisone 5 mg tablet Take 5 mg by mouth once a day completed - 11/[address] [facility] [address] [facility] omeprazole 40 mg capsule,delay ed release(DR/EC ) Take 1 tablet by mouth once a day active Bailee Roque [address] [facility] [address] [facility] [employer] Fish Oil 300-1,000 mg capsule 1200 mg by mouth once a day completed - 11/[address] [facility] [address] [facility] lovastatin 20 mg tablet Take 20 mg by mouth every night active Bailee Carrion[address] [facility] [address] [facility] carvedilol 6.25 mg tablet Take 1 tablet by mouth twice a day active Bailee Roque [address] [facility] [address] [facility] calcitriol 0.5 mcg capsule Take 1 capsule by mouth once a day completed - 11/[address] [facility] [address] [facility] Norvasc 5 mg tablet 1 once a day active Shanel [address] [facility] [address] [facility] allopurinol 300 mg tablet Take 1 tablet by mouth once a day active Bailee Roque , [address] [facility] [address] [facility] [address] [facility] acyclovir 5% ointment Apply to skin as needed active Bailee Roque , [address] [place] [address] [address] [facility] [address] [facility] SOCIAL HISTORY Date Observation Value Provider Organization 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 Chinedu Driscoll MD, MD, [address] [facility] [id number] [place] [address] [facility] smoking/tobacco cessation, patient education and counseling no Aileen Barros RN RN, [address] [place] [address] [address] [facility] [place] smoking status Former smoker Aileen becerra RN RN, [address] [place] [address] [address] [facility] [place] social history reviewed E&M reviewed - no changes required Aileen Barros RN RN, [address] [place] [address] [address] [facility] [place] 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 Stepan Trujillo MD, MD, [address] [place] [address] [address] [facility] [id number] [place] [address] [facility] [place] social history reviewed E&M reviewed - no changes required Elis Mancia , [address] [place] [address] [address] [facility] [place] social history reviewed E&M reviewed - no changes required Shanel Quick , [address] [place] [address] [address] [facility] [address] [facility] social history reviewed E&M reviewed - no changes required Shanel Quick , [address] [place] [address] [address] [facility] [address] [facility] site on body for surgical procedure electric clipper Jennifer Mix RN RN, [address] [place] [address] [address] [facility] [place] social history reviewed E&M reviewed - no changes required Jennifer Mix RN RN, [address] [place] [address] [address] [facility] [place] handedness right Maksim Annamaria way MD, MD, [address] [facility] [address] [facility] smoking/tobacco cessation, patient education and counseling no Shanel Quick [address] [place] [address] [address] [facility] [address] [facility] social history reviewed E&M reviewed - no changes required Shanel Quick [address] [place] [address] [address] [facility] [address] [facility] social history E&M S moking History: Brittani young is a former smoker. Shanel Quick [address] [place] [address] [address] [facility] [address] [facility] smoking status Former smoker Shanel Quick [address] [place] [address] [address] [facility] [address] [facility] FAMILY HISTORY Family Member Condition Mother Family History of Hy perlipidemia INSURANCE PROVIDERS Payer name Policy type / Coverage type [place] [employer] MEDICARE [id number] TREATMENT PLAN Date Name Provider Complication of dial ysis graft or impending failure Troy Phillip MD, MD, [address] [place] [address] [address] [facility] [address] Complication of dial ysis graft or impending failure Troy Phillip MD, MD, [address] [place] [address] [address] [facility] [address] Vein Mapping Baldemar Yin, [address] [facility] [address] HISTORY OF PROCEDURES Procedure Date Procedure Name Provider Procedure Notes Status Organization SNOMED-CT:HISTORICA L PNEUMOCOCCAL VACCINATION Stepan Ervin MD, MD, [facility] [facility] [address] completed [facility] SNOMED-CT:PATIENT ENCOUNTER Stepan Ervin MD, MD, [facility] [facility] [address] completed [facility] PT/INR Chinedu Driscoll MD, MD, [address] [facility] [address] completed [facility] US Guide Vascular Access Chinedu Driscoll MD, MD, [address] [facility] [address] completed [facility] INFUS NORMAL SALINE SOLUTION 250 CC Chinedu Driscoll MD, MD, [address] [facility] [address] completed [facility] INJECTION MIDAZOLAM HCL PER 1 MG Chinedu Driscoll MD, MD, [address] [facility] [address] completed [facility] INJECTION FENTANYL CITRATE 100MCG Chinedu Driscoll MD, MD, [address] [facility] [address] completed [facility] Wire Chinedu Driscoll MD, MD, [address] [facility] [address] completed [facility] Balloon Chinedu Driscoll MD, MD, [address] [facility] [address] completed [facility] Sheath Chinedu Driscoll MD, MD, [address] [facility] [address] completed [facility] Omnipaque 300 10ml (Medicare [id number]) Chinedu Driscoll MD, MD, [address] [facility] [address] 55 completed [facility] Fistulagram, Dialysis Chinedu Driscoll MD, MD, [address] [facility] [address] completed [facility] Antibiotic-No Order Chinedu varghese MD, MD, [address] [facility] [address] completed [facility] Quailty Measures all negative Chinedu Driscoll MD, MD, [address] [facility] [address] completed [facility] SNOMED-CT:HISTORICA L PNEUMOCOCCAL VACCINATION Chinedu Driscoll MD, MD, [address] [facility] [address] completed [facility] SNOMED-CT:PATIENT ENCOUNTER Chinedu Driscoll MD, MD, [address] [facility] [address] completed [facility] PT/INR Stepan Trujillo MD, MD, [address] [place] [address] [address] [facility] [address] completed [facility] INFUS NORMAL SALINE SOLUTION 250 CC Stepan Trujillo MD, MD, [address] [place] [address] [address] [facility] [address] completed [facility] INJECTION FENTANYL CITRATE 100MCG Stepan Trujillo MD, MD, [address] [place] [address] [address] [facility] [address] completed [facility] INJECTION MIDAZOLAM HCL PER 1 MG Stepan Trujillo MD, MD, [address] [facility] [address] [facility] [address] completed [facility] Wire Stepan Trujillo MD, MD, [address] [place] [address] [address] [facility] [address] completed [facility] Balloon Stepan Trujillo MD, MD, [address] [facility] [address] [facility] [address] completed [facility] Sheath Stepan Trujillo MD, MD, [address] [place] [address] [address] [facility] [address] completed [facility] Omnipaque 300 10ml (Medicare Q9949) Stepan Trujillo MD, MD, [address] [place] [address] [address] [facility] [address] completed [facility] Angioplasty within including RS&I Stepan Trujillo MD, MD, [address] [place] [address] [address] [facility] [address] completed [facility] Fistulagram, Dialysis Stepan Trujillo MD, MD, [address] [place] [address] [address] [facility] [address] completed [facility] Antibiotic-No Order Stepan Trujillo MD, MD, [address] [place] [address] [address] [facility] [address] completed [facility] Quailty Measures all negative Stepan Trujillo MD, MD, [address] [place] [address] [address] [facility] [address] completed [facility] SNOMED-CT:HISTORICA L PNEUMOCOCCAL VACCINATION Stepan Trujillo MD, MD, [address] [place] [address] [address] [facility] [address] completed [facility] SNOMED-CT:PATIENT ENCOUNTER Stepan Trujillo MD, MD, [address] [place] [address] [address] [facility] [address] completed [facility] SNOMED-CT:PATIENT ENCOUNTER Maksim Concepcion MD, MD, [address] [facility] [address] completed [facility] SNOMED-CT:PATIENT ENCOUNTER Maksim Concepcion MD, MD, [address] [facility] [address] completed [facility] SNOMED-CT: [id number] Current Medications Documented Maksim Concepcion MD, MD, [address] [place] [address] completed [facility] INJECTION MIDAZOLAM HCL PER 1 MG Maksim Concepcion MD, MD, [address] [place] [address] completed [facility] INJECTION FENTANYL CITRATE 100MCG Maksim Concepcion MD, MD, [address] [place] [address] completed [facility] INFUS NORMAL SALINE SOLUTION 250 CC Maksim Concepcion MD, MD, [address] [place] [address] completed [facility] Ancef 1g Maksim Concepcion MD, MD, [address] [place] [address] completed [facility] AV anastomosis, direct any site Maksim Concepcion MD, MD, [address] [place] [address] Left BC AVF completed [facility] Antibiotic initiated on time-Yes Maksim Concepcion MD, MD, [address] [place] [address] completed [facility] Quailty Measures all negative Maksim Concepcion MD, MD, [address] [place] [address] completed [facility] SNOMED-CT:PATIENT ENCOUNTER Maksim Concepcion MD, MD, [address] [place] [address] completed [facility] SNOMED-CT:HISTORICA L PNEUMOCOCCAL VACCINATION Maksim Concepcion MD, MD, [address] [place] [address] completed [facility] SNOMED-CT:PATIENT ENCOUNTER Maksim Concepcion MD, MD, [address] [place] [address] completed [facility]
--- OUTSIDE RECORDS SUMMARY | 2024-09-25 18:22 | XMS_ITS | Continuity of Care Document ---
Author Organization [facility] Address [address] [address] [place] [address] Phone Care Team Providers Care Senior Writer Name Role Phone Unavailable Unavailable Unavailable Allergies, [...] every day 1 tablet - Active Nulytely Lemon-Crow 420 gram oral solution use as directed [...] Diagnoses Date Provider Providers Copied on Encounter [facility], [address] [address], [place], [place], [id number], [place] tel:[phone] [facility] [place] No Information 1 No Information Referring Provider: Williams Celeste MD, [address] [facility] [address], [place], [address] . tel:[phone] [facility], [address] [address], [place], [place], [id number], [place] tel:[phone] [facility] [place] Colorectal polypsDiverti culosis of colon without diverticuliti sHemorrhoids, internalBenig n neoplasm of rectumBenign neoplasm of descending colonBenign neoplasm of transverse colonOther hemorrhoids 1 Booker Kramer. [address] [facility], [facility] [address], [place], [place], [id number], [place]. tel:[phone] Carolee Harris MD. tel:[phone] erring Provider: Paulino Garduno MD, [address] [facility] [address], [place], [address]. tel:[phone] [facility], [address] [address], [place], [place], [address], [place] tel:[phone] [facility] No Information 1 Ryan Mancilla. [address] [facility] [address], [place], [address], [place]. tel:[phone] Subsqt Hosp-da E&m Minr Compl [facility], [address] [address], [place], [place], [address], [place] tel:[phone] [facility] No Information 0 5 8 Ary Canaday. [address] [facility] [address], [place], [id number], [place]. tel:[phone] Referring Provider: Theodore Mace MD, [address], [place], [address]. tel:[phone] [facility], [address] [address], [place], [place], [address], [place] tel:[phone] [facility] No Information 0 3 8 Ishan Major. [address] [facility] [address], [place], [id number], [place]. [phone] Referring Provider: Theodore Mace MD, [address], [place], [address]. tel:[phone] Init Hosp-da E&m Mod Severity [facility], [address] [address], [place], [place], [address], [place] tel:[phone] [facility] No Information 8 Charles Montero. [address] [facility] [address], [place], [address], [place]. tel:[phone] Referring Provider: Theodore Mace MD, [address], [place], [address]. tel:[phone] Family History Family Member Type Diagnosis Age [...] republican ID Authorcesar peña(s) Medicare NGS MB [id number] [facility] Medicare Supplement BL [id number] Social History Type Description Quantity Date Captured [...]
--- OUTSIDE RECORDS SUMMARY | 2024-09-25 18:22 | XMS_ITS | Encounter Summary ---
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
--- OUTSIDE RECORDS SUMMARY | 2024-09-25 18:22 | XMS_ITS | Encounter Summary ---
Author Organization [place] Address [address] [place] [address] Care Team Providers Care Auctioneer Tobacco Name Role Phone Carolee Harris MD Primary Care Provider [phone] Reason for Visit * Reason Comments Post-op Problem Encounter Details Date Type Department Care Team (Late st Contact Info) Description 09/22/2024 1:03 AM ADMINISTRATIVE OFFICE CLERK - 09/22/2024 1:04 AM ADMINISTRATIVE OFFICE CLERK Emergency [facility] Emergency Dept [address] [place] [address] Discharge Disposition: Left Without Being Seen Social History Tobacco Use Types Packs/Day Years Used Date Smoking Tobacco: Never Assessed Adolescent Education Answer Date Record ed Getting School Help Needed Not on file 03/15 Sex and Gender Information Value Date Recorded Sex Assigned at Not on file Legal Sex Male 3:19 AM ADMINISTRATIVE OFFICE CLERK Gender Identity Not on file Sexual Orientation Not on file documented as of this encounter Last Filed Vital Signs Vital Sign Reading Time Taken Comments Blood Pressure 130/72 09/21/2024 11:45 PM ADMINISTRATIVE OFFICE CLERK Pulse 87 09/21/2024 11:46 PM ADMINISTRATIVE OFFICE CLERK Temperature 36.2 C (97.2 F) 09/21/2024 11:46 PM ADMINISTRATIVE OFFICE CLERK Respiratory Rate 20 09/21/2024 11:46 PM ADMINISTRATIVE OFFICE CLERK Oxygen Saturation 96% 09/21/2024 11:46 PM ADMINISTRATIVE OFFICE CLERK Inhaled Oxygen Concentration - - Weight 78.9 kg (174 lb) 09/21/2024 11:47 PM ADMINISTRATIVE OFFICE CLERK Height - - Body Mass Index 22.34 [...] dressing placed in triage with good control NISTRATIVE OFFICE CLERK documented in this encounter Plan of Treatment Not on file documented as of this encounter Visit Diagnoses Not on filedocumented in this encounter Care Teams Auctioneer Tobacco Relationship Specialty Start Date End Date Carolee Harris MD [address] [place] [address] PCP - General 03/15/24 documented as of this encounter
--- OUTSIDE RECORDS SUMMARY | 2024-09-25 18:22 | XMS_ITS | Clinical Summary ---
Author Organization [facility] [place], [place] [address] Care Team Providers Care Cash Management Clerk Name Role Phone Simon Baxter MD Unavailable Carolee Mohamud MD Primary Care Provider + [...] DAY 023 Active levothyroxine (SYNTHROID) 88 mcg tabletIndications:Hypo thyroidism (acquired),Elevated TSH Take 1 Tablet (88 mcg) by mouth before breakfast. 90 Tablet 3 024 Active lovastatin (MEVACOR) 20 mg tabletIndications:Pure hypercholesterolemia Take 1 Tablet (20 mg) by mouth once daily with evening meal. 90 Tablet 3 024 Active omeprazole (PRILOSEC) 40 mg Delayed-Release capsuleIndications:Duo denal ulcer Take 1 Capsule (40 mg) by mouth once daily. 90 Capsule 3 Active warfarin (COUMADIN) 2 mg tabletIndications:Paro xysmal atrial fibrillation (HC),Anticoagulation monitoring, INR range 2-3 Take by mouth 2/3: Hold; 2/4: Hold; Otherwise 8 mg every Tue; 6 mg all other days in the evening OR as directed Active warfarin (COUMADIN) 2 mg tabletIndications:Paro xysmal atrial fibrillation (HC),Anticoagulation monitoring, INR range 2-3 Take by mouth 8 mg (2 mg x 4) every Tue; 6 mg (2 mg x 3) all other days in the evening OR as directed 2024 Discontinued warfarin (COUMADIN) 2 mg tabletIndications:Paro xysmal atrial fibrillation (HC),Anticoagulation monitoring, INR range 2-3 Take by mouth 8 mg (2 mg x 4) every Tue; 6 mg (2 mg x 3) all other days in the evening OR as directed 286 Tablet 025 2024 Discontinued( Reorder (E-cancel not sent)) Active Problems Problem Noted Date Diagnosed Date [...] their single-family home and moving to a intermediate apartment) Resuscitation/Code Status: Resuscitation/Code Status wishes were [...] organic origin 06/02/2007 Cervicalgia 06/02/2007 Overview (04/05/2008): [place] spinal stenosis with radiculopathy and no pain [...] Encounters Date Type Department Care Team Description 09/25/2024 1:39 PM PARALEGAL INSTRUCTOR Hospital Encounter [facility] [address] [place] [address] Paroxysmal atrial fibrillation (HC); Anticoagulation monitoring, INR range 2-3 09/25/2024 Telephone [facility] [address] [place] [address] Carolee Mohamud MD Anticoagulation (INR > 10) 09/25/2024 Anticoagulation (warfarin) [facility] [address] [place] [address] Clinic, [place] Anticoagulation 09/25/2024 Travel 09/25/2024 Telephone [facility] [address] [place] [address] Carolee Mohamud MD Anticoagulation 09/13/[address] [facility] [address] [place] [address] Dmitri Givens MD Atrial Fibrillation 08/29/2024 11:10 AM PARALEGAL INSTRUCTOR Orders Only [facility] [address] [place] [address] Lab 08/29/2024 Anticoagulation (warfarin) [facility] [address] [place] [address] Clinic, [place] Anticoagulation 08/29/2024 Travel 08/29/2024 Refill [facility] [address] [place] [address] Carolee Mohamud MD Refill Request (Warfarin) 08/01/2024 11:00 AM PARALEGAL INSTRUCTOR Orders Only [facility] [address] [place] [address] Lab 08/01/2024 Telephone [facility] [address] [place] [address] Carolee Mohamud MD Anticoagulation (Annual AC Re-enrollment) 08/01/2024 Anticoagulation (warfarin) [facility] [address] [place] [address] Clinic, [place] Anticoagulation 08/01/2024 Travel 07/11/2024 10:05 AM PARALEGAL INSTRUCTOR Office Visit [facility] [address] [place] [address] Carolee Mohamud MD Medication Management 07/11/2024 Telephone [facility] [address] [place] [address] Carolee Mohamud MD Anticoagulation (BPA OMEPRAZOLE) 07/11/2024 Travel 07/11/2024 Refill [facility] [address] [place] [address] Carolee Mohamud MD Refill Request (Lovastatin) 07/07/2024 Refill [facility] [address] [place] [address] Carolee Mohamud MD Refill Request (lovastatin) 07/04/2024 11:10 AM PARALEGAL INSTRUCTOR Orders Only [facility] [address] [place] [address] Lab 07/04/2024 Anticoagulation (warfarin) [facility] [address] [place] [address] Clinic, [place] Anticoagulation 07/04/2024 Travel from Last 3 Months Immunizations Name Administration Dates Next Due COVID-19 vaccine (KellBenx-Bio NTech 30mcg/0.3mL) PF, MDV 06/06/2021,11/07/2020,10/17/2020 Hep B (Hepatitis B (Adult) Recombinant [...] on file Legal Sex Male 5:24 AM PARALEGAL INSTRUCTOR Gender Identity Not on file Sexual Orientation Not on file Obstetrics History Last Filed Vital Signs Vital Sign Reading Time Taken Comments Blood Pressure 116/64 07/11/2024 10:07 AM PARALEGAL INSTRUCTOR Pulse 75 07/11/2024 10:07 AM PARALEGAL INSTRUCTOR Temperature 35.9 C (96.6 F) 12/20/2022 6:20 PM CDT Respiratory Rate 16 12/20/2022 6:20 PM CDT Oxygen Saturation 99% 07/11/2024 10:07 AM PARALEGAL INSTRUCTOR Inhaled Oxygen Concentration - - Weight 83.3 kg (183 lb 9.6 oz) 07/11/2024 10:07 AM PARALEGAL INSTRUCTOR Height 184.8 cm (6' 0.75) 07/11/2024 10:[address] Body Mass Index 24.39 07/11/2024 10:07 AM PARALEGAL INSTRUCTOR Plan of Treatment Upcoming Encounters Date Type Department Care Team (Late st Contact Info) Description 09/28/2024 11:00 AM PARALEGAL INSTRUCTOR Office Visit [facility] [address] [place] [address] Godfrey Ferreira MD [address] [place] [address] 10/03/2024 12:40 PM PARALEGAL INSTRUCTOR Appointment [facility] [place] [address] [place] [address] 10/10/2024 10:50 AM PARALEGAL INSTRUCTOR Orders Only [facility] [address] [place] [address] Health Maintenance Due Date Last Done Comments [...] history exists Medical Devices Implanted Type Area Licensed Surveyor Device Identifier Shelf Expiration Date Model / Serial / Lot Lens, Cataract Zcb00 - [id number] Implanted:Qty: 1 on 05/16/2013 by Simon Baxter MD at [facility] Left: Eye R-UNKNOWN 03/15/2017 ZCB00 / [id number] / NA Lens, Cataract Zcb00 - [id number] Implanted:Qty: 1 on 05/30/2013 by Simon Baxter MD at [facility] Right: Eye R-UNKNOWN 12/28/2016 ZCB00 / / [id number] Procedures Procedure Name Priority Date/Time Associated Diagnosis Comments PROTIME-INR Today 09/25/2024 1:55 PM PARALEGAL INSTRUCTOR Paroxysmal atrial fibrillation (HC) Anticoagulation monitoring, INR range 2-3 INR,POCT Routine 08/29/2024 11:10 AM PARALEGAL INSTRUCTOR Paroxysmal atrial fibrillation (HC) Anticoagulation monitoring, INR range 2-3 INR,POCT Routine 08/01/2024 10:37 AM PARALEGAL INSTRUCTOR Paroxysmal atrial fibrillation (HC) Anticoagulation monitoring, INR range 2-3 LIPID PANEL Routine 07/11/2024 11:04 AM PARALEGAL INSTRUCTOR Pure hypercholesterolemia TSH WITH REFLEX Routine 07/11/2024 11:04 AM PARALEGAL INSTRUCTOR Hypothyroidism (acquired) INR,POCT Routine 07/04/2024 11:16 AM PARALEGAL INSTRUCTOR Paroxysmal atrial fibrillation (HC) Anticoagulation monitoring, INR range 2-3 from Last 3 Months Results * (ABNORMAL) PROTIME-INR [02240.0] - Standing Order (09/25/2024 1:55 PM PARALEGAL INSTRUCTOR) INR 13.4(HH) <1.3 09/25/2024 3:24 PM PARALEGAL INSTRUCTOR [facility] PROTIME 158.1(H) 10.6 - 12.4 sec 09/25/2024 3:24 PM PARALEGAL INSTRUCTOR [facility] Blood BLOOD SPECIMEN / Unknown Venipuncture / Unknown 09/25/2024 1:55 PM PARALEGAL INSTRUCTOR 09/25/2024 1:55 PM PARALEGAL INSTRUCTOR Narrative [facility] - 09/25/2024 3:24 PM PARALEGAL INSTRUCTOR Therapeutic Range 2.0-3.0 for most anticoagulated patients 2.5-3.5 or 4.0 for high risk patients The INR is only used for patients on stable oral anticoagulant therapy. It makes no significant contribution to the diagnosis or treatment of patients whose Protime is prolonged for other reasons. Carolee Mohamud MD HEMATOLOGY Final Re sult Performing Organization Address City/[facility]/ZIP Co de Phone Number [facility] [address] [facility] [place] [address], [place] [phone] * (ABNORMAL) INR - POCT [[id number]] - Standing Order (08/29/2024 11:10 AM PARALEGAL INSTRUCTOR) Only the most recent of3 resultswithin the time period is included. INR 2.5(H) ratio [facility] ([facility]) Comment: INRs >2.9 may be [...] PROTHROMBIN TIMEP 30.4(H) 10.5 - 13.1 sec [facility]) Comment: Point of care fingerstick Prothrombin Time/INR results may vary from venous Prothrombin Time/INR methodologies. Any results exhibiting inconsistency with the patient's clinical status should be repeated using a venous Prothrombin Time/INR method. Blood BLOOD SPECIMEN / Unknown 08/29/2024 11:10 AM PARALEGAL INSTRUCTOR 08/29/2024 11:11 AM PARALEGAL INSTRUCTOR Carolee Mohamud MD LABORATORY Final Re sult Performing Organization Address City/[facility]/ZIP Co de Phone Number [facility] [address] [facility] [place] [address], [place] [phone] [facility]) [address] [place] [address] * TSH WITH REFLEX (07/11/2024 11:04 AM PARALEGAL INSTRUCTOR) TSH W/REFLEX TO FT4 3.14 0.40 - 4.50 mIU/L [facility] Blood BLOOD SPECIMEN / Unknown 07/11/2024 11:04 AM PARALEGAL INSTRUCTOR 07/11/2024 11:05 AM PARALEGAL INSTRUCTOR Narrative [facility] - 07/12/2024 4:24 AM PARALEGAL INSTRUCTOR FASTING:YES FASTING: YES Carolee Mohamud MD CHEMISTRY Final Re sult [facility] [address] [place] [address], [facility] [address] [place] [address] * (ABNORMAL) LIPID PANEL (07/11/2024 11:04 AM PARALEGAL INSTRUCTOR) CHOLESTEROL, TOTAL 160 <200 mg/dL [facility] [...] equation in the estimation of LDL-C. Altaf GARIBAY et al. NATE. 2013;310(19): 0204-4372 (http://education.[employer].[facility] [employer]/faq/DFS586) CHOL/HDLC RATIO 4.2 <5.0 (calc) [facility] NON HDL CHOLESTEROL 122 <130 mg/dL (calc) [facility] Comment: For patients with diabetes plus 1 major ASCVD risk factor, treating to a non-HDL-C goal of <100 mg/dL (LDL-C of <70 mg/dL) is considered a therapeutic option. Blood BLOOD SPECIMEN / Unknown 07/11/2024 11:04 AM PARALEGAL INSTRUCTOR 07/11/2024 11:05 AM PARALEGAL INSTRUCTOR Narrative [facility] - 07/12/2024 4:24 AM PARALEGAL INSTRUCTOR FASTING:YES FASTING: YES Carolee Mohamud MD CHEMISTRY Final Re sult [facility] [address] [place] [address], [facility] [address] [place] [address] from Last 3 Months Insurance [facility] [id number] [place] [address] MEDICARE PART B HB ONLY MEDICARE PART A HB ONLY MEDICARE PB ONLY [facility] [id number] [place] [address] MEDICARE PART A HB ONLY MEDICARE PART B HB ONLY [facility] HB ONLY Advance Directives * Full Code [...] 8:47 AM 05/30/2013 1:01 PM Care Teams Cash Management Clerk Relationship Specialty Start Date End Date Carolee Mohamud MD [address] [place] [address] PCP - General Family Practice 12/24/21 Simon Baxter MD Ophthalmology Surgery 05/08/13
--- OUTSIDE RECORDS SUMMARY | 2024-09-25 18:22 | XMS_ITS | Clinical Summary ---
Author Organization [facility] Address [address] [place] [address] Care Team Providers Care Principal Developer Name Role Phone Carolee Harris MD Primary Care Provider [phone] Allergies No known active allergies Medications No known medications Encounters Date Type Department Care Team Description 09/22/2024 1:03 AM CHEMICAL PROCESSOR - 09/22/2024 1:04 AM CHEMICAL PROCESSOR Emergency [facility] Emergency Dept [address] [place] [address] Discharge Disposition: Left Without Being Seen 09/21/2024 Travel from Last 3 Months Social History Tobacco Use Types Packs/Day Years Used Date Smoking Tobacco: Never Assessed Adolescent Education Answer Date Record ed Getting School Help Needed Not on file 03/15 Sex and Gender Information Value Date Recorded Sex Assigned at Not on file Legal Sex Male 3:19 AM CHEMICAL PROCESSOR Gender Identity Not on file Sexual Orientation Not on file Last Filed Vital Signs Vital Sign Reading Time Taken Comments Blood Pressure 130/72 09/21/2024 11:45 PM CHEMICAL PROCESSOR Pulse 87 09/21/2024 11:46 PM CHEMICAL PROCESSOR Temperature 36.2 C (97.2 F) 09/21/2024 11:46 PM CHEMICAL PROCESSOR Respiratory Rate 20 09/21/2024 11:46 PM CHEMICAL PROCESSOR Oxygen Saturation 96% 09/21/2024 11:46 PM CHEMICAL PROCESSOR Inhaled Oxygen Concentration - - Weight 78.9 kg (174 lb) 09/21/2024 11:47 PM CHEMICAL PROCESSOR Height 188 cm (6' 2) 03/15/2024 11:54 [...] complete this topic Insurance [place] Care Teams Principal Developer Relationship Specialty Start Date End Date Carolee Harris MD [address] [place] [address] PCP - General 03/15/24
--- OUTSIDE RECORDS SUMMARY | 2024-09-25 18:22 | XMS_ITS | Referral Summary ---
Author Organization [place] Address [address] [place] [address] Care Team Providers Care Director Of Outreach Name Role Phone Carolee Harris MD Primary Care Provider [phone] Encounters Date Type Department Care Team Description 09/22/2024 1:03 AM GREEN COFFEE BLENDER - 09/22/2024 1:04 AM GREEN COFFEE BLENDER Emergency [facility] Emergency Dept [address] [place] [address] Discharge Disposition: Left Without Being Seen 09/21/2024 [...] on file Legal Sex Male 3:19 AM GREEN COFFEE BLENDER Gender Identity Not on file Sexual Orientation Not on file Last Filed Vital Signs Vital Sign Reading Time Taken Comments Blood Pressure 130/72 09/21/2024 11:45 PM GREEN COFFEE BLENDER Pulse 87 09/21/2024 11:46 PM GREEN COFFEE BLENDER Temperature 36.2 C (97.2 F) 09/21/2024 11:46 PM GREEN COFFEE BLENDER Respiratory Rate 20 09/21/2024 11:46 PM GREEN COFFEE BLENDER Oxygen Saturation 96% 09/21/2024 11:46 PM GREEN COFFEE BLENDER Inhaled Oxygen Concentration - - Weight 78.9 kg (174 lb) 09/21/2024 11:47 PM GREEN COFFEE BLENDER Height 188 cm (6' 2) 03/15/2024 11:54 AM CDT Body Mass Index 22.34 03/15/2024 11:54 AM CDT Plan of Treatment Not on file Insurance [place]ICARE [place] MED[place]ARE [place]PPLE[place] MED[place]ARE [place]PPLEMENT Care Teams Director Of Outreach Relationship Specialty Start Date End Date Carolee Harris MD [address] [place] [address] PCP - General 03/15/24
== END 2024-09-25 19:29 | disposition home or self-care (01) ==
PROVIDERS: Emergency Provider Emergency Medicine
DX: R79.1 Abnormal coagulation profile (principal)
CPT/HCPCS: 99282; 99283